=== PATIENT | female | born 1940 | race Caucasian/White ===

== ENCOUNTER 2019-02-17 13:51 | Inpatient (IN) | payer MEDICARE, OTHER, SELFPAY ==
[2019-02-17 13:52] VITALS: BP 157/99; PULSE 65; RESP 14; TEMP 37.4; O2SAT 97; BMI 20.1
--- NOTE | 2019-02-17 14:12 | ED.VIS.GEN ---
History of Present Illness Chief Complaint: Lower Extremity Injury Detail of Chief Complaint: Left hip pain Informant: Patient Onset: Today Current Severity: Mild Maximum Severity: Moderate Narrative: Patient presents with left hip pain after a fall. She was out on a walk. She heard a car coming and turned to look at it, lost her balance, and fell onto her left hip. She was able to get up and walk across the street where she called family to come pick her up. When they tried to get her in the car she had significant pain when trying to lift her leg. She denies any other injury. Past Medical History - Allergies and Home Meds Allergies/Adverse Reactions: Allergies No Known Allergies Allergy (Verified 01/06/17 11:58) Primary Care Physician: Tierney Samayoa MD [Primary Care Provider] - Prior records reviewed: Yes Past Medical History: - - Reviewed Surgical History: coronary bypass surgery, hysterectomy, - - tubal ligation. Smoking Status: Never smoker - Family History Maternal Family History: Reports: No pertinent history Paternal Family History: Reports: No pertinent history Review of Systems General: Denies: Chills, Fever Eyes: Denies: Visual changes - bilaterally ENT: Denies: Bilateral ear pain Cardiovascular: Denies: Chest pain Respiratory: Denies: Dyspnea, Cough Gastrointestinal: Denies: Abdominal pain, Nausea, Vomiting, Diarrhea Musculoskeletal: Reports: Extremity Pain. Denies: Back pain Skin: Reports: Abrasions. Denies: Rash Neurological: Denies: Headache, Weakness, Parasthesia Endocrine: Denies: Polyuria, Polydipsia Hematologic: Denies: Easy bruising, Easy bleeding Allergy: Denies: Uticaria Physical Exam Vital Signs/Narrative: Vital Signs Temp Pulse Resp BP Pulse Ox 02/17/19 13:52 99.3 F H 65 14 157/99 H 97 Inital Vital Signs reviewed: Yes General: Well nourished, Well developed Head: Normocephalic ENT: Moist mucous membranes Neck: Supple, Nontender, - - No C-spine tenderness. Cardiovascular: Regular rate, Regular rhythm Respiratory: No distress, CTA bilaterally Abdomen: Soft, Nontender Extremities: - - Mild tenderness palpation over the greater trochanter of the left hip. Equal leg lengths are noted. No tenderness with logroll of the left leg. Skin: - - Linear abrasions over the anterior left knee without bony tenderness. Neurological: Alert, Oriented x3 Psychological: Normal affect Diagnostic/Tx/Re-eval Impressions Hip/Pelvis X-Ray 02/17/19 14:15 IMPRESSION: Questionable cortical irregularity of the left inferior pubic ramus near the pubic tubercle. Electronically Signed: Shaq Bueno, at 14:52 EDT Tel [phone], Service support , Pelvis CT 02/17/19 15:02 IMPRESSION: Fracture of the left pubic rami near the pubic tubercle. Electronically Signed: Shaq DO Myles at 16:02 EDT Tel [phone], Service support , 02/17/19 14:15 HIP, UNI W/ Pelvis 2-3 Views [RAD] Stat 02/17/19 15:02 CT Pel [Pelvis without IV Contrast] [CT] Stat Laboratory Results 02/17/19 14:20 Urine Color Yellow Urine Clarity Clear Urine pH 7.0 Ur Specific [place] 1.015 Urine Protein 15 H Urine Glucose (UA) 50 H Urine Ketones Negative Urine Occult Blood 150 H Urine Nitrite Negative Urine Bilirubin Negative Urine Urobilinogen Normal Ur Leukocyte Esterase Negative Urine RBC 5-10 SEEN Urine WBC 0 SEEN Ur Squamous Epith Cells 0-5 SEEN Urine Bacteria 0 SEEN Urine Mucus 0 SEEN - Medical Decision Making Patient was given 1 tab of Nazlini in the emergency room. She has significant pain when weightbearing, but is comfortable when sitting at rest. After discussion with family they would prefer she stay overnight for observation and look at a rehab placement to help her with her strength and balance. I spoke with the hospitalist. ED Disposition - Plan for ED Patient: Disposition: Acute Care Hospital [facility] Diagnosis: Fall, Pubic ramus fracture Referrals: Tierney Samayoa MD [Primary Care Provider] -
--- NOTE | 2019-02-17 14:15 | RAD_ITS ---
STUDY: X-RAY - PELVIS AND LEFT HIP REASON FOR EXAM: Female, 78 years old. Fall TECHNIQUE: 3 views of the pelvis and hip. COMPARISON: November 22, 2015. FINDINGS: There is a non-specific bowel gas pattern. Diffuse colonic fecal retention. Normal visualized soft tissue structures. Surgical fusion through the sacroiliac joints. Degenerative lumbar changes. Questionable cortical irregularity of the left inferior pubic ramus near the pubic tubercle. Normal pubic symphysis. Normal bilateral ischial tuberosities. Normal visualized femoral head. Normal acetabulum. Normal hip joint. RAD/HIP, UNI W/ Pelvis 2-3 Views IMPRESSION: Questionable cortical irregularity of the left inferior pubic ramus near the pubic tubercle. Electronically Signed: Shaq Bueno DO at 14:52 EDT Tel [phone], Service support ,
[2019-02-17 14:25] LABS: Bacteria 0 SEEN /hpf (None Seen); Mucous, Urine 0 SEEN /hpf (<or=2+); White Blood Cells 0 SEEN /hpf (0-5)
[2019-02-17 14:26] LABS: Color, Urine Yellow (Yellow); Glucose, Dipstick 50 mg/dl (Normal); Ketone-Dipstick Negative (Negative); Leukocyte Esterase-Dipstick Negative /ul (Negative); Nitrite-Dipstick Negative (Negative); Occult Blood-Urine 150 /ul (Negative); Protein-Dipstick 15 mg/dl (Negative); Specific Gravity, Urine 1.015 (1.002-1.030); Urine Bilirubin Dipstick Negative (Negative); Urine Clarity Clear (Clear); Urine Urobilinogen Normal (Normal)
[2019-02-17 14:34] LABS: Red Blood Cells-Urine 5-10 SEEN /hpf (0-5); Squamous Epithelial Cells - UA 0-5 SEEN /hpf (5-10)
--- NOTE | 2019-02-17 15:02 | CT_ITS ---
STUDY: CT PELVIS WITHOUT CONTRAST REASON FOR EXAM: Female, 78 years old. Fall RADIATION DOSAGE (If Supplied By Facility): CTDIvol = ( 13.77 ) mGy, DLP = ( 402.34 ) mGycm TECHNIQUE: Transaxial imaging of the pelvis was performed with oral contrast, and without intravenous administration of contrast material. Individualized dose optimization techniques were used for this CT. COMPARISON: None. FINDINGS: Normal urinary bladder. Normal visualized small intestine. Normal visualized colon. There is no pelvic fluid. There is no pelvic mass lesion or lymphadenopathy. Calcified visualized pelvic arteries. Normal abdominal wall. Surgical fusion with 2 screws noted through the sacroiliac joints bilaterally. Fracture of the left pubic rami near the pubic tubercle. CT/Pelvis without IV Contrast IMPRESSION: Fracture of the left pubic rami near the pubic tubercle. Electronically Signed: Shaq Bueno DO at 16:02 EDT Tel [phone], Service support ,
[2019-02-17] MEDS: HYDROcodone Bitartrate/Apap 5/325 Tablet PO (16:09)
[2019-02-17 16:11] VITALS: BP 181/88; PULSE 62; RESP 16; O2SAT 98
--- NOTE | 2019-02-17 16:40 | PCM.HP.STD ---
Problem List (1) Fall Status: Acute (2) Pubic ramus fracture Status: Acute (3) sacral ala fractures Status: Resolved (4) Asthma Status: Chronic (5) Status post coronary artery bypass graft Status: Chronic (6) HLD (hyperlipidemia) Status: Chronic (7) Type II diabetes mellitus Status: Chronic (8) CAD (coronary artery disease) Status: Chronic (9) Benign essential hypertension Status: Chronic History of Present Illness Date of Admission: 02/17/19 Chief Complaint: Left hip/groin pain. The patient is a 78 year old F who presents the emergency room due to left hip and groin pain following fall. Patient states she was going on her daily walk when she thought she heard a car behind her and when she turned to look, she lost her balance and fell on her left side. She denies hitting her head. She denies any abrasions or other injury. Patient as well as family at bedside state that patient has had several falls over the past few years. She reports she fell in November and fractured her ribs. She reports using a cane at home which she had with her today during her walk. She denies dizziness, lightheadedness or syncope. She complains of urinary urgency. Denies dysuria or other urinary symptoms. Denies fever, chills. Denies other recent illness or associated symptoms. She recently received oral pain medication for left hip pain and is currently comfortable. She has a past medical history of CAD status post CABG, hypertension, hyperlipidemia, type 2 diabetes mellitus, asthma. Past Medical History Past Medical History (Chronic Problems): Chronic Problems Asthma (Chronic) Status post coronary artery bypass graft (Chronic) HLD (hyperlipidemia) (Chronic) Type II diabetes mellitus (Chronic) CAD (coronary artery disease) (Chronic) Benign essential hypertension (Chronic) Allergies No Known Allergies Allergy (Verified 01/06/17 11:58) Home Medications: Ambulatory Orders Medication Instructions Recorded Aspirin 325 mg PO DAILY 11/15/15 Budesonide/Formoterol 80-4.5 2 puff INHALATION DAILY 11/15/15 [Symbicort 80-4.5 Mcg Inhaler] Lisinopril [Zestril] 20 mg PO BID 11/15/15 Metoprolol Tartrate [Lopressor 50 mg PO BID 11/15/15 (Beta Shea)] Pravastatin [Pravachol] 60 mg PO DAILY 11/15/15 metFORMIN HCl [Glucophage] 1,000 mg PO BREAKFAST 11/15/15 Centrum Silver Women Tablet 1 tab PO DAILY 11/20/15 Metformin HCl 500 mg PO BID 11/20/15 [place]-3/Dha/Epa/Fish Oil [[place] 3 1 each PO DAILY 11/20/15 500 Softgel] Surgical History: coronary bypass surgery, hysterectomy, - - tubal ligation, back surgery. 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 Denies: Dysuria, Frequency, Incontinence Musculoskeletal: Denies: Joint Pain, Joint Tenderness Skin: Denies: Rash, Wounds Neurological: Reports: Balance problems. Denies: Slurred speech, Focal weakness, Numbness, Tingling Psychiatric: Denies: Anxiety, Depression, Homicidal Ideations, Suicidal Ideations Hematologic/ Lymphatic: Denies: Easy Bruising, Easy Bleeding VTE Information - Inpt Only VTE Present on Admission: No VTE Mechan Device Prophylaxis: None VTE Pharm Prophylaxis ordered?: Yes Patient Problems: Active and Suspected Problems Fall (Acute) Pubic ramus fracture (Acute) - Physical Exam General: Alert, Oriented x3, Cooperative HEENT: Atraumatic, PERRLA, EOMI, Normocephalic Neck: Supple, No JVD, Negative Carotid Bruits Lungs: Clear to auscultation, Normal air movement Cardiovascular: Regular rate, Regular Rhythm, Normal S1, Normal S2, No murmurs Abdomen: Bowel Sounds Present, Soft, Non Tender, Non-Distended Extremities: No clubbing, No cyanosis, No edema, Capillary Refill Less than 3 Seconds Skin: No rashes, No breakdown Musculoskeletal: Tenderness - Left hip area Neurological: Cranial nerves II-XII grossly intact, Neuro grossly intact Psych/Mental Status: Normal Affect, Appropriate Vital Signs Temp Pulse Resp BP Pulse Ox 99.3 F H 62 16 181/88 H 98 02/17/19 13:52 02/17/19 16:11 02/17/19 16:11 02/17/19 16:11 02/17/19 16:11 Oxygen Delivery Method Room Air Weight: 110 lb Body Mass Index (BMI) 20.1 Laboratory Tests Past 24 Hrs 02/17/19 14:20 Urine Color Yellow Urine Clarity Clear Urine pH 7.0 Ur Specific [place] 1.015 Urine Protein 15 H Urine Glucose (UA) 50 H Urine Ketones Negative Urine Occult Blood 150 H Urine Nitrite Negative Urine Bilirubin Negative Urine Urobilinogen Normal Ur Leukocyte Esterase Negative Urine RBC 5-10 SEEN Urine WBC 0 SEEN Ur Squamous Epith Cells 0-5 SEEN Urine Bacteria 0 SEEN Urine Mucus 0 SEEN Assessment/Plan All Active Problems Fall (Acute) Pubic ramus fracture (Acute) sacral ala fractures (Resolved) 1. Acute left pubic ramus fracture secondary to traumatic fall at home, history of recurrent falls-CT of pelvis shows fracture of the left pubic rami near the pubic tubercle. PT/OT. PRN pain regimen. Case management consult for discharge planning. Fall precautions. UA unremarkable. Check CBC, BMP. 2. CAD status post CABG-continue aspirin, statin, metoprolol. 3. Hypertension-continue lisinopril, metoprolol regimen. As needed hydralazine for systolic blood pressure greater than 160. 4. Hyperlipidemia-continue statin regimen. 5. Type 2 diabetes mellitus-hold oral regimen. Accu-Cheks before meals at bedtime with sliding scale insulin. 6. Asthma-no acute exacerbation. As needed albuterol aerosol. DVT prophylaxis-SCDs, lovenox This patient was seen by NICK Chirinos under the supervision of Dr. Luque.
[2019-02-17 16:51] LABS: Absolute Lymphocyte Count 1.46 X10^3/uL (0.83-4.51); Absolute Neutrophil Count 8.3 X10^3/uL (2.0-7.7); Basophil# 0.03 X10^3/uL; Basophil% 0.3 % (0-1); Eosinophil# 0.07 X10^3/uL; Eosinophils% 0.7 % (0-5); Hematocrit 40.3 % (37-47); Hemoglobin 13.6 g/dL (12.0-15.0); Lymphocyte # 1.46 X10^3/ul (4.0); Lymphocyte % 13.9 % (19-41); Mean Corp Hgb Conc 33.7 g/dL (32-36); Mean Corpuscular Hgb 32.9 pg (27.0-32.0); Mean Corpuscular Volume 97.6 fL (81-99); Mean Platelet Vol. 9.7 fl (6.2-12.0); Monocyte% 5.7 % (0-10); NRBC Flagged by Analyzer 0 % (0-5); Neutrophil % 78.8 % (47-70); Platelet Count 223 K/mm3 (150-450); RBC Distribution Width CV 11.9 % (11.6-14.6); RBC Distribution Width SD 42.8 fl (35.1-43.9); Red Blood Count 4.13 M/mm3 (4.2-5.4); White Blood Count 10.5 K/mm3 (4.4-11.0)
[2019-02-17 17:03] LABS: Anion Gap 9 (5-15); BUN 20 mg/dL (7-18); Calcium,Total 9.8 mg/dL (8.5-10.1); Chloride 98 mmol/L (98-107); Creatinine, Serum 0.69 mg/dL (0.55-1.02); EST Glomerular Filtration Rate 87 mL/min (>60); Est Glom Filt Rate - Afr Amer 106 mL/min (>60); Estimated Creatinine Clearance 35.93 ml/min; Glucose 112 mg/dL (74-106); Magnesium 1.8 mg/dL (1.6-2.6); Potassium 3.8 mmol/L (3.5-5.1); Sodium Level 137 mmol/L (136-145)
[2019-02-17 17:31] VITALS: BMI 21.1
[2019-02-17 18:15] VITALS: BP 160/68; PULSE 62; RESP 16; TEMP 36.8; O2SAT 96
[2019-02-17] MEDS: 0.9% Normal Saline 1,000 ML 100 ML IV (18:20)
[2019-02-17] MEDS: Ipratropium/Albuterol Sulfate 3 ML AMPUL.NEB INHALATION (19:40)
[2019-02-17 19:43] VITALS: PULSE 65; RESP 16
[2019-02-17 22:44] VITALS: BP 138/59; PULSE 64; RESP 16; TEMP 36.8; O2SAT 96
[2019-02-17 22:46] VITALS: PULSE 67
[2019-02-17] MEDS: Metoprolol Tartrate 50 MG Tablet PO (22:46)
[2019-02-17] MEDS: Lisinopril 20 MG Tablet PO (22:46)
[2019-02-17] MEDS: Pravastatin 20 MG Tablet 60 MG PO (22:46)
[2019-02-17 22:56] LABS: Bedside Glucose 199 mg/dL (70-110)
[2019-02-17] MEDS: Insulin Lispro 100 UNIT/ML INSULN.PEN SC (23:01)
[2019-02-18] VITALS (9 sets, daily range): BP systolic 116–166; BP diastolic 57–80; PULSE 58–72; RESP 16–18; TEMP 36.3–36.9; O2SAT 96–100
[2019-02-18 00:10] LABS: Bedside Glucose 114 mg/dL (70-110)
[2019-02-18] MEDS: HYDROcodone Bitartrate/Apap 5/325 Tablet PO (02:53)
[2019-02-18 05:20] LABS: Absolute Lymphocyte Count 1.25 X10^3/uL (0.83-4.51); Absolute Neutrophil Count 5.6 X10^3/uL (2.0-7.7); Basophil# 0.02 X10^3/uL; Basophil% 0.3 % (0-1); Eosinophil# 0.09 X10^3/uL; Eosinophils% 1.2 % (0-5); Hemoglobin 11.4 g/dL (12.0-15.0); Lymphocyte # 1.25 X10^3/ul (4.0); Lymphocyte % 16.2 % (19-41); Mean Corp Hgb Conc 33.5 g/dL (32-36); Mean Corpuscular Hgb 32.5 pg (27.0-32.0); Mean Corpuscular Volume 96.9 fL (81-99); Mean Platelet Vol. 9.9 fl (6.2-12.0); Monocyte# 0.69 X10^3/uL; NRBC Flagged by Analyzer 0 % (0-5); Neutrophil # 5.63 X10^3/uL (2.7-7.7); Platelet Count 198 K/mm3 (150-450); RBC Distribution Width SD 42.4 fl (35.1-43.9); Red Blood Count 3.51 M/mm3 (4.2-5.4); White Blood Count 7.7 K/mm3 (4.4-11.0)
[2019-02-18 05:41] LABS: Anion Gap 7 (5-15); BUN 14 mg/dL (7-18); BUN/Creat Ratio 29.7 RATIO (10-20); Calcium,Total 8.2 mg/dL (8.5-10.1); Chloride 101 mmol/L (98-107); Creatinine, Serum 0.47 mg/dL (0.55-1.02); EST Glomerular Filtration Rate 135 mL/min (>60); Est Glom Filt Rate - Afr Amer 164 mL/min (>60); Estimated Creatinine Clearance 36.08 ml/min; Glucose 165 mg/dL (74-106); Potassium 3.8 mmol/L (3.5-5.1); Sodium Level 135 mmol/L (136-145)
[2019-02-18] MEDS: Insulin Lispro 100 UNIT/ML INSULN.PEN SC ×4 (06:33→21:27)
[2019-02-18 06:40] LABS: Bedside Glucose 168 mg/dL (70-110)
[2019-02-18] MEDS: Ipratropium/Albuterol Sulfate 3 ML AMPUL.NEB INHALATION ×3 (06:52→19:10)
[2019-02-18] MEDS: Aspirin 325 MG Tablet PO (08:18)
[2019-02-18] MEDS: Lisinopril 20 MG Tablet PO ×2 (08:18→21:26)
[2019-02-18] MEDS: Enoxaparin 30 MG/0.3 ML Syringe SC (08:19)
[2019-02-18] MEDS: Metoprolol Tartrate 50 MG Tablet PO ×2 (08:19→21:27)
[2019-02-18] MEDS: Psyllium 1 PACKET PO (08:20)
[2019-02-18] MEDS: Acetaminophen 325 MG Tablet 650 MG PO ×3 (08:30→21:27)
[2019-02-18 11:20] LABS: Bedside Glucose 245 mg/dL (70-110)
--- NOTE | 2019-02-18 11:30 | CASEMGMT ---
BECKY SCHMITZ Face to Face with patient for initial transition planning/care coordination assessment. BECKY SCHMITZ introduced self and role at [facility]. Patient lying in bed, alert and oriented, daughter at bedside. Patient willing to participate in assessment and is able to answer all questions appropriately. Care providers, pharmacy, and demographics verified. Patient wishes to discharge to inpatient rehab unit for additional therapy. Patient states she has no further needs or concerns at this time. JULIANA Delgado updated regarding request for inpatient rehab unit. PCP: Danita Specialists: Hina, funeral director/embalmer/owner; Orville, mobile heavy equipment operator; Neurology at [facility] Preferred Pharmacy: [facility] Insurance: [email or web address] Prescription Benefit: yes Living Will/HPOA: yes son Ben Link HPOA LNOK: son, 2 daughters Living Arrangements: Patient lives with son and DIL in attached in-law suite. Son and DIL work during the day, patient only 8-10 hours during the day. Patient states she was independent at home prior to fall and hospitalization. Transportation: daughter DME/HHC: patient has cane and walker at home. Patient has been to inpatient rehab at [place] [facility] in the past. Patient has also had HHC but unable to recall company. Disposition Plan: Inpatient rehab pending acceptance. Nallely MAE, RN, CM
--- NOTE | 2019-02-18 11:55 | CASEMGMT ---
Addendum entered by Nallely Delgado 02/18/19 14:32: JULIANA received call from Sophia with TCU stating TCU is able to accept pt . SW asked Sophia to keep pt on [facility] list in the event a bed on RU opens up before . Sophia states she will do so. JULIANA in to speak with pt and Nohemy. SW updated pt and Nohemy that it appears physician will keep pt until but again this worker can't guarantee pt will get qualifying stay. SW updated pt and Nohemy that TCU will have a bed for pt . SW informed pt and Nohemy that this worker kept pt on RU list in the event that a bed opens on RU before . Pt and Nohemy state understanding. Plan: TCU Nallely Delgado MAMMAL CONTROL AGENT, RADIATOR SPECIALIST Original Note: Social Work Note SW received referral for [facility]. SW placed a call to Referral Line and per Sophia RU won't have a bed until Monday. JULIANA in to speak with pt and pt's daughter Nohemy present in room. JULIANA introduced self and role at [facility]. JULIANA updated pt and Nohemy that RU doesn't have any beds available at this time. SW provided Nohemy with list of SNF. JULIANA explained Medicare guidelines and that pt would need to be at [facility] for three midnight stay to qualify for SNF but that the physician has the final say when pt is medically cleared for discharge. JULIANA explained that if pt doesn't get three midnight stay under Medicare then it would be private pay for SNF. Nohemy asked about TCU. JULIANA explained that this worker will have to call TCU and see if they have a bed available but again states it would depend on if physician is keeping pt until . Nohemy asked that this worker ask physician about keeping pt until and also make referral to TCU. Nohemy states that if physician doesn't keep pt, private pay for SNF wouldn't be an option and pt would go home with [facility]. Nohemy states she just has concerns that pt will get up at night and have another fall. JULIANA placed a call to referral line and left message regarding referral. JULIANA spoke with King GUSMAN and updated her on RU and SNF. King Aquino agreeable to changing pt to inpatient today and asked about putting pt on RU list in the event RU is able to accept pt before SNF on . SW waiting for call back regarding TCU. Plan: RU vs SNF vs Home with HHC Nallely Delgado MSW, RADIATOR SPECIALIST
--- NOTE | 2019-02-18 11:58 | PN_ITS ---
<Neris Aquino - Last Filed: 02/18/19 12:02> Patient Problems: Active and Suspected Problems Fall (Acute) Pubic ramus fracture (Acute) Subjective: Patient seen and examined. Reports pain is well controlled on oral pain regimen. Reports she feels unsteady on her feet. - Physical Exam General: Alert, Oriented x3, Cooperative HEENT: Atraumatic, PERRLA, EOMI, Normocephalic Neck: Supple, No JVD, Negative Carotid Bruits Lungs: Clear to auscultation, Normal air movement Cardiovascular: Regular rate, Regular Rhythm, Normal S1, Normal S2, No murmurs Abdomen: Bowel Sounds Present, Soft, Non Tender, Non-Distended Extremities: No clubbing, No cyanosis, No edema, Capillary Refill Less than 3 Seconds Skin: No rashes, No breakdown Musculoskeletal: Tenderness - Left hip Neurological: Cranial nerves II-XII grossly intact, Neuro grossly intact Psych/Mental Status: Normal Affect, Appropriate Vital Signs Temp Pulse Resp BP Pulse Ox 98.2 F 71 18 166/76 H 100 02/18/19 08:15 02/18/19 08:19 02/18/19 08:15 02/18/19 08:15 02/18/19 08:15 Oxygen Delivery Method Room Air Weight: 115 lb 8.356 oz Body Mass Index (BMI) 21.1 Intake and Output for Last 24 Hours 02/16/19 02/17/19 02/18/19 23:59 23:59 23:59 Intake Total 100 / 100 1011.67 / 1011.67 Output Total 300 / 300 1100 / 1100 Balance -200 / -200 -88.33 / -88.33 Laboratory Tests Past 24 Hrs 02/17/19 02/17/19 02/17/19 14:20 16:45 16:45 WBC 10.5 RBC 4.13 L Hgb 13.6 Hct 40.3 MCV 97.6 MCH 32.9 H MCHC 33.7 RDW Std Deviation 42.8 RDW Coeff of José Miguel 11.9 Plt Count 223 MPV 9.7 Immature Gran % (Auto) 0.600 Neut % (Auto) 78.8 H Lymph % (Auto) 13.9 L [place] % (Auto) 5.7 Eos % (Auto) 0.7 Baso % (Auto) 0.3 Absolute Neuts (auto) 8.3 H Absolute Lymphs (auto) 1.46 Nucleated RBC % 0 Sodium 137 Potassium 3.8 Chloride 98 Carbon Dioxide 30.0 Anion Gap 9 BUN 20 H Creatinine 0.69 Estim Creat Clear Calc 35.93 Est GFR (MDRD) Af Amer 106 Est GFR (MDRD) Non-Af 87 BUN/Creatinine Ratio 29.0 H Glucose 112 H Calcium 9.8 Magnesium 1.8 Urine Color Yellow Urine Clarity Clear Urine pH 7.0 Ur Specific [place] 1.015 Urine Protein 15 H Urine Glucose (UA) 50 H Urine Ketones Negative Urine Occult Blood 150 H Urine Nitrite Negative Urine Bilirubin Negative Urine Urobilinogen Normal Ur Leukocyte Esterase Negative Urine RBC 5-10 SEEN Urine WBC 0 SEEN Ur Squamous Epith Cells 0-5 SEEN Urine Bacteria 0 SEEN Urine Mucus 0 SEEN 02/18/19 02/18/19 04:40 04:40 WBC 7.7 RBC 3.51 L Hgb 11.4 L Hct 34.0 L MCV 96.9 MCH 32.5 H MCHC 33.5 RDW Std Deviation 42.4 RDW Coeff of José Miguel 12.0 Plt Count 198 MPV 9.9 Immature Gran % (Auto) 0.300 Neut % (Auto) 73.0 H Lymph % (Auto) 16.2 L [place] % (Auto) 9.0 Eos % (Auto) 1.2 Baso % (Auto) 0.3 Absolute Neuts (auto) 5.6 Absolute Lymphs (auto) 1.25 Nucleated RBC % 0 Sodium 135 L Potassium 3.8 Chloride 101 Carbon Dioxide 27.0 Anion Gap 7 BUN 14 Creatinine 0.47 L Estim Creat Clear Calc 36.08 Est GFR (MDRD) Af Amer 164 Est GFR (MDRD) Non-Af 135 BUN/Creatinine Ratio 29.7 H Glucose 165 H Calcium 8.2 L Magnesium Urine Color Urine Clarity Urine pH Ur Specific [place] Urine Protein Urine Glucose (UA) Urine Ketones Urine Occult Blood Urine Nitrite Urine Bilirubin Urine Urobilinogen Ur Leukocyte Esterase Urine RBC Urine WBC Ur Squamous Epith Cells Urine Bacteria Urine Mucus POC Glucose 02/18/19 02/18/19 02/17/19 11:08 06:31 22:50 POC Glucose 245 H 168 H 199 H 02/17/19 18:10 POC Glucose 114 H Medical Necessity - Tobacco Use Smoking Status: Never smoker Assessment/Plan All Active Problems Fall (Acute) Pubic ramus fracture (Acute) sacral ala fractures (Resolved) 1. Acute left pubic ramus fracture secondary to traumatic fall at home, history of recurrent falls-CT of pelvis shows fracture of the left pubic rami near the pubic tubercle. PT/OT. PRN pain regimen. Case management consult for discharge planning. Fall precautions. UA unremarkable. Patient and family requesting SNF given patient is by herself for 10 hours a day. No rehab beds available at this time. SNF pending pre-cert unless rehab bed becomes available. 2. CAD status post CABG-continue aspirin, statin, metoprolol. 3. Hypertension-continue lisinopril, metoprolol regimen. As needed hydralazine for systolic blood pressure greater than 160. 4. Hyperlipidemia-continue statin regimen. 5. Type 2 diabetes mellitus-hold oral regimen. Accu-Cheks before meals at bedtime with sliding scale insulin. 6. Asthma-no acute exacerbation. As needed albuterol aerosol. DVT prophylaxis-SCDs, lovenox This patient was seen by NICK Chirinos under the supervision of Dr. Jose. <Santos Jose F - Last Filed: 02/18/19 15:50> - Physical Exam Vital Signs Temp Pulse Resp BP Pulse Ox 98.5 F 66 18 116/57 L 98 02/18/19 14:50 02/18/19 14:50 02/18/19 14:50 02/18/19 14:50 02/18/19 14:50 Oxygen Delivery Method Room Air Weight: 115 lb 8.356 oz Body Mass Index (BMI) 21.1 Intake and Output for Last 24 Hours 02/16/19 02/17/19 02/18/19 23:59 23:59 23:59 Intake Total 100 / 100 1411.67 / 1411.67 Output Total 300 / 300 1650 / 1650 Balance -200 / -200 -238.33 / -238.33 Laboratory Tests Past 24 Hrs 02/17/19 02/17/19 02/18/19 16:45 16:45 04:40 WBC 10.5 7.7 RBC 4.13 L 3.51 L Hgb 13.6 11.4 L Hct 40.3 34.0 L MCV 97.6 96.9 MCH 32.9 H 32.5 H MCHC 33.7 33.5 RDW Std Deviation 42.8 42.4 RDW Coeff of José Miguel 11.9 12.0 Plt Count 223 198 MPV 9.7 9.9 Immature Gran % (Auto) 0.600 0.300 Neut % (Auto) 78.8 H 73.0 H Lymph % (Auto) 13.9 L 16.2 L [place] % (Auto) 5.7 9.0 Eos % (Auto) 0.7 1.2 Baso % (Auto) 0.3 0.3 Absolute Neuts (auto) 8.3 H 5.6 Absolute Lymphs (auto) 1.46 1.25 Nucleated RBC % 0 0 Sodium 137 Potassium 3.8 Chloride 98 Carbon Dioxide 30.0 Anion Gap 9 BUN 20 H Creatinine 0.69 Estim Creat Clear Calc 35.93 Est GFR (MDRD) Af Amer 106 Est GFR (MDRD) Non-Af 87 BUN/Creatinine Ratio 29.0 H Glucose 112 H Calcium 9.8 Magnesium 1.8 02/18/19 04:40 WBC RBC Hgb Hct MCV MCH MCHC RDW Std Deviation RDW Coeff of José Miguel Plt Count MPV Immature Gran % (Auto) Neut % (Auto) Lymph % (Auto) [place] % (Auto) Eos % (Auto) Baso % (Auto) Absolute Neuts (auto) Absolute Lymphs (auto) Nucleated RBC % Sodium 135 L Potassium 3.8 Chloride 101 Carbon Dioxide 27.0 Anion Gap 7 BUN 14 Creatinine 0.47 L Estim Creat Clear Calc 36.08 Est GFR (MDRD) Af Amer 164 Est GFR (MDRD) Non-Af 135 BUN/Creatinine Ratio 29.7 H Glucose 165 H Calcium 8.2 L Magnesium POC Glucose 02/18/19 02/18/19 02/17/19 11:08 06:31 22:50 POC Glucose 245 H 168 H 199 H 02/17/19 18:10 POC Glucose 114 H Code Visit Addendum: Dr. Jose I personally examined the patient and reviewed the chart. I agree with the above. 78-year-old female is had a couple of falls recently at home, presents after a fall. She had leg pain on the left and was found to have a nondisplaced pubic rami fracture. She does have some tenderness on the outside aspect of her hip, but this is likely secondary to bruising. Even though she lives attached to 1 of her son's homes, they would prefer if she went to a residential facility for rehab prior to discharge home. She can likely be discharged to the transitional care unit on . Inpatient E&M: [id number] Subs Hosp L2
[2019-02-18] MEDS: Pravastatin 20 MG Tablet 60 MG PO (21:27)
[2019-02-18 22:56] LABS: Bedside Glucose 204 mg/dL (70-110)
[2019-02-19] VITALS (10 sets, daily range): BP systolic 99–160; BP diastolic 47–84; PULSE 60–85; RESP 16–18; TEMP 36.6–37; O2SAT 96–99
[2019-02-19 00:16] LABS: Bedside Glucose 190 mg/dL (70-110)
[2019-02-19] MEDS: Acetaminophen 325 MG Tablet 650 MG PO (06:43)
[2019-02-19] MEDS: Insulin Lispro 100 UNIT/ML INSULN.PEN SC ×4 (06:44→23:04)
[2019-02-19] MEDS: Ipratropium/Albuterol Sulfate 3 ML AMPUL.NEB INHALATION ×3 (07:34→19:27)
[2019-02-19 07:40] LABS: Bedside Glucose 163 mg/dL (70-110)
[2019-02-19] MEDS: Aspirin 325 MG Tablet PO (08:15)
[2019-02-19] MEDS: Metoprolol Tartrate 50 MG Tablet PO ×2 (11:10→22:55)
[2019-02-19] MEDS: Enoxaparin 30 MG/0.3 ML Syringe SC (11:11)
[2019-02-19] MEDS: Lisinopril 20 MG Tablet PO ×2 (11:11→22:56)
[2019-02-19] MEDS: Psyllium 1 PACKET PO (11:12)
[2019-02-19] MEDS: HYDROcodone Bitartrate/Apap 5/325 Tablet PO ×2 (11:22→18:06)
--- NOTE | 2019-02-19 11:26 | CASEMGMT ---
Social Work Note Physician states that pt would really benefit from [facility] at discharge. JULIANA explained that [facility] is stating they won't have a bed until Monday. Physician states he would be willing to keep pt until Monday for RU if a bed is confirmed for RU. JULIANA placed a call to Sophia with [facility]. Sophia states she can't confirm if there will be a bed on RU Monday or not. Sophia states she will keep pt on TCU list for . JULIANA asked Sophia to call this worker if a bed is confirmed on RU. Sophia states she will do so. Plan: TCU or if a bed becomes available Nallely Delgado VEST FRONT PRESSER, CERTIFIED HAND THERAPIST
[2019-02-19 11:50] LABS: Bedside Glucose 346 mg/dL (70-110)
--- NOTE | 2019-02-19 11:56 | PCM.PROGNOTE ---
<Neris Aquino - Last Filed: 02/19/19 11:58> Patient Problems: Active and Suspected Problems Fall (Acute) Pubic ramus fracture (Acute) Subjective: Patient seen and examined. Continues to have some left hip pain which is worse with ambulation and patient reports unsteady gait. Awaiting pre-cert to SNF. - Physical Exam General: Alert, Oriented x3, Cooperative HEENT: Atraumatic, PERRLA, EOMI, Normocephalic Neck: Supple, No JVD, Negative Carotid Bruits Lungs: Clear to auscultation, Normal air movement Cardiovascular: Regular rate, Regular Rhythm, Normal S1, Normal S2, No murmurs Abdomen: Bowel Sounds Present, Soft, Non Tender, Non-Distended Extremities: No clubbing, No cyanosis, No edema, Capillary Refill Less than 3 Seconds Skin: No rashes, No breakdown Musculoskeletal: Tenderness - Left hip area Neurological: Cranial nerves II-XII grossly intact, Neuro grossly intact Psych/Mental Status: Normal Affect, Appropriate Vital Signs Temp Pulse Resp BP Pulse Ox 98.6 F 70 16 150/52 H 99 02/19/19 11:13 02/19/19 11:13 02/19/19 11:13 02/19/19 11:13 02/19/19 11:13 Oxygen Delivery Method Room Air Weight: 115 lb 8.356 oz Body Mass Index (BMI) 21.1 Intake and Output for Last 24 Hours 02/17/19 02/18/19 02/19/19 23:59 23:59 23:59 Intake Total 100 / 100 1761.67 / 1961.67 300 / 300 Output Total 300 / 300 2200 / 2600 1100 / 1100 Balance -200 / -200 -438.33 / -638.33 -800 / -800 POC Glucose 02/19/19 02/19/19 02/18/19 11:37 06:40 21:25 POC Glucose 346 H 163 H 204 H 02/18/19 17:02 POC Glucose 190 H Medical Necessity - Tobacco Use Smoking Status: Never smoker Assessment/Plan All Active Problems Fall (Acute) Pubic ramus fracture (Acute) sacral ala fractures (Resolved) 1. Acute left pubic ramus fracture secondary to traumatic fall at home, history of recurrent falls-CT of pelvis shows fracture of the left pubic rami near the pubic tubercle. PT/OT. PRN pain regimen. Case management consult for discharge planning. Fall precautions. UA unremarkable. TCU pending pre-cert. No rehab beds available at this time. SNF pending pre-cert unless rehab bed becomes available. 2. CAD status post CABG-continue aspirin, statin, metoprolol. 3. Hypertension-continue lisinopril, metoprolol regimen. As needed hydralazine for systolic blood pressure greater than 160. 4. Hyperlipidemia-continue statin regimen. 5. Type 2 diabetes mellitus-hold oral regimen. Accu-Cheks before meals at bedtime with sliding scale insulin. 6. Asthma-no acute exacerbation. As needed albuterol aerosol. DVT prophylaxis-SCDs, lovenox This patient was seen by NICK Chirinos under the supervision of Dr. Jose. <Santos Jose F - Last Filed: 02/19/19 17:22> - Physical Exam Vital Signs Temp Pulse Resp BP Pulse Ox 98.4 F 61 16 133/47 H 98 02/19/19 16:26 02/19/19 16:26 02/19/19 16:26 02/19/19 16:26 02/19/19 16:26 Oxygen Delivery Method Room Air Weight: 115 lb 8.356 oz Body Mass Index (BMI) 21.1 Intake and Output for Last 24 Hours 02/17/19 02/18/19 02/19/19 23:59 23:59 23:59 Intake Total 100 / 100 1761.67 / 1961.67 750 / 750 Output Total 300 / 300 2200 / 2600 1850 / 1850 Balance -200 / -200 -438.33 / -638.33 -1100 / -1100 POC Glucose 02/19/19 02/19/19 02/19/19 16:08 11:37 06:40 POC Glucose 183 H 346 H 163 H 02/18/19 02/18/19 21:25 17:02 POC Glucose 204 H 190 H Code Visit Addendum: Dr. Jose I personally examined the patient and reviewed the chart. I agree with the above. 38-year-old female who has had a couple of falls recently at home, presents after a fall. She had leg pain on the left and was found to have a nondisplaced pubic rami fracture. She does have some tenderness on the outside aspect of her hip that this is felt to be secondary to bruising. She would like to go to a penitentiary facility or rehab at discharge. We will plan for discharge on either or Monday depending on availability and facility. Inpatient E&M: 89237 Subs Hosp L2
[2019-02-19 16:36] LABS: Bedside Glucose 183 mg/dL (70-110)
[2019-02-19] MEDS: Pravastatin 20 MG Tablet 60 MG PO (22:55)
[2019-02-19] MEDS: 0.9% NaCl Peripheral Flush Adult/Peds IV (22:57)
[2019-02-19 23:56] LABS: Bedside Glucose 192 mg/dL (70-110)
[2019-02-20] VITALS (10 sets, daily range): BP systolic 129–162; BP diastolic 59–68; PULSE 59–91; RESP 16–20; TEMP 36.4–36.9; O2SAT 96–100
[2019-02-20] MEDS: Acetaminophen 325 MG Tablet 650 MG PO (01:05)
[2019-02-20] MEDS: HYDROcodone Bitartrate/Apap 5/325 Tablet PO (02:31)
[2019-02-20] MEDS: Ipratropium/Albuterol Sulfate 3 ML AMPUL.NEB INHALATION ×2 (07:00→12:59)
[2019-02-20] MEDS: Insulin Lispro 100 UNIT/ML INSULN.PEN SC ×4 (07:00→21:47)
[2019-02-20 07:46] LABS: Bedside Glucose 174 mg/dL (70-110)
[2019-02-20] MEDS: Aspirin 325 MG Tablet PO (10:33)
[2019-02-20] MEDS: Psyllium 1 PACKET PO (10:33)
[2019-02-20] MEDS: Lisinopril 20 MG Tablet PO ×2 (10:33→21:44)
[2019-02-20] MEDS: Enoxaparin 30 MG/0.3 ML Syringe SC (10:34)
[2019-02-20] MEDS: Metoprolol Tartrate 50 MG Tablet PO ×2 (10:34→21:44)
--- NOTE | 2019-02-20 10:38 | PN_ITS ---
Patient Problems: Active and Suspected Problems Fall (Acute) Pubic ramus fracture (Acute) Subjective: Feeling well, no issues overnight Vitals/I&O's: Vital Signs Temp Pulse Resp BP Pulse Ox 98.1 F 82 18 129/59 H 97 02/20/19 10:31 02/20/19 10:34 02/20/19 10:31 02/20/19 10:31 02/20/19 10:31 Oxygen Delivery Method Room Air Weight: 115 lb 8.356 oz Body Mass Index (BMI) 21.1 Intake and Output for Last 24 Hours 02/18/19 02/19/19 02/20/19 23:59 23:59 23:59 Intake Total 1761.67 / 1961.67 1100 / 1540 660 / 660 Output Total 2200 / 2600 2650 / 3425 1500 / 1500 Balance -438.33 / -638.33 -1550 / -1885 -840 / -840 General: Alert, Oriented x3, Cooperative, No apparent distress HEENT: Atraumatic, PERRLA, EOMI, Normocephalic Oral: Moist Mucosa Neck: Supple, No JVD Lungs: Clear to auscultation, Normal air movement, No rhonchi, No wheeze, No rales, Diminished Cardiovascular: Regular rate, Regular Rhythm, Normal S1, Normal S2, No murmurs Abdomen: Soft, Non Tender, Non-Distended, No Hepato-splenomegaly Extremities: No edema, Capillary Refill Less than 3 Seconds Skin: No rashes, No breakdown Musculoskeletal: Tenderness - Pubic rami on the left as well as on her left external hip Neurological: Neuro grossly intact, Sensory exam intact to light touch and pain Psych/Mental Status: Normal Affect, Appropriate Laboratory Results 02/19/19 11:37: POC Glucose 346 H 02/19/19 16:08: POC Glucose 183 H 02/19/19 23:03: POC Glucose 192 H 02/20/19 06:58: POC Glucose 174 H Current Medications Acetaminophen (Tylenol) 650 mg PO Q6H PRN PRN PRN Reason: Non-cardiac pain (mod-severe) Last Admin: 02/20/19 01:05 Dose: 650 mg Documented by: Hydrocodone Bitart/Acetaminophen ([place] 5mg-325mg) 1 - 2 tablet PO Q6H PRN PRN PRN Reason: Pain Score 4-10/10 Last Admin: 02/20/19 02:31 Dose: 1 tablet Documented by: Al Hydroxide/Mg Hydroxide (Mylanta Ii) 15 - 30 ml PO Q4H PRN PRN PRN Reason: INDIGESTION Albuterol Sulfate (Ventolin Aerosols) 2.5 mg INHALATION Q2H PRN PRN PRN Reason: dyspnea, wheezing Albuterol/Ipratropium (Duoneb) 3 ml INHALATION Q6HWA.RT [facility] Last Admin: 02/20/19 07:00 Dose: 3 ml Documented by: Aspirin (Aspirin) 325 mg PO DAILY@0800 [facility] Last Admin: 02/20/19 10:33 Dose: 325 mg Documented by: Dextrose (D50w Syringe) 0 gm IV X1 PRN; Protocol PRN Reason: Hypoglycemia Enoxaparin Sodium (Lovenox) 30 mg SC DAILY@1000 [facility] Last Admin: 02/20/19 10:34 Dose: 30 mg Documented by: Glucagon () 1 mg IM .X1 PRN PRN Reason: Hypoglycemia Hydralazine HCl (Apresoline Iv) 10 mg IV Q4H PRN PRN PRN Reason: SBP > 160 Insulin Human Lispro (Humalog Kwikpen (Bkc)) 0 unit SC ACHS [facility]; Protocol Last Admin: 02/20/19 07:00 Dose: 1 units Documented by: Lisinopril (Zestril) 20 mg PO BID [facility] Last Admin: 02/20/19 10:33 Dose: 20 mg Documented by: Magnesium Hydroxide (Milk Of Magnesia) 30 ml PO DAILY PRN PRN Reason: Constipation Melatonin (Melatonin) 3 mg PO QHS PRN PRN PRN Reason: INSOMNIA Metoprolol Tartrate (Lopressor (Beta Shea)) 50 mg PO BID [facility] Last Admin: 02/20/19 10:34 Dose: 50 mg Documented by: Morphine Sulfate () 1 - 2 mg IV Q4H PRN PRN PRN Reason: Pain Score 1-10/10 Nitroglycerin (Nitrostat) 0.4 mg SUBLINGUAL Q5M PRN PRN Reason: CARDIAC/CHEST PAIN Ondansetron HCl (Zofran) 4 mg IV Q8H PRN PRN PRN Reason: NAUSEA/VOMITING Pravastatin Sodium (Pravachol) 60 mg PO DAILY@2200 [facility] Last Admin: 02/19/19 22:55 Dose: 60 mg Documented by: Psyllium Hydrophilic Mucilloid (Metamucil) 1 packet PO DAILY [facility] Last Admin: 02/20/19 10:33 Dose: 1 packet Documented by: Senna/Docusate Sodium (Senokot-S, [place]-Colace) 2 tablet PO BID PRN PRN PRN Reason: Constipation Sodium Chloride () 5 - 15 ml IV UD PRN PRN Reason: SALINE FLUSH Last Admin: 02/19/19 22:57 Dose: 10 ml Documented by: STROKE Vital Signs/Narrative: Vital Signs Temp Pulse Resp BP Pulse Ox 02/20/19 10:34 82 02/20/19 10:31 98.1 F 82 18 129/59 H 97 02/20/19 07:28 97 02/20/19 07:00 66 20 H Medical Necessity - Tobacco Use Smoking Status: Never smoker Assessment/Plan All Active Problems Fall (Acute) Pubic ramus fracture (Acute) sacral ala fractures (Resolved) 1. Acute nondisplaced left pubic rami fracture secondary to a fall at home with a history of recurrent falls -Improving with therapy, however family does not feel that she is safe to go home therefore we are awaiting a bed in either transitional care unit or the rehab unit -Continue with PT/OT 2. CAD status post CABG/HTN/HLD -Stable blood pressure has been controlled -Continue with aspirin, statin, metoprolol, lisinopril 3. DM 2 -We will hold her oral regimen -Continue with sliding scale insulin Accu-Cheks AC at bedtime 4. Asthma -Acute exacerbation at this time -He with PRN albuterol DVT: Lovenox Code Visit Inpatient E&M: 06717 Subs Hosp L2
--- NOTE | 2019-02-20 11:47 | CASEMGMT ---
Social Work Note No beds are available on [facility] at this time. Pt does have a bed on TCU for . Plan: TCU Nallely Delgado MSW, [employer]IC
[2019-02-20 16:36] LABS: Bedside Glucose 177 mg/dL (70-110)
[2019-02-20] MEDS: Pravastatin 20 MG Tablet 60 MG PO (21:44)
[2019-02-20 21:51] LABS: Bedside Glucose 199 mg/dL (70-110)
[2019-02-21] VITALS (8 sets, daily range): BP systolic 132–165; BP diastolic 65–74; PULSE 70–89; RESP 16–20; TEMP 36.3–36.9; O2SAT 96–100
[2019-02-21 00:10] LABS: Bedside Glucose 247 mg/dL (70-110)
[2019-02-21] MEDS: 0.9% NaCl Peripheral Flush Adult/Peds IV (02:30)
[2019-02-21] MEDS: hydrALAZINE 20 MG/ML Vial 10 MG IV (02:32)
[2019-02-21] MEDS: HYDROcodone Bitartrate/Apap 5/325 Tablet PO ×2 (03:25→10:38)
[2019-02-21] MEDS: Insulin Lispro 100 UNIT/ML INSULN.PEN SC ×2 (06:42→11:38)
[2019-02-21 07:00] LABS: Bedside Glucose 190 mg/dL (70-110)
[2019-02-21] MEDS: Ipratropium/Albuterol Sulfate 3 ML AMPUL.NEB INHALATION ×2 (07:08→13:06)
--- NOTE | 2019-02-21 09:46 | PCM.TXEXTCAR ---
- Diet 02/17/19 17:30 Diet: Calorie Controlled Food consistency:: Regular Liquid Consistency:: Regular/Thin How many daily calories?: 1800 calorie - Routine Orders/Code Status Code Status: DNRCC-A - Therapies Physical Therapy: Eval and Treat Occupational Therapy: Eval and Treat - Allergies/Procedures Done in Hospital Allergies/Adverse Reactions: Allergies No Known Allergies Allergy (Verified 01/06/17 11:58) - Type of Care/Length of Stay Estimated LOS: Convalescent Care Less Than 30 days Type of Care Needed: Skilled Rehab Potential: Good Prognosis: Good - Additional Orders/Day of Discharge Day of Discharge: 02/21/19 - Dietary and Speech Recommendations Dietitian Recommendations/Changes: Recommend a diet change to 1600 calorie controlled, cardiac diet. - Follow Up Care Primary Care Physician: Tierney Samayoa MD [Primary Care Provider] - Please follow up with your Primary Care Physician in: 3-5 days
[2019-02-21] MEDS: Aspirin 325 MG Tablet PO (10:38)
[2019-02-21] MEDS: Metoprolol Tartrate 50 MG Tablet PO (10:39)
[2019-02-21] MEDS: Lisinopril 20 MG Tablet PO (10:39)
[2019-02-21] MEDS: Enoxaparin 30 MG/0.3 ML Syringe SC (10:40)
[2019-02-21] MEDS: Psyllium 1 PACKET PO (10:40)
[2019-02-21] MEDS: Magnesium Hydroxide 30 ML UDC PO (10:42)
[2019-02-21 11:35] LABS: Bedside Glucose 322 mg/dL (70-110)
--- NOTE | 2019-02-21 11:44 | CASEMGMT ---
Social Work Note Pt is discharging to TCU today. SW placed a call to Sophia with TCU and updated her that pt will be discharged today. Plan: TCU today Nallely Delgado BOWLING OR SKATING FRONT DESK CLERK, [employer]
--- NOTE | 2019-02-21 12:03 | CASEMGMT ---
SW let pt know that LW/POA forms are not on chart. Pt will ask daughter about bringing them in. RIZWAN Whitfield
--- NOTE | 2019-02-21 12:17 | NURSING ---
NURSE TO NURSE REPORT GIVEN TO [facility] EXT [id number]
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
== END 2019-02-21 14:30 | disposition skilled nursing facility (03) | DRG 536 ==
LOC: ED 16:27 → MS3 16:55
PROVIDERS: Admitting Provider Family Medicine; Emergency Provider Emergency Medicine; Family Provider Internal Medicine; PCP Internal Medicine; Visit Provider Family Medicine
DX: S32.592A Other specified fracture of left pubis, initial encounter for closed fracture (principal); I25.10 Atherosclerotic heart disease of native coronary artery without angina pectoris; W18.30XA Fall on same level, unspecified, initial encounter; Y93.01 Activity, walking, marching and hiking; I10 Essential (primary) hypertension; E78.5 Hyperlipidemia, unspecified; J45.909 Unspecified asthma, uncomplicated; F03.90 Unspecified dementia, unspecified severity, without behavioral disturbance, psychotic disturbance, mood disturbance, and anxiety; E11.9 Type 2 diabetes mellitus without complications; Z66 Do not resuscitate; Z79.82 Long term (current) use of aspirin; Z79.84 Long term (current) use of oral hypoglycemic drugs; Z91.81 History of falling; Z95.1 Presence of aortocoronary bypass graft
CPT/HCPCS: 36415; 72192; 73502; 80048; 81001; 82962; 83735; 85025; 94640; 97116; 97162; 97166; 97530; 97535; 99284; J7030; A4216

== ENCOUNTER 2019-02-21 14:52 | Inpatient (IN) | payer MEDICARE, OTHER, SELFPAY ==
[2019-02-21 14:42] VITALS: BMI 20.1
[2019-02-21 14:59] VITALS: BP 146/64; PULSE 71; RESP 20; TEMP 36.9; O2SAT 96
[2019-02-21 15:14] VITALS: BP 149/62; PULSE 73; RESP 18; TEMP 36.7; O2SAT 96
[2019-02-21 15:26] VITALS: BMI 20.5
[2019-02-21 15:27] VITALS: BMI 20.5
[2019-02-21 16:00] VITALS: BP 149/62; PULSE 70; RESP 18; TEMP 36.7; O2SAT 96
[2019-02-21 17:43] VITALS: BP 149/62; PULSE 70
[2019-02-21] MEDS: Lisinopril 20 MG Tablet PO (17:43)
[2019-02-21] MEDS: metFORMIN HCl 500 MG Tablet PO (17:43)
[2019-02-21] MEDS: Fluticasone/Salmeterol 232-14 Inhaler 1 PUFF IH (17:43)
[2019-02-21] MEDS: Metoprolol Tartrate 50 MG Tablet PO (17:43)
[2019-02-21] MEDS: Pravastatin 20 MG Tablet 60 MG PO (19:59)
[2019-02-21 21:15] LABS: Bedside Glucose 191 mg/dL (70-110)
--- NOTE | 2019-02-21 21:35 | NURSING ---
Patient came to this unit today from med surg 3. Patient oriented to room and call light.
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
[2019-02-22] MEDS: Lisinopril 20 MG Tablet PO ×2 (05:31→17:28)
[2019-02-22 05:32] VITALS: BP 179/78; PULSE 77
[2019-02-22] MEDS: Metoprolol Tartrate 50 MG Tablet PO ×2 (05:32→17:30)
[2019-02-22] MEDS: Polyethylene Glycol 3350 17 GM PACKET PO (05:32)
[2019-02-22] MEDS: Enoxaparin 40 MG/0.4 ML Syringe SC (05:32)
[2019-02-22] MEDS: Senna/Docusate Sodium 1 Tablet 2 TABLET PO ×2 (05:32→17:29)
[2019-02-22 05:33] LABS: Absolute Lymphocyte Count 1.47 X10^3/uL (0.83-4.51); Absolute Neutrophil Count 3.1 X10^3/uL (2.0-7.7); Basophil# 0.03 X10^3/uL; Basophil% 0.6 % (0-1); Eosinophil# 0.22 X10^3/uL; Eosinophils% 4.1 % (0-5); Hematocrit 37.3 % (37-47); Hemoglobin 11.8 g/dL (12.0-15.0); Lymphocyte # 1.47 X10^3/ul (4.0); Lymphocyte % 27.4 % (19-41); Mean Corp Hgb Conc 31.6 g/dL (32-36); Mean Corpuscular Hgb 32.1 pg (27.0-32.0); Mean Corpuscular Volume 101.4 fL (81-99); Mean Platelet Vol. 9.2 fl (6.2-12.0); Monocyte# 0.57 X10^3/uL; Monocyte% 10.6 % (0-10); NRBC Flagged by Analyzer 0 % (0-5); Neutrophil # 3.06 X10^3/uL (2.7-7.7); Neutrophil % 56.9 % (47-70); Platelet Count 216 K/mm3 (150-450); RBC Distribution Width CV 12.3 % (11.6-14.6); RBC Distribution Width SD 46.3 fl (35.1-43.9); Red Blood Count 3.68 M/mm3 (4.2-5.4); White Blood Count 5.4 K/mm3 (4.4-11.0)
[2019-02-22] MEDS: Omega-3 Acid Ethyl Esters 1 GM Capsule PO (05:33)
[2019-02-22] MEDS: Fluticasone/Salmeterol 232-14 Inhaler 1 PUFF IH ×2 (05:33→17:30)
[2019-02-22 05:49] LABS: Anion Gap 5 (5-15); BUN 16 mg/dL (7-18); BUN/Creat Ratio 24.1 RATIO (10-20); Chloride 105 mmol/L (98-107); Creatinine, Serum 0.66 mg/dL (0.55-1.02); EST Glomerular Filtration Rate 91 mL/min (>60); Est Glom Filt Rate - Afr Amer 110 mL/min (>60); Estimated Creatinine Clearance 36.08 ml/min; Glucose 189 mg/dL (74-106); Potassium 4.8 mmol/L (3.5-5.1); Sodium Level 139 mmol/L (136-145)
[2019-02-22] MEDS: Aspirin 81 MG TAB.CHEW PO (08:39)
[2019-02-22] MEDS: metFORMIN HCl 1,000 MG Tablet 1000 MG PO (08:39)
[2019-02-22] MEDS: traMADol 50 MG Tablet PO ×2 (10:06→20:32)
[2019-02-22] MEDS: Acetaminophen 500 MG Tablet 1000 MG PO ×2 (11:07→17:35)
[2019-02-22] MEDS: Tuberculin,Purif.prot.deriv. 50 TU/ML Vial 5 ML ID (11:15)
[2019-02-22] MEDS: Multivitamins,Ther W-Minerals Tablet 1 TABLET PO (11:22)
[2019-02-22] MEDS: metFORMIN HCl 500 MG Tablet PO ×2 (11:22→17:31)
--- NOTE | 2019-02-22 15:23 | PCM.PN.RX ---
<Kendra Bai - Last Filed: 02/22/19 15:23> Progress Note - Pharmacy Subjective: TCU Admission Objective: Allergies No Known Allergies Allergy (Verified 01/06/17 11:58) Current Medications Generic Name Dose Route Start Last Admin Trade Name Freq PRN Reason Stop Dose Admin Acetaminophen 1,000 mg 02/21/19 22:55 02/22/19 11:07 Tylenol PO 1,000 mg Q6H PRN PRN Administration Pain Score 1-3/10 Aspirin 81 mg 02/22/19 08:00 02/22/19 08:39 Aspirin, Baby PO 81 mg DAILY@0800 [facility] Administration Bisacodyl 10 mg 02/21/19 22:56 Dulcolax PO DAILY PRN Constipation Enoxaparin Sodium 40 mg 02/22/19 06:00 02/22/19 05:32 Lovenox SC 40 mg DAILY@0600 [facility] Administration Lisinopril 20 mg 02/21/19 18:00 02/22/19 05:31 Zestril PO 20 mg BID [facility] Administration Metformin HCl 1,000 mg 02/22/19 08:00 02/22/19 08:39 Glucophage PO 1,000 mg BREAKFAST GURDEEP Administration Metformin HCl 500 mg 02/21/19 17:00 02/22/19 11:22 Glucophage PO 500 mg BIDCM@1200,1700 [facility] Administration Metoprolol Tartrate 50 mg 02/21/19 18:00 02/22/19 05:32 Lopressor (Beta Shea) PO 50 mg BID GURDEEP Administration Multivitamins/Minerals 1 tablet 02/22/19 12:45 02/22/19 11:22 Multivitamin With Minerals PO 1 tablet DAILY@1245 [facility] Administration Nutritional Formula (Lactose Free) 120 ml 02/22/19 17:00 Glucerna Shake PO 4X/DAY [facility] Fksup-7-Guzl Ethyl Esters 1 gm 02/22/19 06:00 02/22/19 05:33 Lovaza PO 1 gm DAILY GURDE[facility] Administration Oxycodone HCl 2.5 mg 02/21/19 22:56 Oxyir PO Q4H PRN PRN Pain Score 6-10/10 Polyethylene Glycol 17 gm 02/22/19 06:00 02/22/19 05:32 Miralax PO 17 gm DAILY GUR[facility] Administration Pravastatin Sodium 60 mg 02/21/19 22:00 02/21/19 19:59 Pravachol PO 60 mg QHS GURDEEP Administration Fluticasone/Salmeterol 1 puff 02/21/19 18:00 02/22/19 05:33 Fluticasone-Salmeterol 232-14 IH 1 puff Q12 [facility] Administration Senna/Docusate Sodium 2 tablet 02/22/19 06:00 02/22/19 05:32 Senokot-S, [place]-Colace PO 2 tablet BID [facility] Administration Tramadol HCl 50 mg 02/21/19 22:55 02/22/19 10:06 Ultram PO 50 mg Q6H PRN PRN Administration Pain Score 4-5/10 Tuberculin PPD 5 tu 03/01/19 10:00 Tubersol, Aplisol, Ppd ID 03/01/19 10:01 X1 ONE Problem List Debility (Acute) Hypertension (Chronic) Asthma (Chronic) Status post coronary artery bypass graft (Chronic) Vital Signs Temp Pulse Resp BP Pulse Ox 98.1 F 77 18 179/78 H 96 02/21/19 16:00 02/22/19 05:32 02/21/19 16:00 02/22/19 05:32 02/21/19 16:00 Oxygen Delivery Method Room Air Weight: 50.8 kg Body Mass Index (BMI) 20.5 Sodium 139 mmol/L (136-145) 02/22/19 05:20 Potassium 4.8 mmol/L (3.5-5.1) 02/22/19 05:20 Chloride 105 mmol/L (98-107) 02/22/19 05:20 Carbon Dioxide 29.0 mmol/L (21.0-32.0) 02/22/19 05:20 Anion Gap 5 (5-15) 02/22/19 05:20 BUN 16 mg/dL (7-18) 02/22/19 05:20 Creatinine 0.66 mg/dL (0.55-1.02) 02/22/19 05:20 Est GFR (MDRD) Af Amer 110 mL/min (>60) 02/22/19 05:20 Est GFR (MDRD) Non-Af 91 mL/min (>60) 02/22/19 05:20 BUN/Creatinine Ratio 24.1 RATIO (10-20) H 10/18/19 05:20 Glucose 189 mg/dL (74-106) H 02/22/19 05:20 Assessment/Plan: 1. Pain: acetaminophen 1000mg PO Q6H PRN pain (1-310), tramadol 50mg PO Q6H PRN pain (4-5/10), oxycodone 2.5mg PO Q4H PRN pain (6-1010). Please continue to monitor for pain. If taking oxycodone, please monitor for constipation and respiratory depression. 2. Coronary artery disease: metoprolol tartrate 50mg PO BID, lisinopril 20mg PO BID, aspirin 81mg PO daily. Please continue to monitor BP, HR, renal function and S/S of bleeding. 3. DVT prophylaxis: enoxaparin 40 mg SC daily. Please continue to monitor S/S of bleeding, renal function and platelets. 4. Type II diabetes mellitus: metformin 1000mg PO QAM and 500mg PO at lunch and dinner. Please continue to monitor renal function and glucose readings. *5. Hyperlipidemia: pravastatin 60mg PO QHS and lovaza 1gm PO daily. Last lipid panel from 2013. Please consider ordering a lipid panel now and then annually as clinically appropriate. 6. Asthma: fluticasone/salmeterol 232/14mg 1 inhalation Q12H. Please continue to monitor for SOB and wheezing. 7. Overall health: multivitamin with minerals 1T PO daily. Please continue to monitor. Psychotropic Medications: None Unnecessary Medications: None Bowel Regimen: Miralax 17gm PO daily, senna/docusate 2T PO BID, bisacodyl 10mg PO daily PRN constipation. Please continue to monitor for constipation and for PRN usage. Date of Note:: 02/22/19 - Provider Comments Provider responsibility: Provider responsible to enter orders to implement recommendations <Marty Jacobo Chi - Last Filed: 02/22/19 21:00> Progress Note - Pharmacy Subjective: [] Objective: Allergies No Known Allergies Allergy (Verified 01/06/17 11:58) Current Medications Generic Name Dose Route Start Last Admin Trade Name Freq PRN Reason Stop Dose Admin Acetaminophen 1,000 mg 02/21/19 22:55 02/22/19 17:35 Tylenol PO 1,000 mg Q6H PRN PRN Administration Pain Score 1-3/10 Aspirin 81 mg 02/22/19 08:00 02/22/19 08:39 Aspirin, Baby PO 81 mg DAILY@0800 [facility] Administration Bisacodyl 10 mg 02/21/19 22:56 Dulcolax PO DAILY PRN Constipation Enoxaparin Sodium 40 mg 02/22/19 06:00 02/22/19 05:32 Lovenox SC 40 mg DAILY@0600 [facility] Administration Lisinopril 20 mg 02/21/19 18:00 02/22/19 17:28 Zestril PO 20 mg BID [facility] Administration Metformin HCl 1,000 mg 02/22/19 08:00 02/22/19 08:39 Glucophage PO 1,000 mg BREAKFAST [facility] Administration Metformin HCl 500 mg 02/21/19 17:00 02/22/19 17:31 Glucophage PO 500 mg BIDCM@1200,1700 [facility] Administration Metoprolol Tartrate 50 mg 02/21/19 18:00 02/22/19 17:30 Lopressor (Beta Shea) PO 50 mg BID [facility]UR[facility]EP Administration Multivitamins/Minerals 1 tablet 02/22/19 12:45 02/22/19 11:22 Multivitamin With Minerals PO 1 tablet DAILY@1245 [facility] Administration Nutritional Formula (Lactose Free) 120 ml 02/22/19 17:00 02/22/19 20:25 Glucerna Shake PO 120 ml 4X/DAY [facility] Administration Xjewp-4-Cijx Ethyl Esters 1 gm 02/22/19 06:00 02/22/19 05:33 Lovaza PO 1 gm DAILY [facility] Administration Oxycodone HCl 2.5 mg 02/21/19 22:56 Oxyir PO Q4H PRN PRN Pain Score 6-10/10 Polyethylene Glycol 17 gm 02/22/19 06:00 02/22/19 05:32 Miralax PO 17 gm DAILY [facility] Administration Pravastatin Sodium 60 mg 02/21/19 22:00 02/22/19 20:26 Pravachol PO 60 mg QHS [facility] Administration Fluticasone/Salmeterol 1 puff 02/21/19 18:00 02/22/19 17:30 Fluticasone-Salmeterol 232-14 IH 1 puff Q12 [facility] Administration Senna/Docusate Sodium 2 tablet 02/22/19 06:00 02/22/19 17:29 Senokot-S, [place]-Colace PO 2 tablet BID [facility] Administration Tramadol HCl 50 mg 02/21/19 22:55 02/22/19 20:32 Ultram PO 50 mg Q6H PRN PRN Administration Pain Score 4-5/10 Tuberculin PPD 5 tu 03/01/19 10:00 Tubersol, Aplisol, Ppd ID 03/01/19 10:01 X1 ONE Problem List Debility (Acute) Hypertension (Chronic) Asthma (Chronic) Status post coronary artery bypass graft (Chronic) Vital Signs Temp Pulse Resp BP Pulse Ox 98.1 F 74 18 135/76 H 97 02/22/19 15:55 02/22/19 17:30 02/22/19 15:55 02/22/19 15:55 02/22/19 15:55 Oxygen Delivery Method Room Air Weight: 50.8 kg Body Mass Index (BMI) 20.5 Sodium 139 mmol/L (136-145) 02/22/19 05:20 Potassium 4.8 mmol/L (3.5-5.1) 02/22/19 05:20 Chloride 105 mmol/L (98-107) 02/22/19 05:20 Carbon Dioxide 29.0 mmol/L (21.0-32.0) 02/22/19 05:20 Anion Gap 5 (5-15) 02/22/19 05:20 BUN 16 mg/dL (7-18) 02/22/19 05:20 Creatinine 0.66 mg/dL (0.55-1.02) 02/22/19 05:20 Est GFR (MDRD) Af Amer 110 mL/min (>60) 02/22/19 05:20 Est GFR (MDRD) Non-Af 91 mL/min (>60) 02/22/19 05:20 BUN/Creatinine Ratio 24.1 RATIO (10-20) H 02/22/19 05:20 Glucose 189 mg/dL (74-106) H 02/22/19 05:20 Assessment/Plan: Psychotropic Medications: Unnecessary Medications: Bowel Regimen: - Provider Comments Provider responsibility: Provider responsible to enter orders to implement recommendations Provider Comments to Recommendations by Pharmacy: Agree
[2019-02-22 15:55] VITALS: BP 135/76; PULSE 74; RESP 18; TEMP 36.7; O2SAT 97
--- NOTE | 2019-02-22 16:31 | CHAPLAIN ---
Type of Pastoral Visit _x__ Initial Visit ___ Follow-up Visit ___ On-call Visit ___ General Patient Visit ___ Spiritual Assessment ___ Family Conference ___ Bereavement ___ Rapid Response ___ Code Blue ___ Other (describe below) Pastoral Care Referral From _x__ Patient ___ Family ___ Nurse ___ Physician ___ Head Tennis Professional ___ Material Handler Loader ___ Other (describe below) Sacrament/Intervention _x__ Active listening ___ Anointing ___ Islam ___ Bereavement ___ Communion ___ Hillary exploration ___ _x__ Life review _x__ Prayer ___ Reconciliation ___ Sacrament of Sick _x__ Supportive presence ___ Wedding ___ Other (describe below) Pastoral Comments
[2019-02-22 17:30] VITALS: PULSE 74
[2019-02-22 17:31] LABS: Bedside Glucose 143 mg/dL (70-110)
[2019-02-22] MEDS: Glucerna Shake 120 ML LIQUID PO ×2 (17:35→20:25)
[2019-02-22] MEDS: Pravastatin 20 MG Tablet 60 MG PO (20:26)
[2019-02-22 21:00] LABS: Bedside Glucose 219 mg/dL (70-110)
[2019-02-23] MEDS: Polyethylene Glycol 3350 17 GM PACKET PO (05:00)
[2019-02-23 05:01] VITALS: BP 162/74; PULSE 82
[2019-02-23] MEDS: Metoprolol Tartrate 50 MG Tablet PO ×2 (05:01→17:59)
[2019-02-23] MEDS: Glucerna Shake 120 ML LIQUID PO ×4 (05:04→19:46)
[2019-02-23] MEDS: Fluticasone/Salmeterol 232-14 Inhaler 1 PUFF IH ×2 (05:05→18:02)
[2019-02-23] MEDS: Senna/Docusate Sodium 1 Tablet 2 TABLET PO ×2 (05:05→17:59)
[2019-02-23] MEDS: Omega-3 Acid Ethyl Esters 1 GM Capsule PO (05:05)
[2019-02-23] MEDS: Lisinopril 20 MG Tablet PO ×2 (05:05→18:00)
[2019-02-23] MEDS: Enoxaparin 40 MG/0.4 ML Syringe SC (05:05)
[2019-02-23 06:50] LABS: Bedside Glucose 168 mg/dL (70-110)
[2019-02-23] MEDS: traMADol 50 MG Tablet PO ×2 (07:48→22:54)
[2019-02-23] MEDS: metFORMIN HCl 1,000 MG Tablet 1000 MG PO (07:48)
[2019-02-23] MEDS: Aspirin 81 MG TAB.CHEW PO (07:48)
[2019-02-23 10:00] VITALS: RESP 18
[2019-02-23 11:06] LABS: Bedside Glucose 250 mg/dL (70-110)
[2019-02-23] MEDS: Acetaminophen 500 MG Tablet 1000 MG PO (11:59)
[2019-02-23] MEDS: Multivitamins,Ther W-Minerals Tablet 1 TABLET PO (12:00)
[2019-02-23] MEDS: metFORMIN HCl 500 MG Tablet PO ×2 (12:00→17:58)
[2019-02-23 16:00] VITALS: BP 134/73; PULSE 72; RESP 20; TEMP 36.8; O2SAT 97
[2019-02-23 16:56] LABS: Bedside Glucose 148 mg/dL (70-110)
[2019-02-23 17:59] VITALS: BP 134/73; PULSE 73
[2019-02-23] MEDS: Pravastatin 20 MG Tablet 60 MG PO (19:46)
[2019-02-23 21:16] LABS: Bedside Glucose 209 mg/dL (70-110)
[2019-02-24] MEDS: Fluticasone/Salmeterol 232-14 Inhaler 1 PUFF IH ×2 (04:46→17:44)
[2019-02-24 04:47] VITALS: BP 156/64; PULSE 75
[2019-02-24] MEDS: Lisinopril 20 MG Tablet PO ×2 (04:47→17:44)
[2019-02-24] MEDS: Enoxaparin 40 MG/0.4 ML Syringe SC (04:47)
[2019-02-24] MEDS: Metoprolol Tartrate 50 MG Tablet PO ×2 (04:47→17:45)
[2019-02-24] MEDS: Glucerna Shake 120 ML LIQUID PO ×4 (04:47→20:10)
[2019-02-24] MEDS: Senna/Docusate Sodium 1 Tablet 2 TABLET PO (04:47)
[2019-02-24] MEDS: Omega-3 Acid Ethyl Esters 1 GM Capsule PO (04:47)
[2019-02-24] MEDS: Acetaminophen 500 MG Tablet 1000 MG PO (04:51)
[2019-02-24 04:56] VITALS: O2SAT 97
[2019-02-24 06:21] LABS: Bedside Glucose 197 mg/dL (70-110)
[2019-02-24] MEDS: metFORMIN HCl 1,000 MG Tablet 1000 MG PO (08:19)
[2019-02-24] MEDS: Aspirin 81 MG TAB.CHEW PO (08:19)
[2019-02-24] MEDS: Multivitamins,Ther W-Minerals Tablet 1 TABLET PO (11:32)
[2019-02-24] MEDS: metFORMIN HCl 500 MG Tablet PO ×2 (11:33→17:44)
[2019-02-24 11:36] LABS: Bedside Glucose 190 mg/dL (70-110)
[2019-02-24 15:35] VITALS: BP 144/67; PULSE 81; RESP 16; TEMP 36.8; O2SAT 98
[2019-02-24 16:55] LABS: Bedside Glucose 129 mg/dL (70-110)
[2019-02-24 17:45] VITALS: BP 144/67; PULSE 92
[2019-02-24] MEDS: traMADol 50 MG Tablet PO (20:10)
[2019-02-24] MEDS: Pravastatin 20 MG Tablet 60 MG PO (20:10)
[2019-02-24 21:41] LABS: Bedside Glucose 216 mg/dL (70-110)
[2019-02-25 04:39] VITALS: BP 140/80; PULSE 71
[2019-02-25] MEDS: Lisinopril 20 MG Tablet PO ×2 (04:39→17:00)
[2019-02-25] MEDS: Omega-3 Acid Ethyl Esters 1 GM Capsule PO (04:39)
[2019-02-25] MEDS: Senna/Docusate Sodium 1 Tablet 2 TABLET PO ×2 (04:39→17:01)
[2019-02-25] MEDS: Acetaminophen 500 MG Tablet 1000 MG PO (04:39)
[2019-02-25] MEDS: Metoprolol Tartrate 50 MG Tablet PO ×2 (04:39→17:01)
[2019-02-25] MEDS: Enoxaparin 40 MG/0.4 ML Syringe SC (04:39)
[2019-02-25] MEDS: Glucerna Shake 120 ML LIQUID PO ×4 (04:40→21:10)
[2019-02-25] MEDS: Fluticasone/Salmeterol 232-14 Inhaler 1 PUFF IH ×2 (04:42→16:59)
[2019-02-25 06:26] LABS: Bedside Glucose 198 mg/dL (70-110)
[2019-02-25] MEDS: Aspirin 81 MG TAB.CHEW PO (08:02)
[2019-02-25] MEDS: metFORMIN HCl 1,000 MG Tablet 1000 MG PO (08:02)
[2019-02-25 11:36] LABS: Bedside Glucose 183 mg/dL (70-110)
[2019-02-25] MEDS: Multivitamins,Ther W-Minerals Tablet 1 TABLET PO (11:58)
[2019-02-25] MEDS: metFORMIN HCl 500 MG Tablet PO ×2 (13:52→17:00)
[2019-02-25] MEDS: traMADol 50 MG Tablet PO ×2 (14:55→21:08)
[2019-02-25 15:38] VITALS: BP 150/67; PULSE 85; RESP 17; TEMP 36.9; O2SAT 98
[2019-02-25 17:00] LABS: Bedside Glucose 229 mg/dL (70-110)
[2019-02-25 17:01] VITALS: BP 150/67; PULSE 85
[2019-02-25] MEDS: Pravastatin 20 MG Tablet 60 MG PO (21:09)
[2019-02-25 21:21] LABS: Bedside Glucose 212 mg/dL (70-110)
[2019-02-26 05:15] VITALS: BP 151/72; PULSE 72
[2019-02-26] MEDS: Metoprolol Tartrate 50 MG Tablet PO ×2 (05:15→16:57)
[2019-02-26] MEDS: Enoxaparin 40 MG/0.4 ML Syringe SC (05:16)
[2019-02-26] MEDS: Glucerna Shake 120 ML LIQUID PO ×4 (05:16→20:27)
[2019-02-26] MEDS: Omega-3 Acid Ethyl Esters 1 GM Capsule PO (05:16)
[2019-02-26] MEDS: Fluticasone/Salmeterol 232-14 Inhaler 1 PUFF IH ×2 (05:17→16:56)
[2019-02-26] MEDS: Lisinopril 20 MG Tablet PO ×2 (05:17→16:59)
[2019-02-26] MEDS: Senna/Docusate Sodium 1 Tablet 2 TABLET PO ×2 (05:17→16:58)
[2019-02-26 06:31] LABS: Bedside Glucose 190 mg/dL (70-110)
[2019-02-26] MEDS: metFORMIN HCl 1,000 MG Tablet 1000 MG PO (07:17)
[2019-02-26] MEDS: Aspirin 81 MG TAB.CHEW PO (07:17)
[2019-02-26] MEDS: traMADol 50 MG Tablet PO (09:34)
[2019-02-26 11:11] LABS: Bedside Glucose 206 mg/dL (70-110)
[2019-02-26] MEDS: Multivitamins,Ther W-Minerals Tablet 1 TABLET PO (11:14)
[2019-02-26] MEDS: metFORMIN HCl 500 MG Tablet PO ×2 (11:14→16:56)
[2019-02-26] MEDS: Acetaminophen 500 MG Tablet 1000 MG PO (13:21)
--- NOTE | 2019-02-26 15:59 | CASEMGMT ---
Social Work Daughter provided OA paperwork naming alber Herrera as POA. Copies placed on chart. Lin Dasilva, DIE REPAIRER STAMPING DISPLAYER
[2019-02-26 16:00] VITALS: BP 150/79; PULSE 71; RESP 18; TEMP 36.8; O2SAT 98
[2019-02-26 16:50] LABS: Bedside Glucose 172 mg/dL (70-110)
[2019-02-26 16:57] VITALS: PULSE 80
--- NOTE | 2019-02-26 18:15 | RAD_ITS ---
STUDY: X-RAY - LUMBAR SPINE REASON FOR EXAM: Female, 78 years old. Pain TECHNIQUE: 5 view(s) of the lumbar spine were obtained. COMPARISON: CT pelvis February 17, 2019 FINDINGS: Normal lumbar lordosis. There is no substantial scoliosis. There is a normal alignment of the vertebrae. There is multilevel endplate spondylosis of the lumbar vertebrae. Normal disc space heights. There is atherosclerotic calcification of the abdominal aorta without a demonstrated aneurysm. There are 2 long cortical screws transfixing the bilateral SI joints. This is also seen on the recent CT of the pelvis. There is visualized degenerative change in the lumbar spine without evidence of acute loss of height or alignment. There is multilevel facet arthropathy. RAD/L/S Spine Min 4 Views IMPRESSION: Operative change status post fusion of the SI joints. Degenerative change in the lumbar spine no evidence of acute loss of height or alignment. Electronically Signed: Annie Pagan MD at 2:06 EDT Tel , Service support ,
--- NOTE | 2019-02-26 18:53 | NURSING ---
Addendum entered by Nohemy Lira 02/27/19 12:09: xray reviewed by Dr Jacobo, no new orders Original Note: Dr. Jacobo made aware of pt's pain in low back. N/O for xray
[2019-02-26] MEDS: Pravastatin 20 MG Tablet 60 MG PO (20:27)
[2019-02-26 20:51] LABS: Bedside Glucose 231 mg/dL (70-110)
[2019-02-27] MEDS: traMADol 50 MG Tablet PO ×3 (05:22→20:43)
[2019-02-27] MEDS: Fluticasone/Salmeterol 232-14 Inhaler 1 PUFF IH ×2 (05:23→17:06)
[2019-02-27 05:24] VITALS: BP 176/74; PULSE 83
[2019-02-27] MEDS: Glucerna Shake 120 ML LIQUID PO ×4 (05:24→20:43)
[2019-02-27] MEDS: Metoprolol Tartrate 50 MG Tablet PO ×2 (05:24→17:07)
[2019-02-27] MEDS: Enoxaparin 40 MG/0.4 ML Syringe SC (05:25)
[2019-02-27] MEDS: Omega-3 Acid Ethyl Esters 1 GM Capsule PO (05:25)
[2019-02-27] MEDS: Lisinopril 20 MG Tablet PO ×2 (05:25→17:07)
[2019-02-27 06:31] LABS: Bedside Glucose 217 mg/dL (70-110)
[2019-02-27] MEDS: metFORMIN HCl 1,000 MG Tablet 1000 MG PO (08:00)
[2019-02-27] MEDS: Aspirin 81 MG TAB.CHEW PO (08:00)
[2019-02-27] MEDS: metFORMIN HCl 500 MG Tablet PO ×2 (11:49→17:07)
[2019-02-27] MEDS: Multivitamins,Ther W-Minerals Tablet 1 TABLET PO (11:49)
[2019-02-27 11:51] LABS: Bedside Glucose 158 mg/dL (70-110)
--- NOTE | 2019-02-27 13:31 | CASEMGMT ---
Social Work IDT met with patient, two daughters and son for care plan meeting. Discussed patient's progress in therapy. Pt lives in in-law suite and did not use device prior. Provided [employer] resources. Pt is SBA to CGA for transfers, min assist for bed mobility, supervision for ADLs, completing 3 steps CGA, walking 200 ft SBA. Pt will continue to work with therapy until ready to DC. Will continue to follow KAYA BoseW
[2019-02-27 15:56] VITALS: BP 159/82; PULSE 74; RESP 18; TEMP 36.6; O2SAT 99
[2019-02-27 16:46] LABS: Bedside Glucose 124 mg/dL (70-110)
[2019-02-27 17:07] VITALS: BP 159/82; PULSE 74
[2019-02-27] MEDS: Pravastatin 20 MG Tablet 60 MG PO (20:43)
[2019-02-27 21:25] LABS: Bedside Glucose 197 mg/dL (70-110)
[2019-02-28] MEDS: traMADol 50 MG Tablet PO ×2 (04:32→10:52)
[2019-02-28] MEDS: Glucerna Shake 120 ML LIQUID PO ×4 (04:32→19:26)
[2019-02-28] MEDS: Enoxaparin 40 MG/0.4 ML Syringe SC (04:33)
[2019-02-28] MEDS: Fluticasone/Salmeterol 232-14 Inhaler 1 PUFF IH ×2 (04:33→17:34)
[2019-02-28] MEDS: Lisinopril 20 MG Tablet PO ×2 (04:33→17:36)
[2019-02-28] MEDS: Senna/Docusate Sodium 1 Tablet 2 TABLET PO ×2 (04:33→17:36)
[2019-02-28 04:34] VITALS: BP 143/69; PULSE 71
[2019-02-28] MEDS: Metoprolol Tartrate 50 MG Tablet PO ×2 (04:34→17:36)
[2019-02-28] MEDS: Polyethylene Glycol 3350 17 GM PACKET PO (04:34)
[2019-02-28] MEDS: Omega-3 Acid Ethyl Esters 1 GM Capsule PO (04:34)
[2019-02-28 06:36] LABS: Bedside Glucose 216 mg/dL (70-110)
[2019-02-28] MEDS: Aspirin 81 MG TAB.CHEW PO (07:52)
[2019-02-28] MEDS: metFORMIN HCl 1,000 MG Tablet 1000 MG PO (07:53)
[2019-02-28] MEDS: Acetaminophen 500 MG Tablet 1000 MG PO ×2 (07:54→15:16)
[2019-02-28 11:56] LABS: Bedside Glucose 176 mg/dL (70-110)
[2019-02-28] MEDS: Multivitamins,Ther W-Minerals Tablet 1 TABLET PO (11:57)
[2019-02-28] MEDS: metFORMIN HCl 500 MG Tablet PO ×2 (11:57→17:35)
[2019-02-28 15:30] VITALS: BP 130/76; PULSE 66; RESP 18; TEMP 36.7; O2SAT 100
[2019-02-28 17:31] LABS: Bedside Glucose 168 mg/dL (70-110)
[2019-02-28 17:36] VITALS: PULSE 80
[2019-02-28] MEDS: Pravastatin 20 MG Tablet 60 MG PO (19:26)
[2019-02-28 21:21] LABS: Bedside Glucose 213 mg/dL (70-110)
[2019-03-01] MEDS: Polyethylene Glycol 3350 17 GM PACKET PO (05:31)
[2019-03-01] MEDS: Glucerna Shake 120 ML LIQUID PO ×4 (05:34→19:48)
[2019-03-01 05:35] VITALS: BP 140/67; PULSE 86
[2019-03-01] MEDS: Senna/Docusate Sodium 1 Tablet 2 TABLET PO ×2 (05:35→17:23)
[2019-03-01] MEDS: Lisinopril 20 MG Tablet PO ×2 (05:35→17:22)
[2019-03-01] MEDS: Enoxaparin 40 MG/0.4 ML Syringe SC (05:35)
[2019-03-01] MEDS: Omega-3 Acid Ethyl Esters 1 GM Capsule PO (05:35)
[2019-03-01] MEDS: Metoprolol Tartrate 50 MG Tablet PO ×2 (05:35→17:23)
[2019-03-01] MEDS: traMADol 50 MG Tablet PO (05:35)
[2019-03-01] MEDS: Fluticasone/Salmeterol 232-14 Inhaler 1 PUFF IH ×2 (05:36→17:23)
[2019-03-01 06:15] LABS: Absolute Lymphocyte Count 1.39 X10^3/uL (0.83-4.51); Absolute Neutrophil Count 3.5 X10^3/uL (2.0-7.7); Basophil# 0.03 X10^3/uL; Basophil% 0.5 % (0-1); Eosinophil# 0.19 X10^3/uL; Eosinophils% 3.4 % (0-5); Hematocrit 37.4 % (37-47); Lymphocyte # 1.39 X10^3/ul (4.0); Lymphocyte % 24.5 % (19-41); Mean Corp Hgb Conc 32.1 g/dL (32-36); Mean Corpuscular Hgb 32.3 pg (27.0-32.0); Mean Corpuscular Volume 100.8 fL (81-99); Mean Platelet Vol. 9.4 fl (6.2-12.0); Monocyte# 0.55 X10^3/uL; Monocyte% 9.7 % (0-10); NRBC Flagged by Analyzer 0 % (0-5); Neutrophil # 3.49 X10^3/uL (2.7-7.7); Neutrophil % 61.5 % (47-70); Platelet Count 322 K/mm3 (150-450); RBC Distribution Width CV 12.2 % (11.6-14.6); RBC Distribution Width SD 45.3 fl (35.1-43.9); Red Blood Count 3.71 M/mm3 (4.2-5.4); White Blood Count 5.7 K/mm3 (4.4-11.0)
[2019-03-01 06:31] LABS: Anion Gap 4 (5-15); BUN 17 mg/dL (7-18); BUN/Creat Ratio 21.3 RATIO (10-20); Calcium,Total 9.2 mg/dL (8.5-10.1); Chloride 99 mmol/L (98-107); EST Glomerular Filtration Rate 74 mL/min (>60); Est Glom Filt Rate - Afr Amer 89 mL/min (>60); Glucose 202 mg/dL (74-106); Potassium 4.2 mmol/L (3.5-5.1); Sodium Level 135 mmol/L (136-145)
[2019-03-01 06:35] LABS: Bedside Glucose 241 mg/dL (70-110)
[2019-03-01] MEDS: metFORMIN HCl 1,000 MG Tablet 1000 MG PO (08:46)
[2019-03-01] MEDS: Aspirin 81 MG TAB.CHEW PO (08:46)
[2019-03-01] MEDS: Tuberculin,Purif.prot.deriv. 50 TU/ML Vial 5 ML ID (09:45)
[2019-03-01] MEDS: Multivitamins,Ther W-Minerals Tablet 1 TABLET PO (11:47)
[2019-03-01] MEDS: metFORMIN HCl 500 MG Tablet PO ×2 (11:47→17:23)
[2019-03-01] MEDS: Acetaminophen 500 MG Tablet 1000 MG PO (11:47)
[2019-03-01 11:50] LABS: Bedside Glucose 190 mg/dL (70-110)
[2019-03-01 15:52] VITALS: BP 130/69; PULSE 78; RESP 16; TEMP 37.1; O2SAT 95
[2019-03-01 16:46] LABS: Bedside Glucose 117 mg/dL (70-110)
[2019-03-01 17:23] VITALS: PULSE 78
[2019-03-01] MEDS: Pravastatin 20 MG Tablet 60 MG PO (19:48)
[2019-03-01 21:11] LABS: Bedside Glucose 263 mg/dL (70-110)
[2019-03-02] MEDS: Glucerna Shake 120 ML LIQUID PO ×4 (05:50→19:56)
[2019-03-02] MEDS: Enoxaparin 40 MG/0.4 ML Syringe SC (05:50)
[2019-03-02 05:51] VITALS: BP 160/70; PULSE 71
[2019-03-02] MEDS: Metoprolol Tartrate 50 MG Tablet PO ×2 (05:51→17:22)
[2019-03-02] MEDS: Lisinopril 20 MG Tablet PO ×2 (05:51→17:23)
[2019-03-02] MEDS: Polyethylene Glycol 3350 17 GM PACKET PO (05:51)
[2019-03-02] MEDS: Omega-3 Acid Ethyl Esters 1 GM Capsule PO (05:51)
[2019-03-02] MEDS: Senna/Docusate Sodium 1 Tablet 2 TABLET PO (05:51)
[2019-03-02] MEDS: Fluticasone/Salmeterol 232-14 Inhaler 1 PUFF IH ×2 (05:53→17:22)
[2019-03-02 06:45] LABS: Bedside Glucose 208 mg/dL (70-110)
[2019-03-02] MEDS: Aspirin 81 MG TAB.CHEW PO (07:44)
[2019-03-02] MEDS: metFORMIN HCl 1,000 MG Tablet 1000 MG PO (07:45)
[2019-03-02] MEDS: Acetaminophen 500 MG Tablet 1000 MG PO (09:31)
[2019-03-02 10:50] LABS: Bedside Glucose 188 mg/dL (70-110)
[2019-03-02] MEDS: metFORMIN HCl 500 MG Tablet PO ×2 (11:48→17:22)
[2019-03-02] MEDS: Multivitamins,Ther W-Minerals Tablet 1 TABLET PO (11:49)
[2019-03-02 16:00] VITALS: BP 139/59; PULSE 83; RESP 20; TEMP 37.1; O2SAT 96
[2019-03-02 17:05] LABS: Bedside Glucose 132 mg/dL (70-110)
[2019-03-02 17:22] VITALS: BP 139/59; PULSE 83
[2019-03-02] MEDS: Pravastatin 20 MG Tablet 60 MG PO (19:56)
[2019-03-02 21:00] LABS: Bedside Glucose 227 mg/dL (70-110)
[2019-03-03] MEDS: traMADol 50 MG Tablet PO ×2 (00:18→20:14)
[2019-03-03] MEDS: Glucerna Shake 120 ML LIQUID PO ×4 (05:16→20:13)
[2019-03-03 05:17] VITALS: BP 133/80; PULSE 74
[2019-03-03] MEDS: Enoxaparin 40 MG/0.4 ML Syringe SC (05:17)
[2019-03-03] MEDS: Fluticasone/Salmeterol 232-14 Inhaler 1 PUFF IH ×2 (05:17→18:26)
[2019-03-03] MEDS: Metoprolol Tartrate 50 MG Tablet PO ×2 (05:17→17:45)
[2019-03-03] MEDS: Omega-3 Acid Ethyl Esters 1 GM Capsule PO (05:18)
[2019-03-03] MEDS: Senna/Docusate Sodium 1 Tablet 2 TABLET PO (05:18)
[2019-03-03] MEDS: Lisinopril 20 MG Tablet PO ×2 (05:19→17:41)
[2019-03-03 06:30] LABS: Bedside Glucose 190 mg/dL (70-110)
[2019-03-03] MEDS: metFORMIN HCl 1,000 MG Tablet 1000 MG PO (07:28)
[2019-03-03] MEDS: Aspirin 81 MG TAB.CHEW PO (07:28)
[2019-03-03 10:51] LABS: Bedside Glucose 200 mg/dL (70-110)
[2019-03-03] MEDS: Multivitamins,Ther W-Minerals Tablet 1 TABLET PO (11:24)
[2019-03-03] MEDS: metFORMIN HCl 500 MG Tablet PO ×2 (11:24→17:40)
[2019-03-03 16:00] VITALS: BP 152/63; PULSE 71; RESP 18; TEMP 37; O2SAT 97
[2019-03-03 16:50] LABS: Bedside Glucose 133 mg/dL (70-110)
[2019-03-03 17:45] VITALS: BP 150/85; PULSE 81
[2019-03-03] MEDS: Pravastatin 20 MG Tablet 60 MG PO (20:14)
[2019-03-03 21:51] LABS: Bedside Glucose 204 mg/dL (70-110)
[2019-03-04] MEDS: Fluticasone/Salmeterol 232-14 Inhaler 1 PUFF IH ×2 (05:09→17:35)
[2019-03-04] MEDS: Glucerna Shake 120 ML LIQUID PO ×4 (05:09→19:58)
[2019-03-04] MEDS: traMADol 50 MG Tablet PO (05:09)
[2019-03-04] MEDS: Enoxaparin 40 MG/0.4 ML Syringe SC (05:10)
[2019-03-04] MEDS: Lisinopril 20 MG Tablet PO ×2 (05:11→17:37)
[2019-03-04] MEDS: Omega-3 Acid Ethyl Esters 1 GM Capsule PO (05:11)
[2019-03-04 05:12] VITALS: BP 137/66; PULSE 73
[2019-03-04] MEDS: Metoprolol Tartrate 50 MG Tablet PO ×2 (05:12→17:36)
[2019-03-04 06:41] LABS: Bedside Glucose 181 mg/dL (70-110)
[2019-03-04] MEDS: Aspirin 81 MG TAB.CHEW PO (08:39)
[2019-03-04] MEDS: metFORMIN HCl 1,000 MG Tablet 1000 MG PO (08:39)
[2019-03-04] MEDS: Acetaminophen 500 MG Tablet 1000 MG PO (09:47)
[2019-03-04 11:01] LABS: Bedside Glucose 194 mg/dL (70-110)
[2019-03-04] MEDS: metFORMIN HCl 500 MG Tablet PO ×2 (12:02→17:36)
[2019-03-04] MEDS: Multivitamins,Ther W-Minerals Tablet 1 TABLET PO (12:02)
[2019-03-04 16:00] VITALS: BP 143/66; PULSE 67; RESP 17; TEMP 37.2; O2SAT 94
[2019-03-04 17:11] LABS: Bedside Glucose 157 mg/dL (70-110)
[2019-03-04] MEDS: Senna/Docusate Sodium 1 Tablet 2 TABLET PO (17:35)
[2019-03-04 17:36] VITALS: BP 143/66; PULSE 67
[2019-03-04] MEDS: Pravastatin 20 MG Tablet 60 MG PO (19:59)
[2019-03-04 20:51] LABS: Bedside Glucose 221 mg/dL (70-110)
[2019-03-05 04:47] VITALS: BP 149/84; PULSE 71
[2019-03-05] MEDS: Metoprolol Tartrate 50 MG Tablet PO ×2 (04:47→17:14)
[2019-03-05] MEDS: Glucerna Shake 120 ML LIQUID PO ×4 (04:48→19:47)
[2019-03-05] MEDS: Senna/Docusate Sodium 1 Tablet 2 TABLET PO (04:48)
[2019-03-05] MEDS: Omega-3 Acid Ethyl Esters 1 GM Capsule PO (04:48)
[2019-03-05] MEDS: Lisinopril 20 MG Tablet PO ×2 (04:48→17:14)
[2019-03-05] MEDS: Fluticasone/Salmeterol 232-14 Inhaler 1 PUFF IH ×2 (04:49→17:13)
[2019-03-05] MEDS: Enoxaparin 40 MG/0.4 ML Syringe SC (04:49)
[2019-03-05 06:36] LABS: Bedside Glucose 173 mg/dL (70-110)
[2019-03-05] MEDS: Aspirin 81 MG TAB.CHEW PO (08:18)
[2019-03-05] MEDS: metFORMIN HCl 1,000 MG Tablet 1000 MG PO (08:18)
[2019-03-05] MEDS: traMADol 50 MG Tablet PO ×2 (08:35→23:39)
[2019-03-05 12:01] LABS: Bedside Glucose 107 mg/dL (70-110)
[2019-03-05] MEDS: Multivitamins,Ther W-Minerals Tablet 1 TABLET PO (12:06)
[2019-03-05] MEDS: metFORMIN HCl 500 MG Tablet PO ×2 (12:07→17:14)
[2019-03-05] MEDS: Acetaminophen 500 MG Tablet 1000 MG PO (13:16)
--- NOTE | 2019-03-05 13:47 | CASEMGMT ---
Addendum entered by Lin Dasilva 03/06/19 15:41: Pt and family chose [facility] - referral made. Original Note: Social Work Pt is supervision for bed mobility and requesting to DC home. Spoke with pt and family for DC 03/07. Referred to [facility] for BSC. Left list of HHC in pt room for family/pt to choose for referral. Will follow up. Plan: DC home 03/07 with [facility] PT/OT and BSC. Lin Dasilva, KAYA VELAZCOW
[2019-03-05 15:45] VITALS: BP 127/72; PULSE 72; RESP 16; TEMP 36.8; O2SAT 97
[2019-03-05 16:55] LABS: Bedside Glucose 144 mg/dL (70-110)
[2019-03-05 17:14] VITALS: PULSE 72
[2019-03-05] MEDS: Pravastatin 20 MG Tablet 60 MG PO (19:48)
--- NOTE | 2019-03-05 20:14 | DCINST_ITS ---
- Discharge Diagnoses Current Active Problems: Current Active and Chronic Problems Debility (Acute) Hypertension (Chronic) Asthma (Chronic) Status post coronary artery bypass graft (Chronic) You will use the following diet at home:: No restrictions, Regular Your food should be the consistency of: Regular Your liquids should be the consistency of: Regular/Thin Discharge Activity: Return to Normal Activity, May Shower, Use Walker Weight Bearing Status: Weight bearing as tolerated Call your doctor if you observe: Fever of 101 or Higher, Inability to urinate, Inability to have a bowel movement, Shortness of breath, Chest pain, Uncontrolled pain Allergies/Adverse Reactions: Allergies No Known Allergies Allergy (Verified 01/06/17 11:58) Medications to take at Discharge Budesonide/Formoterol 80-4.5 [Symbicort 80-4.5 Mcg Inhaler] 2 puff INHALATION DAILY 11/15/15 Lisinopril [Zestril] 20 mg PO BID 11/15/15 Metoprolol Tartrate [Lopressor (beta zarina)] 50 mg PO BID 11/15/15 Pravastatin [Pravachol] 60 mg PO QHS 11/15/15 metFORMIN HCl [Glucophage] 1,000 mg PO BREAKFAST 11/15/15 Centrum Silver Women Tablet 1 tab PO DAILY 11/20/15 Metformin HCl 500 mg PO BID 11/20/15 [place]-3/Dha/Epa/Fish Oil [[place] 3 500 Softgel] 1 each PO DAILY 11/20/15 Acetaminophen [Tylenol] 1,000 mg PO Q6H PRN PRN tab 03/05/19 Aspirin [Aspirin, Baby] 81 mg PO DAILY@0800 tab.chew 03/05/19 traMADol [Ultram] 50 mg PO Q6H PRN PRN #28 tab 03/05/19 The following prescriptions were given: traMADol [Ultram] 50 mg PO Q6H PRN PRN #28 tab PRN Reason: Pain Score 4-5/10 Prescription Printed Primary Care Physician: Tierney Samayoa MD [Primary Care Provider] - Please follow up with your Primary Care Physician in: 1 week. Test Results: Test results from this visit will be discussed in further detail at your follow- up appointment, if applicable. Proposed Discharge Date: 03/07/19
--- NOTE | 2019-03-05 20:17 | PCM.DC.SUM ---
Discharge Date and Diagnosis - Problem List Patient Problems: Active and Suspected Problems Debility (Acute) Date of Admission: 02/21/19 Date of Discharge: 03/07/19 - Primary Discharge Diagnosis Active and Suspected Problems Debility (Acute) - Secondary Discharge Diagnosis Chronic Problems Hypertension (Chronic) Asthma (Chronic) Status post coronary artery bypass graft (Chronic) HLD (hyperlipidemia) (Chronic) Type II diabetes mellitus (Chronic) CAD (coronary artery disease) (Chronic) Benign essential hypertension (Chronic) Hospital Course and Treatment Imaging Results: 02/21/19 15:13 Diet: Cardiac: Calorie-Controlled How many daily calories?: 1600 calorie Clinical Impression(s) from Imaging Studies Lumbar Spine X-Ray 02/26/19 18:15 IMPRESSION: Operative change status post fusion of the SI joints. Degenerative change in the lumbar spine no evidence of acute loss of height or alignment. Electronically Signed: Annie Pagan MD at 2:06 EDT Tel , Service support , Labs (Last 48 Hours) 03/03/19 03/04/19 03/04/19 21:43 06:35 10:54 POC Glucose 204 H 181 H 194 H 03/04/19 03/04/19 03/05/19 16:56 20:33 06:18 POC Glucose 157 H 221 H 173 H 03/05/19 03/05/19 11:58 16:50 POC Glucose 107 144 H Operations: None Procedures: None Summary of Care Provided: The patient is a 78 year old Female with below past medical history hospitalized for left pubic rami fracture after falling, admitted to TCU with debility, here for rehabilitation, strengthening, prior to discharge home with family. Discharge home with family, Home Health Care for PT/OT, beside commode. Patient Problems: Active and Suspected Problems Debility (Acute) - Physical Exam Vitals/I&O's: Vital Signs Temp Pulse Resp BP Pulse Ox 98.2 F 72 16 127/72 H 97 03/05/19 15:45 03/05/19 17:14 03/05/19 15:45 03/05/19 15:45 03/05/19 15:45 Oxygen Delivery Method Room Air Weight: 50.491 kg Body Mass Index (BMI) 20.5 Intake and Output for Last 24 Hours 03/03/19 03/04/19 03/05/19 23:59 23:59 23:59 Intake Total 960 / 960 1440 / 1440 1540 / 1540 Balance 960 / 960 1440 / 1440 1540 / 1540 Laboratory Results 03/04/19 20:33: POC Glucose 221 H 03/05/19 06:18: POC Glucose 173 H 03/05/19 11:58: POC Glucose 107 03/05/19 16:50: POC Glucose 144 H Current Medications Acetaminophen (Tylenol) 1,000 mg PO Q6H PRN PRN PRN Reason: Pain Score 1-3/10 Last Admin: 03/05/19 13:16 Dose: 1,000 mg Documented by: Aspirin (Aspirin, Baby) 81 mg PO DAILY@0800 [facility] Last Admin: 03/05/19 08:18 Dose: 81 mg Documented by: Bisacodyl (Dulcolax) 10 mg PO DAILY PRN PRN Reason: Constipation Enoxaparin Sodium (Lovenox) 40 mg SC DAILY@0600 [facility] Last Admin: 03/05/19 04:49 Dose: 40 mg Documented by: Lisinopril (Zestril) 20 mg PO BID [facility] Last Admin: 03/05/19 17:14 Dose: 20 mg Documented by: Metformin HCl (Glucophage) 1,000 mg PO BREAKFAST [facility] Last Admin: 03/05/19 08:18 Dose: 1,000 mg Documented by: Metformin HCl (Glucophage) 500 mg PO BIDCM@1200,1700 [facility] Last Admin: 03/05/19 17:14 Dose: 500 mg Documented by: Metoprolol Tartrate (Lopressor (Beta Shea)) 50 mg PO BID [facility] Last Admin: 03/05/19 17:14 Dose: 50 mg Documented by: Multivitamins/Minerals (Multivitamin With Minerals) 1 tablet PO DAILY@1245 [facility] Last Admin: 03/05/19 12:06 Dose: 1 tablet Documented by: Nutritional Formula (Lactose Free) (Glucerna Shake) 120 ml PO 4X/DAY [facility] Last Admin: 03/05/19 19:47 Dose: 120 ml Documented by: Fophu-1-Oxop Ethyl Esters (Lovaza) 1 gm PO DAILY [facility] Last Admin: 03/05/19 04:48 Dose: 1 gm Documented by: Oxycodone HCl (Oxyir) 2.5 mg PO Q4H PRN PRN PRN Reason: Pain Score 6-10/10 Polyethylene Glycol (Miralax) 17 gm PO DAILY [facility] Last Admin: 03/05/19 04:48 Dose: Not Given Documented by: Pravastatin Sodium (Pravachol) 60 mg PO QHS [facility] Last Admin: 03/05/19 19:48 Dose: 60 mg Documented by: Fluticasone/Salmeterol (Fluticasone-Salmeterol 232-14) 1 puff IH Q12 [facility] Last Admin: 03/05/19 17:13 Dose: 1 puff Documented by: Senna/Docusate Sodium (Senokot-S, [place]-Colace) 2 tablet PO BID [facility] Last Admin: 03/05/19 09:42 Dose: Not Given Documented by: Tramadol HCl (Ultram) 50 mg PO Q6H PRN PRN PRN Reason: Pain Score 4-5/10 Last Admin: 03/05/19 08:35 Dose: 50 mg Documented by: Discharge Diet: No Restrictions Discharge Activity: Return to Normal Activity, May Shower, Use Walker Weight Bearing Status: Weight bearing as tolerated Call your doctor if you observe: Fever of 101 or Higher, Inability to urinate, Inability to have a bowel movement, Shortness of breath, Chest pain, Uncontrolled pain Home Medications: Medications to take at Discharge Budesonide/Formoterol 80-4.5 [Symbicort 80-4.5 Mcg Inhaler] 2 puff INHALATION DAILY 11/15/15 Lisinopril [Zestril] 20 mg PO BID 11/15/15 Metoprolol Tartrate [Lopressor (beta shea)] 50 mg PO BID 11/15/15 Pravastatin [Pravachol] 60 mg PO QHS 11/15/15 metFORMIN HCl [Glucophage] 1,000 mg PO BREAKFAST 11/15/15 Centrum Silver Women Tablet 1 tab PO DAILY 11/20/15 Metformin HCl 500 mg PO BID 11/20/15 [place]-3/Dha/Epa/Fish Oil [[place] 3 500 Softgel] 1 each PO DAILY 11/20/15 Acetaminophen [Tylenol] 1,000 mg PO Q6H PRN PRN tab 03/05/19 Aspirin [Aspirin, Baby] 81 mg PO DAILY@0800 tab.chew 03/05/19 traMADol [Ultram] 50 mg PO Q6H PRN PRN #28 tab 03/05/19 Following Prescrptions Were Given to Patient: traMADol [Ultram] 50 mg PO Q6H PRN PRN #28 tab PRN Reason: Pain Score 4-5/10 Prescription Printed Primary Care Physician: Tierney Samayoa MD [Primary Care Provider] - Please follow up with your Primary Care Physician in: 1 week. Disposition: Home with Home Health Minutes spent on discharge:: 35 Patient Condition:: Stable Medical Necessity - Tobacco Use Smoking Status: Never smoker Tobacco Use: Non-smoker Meaningful Use Info Meaningful Use Diagnoses (Choose all that apply): None applicable
--- NOTE | 2019-03-05 20:19 | PCM.PN.HH ---
Home Health Note - Plan Overview of reason of hospitalization: The patient is a 78 year old Female with below past medical history hospitalized for left pubic rami fracture after falling, admitted to TCU with debility, here for rehabilitation, strengthening, prior to discharge home with family. Discharge home with family, Home Health Care for PT/OT, beside commode. Problems: Patient was seen for Debility (Acute) Hypertension (Chronic) Asthma (Chronic) Status post coronary artery bypass graft (Chronic) Complete List of Medical Problems Fall (Acute) Pubic ramus fracture (Acute) Debility (Acute) Hypertension (Chronic) Asthma (Chronic) Status post coronary artery bypass graft (Chronic) HLD (hyperlipidemia) (Chronic) Type II diabetes mellitus (Chronic) CAD (coronary artery disease) (Chronic) Benign essential hypertension (Chronic) - Requirements and Reasons Disciplines Needed/Ordered: Physical Therapy Reason for Disciplines: Disease Specific Monitoring/education, Medication Management/Knowledge Deficit, Gait Training, Stair Training, Fall Prevention, Home Safety/Equipment Instruction, Balance and/or Posture Training, Transfer Training Related To: Change in Medical Treatment Plan, Limited/Poor Endurance, Physical Impairments, Unsteady Gait/Balance, Fall Risk Patient is unable to leave the home: Without Aid of Supportive Devices (crutches, cane, wheelchair, walker), Without the assistance of another person - Additional Disciplines Additional Disciplines Needed/Ordered: Occupational Therapy
[2019-03-05 21:35] LABS: Bedside Glucose 165 mg/dL (70-110)
[2019-03-06 06:31] LABS: Bedside Glucose 161 mg/dL (70-110)
[2019-03-06 06:43] VITALS: BP 150/69; PULSE 66
[2019-03-06] MEDS: Fluticasone/Salmeterol 232-14 Inhaler 1 PUFF IH ×2 (06:43→16:40)
[2019-03-06] MEDS: Metoprolol Tartrate 50 MG Tablet PO ×2 (06:43→16:42)
[2019-03-06] MEDS: Omega-3 Acid Ethyl Esters 1 GM Capsule PO (06:43)
[2019-03-06] MEDS: Lisinopril 20 MG Tablet PO ×2 (06:43→16:41)
[2019-03-06] MEDS: Enoxaparin 40 MG/0.4 ML Syringe SC (06:43)
[2019-03-06] MEDS: metFORMIN HCl 1,000 MG Tablet 1000 MG PO (07:58)
[2019-03-06] MEDS: Aspirin 81 MG TAB.CHEW PO (07:58)
[2019-03-06 11:26] LABS: Bedside Glucose 187 mg/dL (70-110)
[2019-03-06] MEDS: metFORMIN HCl 500 MG Tablet PO ×2 (11:45→16:42)
[2019-03-06] MEDS: Multivitamins,Ther W-Minerals Tablet 1 TABLET PO (11:45)
[2019-03-06] MEDS: Glucerna Shake 120 ML LIQUID PO ×3 (11:47→20:23)
[2019-03-06 15:30] VITALS: BP 129/79; PULSE 72; RESP 20; TEMP 36.8; O2SAT 97
[2019-03-06] MEDS: Senna/Docusate Sodium 1 Tablet 2 TABLET PO (16:41)
[2019-03-06 16:42] VITALS: BP 129/79; PULSE 72
[2019-03-06 16:50] LABS: Bedside Glucose 105 mg/dL (70-110)
[2019-03-06] MEDS: Pravastatin 20 MG Tablet 60 MG PO (20:22)
[2019-03-06 21:20] LABS: Bedside Glucose 213 mg/dL (70-110)
[2019-03-07] MEDS: Glucerna Shake 120 ML LIQUID PO (04:18)
[2019-03-07] MEDS: Fluticasone/Salmeterol 232-14 Inhaler 1 PUFF IH (04:18)
[2019-03-07 04:19] VITALS: BP 158/79; PULSE 73
[2019-03-07] MEDS: Omega-3 Acid Ethyl Esters 1 GM Capsule PO (04:19)
[2019-03-07] MEDS: Metoprolol Tartrate 50 MG Tablet PO (04:19)
[2019-03-07] MEDS: Lisinopril 20 MG Tablet PO (04:19)
[2019-03-07] MEDS: Senna/Docusate Sodium 1 Tablet 2 TABLET PO (04:20)
[2019-03-07] MEDS: Enoxaparin 40 MG/0.4 ML Syringe SC (04:20)
[2019-03-07 06:20] LABS: Bedside Glucose 167 mg/dL (70-110)
[2019-03-07] MEDS: Aspirin 81 MG TAB.CHEW PO (09:06)
[2019-03-07] MEDS: metFORMIN HCl 1,000 MG Tablet 1000 MG PO (09:06)
[2019-03-07 10:15] VITALS: BP 138/72; PULSE 75; TEMP 37; O2SAT 96
[2019-03-07] MEDS: Acetaminophen 500 MG Tablet 1000 MG PO (10:57)
[2019-03-07 11:00] VITALS: BP 138/72; PULSE 75; RESP 16; TEMP 37; O2SAT 96
== END 2019-03-07 12:19 | disposition home health service (06) | DRG 561 ==
LOC: TCU 14:53
PROVIDERS: Admitting Provider Family Medicine Geriatric Medicine; Family Provider Internal Medicine; PCP Internal Medicine; Referring Provider Family Medicine Geriatric Medicine; Visit Provider Family Medicine Geriatric Medicine
DX: S32.592D Other specified fracture of left pubis, subsequent encounter for fracture with routine healing (principal); W19.XXXD Unspecified fall, subsequent encounter; Z23 Encounter for immunization; E11.9 Type 2 diabetes mellitus without complications; I10 Essential (primary) hypertension; E78.5 Hyperlipidemia, unspecified; I25.10 Atherosclerotic heart disease of native coronary artery without angina pectoris; J45.909 Unspecified asthma, uncomplicated; Z95.1 Presence of aortocoronary bypass graft
CPT/HCPCS: 36415; 72110; 80048; 82962; 85025; 90732; 97110; 97116; 97161; 97166; 97530; 97535; 97802; G0009; 90686

== ENCOUNTER 2020-06-05 11:00 | Outpatient (RCR) | payer MEDICARE, OTHER, SELFPAY | END 2020-06-05 23:59 | LOC: IMMUN 11:00 | PROVIDERS: PCP Internal Medicine; Visit Provider Family Medicine | DX: Z23 Encounter for immunization (principal) | CPT/HCPCS: 0011A; 0012A ==

== ENCOUNTER 2020-09-01 00:04 | Emergency (ER) | payer MEDICARE, OTHER, SELFPAY ==
[2020-09-01 00:05] VITALS: BP 225/90; PULSE 64; RESP 18; TEMP 35.7; O2SAT 96; BMI 21.4
--- NOTE | 2020-09-01 01:00 | RAD_ITS ---
STUDY: X-RAY CHEST REASON FOR EXAM: Female, 80 years old. EPIGASTRIC PAIN TECHNIQUE: Single AP portable view of the chest. COMPARISON: None. FINDINGS: There are no confluent pulmonary infiltrates. There is no demonstrated pleural abnormality. Normal size heart. There are sternotomy wires and surgical clips suggesting previous CABG. Normal mediastinum and mavis. There is atherosclerotic calcification of the aortic arch. There are no demonstrated acute fractures or destructive bone lesions. There is no demonstrated abnormality of the visualized soft tissue structures of the upper abdomen. RAD/Chest 1 View (Portable) IMPRESSION: No evidence for acute cardiopulmonary pathology. Electronically Signed: Markell Qiu MD at 2:57 EDT , Service support ,
--- NOTE | 2020-09-01 01:11 | CT_ITS ---
STUDY: CT ABDOMEN AND PELVIS WITH CONTRAST REASON FOR EXAM: Female, 80 years old. MID ABD PAIN INCREASING X 2 HOURS RADIATION DOSAGE (If Supplied By Facility): CTDIvol = ( 17.17 ) mGy, DLP = ( 351.41 ) mGycm TECHNIQUE: Transaxial images were obtained from the dome of the diaphragm to the symphysis pubis without oral contrast. IV 100mL Isovue-370 was administered. Sagittal and coronal images were reconstructed. Individualized dose optimization techniques were used for this CT. COMPARISON: CT scan pelvis 02/17/2019. CT scan abdomen and pelvis 01/07/2013. FINDINGS: The visualized lung bases are unremarkable. The visualized portions of the heart are within normal limits. There is focal fatty infiltration within the right lobe of the liver. Normal gallbladder and extrahepatic biliary system. Normal spleen. Normal pancreas. Normal bilateral adrenal glands. Normal right kidney. w there is cortical scarring in the upper pole of left kidney. There is no demonstrated urinary calculus or hydronephrosis. There is a small hiatal hernia. Within the mid and lower pelvis, there is a collection of dilated loops of ileum with infiltration of mesenteric fat. There is no demonstrated swirling of bowel loops or swirling of vascular structures to suggest volvulus. Many of the bowel loops extend into the posterior pelvis in the expected region of the uterine bed, and there are multiple focal transition points of bowel entering/exiting this region. Additionally, there is abrupt focal narrowing of SMA branch entering this region in the mid pelvis (series 2, axial images 80-81). These findings are highly suspicious for an internal hernia contributing to both the partial small bowel obstruction and venous compression/strangulation. Normal colon, with relative decompression of the left hemicolon. A very diminutive normal appendix is seen on series 2, axial images 74-76. There is diffuse atherosclerotic calcification of the abdominal aorta, without a demonstrated aneurysm. Normal inferior vena cava. Normal retroperitoneum. Normal urinary bladder. There is absence of the uterus consistent with a prior hysterectomy. There is minimal free fluid in the posterior cul-de-sac of the pelvis. Normal abdominal wall. There is a tear of the traversing surgical pins or screws extending across the sacroiliac joints bilaterally. There are old healed left pubic rami fractures. There are multilevel degenerative changes of the lumbar spine. CT/Abdomen/Pelvis W IV Cont ONLY IMPRESSION: I strongly suspect an internal hernia, with extension of small bowel loops into the region of the uterine bed. There is associated partial small bowel obstruction as well as venous compression/strangulation. Minimal free fluid in the posterior cul-de-sac of the pelvis. Additional nonacute findings, as above. N.B. : The above information has been verbally conveyed by Markell Qiu MD to Dr. Naveen Russell MD, on 09/01/2020 04:34:31 (ET). Electronically Signed: Markell Qiu MD at 4:42 EDT , Service support ,
--- NOTE | 2020-09-01 01:11 | EKG12_ITS ---
Test Reason : DYSRHYTHMIA Blood Pressure : / mmHG Vent. Rate : 065 BPM Atrial Rate : 065 BPM P-R Int : 188 ms QRS Dur : 080 ms QT Int : 424 ms P-R-T Axes : 082 032 077 degrees QTc Int : 440 ms Normal sinus rhythm Nonspecific ST and T wave abnormality Abnormal ECG Confirmed by KHANG CONLEY, BRANDON ([id number]), staff editor LEÓN RETANA ([id number]) on 09/03/2020 9:11:00 AM Referred By: PRABHA Confirmed By:BRANDON QUIÑONEZ MD
--- NOTE | 2020-09-01 01:12 | RAD_ITS ---
STUDY: X-RAY CHEST REASON FOR EXAM: Female, 80 years old. EPIGASTRIC PAIN TECHNIQUE: Single AP portable view of the chest. COMPARISON: None. FINDINGS: There are no confluent pulmonary infiltrates. There is no demonstrated pleural abnormality. Normal size heart. There are sternotomy wires and surgical clips suggesting previous CABG. Normal mediastinum and mavis. There is atherosclerotic calcification of the aortic arch. There are no demonstrated acute fractures or destructive bone lesions. There is no demonstrated abnormality of the visualized soft tissue structures of the upper abdomen.
--- NOTE | 2020-09-01 05:00 | RAD_ITS ---
STUDY: X-RAY - ABDOMEN REASON FOR EXAM: Female, 80 years old. NG TUBE PLACEMENT TECHNIQUE: A single AP supine view of the mid and lower chest and abdomen was performed. Pelvis is not included in the study. Current exam was done at 0533 hours. COMPARISON: Chest x-ray done at [address] scan abdomen and pelvis done at 0218 hours FINDINGS: Normal visualized lung bases. Nasogastric tube loops within the thoracic esophagus. There is an unremarkable bowel gas pattern. There is no demonstrated free abdominal air. The visualized liver, spleen and kidneys are grossly normal in size and morphology. There is mild right hydronephrosis as well as right hydroureter, which was not present on the recent previous CT scan. There is no demonstrated hydronephrosis of the left kidney. Normal soft tissue structures. Normal visualized osseous structures. RAD/Abdomen Single View IMPRESSION: Nasogastric tube is malpositioned. Recommend removing and replacing the tube. Incidental finding of mild right hydronephrosis and right hydroureter, of uncertain etiology. There is no demonstrated hydronephrosis on the recent CT scan. Nonspecific bowel gas pattern. Electronically Signed: Markell Qiu MD at 6:31 EDT , Service support ,
--- NOTE | 2020-09-01 05:00 | RAD_ITS ---
STUDY: X-RAY CHEST REASON FOR EXAM: Female, 80 years old. NG TUBE PLACEMENT -- ? COILED UP IN UPPER ESOPHAGUS -- NOT SEEN ON PORT ABD IMAGE #2 TECHNIQUE: Single AP portable view of the chest. Patient is slightly rotated to the left. Current exam was done at 0548 hours.. COMPARISON: Abdominal x-rays, the last of which was done at 0538 hours. FINDINGS: Nasogastric tube is not visualized. This is probably coiled in the oropharynx or hypopharynx. The lungs are clear and expanded. There is no demonstrated pleural abnormality. Normal size heart. There are sternotomy wires. Normal mediastinum and mavis. Normal visualized pulmonary arteries. Normal visualized aortic arch and descending thoracic aorta. Normal visualized thoracic spine. Normal visualized ribs, clavicles, and shoulders. There is no demonstrated abnormality of the visualized soft tissue structures of the upper abdomen. RAD/Chest 1 View (Portable) IMPRESSION: Nasogastric tube is not visualized over the chest. There is probably coiled within the oropharynx or hypopharynx. Electronically Signed: Markell Qiu MD at 6:38 EDT , Service support ,
--- NOTE | 2020-09-01 05:00 | RAD_ITS ---
STUDY: X-RAY - ABDOMEN/PELVIS REASON FOR EXAM: Female, 80 years old. NG TUBE PLACEMENT TECHNIQUE: A single AP portable view of the abdomen was performed as well as a partial view of the chest was performed. The current exam was done at 0538 hours. COMPARISON: Exam done at 0533 hours FINDINGS: Nasogastric tube is not currently visualized. There is an unremarkable bowel gas pattern. There is no demonstrated free abdominal air. The visualized liver, spleen and kidneys are grossly normal in size and morphology. There is redemonstration of hydronephrosis of the right kidney and right hydroureter. Normal soft tissue structures. Normal visualized osseous structures. RAD/Abdomen Single View IMPRESSION: Nasogastric tube is not currently visualized. Hydronephrosis of the right kidney. Electronically Signed: Markell Qiu MD at 6:34 EDT , Service support ,
[2020-09-01 07:38] LABS: AST(SGOT) 29 U/L (15-37); Alanine Aminotransfer ALT/SGPT 34 U/L (13-56); Albumin, Serum 3.6 g/dL (3.2-5.0); Alkaline Phosphatase 60 U/L (45-117); Anion Gap 7 (5-15); BUN 17 mg/dL (7-18); BUN/Creat Ratio 19.4 RATIO (10-20); Calcium,Total 9.5 mg/dL (8.5-10.1); Chloride 96 mmol/L (98-107); Creatinine, Serum 0.88 mg/dL (0.55-1.02); Estimated Creatinine Clearance 39.65 ml/min; Globulin 3.6 g/dL (2.2-4.2); Glucose 221 mg/dL (74-106); Lipase 95 U/L (73-393); Potassium 4.1 mmol/L (3.5-5.1); Protein, Total 7.2 g/dL (6.4-8.2); Sodium Level 134 mmol/L (136-145)
[2020-09-01 08:10] LABS: Mucous, Urine 0 SEEN /hpf (<or=2+)
[2020-09-01 08:24] LABS: Absolute Lymphocyte Count 2.43 X10^3/uL (0.83-4.51); Absolute Neutrophil Count 12.2 X10^3/uL (2.0-7.7); Basophil# 0.05 X10^3/uL; Basophil% 0.3 % (0-1); Eosinophil# 0.16 X10^3/uL; Hematocrit 36.4 % (37-47); Lymphocyte # 2.43 X10^3/ul (0.83-4.51); Lymphocyte % 15.2 % (19-41); Mean Platelet Vol. 10.5 fl (6.2-12.0); Monocyte# 0.96 X10^3/uL; NRBC Flagged by Analyzer 0 % (0-5); Neutrophil # 12.23 X10^3/uL (2.7-7.7); Neutrophil % 76.7 % (47-70); Platelet Count 268 K/mm3 (150-450); RBC Distribution Width CV 12.3 % (11.6-14.6); RBC Distribution Width SD 45.3 fl (35.1-43.9); Red Blood Count 3.64 M/mm3 (4.2-5.4)
--- NOTE | 2020-09-01 08:31 | ED.RN ---
SEE DOWNTIME DOCUMENTATION
[2020-09-01 11:07] LABS: Color, Urine Yellow (Yellow); Urine Clarity Clear (Clear)
[2020-09-01 11:08] LABS: Ketone-Dipstick Negative (Negative); Nitrite-Dipstick Negative (Negative); Protein-Dipstick 100 mg/dl (Negative); Urine Bilirubin Dipstick Negative (Negative); Urine Urobilinogen Normal (Normal)
[2020-09-01 11:09] LABS: Bacteria 1+ /hpf (None Seen); Leukocyte Esterase-Dipstick Negative /ul (Negative); Occult Blood-Urine 50 /ul (Negative); Red Blood Cells-Urine 10-25 SEEN /hpf (0-5); Squamous Epithelial Cells - UA 0-5 SEEN /hpf (5-10); White Blood Cells 0-5 SEEN /hpf (0-5)
[2020-09-01 11:10] LABS: Amorphous Sediment 1+; Glucose, Dipstick 100 mg/dl (Normal)
--- NOTE | 2020-09-01 15:55 | EDS_ITS ---
HPI History of Present Illness Chief Complaint: Abd Pain PFSH PFSH Home Medications budesonide-formoterol [Symbicort] 2 puff INHALATION DAILY 11/15/15 [History Last Taken 11/20/15 10:00] lisinopril 20 mg PO BID 11/15/15 [History Last Taken 11/20/15] metformin 500 - 1,000 mg PO TID 11/15/15 [History Last Taken 11/20/15] metoprolol tartrate 75 mg PO BID 11/15/15 [History Last Taken 11/20/15] pravastatin 60 mg PO QHS 11/15/15 [History Last Taken 11/20/15] omega 7-svy-cjh-fish oil 1 ea PO DAILY 11/20/15 [History Last Taken Unknown] acetaminophen 1,000 mg PO Q6H PRN PRN tab 03/05/19 [Rx Last Taken Unknown] aspirin 81 mg PO DAILY@0800 tab.chew 03/05/19 [Rx Last Taken Unknown] hydrochlorothiazide 12.5 mg PO DAILY 09/01/20 [History Last Taken Unknown] Allergy/AdvReac Type Severity Reaction Status Date / Time No Known Allergies Allergy Verified 09/01/20 00:05 Social History Smoking Status: Never smoker MDM MDM MDM Narrative Medical decision making narrative: Chief complaint: Abdominal pain History of present illness: Patient presents on September 01, 2020 for abdominal pain. This started earlier in the morning and has been continuous for several hours. This is upper abdominal. Associate with nausea and vomiting. Patient has a history of dementia, coronary disease, asthma, type 2 diabetes, hypertension, hyperlipidemia, CABG, hysterectomy. Physical exam: Patient is hypertensive but otherwise afebrile and vitals are unremarkable. She has upper abdominal tenderness without guarding or rebound. Heart is regular. Lungs are clear. Skin is normal. Alert and oriented. No acute distress. Diagnostic findings: EKG shows sinus rhythm at a rate of [address] and T wave changes. White count 15.9, hemoglobin 12, sodium 134, chloride 96, glucose 221. Liver panel and lipase normal. Urinalysis shows 10-25 RBCs. Troponin negative. Covid negative. Chest x-ray showed nothing acute, interpreted by the radiologist and myself. CT abdomen showed small bowel obstruction with possible strangulated internal hernia showing venous ob struction. Emergency department course. The patient was treated with morphine and Zofran. Repeat blood pressure was 188/89. Patient's work-up showed small bowel obstruction and possible strangulation. She was discussed with surgery here, Dr. Pandya who advised transfer to a tertiary care center. There were no beds available at [facility] or [facility]. Patient requested [facility]. The patient was accepted for transfer there. Transferred in stable condition. Impression: Small bowel obstruction, internal hernia Disposition: Transfer to [facility] Please note this was dictated on October 01, 2020 as the initial dictation was missing due to to computer downtime for installation of the new software. Discharge Plan Triage Chief Complaint: Abd Pain Other Complaint: Hypertension ED Provider: Naveen Russell Dx/Rx/DC Orders Prescriptions: No Action metformin 500 MG tablet 500 - 1,000 mg PO TID RF: 0 lisinopril 20 MG tablet 20 mg PO BID RF: 0 metoprolol tartrate 50 MG tablet 75 mg PO BID RF: 0 pravastatin 20 MG tablet 60 mg PO QHS RF: 0 budesonide-formoterol [Symbicort] 1 INHALER inhaler 2 puff inhalation DAILY RF: 0 omega 5-azt-vos-fish oil 1 EACH capsule 1 ea PO DAILY RF: 0 acetaminophen 500 MG tablet 1,000 mg PO Q6H PRN PRN (Reason: Pain Score 1-3/10) RF: 0 aspirin 81 MG tablet,chewable 81 mg PO DAILY@0800 RF: 0 hydrochlorothiazide 25 MG tablet 12.5 mg PO DAILY RF: 0 Primary Care Provider: Tierney Samayoa Referrals: Tierney Samayoa MD [Primary Care Provider] - Disposition Disposition: Acute Care Hospital Discharge Location: [facility] Discharge Date/Time: 09/01/20 05:40
== END 2020-09-01 05:40 | disposition short-term general hospital (02) ==
PROVIDERS: Emergency Provider Emergency Medicine; PCP Internal Medicine
DX: K56.600 Partial intestinal obstruction, unspecified as to cause (principal); K46.0 Unspecified abdominal hernia with obstruction, without gangrene; J45.909 Unspecified asthma, uncomplicated; I10 Essential (primary) hypertension; E11.9 Type 2 diabetes mellitus without complications; E78.5 Hyperlipidemia, unspecified; Z95.1 Presence of aortocoronary bypass graft
CPT/HCPCS: 71045; 74018; 74177; 80053; 81001; 83690; 84484; 85025; 87426; 93005; 96374; 96375; 96376; 99284; 99285; Q9967; A4216; J2405

== ENCOUNTER 2020-10-06 16:37 | Emergency (ER) | payer MEDICARE, OTHER, SELFPAY ==
[2020-10-06 16:38] VITALS: BP 159/106; PULSE 148; RESP 19; TEMP 36.7; O2SAT 97; BMI 18.9
--- NOTE | 2020-10-06 16:57 | EKG12_ITS ---
Test Reason : POST CARDIO Blood Pressure : / mmHG Vent. Rate : 077 BPM Atrial Rate : 077 BPM P-R Int : 238 ms QRS Dur : 078 ms QT Int : 378 ms P-R-T Axes : 080 055 085 degrees QTc Int : 427 ms Sinus rhythm with 1st degree A-V block Otherwise normal ECG Confirmed by KHANG CONLEY, BRANDON ([id number]), mapping editor LEÓN RETANA ([id number]) on 10/08/2020 12:37:23 PM Referred By: DOYLE Confirmed By:BRANDON QUIÑONEZ MD
--- NOTE | 2020-10-06 17:11 | EKG12_ITS ---
Test Reason : PALPS Blood Pressure : / mmHG Vent. Rate : 143 BPM Atrial Rate : 133 BPM P-R Int : 000 ms QRS Dur : 092 ms QT Int : 292 ms P-R-T Axes : 000 070 092 degrees QTc Int : 450 ms Supraventricular tachycardia Nonspecific ST abnormality Abnormal ECG Confirmed by KHANG CONLEY, BRANDON ([id number]), photography editor LEÓN RETANA ([id number]) on 10/08/2020 12:34:32 PM Referred By: DOYLE Confirmed By:BRANDON QUIÑONEZ MD
[2020-10-06 17:19] LABS: Absolute Lymphocyte Count 2.02 X10^3/uL (0.83-4.51); Basophil# 0.04 X10^3/uL; Basophil% 0.4 % (0-1); Eosinophil# 0.08 X10^3/uL; Eosinophils% 0.9 % (0-5); Hemoglobin 12.8 g/dL (12.0-15.0); Lymphocyte # 2.02 X10^3/ul (0.83-4.51); Lymphocyte % 22.7 % (19-41); Mean Corpuscular Hgb 32.2 pg (27.0-32.0); Mean Corpuscular Volume 100.8 fL (81-99); Mean Platelet Vol. 10.1 fl (6.2-12.0); Monocyte# 0.76 X10^3/uL; Monocyte% 8.5 % (0-10); NRBC Flagged by Analyzer 0 % (0-5); Neutrophil # 5.98 X10^3/uL (2.7-7.7); Neutrophil % 67.3 % (47-70); Platelet Count 347 K/mm3 (150-450); RBC Distribution Width CV 12.7 % (11.6-14.6); RBC Distribution Width SD 47.3 fl (35.1-43.9); Red Blood Count 3.97 M/mm3 (4.2-5.4); White Blood Count 8.9 K/mm3 (4.4-11.0)
[2020-10-06 17:22] LABS: Prothrombin Time (Protime)PT. 12.7 SECONDS (11.7-14.9)
--- NOTE | 2020-10-06 17:22 | RAD_ITS ---
STUDY: X-RAY CHEST REASON FOR EXAM: Female, 80 years old. Shortness of breath. TECHNIQUE: Single AP portable view of the chest. COMPARISON: September 01, 2020. FINDINGS: The lungs are clear and expanded. There is no demonstrated pleural abnormality. Sternal cerclage wires are present from a prior sternotomy. Normal mediastinum and mavis. Normal visualized pulmonary arteries. There is atherosclerotic calcification of the aortic arch with tortuosity. There is demineralization of the osseous structures. There is a dextroscoliosis of the thoracic spine. Normal visualized ribs, clavicles, and shoulders. There is no demonstrated abnormality of the visualized soft tissue structures of the upper abdomen. RAD/Chest 1 View (Portable) IMPRESSION: Degenerative changes, as described above. No demonstrated acute cardiopulmonary process. Electronically Signed: Bill Holley MD at 18:40 EDT , Service support ,
[2020-10-06 17:23] LABS: Partial Thromboplast Time 25.3 Seconds (24.1-36.2)
[2020-10-06 17:35] LABS: AST(SGOT) 31 U/L (15-37); Alanine Aminotransfer ALT/SGPT 24 U/L (13-56); Albumin, Serum 3.7 g/dL (3.2-5.0); Alkaline Phosphatase 80 U/L (45-117); Anion Gap 8 (5-15); BUN 15 mg/dL (7-18); BUN/Creat Ratio 20.2 RATIO (10-20); Calcium,Total 9.7 mg/dL (8.5-10.1); Chloride 101 mmol/L (98-107); Creatinine, Serum 0.74 mg/dL (0.55-1.02); EST Glomerular Filtration Rate 79 mL/min (>60); Est Glom Filt Rate - Afr Amer 96 mL/min (>60); Estimated Creatinine Clearance 33.85 ml/min; Globulin 3.7 g/dL (2.2-4.2); Glucose 181 mg/dL (74-106); Potassium 4.6 mmol/L (3.5-5.1); Protein, Total 7.4 g/dL (6.4-8.2); Sodium Level 138 mmol/L (136-145)
[2020-10-06 17:38] VITALS: BP 159/79; PULSE 67; RESP 20; O2SAT 97
--- NOTE | 2020-10-06 17:38 | ED.RN ---
ON ARRIVAL, AFTER PT IV INITIATED. THIS RN ASSISTED PT IN STIMULATING VALSALVA RESPONSE USING SYRINGE. PT BLEW THROUGH A SYRNGE, AND THEN ASSISTED TO LAYING ON BACK WITH FEET IN AIR BY THIS RN. PT HR DECREASED FROM 140 TO 88 SR. REPEAT EKG COMPLETED. PT REMAINS A+OX4. BP 150/79, HR 66, RR 20, AND SPO2 98% ON ROOM AIR.
[2020-10-06 18:13] VITALS: PULSE 67; RESP 20; O2SAT 98
[2020-10-06 18:21] LABS: Bacteria 0 SEEN /hpf (None Seen); Mucous, Urine 0 SEEN /hpf (<or=2+)
[2020-10-06 18:30] LABS: Color, Urine Yellow (Yellow); Glucose, Dipstick Normal (Normal); Ketone-Dipstick Negative (Negative); Leukocyte Esterase-Dipstick Negative /ul (Negative); Nitrite-Dipstick Negative (Negative); Occult Blood-Urine 25 /ul (Negative); Protein-Dipstick Negative (Negative); Urine Bilirubin Dipstick Negative (Negative); Urine Clarity Sl. Cloudy (Clear); Urine Urobilinogen Normal (Normal)
[2020-10-06 18:40] LABS: Red Blood Cells-Urine 0-5 SEEN /hpf (0-5); Squamous Epithelial Cells - UA 0-5 SEEN /hpf (5-10); White Blood Cells 0 SEEN /hpf (0-5)
[2020-10-06 19:10] VITALS: BP 154/99; PULSE 58; RESP 16; O2SAT 97
[2020-10-06 19:39] VITALS: BP 178/87; PULSE 60; RESP 20; O2SAT 97
--- NOTE | 2020-10-07 00:34 | EX.ED.DYSGE1 ---
HPI History of Present Illness Chief Complaint: Palpitations Informant: patient Onset/Context/Timing Onset: Today Context: Sudden Onset Timing: Intermittent Quality: Racing Location: Chest Worsened by: Nothing Relieved by: Nothing Narrative Narrative: Patient presents with palpitations that began today. Patient states she felt like her heart was racing. Patient states this has been intermittent today. Patient states nothing makes it better nothing makes it worse. Patient states that she was having some shortness of breath. Patient denies any chest pain. Patient denies any nausea or vomiting. Patient denies any fevers or chills. Patient denies any prior episodes of palpitations. Prior similar symptoms: No PFSH PFSH Medical History Coronary artery disease Diabetes Hyperlipidemia Hypertension Home Medications budesonide-formoterol [Symbicort] 2 puff INHALATION DAILY 11/15/15 [History Last Taken 11/20/15 10:00] lisinopril 10 mg PO DAILY 11/15/15 [History Last Taken 11/20/15] metformin 1,000 mg PO TID 11/15/15 [History Last Taken 11/20/15] metoprolol tartrate 100 mg PO BID 11/15/15 [History Last Taken 11/20/15] pravastatin 60 mg PO QHS 11/15/15 [History Last Taken 11/20/15] omega 9-shw-thc-fish oil 1 ea PO DAILY 11/20/15 [History Last Taken Unknown] acetaminophen 1,000 mg PO Q6H PRN PRN tab 03/05/19 [Rx Last Taken Unknown] aspirin 81 mg PO DAILY@0800 tab.chew 03/05/19 [Rx Last Taken Unknown] docusate sodium [Colace] 100 mg PO DAILY 10/06/20 [History Last Taken Unknown] Allergy/AdvReac Type Severity Reaction Status Date / Time No Known Allergies Allergy Verified 10/06/20 16:37 Surgical History (Updated 10/07/20 @ 00:[address] Walt Ingram DO) History of intestinal surgery Social History (Updated 10/06/20 @ 16:42 by Lizy Gonzalez) household members: family housing: house Smoking Status: Never smoker ROS ROS ED Constitutional Constitutional ED: Denies chills or fever(s) Eyes Eyes: Denies blurry vision or change in vision ENT ENT ED: Denies rhinorrhea or sore throat Cardiovascular Cardiovascular: Reports palpitations and racing heartbeat; Denies chest pain Respiratory/Chest Respiratory/Chest: Reports dyspnea; Denies cough Gastrointestinal Gastrointestinal: Denies nausea or vomiting Genitourinary Genitourinary ED: Denies dysuria or hematuria Musculoskeletal Musculoskeletal: Denies back pain or neck pain Integumentary Denies abscess or rash Neurologic Neurologic: Denies headache(s) or weakness Allergic/Immunologic Allergic/Immunologic ED: Denies mouth swelling or urticaria EXAM Physical Exam Const Vital Signs: 10/06/20 16:38 10/06/20 16:41 10/06/20 17:38 Temperature 98.0 F Temperature Source Temporal Pulse Rate 148 H 67 Respiratory Rate 19 H 20 H Respiratory Effort Short of Breath Blood Pressure 159/106 H 159/79 H Blood Pressure Mean 123 105 Pulse Ox 97 97 Oxygen Delivery Method Room Air Room Air 10/06/20 18:13 10/06/20 19:10 10/06/20 19:39 Temperature Temperature Source Pulse Rate 67 58 L 60 Respiratory Rate 20 H 16 20 H Respiratory Effort Blood Pressure 154/99 H 178/87 H Blood Pressure Mean 117 Pulse Ox 98 97 97 Oxygen Delivery Method Room Air Room Air Positive well nourished and well developed General Appearance ED: well developed HEENT Reports moist mucous membranes Neck supple and no JVD Resp normal respiratory effort and clear to auscultation bilaterally Cardio regular rate and regular rhythm GI normal to inspection, nondistended, normoactive bowel sounds and non-tender Palpation: soft Extremity General Extremety ED: Negative for edema or tenderness General Extremity: Negative for edema Neuro oriented x3, CN's II-XII intact bilaterally and no sensory deficits noted Sensorium / Orientation: alert Motor Exam: strength 5/5 throughout Psych mental status grossly normal MDM MDM MDM Narrative Medical decision making narrative: Initial EKG was obtained. On my interpretation, it showed a supraventricular tachycardia with a rate of 143. There are no acute ST or T wave changes noted. [place] was normal. QRS was normal. QTC was normal. Repeat EKG was obtained because the patient started feeling better. On my interpretation, this showed a normal sinus rhythm with a first-degree AV block with a rate of 77. There are no acute ST or T wave changes. NC interval was 238. QRS, QTc intervals were within normal limits. [place] was normal. CBC and comprehensive metabolic profile were within normal limits. PT with INR and PTT were normal. Troponin was normal. Urinalysis was obtained. There is no evidence of urinary tract infection. Portable 1 view chest x-ray was obtained. On my interpretation, lung broderick are clear. There is normal cardiac silhouette. Bony thorax is normal. There is no acute process noted. Radiologist also interpreted the x-ray and agrees. Patient had no further episodes of dysrhythmia here in the emergency department. Patient feels better and wants to go home. Patient was instructed to follow-up with her primary care physician in 3 to 5 days. Patient understood and was agreeable with the plan. All questions were answered. Lab Data Attestation: I reviewed the patient's lab results. Labs: Laboratory Results - last 24 hr 10/06/20 10/06/20 10/06/20 16:46 16:46 16:46 WBC 8.9 RBC 3.97 L Hgb 12.8 Hct 40.0 MCV 100.8 H MCH 32.2 H MCHC 32.0 RDW Std Deviation 47.3 H RDW Coeff of José Miguel 12.7 Plt Count 347 MPV 10.1 Immature Gran % (Auto) 0.200 Neut % (Auto) 67.3 Lymph % (Auto) 22.7 [place] % (Auto) 8.5 Eos % (Auto) 0.9 Baso % (Auto) 0.4 Absolute Neuts (auto) 6.0 Absolute Lymphs (auto) 2.02 Nucleated RBC % 0 PT 12.7 INR 1.0 APTT 25.3 Sodium 138 Potassium 4.6 Chloride 101 Carbon Dioxide 29.0 Anion Gap 8 BUN 15 Creatinine 0.74 Estim Creat Clear Calc 33.85 Est GFR (MDRD) Af Amer 96 Est GFR (MDRD) Non-Af 79 BUN/Creatinine Ratio 20.2 H Glucose 181 H Calcium 9.7 Total Bilirubin 0.30 AST 31 ALT 24 Alkaline Phosphatase 80 Troponin I < 0.015 Total Protein 7.4 Albumin 3.7 Globulin 3.7 Albumin/Globulin Ratio 1.0 Urine Color Urine Clarity Urine pH Ur Specific [place] Urine Protein Urine Glucose (UA) Urine Ketones Urine Occult Blood Urine Nitrite Urine Bilirubin Urine Urobilinogen Ur Leukocyte Esterase Urine RBC Urine WBC Ur Squamous Epith Cells Urine Bacteria Urine Mucus 10/06/20 18:10 WBC RBC Hgb Hct MCV MCH MCHC RDW Std Deviation RDW Coeff of José Miguel Plt Count MPV Immature Gran % (Auto) Neut % (Auto) Lymph % (Auto) [place] % (Auto) Eos % (Auto) Baso % (Auto) Absolute Neuts (auto) Absolute Lymphs (auto) Nucleated RBC % PT INR APTT Sodium Potassium Chloride Carbon Dioxide Anion Gap BUN Creatinine Estim Creat Clear Calc Est GFR (MDRD) Af Amer Est GFR (MDRD) Non-Af BUN/Creatinine Ratio Glucose Calcium Total Bilirubin AST ALT Alkaline Phosphatase Troponin I Total Protein Albumin Globulin Albumin/Globulin Ratio Urine Color Yellow Urine Clarity Sl. Cloudy Urine pH 7.0 Ur Specific [place] 1.020 Urine Protein Negative Urine Glucose (UA) Normal Urine Ketones Negative Urine Occult Blood 25 H Urine Nitrite Negative Urine Bilirubin Negative Urine Urobilinogen Normal Ur Leukocyte Esterase Negative Urine RBC 0-5 SEEN Urine WBC 0 SEEN Ur Squamous Epith Cells 0-5 SEEN Urine Bacteria 0 SEEN Urine Mucus 0 SEEN Radiography Chest X-Ray - ED: 1 View, Read by ED Physician and Read by Radiologist Diagnostic Testing: Radiology Impression Chest X-Ray 10/06/20 17:22 IMPRESSION: Degenerative changes, as described above. No demonstrated acute cardiopulmonary process. Electronically Signed: Bill Holley MD at 18:40 EDT , Service support , EKG Initial EKG: Attestation: I personally reviewed and interpreted this EKG as follows: Interpretation: SVT (143) and Non-Specific ST Changes Follow-up EKG: Attestation: I personally reviewed and interpreted this EKG as follows: Interpretation: Sinus Rhythm (With first-degree AV block with a rate of 77) and No Acute Injury Pattern Discharge Plan Triage Chief Complaint: Palpitations ED Provider: Walt Ingram Dx/Rx/DC Orders Clinical Impression: Supraventricular tachycardia, nonsustained Instructions: ED Palpitations Prescriptions: No Action metformin 500 MG tablet 1,000 mg PO TID RF: 0 lisinopril 20 MG tablet 10 mg PO DAILY RF: 0 metoprolol tartrate 50 MG tablet 100 mg PO BID RF: 0 pravastatin 20 MG tablet 60 mg PO QHS RF: 0 budesonide-formoterol [Symbicort] 1 INHALER inhaler 2 puff inhalation DAILY RF: 0 omega 9-ick-kig-fish oil 1 EACH capsule 1 ea PO DAILY RF: 0 acetaminophen 500 MG tablet 1,000 mg PO Q6H PRN PRN (Reason: Pain Score 1-3/10) RF: 0 aspirin 81 MG tablet,chewable 81 mg PO DAILY@0800 RF: 0 docusate sodium [Colace] 100 mg Capsule 100 mg PO DAILY RF: 0 Primary Care Provider: Tierney Samayoa Referrals: Tierney Samayoa MD [Primary Care Provider] - 3-5 Days Disposition Disposition: Home, self care Discharge Date/Time: 10/06/20 19:40
== END 2020-10-06 19:40 | disposition home or self-care (01) ==
PROVIDERS: Emergency Provider Emergency Medicine; PCP Internal Medicine
DX: I47.1 Supraventricular tachycardia (principal); R06.02 Shortness of breath; I25.10 Atherosclerotic heart disease of native coronary artery without angina pectoris; E11.9 Type 2 diabetes mellitus without complications; E78.5 Hyperlipidemia, unspecified; I10 Essential (primary) hypertension; Z79.84 Long term (current) use of oral hypoglycemic drugs; Z79.899 Other long term (current) drug therapy
CPT/HCPCS: 71045; 80053; 81001; 84484; 85025; 85610; 85730; 93005; 99285; A4216

== ENCOUNTER 2021-01-01 23:13 | Emergency (ER) | payer MEDICARE, OTHER, SELFPAY ==
[2021-01-01 23:14] VITALS: BP 151/100; PULSE 132; RESP 16; TEMP 36; O2SAT 98; BMI 21.6
--- NOTE | 2021-01-01 23:33 | EKG12_ITS ---
Test Reason : TACHYCARDIA Blood Pressure : / mmHG Vent. Rate : 132 BPM Atrial Rate : 070 BPM P-R Int : 000 ms QRS Dur : 096 ms QT Int : 310 ms P-R-T Axes : 000 053 072 degrees QTc Int : 459 ms Supraventricular tachycardia Otherwise normal ECG Confirmed by GIL CONLEY, KI ([id number]), marketing editor LEÓN RETANA ([id number]) on 01/05/2021 9:37:11 AM Referred By: DR MCDANIEL Confirmed By:KI CORDERO MD
--- NOTE | 2021-01-01 23:56 | EKG12_ITS ---
Test Reason : SVT Blood Pressure : / mmHG Vent. Rate : 085 BPM Atrial Rate : 085 BPM P-R Int : 216 ms QRS Dur : 080 ms QT Int : 358 ms P-R-T Axes : 085 045 072 degrees QTc Int : 426 ms Sinus rhythm with 1st degree A-V block Otherwise normal ECG Confirmed by GIL CONLEY, KI ([id number]), city editor LEÓN RETANA ([id number]) on 01/04/2021 12:39:45 PM Referred By: DR MCDANIEL Confirmed By:KI CORDERO MD
--- NOTE | 2021-01-02 | RAD_ITS ---
STUDY: X-RAY CHEST REASON FOR EXAM: Female, 80 years old. chest pain TECHNIQUE: Single AP portable view of the chest. COMPARISON: 10/06/2020. FINDINGS: The lungs are clear and expanded. There is no demonstrated pleural abnormality. Normal size heart. Midline sternotomy wires present. Normal mediastinum and mavis. Normal visualized pulmonary arteries. There is atherosclerotic calcification of the aortic arch with tortuosity. There is demineralization of the osseous structures. There is degenerative osteoarthritis of the bilateral shoulders and spine. Scoliosis of the thoracolumbar spine with convexity to the right. There is no demonstrated abnormality of the visualized soft tissue structures of the upper abdomen. RAD/Chest 1 View (Portable) IMPRESSION: No acute cardiopulmonary disease. Electronically Signed: Jaqueline Sheikh MD at 1:00 EDT , Service support ,
[2021-01-02] MEDS: Adenosine 6 MG/2 ML Syringe IV (00:04)
[2021-01-02 00:07] LABS: Absolute Lymphocyte Count 3.16 X10^3/uL (0.83-4.51); Absolute Neutrophil Count 6.1 X10^3/uL (2.0-7.7); Basophil# 0.05 X10^3/uL; Basophil% 0.5 % (0-1); Eosinophil# 0.22 X10^3/uL; Eosinophils% 2.1 % (0-5); Hematocrit 41.1 % (37-47); Hemoglobin 12.7 g/dL (12.0-15.0); Lymphocyte # 3.16 X10^3/ul (0.83-4.51); Lymphocyte % 30.1 % (19-41); Mean Corp Hgb Conc 30.9 g/dL (32-36); Mean Corpuscular Hgb 30.1 pg (27.0-32.0); Mean Corpuscular Volume 97.4 fL (81-99); Mean Platelet Vol. 10.3 fl (6.2-12.0); Monocyte# 0.95 X10^3/uL; Monocyte% 9.1 % (0-10); NRBC Flagged by Analyzer 0 % (0-5); Neutrophil # 6.08 X10^3/uL (2.7-7.7); Neutrophil % 57.9 % (47-70); Platelet Count 331 K/mm3 (150-450); RBC Distribution Width CV 13.1 % (11.6-14.6); Red Blood Count 4.22 M/mm3 (4.2-5.4); White Blood Count 10.5 K/mm3 (4.4-11.0)
--- NOTE | 2021-01-02 00:17 | EDS_ITS ---
HPI History of Present Illness Chief Complaint: Palpitations Informant: patient and family Narrative Narrative: Patient is an 80-year-old female with history of SVT presenting with palpitations and chest discomfort. She states her symptoms started around 730 this evening. She states it feels like a chest tightness. She thinks she might of had some symptoms yesterday but is not sure. She tried Valsalva maneuver at home with no success. Patient is on metoprolol and follows with cardiology at [facility] in [place]. She denies any other complaints at this time. [facility] Medical History (Updated 01/02/21 @ 05:[address] Nicki Nails, DO) Coronary artery disease Diabetes Hyperlipidemia Hypertension SVT (supraventricular tachycardia) Home Medications budesonide-formoterol [Symbicort] 2 puff INHALATION DAILY 11/15/15 [History Last Taken 11/20/15 10:00] lisinopril 10 mg PO DAILY 11/15/15 [History Last Taken 11/20/15] metformin 1,000 mg PO DAILY 11/15/15 [History Last Taken 11/20/15] metoprolol tartrate 100 mg PO BID 11/15/15 [History Last Taken 11/20/15] pravastatin 60 mg PO QHS 11/15/15 [History Last Taken 11/20/15] omega 6-zxf-fzu-fish oil 1 ea PO DAILY 11/20/15 [History Last Taken Unknown] aspirin 81 mg PO DAILY@0800 tab.chew 03/05/19 [Rx Last Taken Unknown] docusate sodium [Colace] 100 mg PO BID 10/06/20 [History Last Taken Unknown] metformin 500 mg PO QHS 01/02/21 [History Last Taken Unknown] Allergy/AdvReac Type Severity Reaction Status Date / Time No Known Allergies Allergy Verified 01/02/21 01:29 Surgical History History of intestinal surgery Social History (Updated 10/06/20 @ 16:42 by Lizy Gonzalez) household members: family housing: house Smoking Status: Never smoker ROS ROS ED Constitutional Constitutional ED: Denies fatigue or weakness Eyes Eyes: Denies blurry vision Cardiovascular Cardiovascular: Reports chest pain, palpitations and racing heartbeat Respiratory/Chest Respiratory/Chest: Denies cough or dyspnea Gastrointestinal Gastrointestinal: Denies abdominal pain, nausea or vomiting Genitourinary Genitourinary ED: Denies decreased urination or dysuria Musculoskeletal Musculoskeletal: Denies extremity pain Integumentary Denies new lesions or rash Neurologic Neurologic: Denies paresthesias or weakness Psychiatric Psychiatric: Denies anxiety or depression Hematologic/Lymphatic Hematologic/Lymphatic: Denies easy bleeding or easy bruising EXAM Physical Exam Const Vital Signs: 01/01/21 23:14 01/02/21 00:09 01/02/21 01:07 Temperature 96.8 F L Temperature Source Temporal Pulse Rate 132 H 64 Respiratory Rate 16 16 Respiratory Effort Normal Non-Labored Respiratory Pattern Normal Blood Pressure 151/100 H 162/54 H Blood Pressure Mean 117 90 Pulse Ox 98 100 Oxygen Delivery Method Room Air Room Air 01/02/21 02:29 01/02/21 03:41 Temperature Temperature Source Pulse Rate 57 L 78 Respiratory Rate 20 H 15 Respiratory Effort Respiratory Pattern Blood Pressure 171/113 H 172/77 H Blood Pressure Mean 132 108 Pulse Ox 100 99 Oxygen Delivery Method Room Air Room Air Positive well nourished and well developed General Appearance ED: well developed and NAD HEENT Reports moist mucous membranes normocephalic Mouth ED: Yes moist mucous membranes normal Eyes PERRL and EOMs intact bilaterally General Eye ED: Yes normal appearance of both eyes Pupil: PERRL Neck supple and no JVD Lymph Lymphatic: no lymphadenopathy noted Chest Wall inspection of chest normal and palpation of chest normal Resp normal respiratory effort, normal air movement and clear to auscultation bilaterally Cardio regular rhythm Rate: tachycardic Peripheral Pulses: pulses 2+ throughout GI non-tender and non-distended Back/Spine no CVA tenderness and normal to inspection Extremity normal to inspection and full ROM Neuro oriented x3, moves all extremities and no focal motor deficits Psych mental status grossly normal and thought process normal Skin no rashes or lesions noted and no petechiae MDM MDM MDM Narrative Medical decision making narrative: Patient is evaluated for palpitations. She appears nontoxic in no acute distress. She is hypertensive and tachycardic. She is in a narrow complex tach arrhythmia with differential including SVT or flutter. She is hemodynamically stable and mentating appropriately. Patient is given 6 mg of adenosine which converted her to normal sinus rhythm. Her BNP is elevated however she clinically does not appear fluid overloaded and does not have signs of fluid overload on her chest x-ray. High sensitivity troponin initially is 20 and then it does increase to 34. I suspect this is strain associated with her SVT however will get a third high sensitivity troponin. Repeat high-sensitivity troponin is now 37. She remains in normal sinus rhythm. She continues to be asymptomatic. I feel that she is stable for outpatient follow-up. She can follow-up outpatient with her mutual fund accountant. Lab Data Attestation: I reviewed the patient's lab results. Labs: Laboratory Results - last 24 hr 01/01/21 01/01/21 01/01/21 23:30 23:30 23:30 WBC 10.5 RBC 4.22 Hgb 12.7 Hct 41.1 MCV 97.4 MCH 30.1 MCHC 30.9 L RDW Std Deviation 47.0 H RDW Coeff of José Miguel 13.1 Plt Count 331 MPV 10.3 Immature Gran % (Auto) 0.300 Neut % (Auto) 57.9 Lymph % (Auto) 30.1 [place] % (Auto) 9.1 Eos % (Auto) 2.1 Baso % (Auto) 0.5 Absolute Neuts (auto) 6.1 Absolute Lymphs (auto) 3.16 Nucleated RBC % 0 Sodium 135 L Potassium 4.3 Chloride 99 Carbon Dioxide 28.0 Anion Gap 8 BUN 20 H Creatinine 0.68 Estim Creat Clear Calc 39.70 Est GFR (MDRD) Af Amer 106 Est GFR (MDRD) Non-Af 87 BUN/Creatinine Ratio 29.2 H Glucose 176 H Calcium 10.0 Troponin I High Sens 20 B-Natriuretic Peptide 300.9 H 01/02/21 01/02/21 02:20 04:34 WBC RBC Hgb Hct MCV MCH MCHC RDW Std Deviation RDW Coeff of José Miguel Plt Count MPV Immature Gran % (Auto) Neut % (Auto) Lymph % (Auto) [place] % (Auto) Eos % (Auto) Baso % (Auto) Absolute Neuts (auto) Absolute Lymphs (auto) Nucleated RBC % Sodium Potassium Chloride Carbon Dioxide Anion Gap BUN Creatinine Estim Creat Clear Calc Est GFR (MDRD) Af Amer Est GFR (MDRD) Non-Af BUN/Creatinine Ratio Glucose Calcium Troponin I High Sens 34 37 B-Natriuretic Peptide Radiography Chest X-Ray - ED: 1 View, Read by ED Physician, Read by Radiologist and No Acute Disease Diagnostic Testing: Radiology Impression Chest X-Ray 01/02/21 00:00 IMPRESSION: No acute cardiopulmonary disease. Electronically Signed: Jaqueline Sheikh MD at 1:00 EDT , Service support , Rhythm Strip Rhythm Strip: svt Rate: 132 Ectopy: None EKG Initial EKG: Attestation: I personally reviewed and interpreted this EKG as follows: Interpretation: SVT Comments: SVT at a rate of [address] segments Normal intervals Follow-up EKG: Attestation: I personally reviewed and interpreted this EKG as follows: Interpretation: Sinus Rhythm Comments: Status post cardioversion with adenosine Normal sinus rhythm at a rate of 85 First-degree AV block with a MO interval 216 Normal axis Normal QRS and QTc Normal ST segments Treatment and Re-Evaluation Comments:: Patient given 6 mg of adenosine. After sinus pause she converts to sinus rhythm. Discharge Plan Triage Chief Complaint: Palpitations ED Provider: Nicki Nails Dx/Rx/DC Orders Clinical Impression: Supraventricular tachycardia, nonsustained, Hypertension Instructions: ED Understanding Supraventricular Tachycardia (SVT) Prescriptions: No Action metformin 500 MG tablet 1,000 mg PO DAILY RF: 0 lisinopril 20 MG tablet 10 mg PO DAILY RF: 0 metoprolol tartrate 50 MG tablet 100 mg PO BID RF: 0 pravastatin 20 MG tablet 60 mg PO QHS RF: 0 budesonide-formoterol [Symbicort] 1 INHALER inhaler 2 puff inhalation DAILY RF: 0 omega 8-trf-ofo-fish oil 1 EACH capsule 1 ea PO DAILY RF: 0 aspirin 81 MG tablet,chewable 81 mg PO DAILY@0800 RF: 0 docusate sodium [Colace] 100 mg Capsule 100 mg PO BID RF: 0 metformin 500 mg Tablet 500 mg PO QHS RF: 0 Primary Care Provider: Tierney Samayoa Referrals: Tierney Samayoa MD [Primary Care Provider] - Activity Restrictions/Additional Instructions: Please follow-up with your mutual fund accountant next week Disposition Disposition: Home, Self Care
[2021-01-02 00:25] LABS: Anion Gap 8 (5-15); BUN 20 mg/dL (7-18); BUN/Creat Ratio 29.2 RATIO (10-20); Chloride 99 mmol/L (98-107); Creatinine, Serum 0.68 mg/dL (0.55-1.02); EST Glomerular Filtration Rate 87 mL/min (>60); Est Glom Filt Rate - Afr Amer 106 mL/min (>60); Glucose 176 mg/dL (74-106); Potassium 4.3 mmol/L (3.5-5.1); Sodium Level 135 mmol/L (136-145); Troponin-I HS 20 pg/mL (3.0-54.0)
[2021-01-02 00:40] LABS: BNP,B-Type NATRIURETIC PEPTIDE 300.9 pg/mL (0-100)
[2021-01-02] MEDS: 0.9% Normal Saline 1,000 ML 50 ML IV (01:03)
[2021-01-02 01:07] VITALS: BP 162/54; PULSE 64; RESP 16; O2SAT 100
[2021-01-02 02:29] VITALS: BP 171/113; PULSE 57; RESP 20; O2SAT 100
[2021-01-02 02:52] LABS: Troponin-I HS 34 pg/mL (3.0-54.0)
[2021-01-02 03:41] VITALS: BP 172/77; PULSE 78; RESP 15; O2SAT 99
[2021-01-02 05:07] LABS: Troponin-I HS 37 pg/mL (3.0-54.0)
[2021-01-02 06:00] VITALS: BP 136/53; PULSE 55; RESP 18; O2SAT 97
== END 2021-01-02 06:00 | disposition home or self-care (01) ==
PROVIDERS: Emergency Provider Emergency Medicine; PCP Internal Medicine
DX: I47.1 Supraventricular tachycardia (principal); I10 Essential (primary) hypertension; I25.10 Atherosclerotic heart disease of native coronary artery without angina pectoris; E11.9 Type 2 diabetes mellitus without complications; E78.5 Hyperlipidemia, unspecified; Z79.84 Long term (current) use of oral hypoglycemic drugs; Z79.899 Other long term (current) drug therapy
CPT/HCPCS: 36415; 71045; 80048; 83880; 84484; 85025; 93005; 96361; 96374; 99283; J7030; A4216; J0153

== ENCOUNTER 2021-01-11 11:01 | Emergency (ER) | payer MEDICARE, OTHER, SELFPAY ==
[2021-01-11 11:02] VITALS: BP 161/107; PULSE 164; RESP 18; TEMP 37.2; O2SAT 97; BMI 20.1
--- NOTE | 2021-01-11 11:22 | EKG12_ITS ---
Test Reason : PALPS Blood Pressure : / mmHG Vent. Rate : 157 BPM Atrial Rate : 156 BPM P-R Int : 000 ms QRS Dur : 100 ms QT Int : 284 ms P-R-T Axes : 000 056 099 degrees QTc Int : 459 ms Supraventricular tachycardia Marked ST abnormality, possible inferior lateral subendocardial injury Abnormal ECG Confirmed by KHANG CONLEY, BRANDON ([id number]), editorial writer LEÓN RETANA ([id number]) on 01/12/2021 8:47:12 AM Referred By: RYLEE Confirmed By:BRANDON QUIÑONEZ MD
[2021-01-11 11:26] VITALS: BP 173/127; PULSE 158; RESP 18; O2SAT 95
[2021-01-11] MEDS: 0.9% Normal Saline 1,000 ML 150 ML IV (11:26)
[2021-01-11] MEDS: Adenosine 6 MG/2 ML Syringe IV (11:26)
[2021-01-11 11:28] VITALS: PULSE 101; RESP 19; O2SAT 100
--- NOTE | 2021-01-11 11:30 | EX.ED.DYSGE1 ---
HPI History of Present Illness Chief Complaint: Palpitations Informant: patient and family Narrative Narrative: 80-year-old female with a history of SVT presents the emergency department with palpitations. Symptoms began a little over an hour prior to arrival. She sees cardiology at [facility] and has been referred to electrophysiology. Patient denies any chest pain or shortness of breath. She states that she does feel weak. [facility] Medical History Coronary artery disease Diabetes Hyperlipidemia Hypertension SVT (supraventricular tachycardia) Home Medications budesonide-formoterol [Symbicort] 2 puff INHALATION DAILY 11/15/15 [History Last Taken 11/20/15 10:00] lisinopril 10 mg PO DAILY 11/15/15 [History Last Taken 11/20/15] metformin 1,000 mg PO DAILY 11/15/15 [History Last Taken 11/20/15] metoprolol tartrate 100 mg PO BID 11/15/15 [History Last Taken 11/20/15] pravastatin 60 mg PO QHS 11/15/15 [History Last Taken 11/20/15] omega 5-qfs-iee-fish oil 1 ea PO DAILY 11/20/15 [History Last Taken Unknown] aspirin 81 mg PO DAILY@0800 tab.chew 03/05/19 [Rx Last Taken Unknown] docusate sodium [Colace] 100 mg PO BID 10/06/20 [History Last Taken Unknown] metformin 500 mg PO QHS 01/02/21 [History Last Taken Unknown] Allergy/AdvReac Type Severity Reaction Status Date / Time No Known Allergies Allergy Verified 01/11/21 11:03 Surgical History History of intestinal surgery Social History household members: family housing: house Smoking Status: Never smoker ROS ROS ED Constitutional Constitutional ED: Denies chills or weight loss Eyes Eyes: Denies change in vision or diplopia ENT ENT ED: Denies ear pain, rhinorrhea or sore throat Cardiovascular Cardiovascular: Reports racing heartbeat; Denies chest pain, orthopnea or palpitations Respiratory/Chest Respiratory/Chest: Denies cough, dyspnea or orthopnea Gastrointestinal Gastrointestinal: Denies abdominal pain, diarrhea, nausea or vomiting Genitourinary Genitourinary ED: Denies dysuria, hematuria or urinary frequency Musculoskeletal Musculoskeletal: Denies arthralgias or myalgias Integumentary Denies abscess or rash Neurologic Neurologic: Denies headache(s) or weakness Psychiatric Psychiatric: Denies anxiety, depression, suicidal ideation or suicidal thoughts Endocrine Endocrinology: Denies polydipsia, polyphagia or polyuria Allergic/Immunologic Allergic/Immunologic ED: Denies mouth swelling, tongue swelling or urticaria EXAM Physical Exam Const Vital Signs: 01/11/21 11:02 01/11/21 11:26 01/11/21 11:28 Temperature 99 F Temperature Source Temporal Pulse Rate 164 H 158 H 101 H Respiratory Rate 18 18 19 H Blood Pressure 161/107 H 173/127 H Blood Pressure Mean 125 142 Pulse Ox 97 95 100 Oxygen Delivery Method Room Air Room Air Nasal Cannula Oxygen Flow Rate (L/min) 2 01/11/21 11:32 Temperature Temperature Source Pulse Rate Respiratory Rate Blood Pressure 219/91 H Blood Pressure Mean 133 Pulse Ox Oxygen Delivery Method Oxygen Flow Rate (L/min) Positive well nourished and well developed General Appearance ED: well developed HEENT Reports normocephalic, head/scalp atraumatic and moist mucous membranes Eyes PERRL and EOMs intact bilaterally Neck no lymphadenopathy, supple and no JVD Resp normal respiratory effort and clear to auscultation bilaterally Cardio Rate: tachycardic and other Other Details: Systolic murmur GI normal to inspection, nondistended, normoactive bowel sounds and non-tender Palpation: soft Back/Spine no CVA tenderness and normal ROM Extremity normal to inspection General Extremety ED: Negative for edema General Extremity: Negative for edema Neuro oriented x3 and CN's II-XII intact bilaterally Sensorium / Orientation: alert Motor Exam: strength 5/5 throughout Psych mental status grossly normal Mood & Affect: Negative for depressed or tearful Skin no rashes or lesions noted and no wounds MDM MDM MDM Narrative Medical decision making narrative: Patient appears to be in a narrow complex SVT. She received 6 mg of adenosine and converted to a sinus rhythm. Patient was observed. She is feeling well. Able to ambulate to the bathroom. Heart rate in the 70s. She is hypertensive but she did not yet take her morning blood pressure pills would like to take them when she gets home. Lab Data Attestation: I reviewed the patient's lab results. Labs: Laboratory Results - last 24 hr 01/11/21 01/11/21 11:10 11:10 WBC 7.6 RBC 4.56 Hgb 13.8 Hct 44.2 MCV 96.9 MCH 30.3 MCHC 31.2 L RDW Std Deviation 48.5 H RDW Coeff of José Miguel 13.3 Plt Count 312 MPV 10.3 Immature Gran % (Auto) 0.400 Neut % (Auto) 55.5 Lymph % (Auto) 33.0 [place] % (Auto) 8.1 Eos % (Auto) 2.3 Baso % (Auto) 0.7 Absolute Neuts (auto) 4.2 Absolute Lymphs (auto) 2.49 Nucleated RBC % 0 Sodium 137 Potassium 3.7 Chloride 101 Carbon Dioxide 29.0 Anion Gap 7 BUN 12 Creatinine 0.67 Estim Creat Clear Calc 34.75 Est GFR (MDRD) Af Amer 108 Est GFR (MDRD) Non-Af 89 BUN/Creatinine Ratio 17.8 Glucose 236 H Calcium 9.5 Magnesium 1.9 EKG Initial EKG: Attestation: I personally reviewed and interpreted this EKG as follows: Interpretation: SVT Comments: Supraventricular rhythm with a ventricular rate of 157. Discharge Plan Triage Chief Complaint: Palpitations ED Provider: Naveen Aguilar Dx/Rx/DC Orders Clinical Impression: SVT (supraventricular tachycardia) Instructions: ED Understanding Supraventricular Tachycardia (SVT) Prescriptions: No Action metformin 500 MG tablet 1,000 mg PO DAILY RF: 0 lisinopril 20 MG tablet 10 mg PO DAILY RF: 0 metoprolol tartrate 50 MG tablet 100 mg PO BID RF: 0 pravastatin 20 MG tablet 60 mg PO QHS RF: 0 budesonide-formoterol [Symbicort] 1 INHALER inhaler 2 puff inhalation DAILY RF: 0 omega 9-utb-ixm-fish oil 1 EACH capsule 1 ea PO DAILY RF: 0 aspirin 81 MG tablet,chewable 81 mg PO DAILY@0800 RF: 0 docusate sodium [Colace] 100 mg Capsule 100 mg PO BID RF: 0 metformin 500 mg Tablet 500 mg PO QHS RF: 0 Primary Care Provider: Tierney Samayoa Referrals: Tierney Samayoa MD [Primary Care Provider] - As Needed Activity Restrictions/Additional Instructions: Please follow-up with your disability hearing officer as scheduled you may need to call them tomorrow inform them that you had another SVT episode Disposition Disposition: Home, Self Care
[2021-01-11 11:32] VITALS: BP 219/91
[2021-01-11 11:51] LABS: Absolute Lymphocyte Count 2.49 X10^3/uL (0.83-4.51); Absolute Neutrophil Count 4.2 X10^3/uL (2.0-7.7); Basophil# 0.05 X10^3/uL; Basophil% 0.7 % (0-1); Eosinophil# 0.17 X10^3/uL; Eosinophils% 2.3 % (0-5); Hematocrit 44.2 % (37-47); Hemoglobin 13.8 g/dL (12.0-15.0); Lymphocyte # 2.49 X10^3/ul (0.83-4.51); Mean Corp Hgb Conc 31.2 g/dL (32-36); Mean Corpuscular Hgb 30.3 pg (27.0-32.0); Mean Corpuscular Volume 96.9 fL (81-99); Mean Platelet Vol. 10.3 fl (6.2-12.0); Monocyte# 0.61 X10^3/uL; Monocyte% 8.1 % (0-10); NRBC Flagged by Analyzer 0 % (0-5); Neutrophil % 55.5 % (47-70); Platelet Count 312 K/mm3 (150-450); RBC Distribution Width CV 13.3 % (11.6-14.6); RBC Distribution Width SD 48.5 fl (35.1-43.9); Red Blood Count 4.56 M/mm3 (4.2-5.4); White Blood Count 7.6 K/mm3 (4.4-11.0)
[2021-01-11 12:01] LABS: Anion Gap 7 (5-15); BUN 12 mg/dL (7-18); BUN/Creat Ratio 17.8 RATIO (10-20); Calcium,Total 9.5 mg/dL (8.5-10.1); Chloride 101 mmol/L (98-107); Creatinine, Serum 0.67 mg/dL (0.55-1.02); EST Glomerular Filtration Rate 89 mL/min (>60); Est Glom Filt Rate - Afr Amer 108 mL/min (>60); Estimated Creatinine Clearance 34.75 ml/min; Glucose 236 mg/dL (74-106); Magnesium 1.9 mg/dL (1.6-2.6); Potassium 3.7 mmol/L (3.5-5.1); Sodium Level 137 mmol/L (136-145)
[2021-01-11 12:20] VITALS: BP 182/75; PULSE 81; RESP 17; O2SAT 96
== END 2021-01-11 12:35 | disposition home or self-care (01) ==
PROVIDERS: Emergency Provider Emergency Medicine; PCP Internal Medicine
DX: I47.1 Supraventricular tachycardia (principal); I25.10 Atherosclerotic heart disease of native coronary artery without angina pectoris; E11.9 Type 2 diabetes mellitus without complications; I10 Essential (primary) hypertension; Z79.84 Long term (current) use of oral hypoglycemic drugs; Z79.899 Other long term (current) drug therapy
CPT/HCPCS: 80048; 83735; 85025; 93005; 96361; 96374; 99285; J7030; A4216; J0153

== ENCOUNTER → 2021-08-10 | Outpatient (REF) | payer MEDICARE, OTHER, SELFPAY ==
[2021-08-10 07:24] LABS: Absolute Neutrophil Count 2.8 X10^3/uL (2.0-7.7); Basophil# 0.04 X10^3/uL; Basophil% 0.7 % (0-1); Eosinophil# 0.21 X10^3/uL; Eosinophils% 3.6 % (0-5); Hematocrit 38.3 % (37-47); Hemoglobin 12.2 g/dL (12.0-15.0); Lymphocyte % 37.5 % (19-41); Mean Corp Hgb Conc 31.9 g/dL (32-36); Mean Corpuscular Hgb 30.3 pg (27.0-32.0); Mean Corpuscular Volume 95.3 fL (81-99); Mean Platelet Vol. 10.6 fl (6.2-12.0); Monocyte# 0.61 X10^3/uL; Monocyte% 10.4 % (0-10); NRBC Flagged by Analyzer 0 % (0-5); Neutrophil % 47.6 % (47-70); Platelet Count 272 K/mm3 (150-450); RBC Distribution Width SD 45.2 fl (35.1-43.9); Red Blood Count 4.02 M/mm3 (4.2-5.4); White Blood Count 5.9 K/mm3 (4.4-11.0)
[2021-08-10 07:51] LABS: Hemoglobin A1c 7.3 % (3.8-5.6)
[2021-08-10 07:56] LABS: Anion Gap 3 (5-15); BUN 16 mg/dL (7-18); BUN/Creat Ratio 21.9 RATIO (10-20); Calcium,Total 9.1 mg/dL (8.5-10.1); Chloride 103 mmol/L (98-107); Cholesterol 192 mg/dL (200); Creatinine, Serum 0.73 mg/dL (0.55-1.02); EST Glomerular Filtration Rate 81 mL/min (>60); Est Glom Filt Rate - Afr Amer 98 mL/min (>60); Glucose 166 mg/dL (74-106); High Density Lipoprotein 55 mg/dL; Potassium 4.1 mmol/L (3.5-5.1); Sodium Level 135 mmol/L (136-145); Triglycerides 125 mg/dL; Very Low Density Lipoprotein 25 mg/dL (5-40)
== END | disposition home or self-care (01) ==
LOC: OLS.WHLTSB 05:00
PROVIDERS: PCP Internal Medicine; Visit Provider Family Medicine
DX: E11.9 Type 2 diabetes mellitus without complications (principal); E56.9 Vitamin deficiency, unspecified; E78.2 Mixed hyperlipidemia; I10 Essential (primary) hypertension; I25.10 Atherosclerotic heart disease of native coronary artery without angina pectoris
CPT/HCPCS: 36415; 80048; 80061; 83036; 85025

== ENCOUNTER → 2022-02-08 | Outpatient (REF) | payer MEDICARE, OTHER, SELFPAY ==
[2022-02-08 09:19] LABS: Absolute Neutrophil Count 3.1 X10^3/uL (2.0-7.7); Basophil# 0.04 X10^3/uL; Basophil% 0.7 % (0-1); Eosinophils% 3.5 % (0-5); Hematocrit 39.3 % (37-47); Hemoglobin 12.8 g/dL (12.0-15.0); Lymphocyte % 31.5 % (19-41); Mean Corp Hgb Conc 32.6 g/dL (32-36); Mean Corpuscular Hgb 32.3 pg (27.0-32.0); Mean Corpuscular Volume 99.2 fL (81-99); Mean Platelet Vol. 10.8 fl (6.2-12.0); Monocyte% 10.5 % (0-10); NRBC Flagged by Analyzer 0 % (0-5); Neutrophil # 3.06 X10^3/uL (2.7-7.7); Neutrophil % 53.5 % (47-70); Platelet Count 214 K/mm3 (150-450); RBC Distribution Width CV 12.5 % (11.6-14.6); RBC Distribution Width SD 45.3 fl (35.1-43.9); Red Blood Count 3.96 M/mm3 (4.2-5.4); White Blood Count 5.7 K/mm3 (4.4-11.0)
[2022-02-08 09:47] LABS: Anion Gap 7 (5-15); BUN 18 mg/dL (7-18); BUN/Creat Ratio 27.6 RATIO (10-20); Calcium,Total 9.2 mg/dL (8.5-10.1); Chloride 105 mmol/L (98-107); Cholesterol 182 mg/dL (200); Creatinine, Serum 0.65 mg/dL (0.55-1.02); EST Glomerular Filtration Rate 92 mL/min (>60); Est Glom Filt Rate - Afr Amer 112 mL/min (>60); Glucose 178 mg/dL (74-106); High Density Lipoprotein 51 mg/dL; Potassium 4.1 mmol/L (3.5-5.1); Sodium Level 140 mmol/L (136-145); Triglycerides 90 mg/dL; Very Low Density Lipoprotein 18 mg/dL (5-40)
[2022-02-08 09:54] LABS: Hemoglobin A1c 8.6 % (3.8-5.6)
== END ==
LOC: OLS.WHLTSB 05:00
PROVIDERS: PCP Internal Medicine; Visit Provider Family Medicine
DX: E11.9 Type 2 diabetes mellitus without complications (principal); E56.9 Vitamin deficiency, unspecified; E78.2 Mixed hyperlipidemia; I10 Essential (primary) hypertension; I25.10 Atherosclerotic heart disease of native coronary artery without angina pectoris
CPT/HCPCS: 36415; 80048; 80061; 83036; 85025

== ENCOUNTER → 2022-08-09 | Outpatient (REF) | payer MEDICARE, OTHER, SELFPAY ==
[2022-08-09 08:45] LABS: Absolute Lymphocyte Count 1.45 X10^3/uL (0.83-4.51); Absolute Neutrophil Count 2.8 X10^3/uL (2.0-7.7); Basophil# 0.02 X10^3/uL; Basophil% 0.4 % (0-1); Eosinophil# 0.15 X10^3/uL; Hematocrit 38.7 % (37-47); Hemoglobin 12.1 g/dL (12.0-15.0); Lymphocyte # 1.45 X10^3/ul (0.83-4.51); Lymphocyte % 29.5 % (19-41); Mean Corp Hgb Conc 31.3 g/dL (32-36); Mean Corpuscular Hgb 30.8 pg (27.0-32.0); Mean Corpuscular Volume 98.5 fL (81-99); Mean Platelet Vol. 10.9 fl (6.2-12.0); Monocyte# 0.44 X10^3/uL; Monocyte% 8.9 % (0-10); NRBC Flagged by Analyzer 0 % (0-5); Neutrophil # 2.84 X10^3/uL (2.7-7.7); Neutrophil % 57.8 % (47-70); Platelet Count 236 K/mm3 (150-450); RBC Distribution Width CV 13.2 % (11.6-14.6); RBC Distribution Width SD 47.6 fl (35.1-43.9); Red Blood Count 3.93 M/mm3 (4.2-5.4); White Blood Count 4.9 K/mm3 (4.4-11.0)
[2022-08-09 09:08] LABS: Anion Gap 2 (5-15); BUN 14 mg/dL (7-18); BUN/Creat Ratio 24.7 RATIO (10-20); Chloride 107 mmol/L (98-107); Cholesterol 165 mg/dL (200); Creatinine, Serum 0.57 mg/dL (0.55-1.02); EST Glomerular Filtration Rate 108 mL/min (>60); Est Glom Filt Rate - Afr Amer 131 mL/min (>60); Glucose 104 mg/dL (74-106); High Density Lipoprotein 48 mg/dL; Potassium 3.6 mmol/L (3.5-5.1); Sodium Level 140 mmol/L (136-145); Triglycerides 133 mg/dL; Very Low Density Lipoprotein 27 mg/dL (5-40)
[2022-08-09 10:55] LABS: Hemoglobin A1c 6.6 % (3.8-5.6)
== END ==
LOC: OLS.WHLTSB 05:00
PROVIDERS: PCP Internal Medicine; Visit Provider Internal Medicine
DX: E78.2 Mixed hyperlipidemia (principal); E11.9 Type 2 diabetes mellitus without complications; F03.90 Unspecified dementia, unspecified severity, without behavioral disturbance, psychotic disturbance, mood disturbance, and anxiety; I10 Essential (primary) hypertension
CPT/HCPCS: 36415; 80048; 80061; 83036; 85025

== ENCOUNTER → 2022-11-07 | Outpatient (REF) | payer MEDICARE, OTHER, SELFPAY ==
[2022-11-07 10:29] LABS: Hemoglobin A1c 6.9 % (3.8-5.6)
== END ==
LOC: OLS.WHLTSB 04:00
PROVIDERS: PCP Internal Medicine; Referring Provider Internal Medicine; Visit Provider Internal Medicine
DX: E11.9 Type 2 diabetes mellitus without complications (principal)
CPT/HCPCS: 36415; 83036

== ENCOUNTER 2023-01-27 16:41 | Emergency (ER) | payer MEDICARE, OTHER, SELFPAY ==
[2023-01-27 16:43] VITALS: BP 152/57; PULSE 78; RESP 16; TEMP 37.9; BMI 23.1
[2023-01-27 17:18] VITALS: BP 147/71; PULSE 77; RESP 22; TEMP 37.9; O2SAT 97
--- NOTE | 2023-01-27 17:23 | EX.ED.DYSGE1 ---
HPI History of Present Illness Chief Complaint: Fall Detail of Chief Complaint: 3 falls in the past 2 days Informant: family Limited: dementia Onset/Context/Timing Onset: Days Context: Sudden Onset Timing: Intermittent Quality: Unknown because patient has dementia Location: Unknown, patient resides at nursing facility since August of last year Current Severity: Unknown Maximum Severity: Unknown Worsened by: Unknown Relieved by: Unknown Associated Symptoms Associated Symptoms: Unknown Narrative Narrative: Patient is an elderly woman with history of dementia who was sent in because of multiple falls. There was concern that she had a stroke. Family was asked why the nursing facility felt she had a stroke and is because of change in her behavior. She has not voiced anything to them. She apparently is not been eating well the past couple of days. Family was unaware that she had a fever. Based on medication list patient has history of type 2 diabetes, hypertension and hyperlipidemia. She also has pulmonary disease. [facility] Medical History Coronary artery disease Dementia Diabetes DM2 (diabetes mellitus, type 2) Hyperlipidemia Hypertension SVT (supraventricular tachycardia) Home Medications budesonide-formoterol HFA 80 mcg-4.5 mcg/actuation aerosol inhaler (Symbicort) 2 puff inhalation DAILY breathing 11/15/15 [History Last Taken 11/20/15 10:00] aspirin 81 mg chewable tablet 81 mg PO DAILY@0800 03/05/19 [Rx Last Taken Unknown] acetaminophen 325 mg capsule 325 mg PO Q4H PRN acute pain due to trauma 01/27/23 [History Last Taken Unknown] acetaminophen 500 mg capsule 500 mg PO Q8 PRN pain, unspecifie 01/27/23 [History Last Taken Unknown] ibuprofen 200 mg tablet (Advil) 200 mg PO Q6H 01/27/23 [History Last Taken Unknown] lisinopril 20 mg tablet 20 mg PO BID 01/27/23 [History Last Taken Unknown] metformin 1,000 mg tablet 1,000 mg PO BID 01/27/23 [History Last Taken Unknown] metoprolol tartrate 100 mg tablet 100 mg PO BID 01/27/23 [History Last Taken Unknown] multivitamin (Daily Multi-Vitamin tablet) 1 tab PO DAILY 01/27/23 [History Last Taken Unknown] pravastatin 40 mg tablet 40 mg PO QHS 01/27/23 [History Last Taken Unknown] Allergy/AdvReac Type Severity Reaction Status Date / Time No Known Allergies Allergy Verified 01/27/23 16:42 Surgical History History of intestinal surgery Social History household members: family housing: house Smoking Status: Never smoker ROS ROS ED Review of Systems ROS Unobtainable: due to mental status EXAM Physical Exam Const Vital Signs: 01/27/23 16:43 01/27/23 17:18 01/27/23 17:47 Temperature 100.2 F H 100.2 F H Temperature Source Temporal Temporal Pulse Rate 78 77 78 Respiratory Rate 16 22 H 17 Respiratory Effort Blood Pressure 152/57 H 147/71 H 152/93 H Blood Pressure Mean 88 96 112 Pulse Ox 97 95 Oxygen Delivery Method Room Air Room Air 01/27/23 19:07 01/27/23 19:07 01/27/23 19:38 Temperature 98.3 F Temperature Source Oral Pulse Rate 70 72 Respiratory Rate 21 H 22 H Respiratory Effort Normal Blood Pressure 142/60 H 162/67 H Blood Pressure Mean 87 98 Pulse Ox 93 93 Oxygen Delivery Method Room Air Room Air Positive well nourished and well developed General Appearance ED: well developed, NAD and pallor; Negative for cyanotic or diaphoretic HEENT Reports dry mucous membranes HEENT Narrative: Head is normocephalic and atraumatic. Ears are normal. TMs are normal. Nares patent. Posterior pharynx out erythema or exudate. Uvula is midline. There is no deviation of the tongue with protrusion. Mouth ED: Yes dry mucous membranes Mouth: dry mucous membranes Eyes PERRL and EOMs intact bilaterally General Eye ED: Negative for pale conjunctiva or scleral icterus Neck no lymphadenopathy, supple and no JVD Neck Narrative: There are no carotid bruits. Chest Wall inspection of chest normal and palpation of chest normal Resp normal respiratory effort and clear to auscultation bilaterally Cardio regular rate, regular rhythm, S1 normal heart sound and S2 normal heart sound; Negative for no murmurs GI normal to inspection, nondistended, normoactive bowel sounds, non-tender, non-distended and no masses; Negative for hepatosplenomegaly Palpation: soft Back/Spine no CVA tenderness Extremity General Extremety ED: Yes edema; Negative for tenderness General Extremity: edema Neuro No oriented x3, CN's II-XII intact bilaterally and no sensory deficits noted Neuro Narrative: There is no dysmetria. There is no clonus or Babinski sign right or left. Sensorium / Orientation: Negative for alert Motor Exam: strength 5/5 throughout Psych Mood & Affect: depressed Skin no rashes or lesions noted, no wounds and No skin turgor normal General Skin Exam: pallor; Negative for jaundice MDM MDM MDM Narrative Medical decision making narrative: Since patient is febrile with change in mental status need to assess for infectious etiology. Metabolic etiology needs to be entertained as well. Other than patient being disoriented to time her neuro exam is unremarkable. She has no focal findings. In my professional opinion patient does not have a stroke. History & Record Review Additional record(s) reviewed:: Prior ED visit and Prior labs Lab Data Attestation: I reviewed the patient's lab results. Lab results narrative: CBC is unremarkable. Comprehensive metabolic panel is remarked for glucose of 290 with a normal CO2 and anion gap. BUN to creatinine ratio is elevated at 29-1 consistent with dehydration and patient clinically is dehydrated. Therefore, we will order an IV bolus of saline. Patient's lactate is elevated. With her having a fever will obtain blood cultures. Addendum added at 1918. Labs: Laboratory Results - last 24 hr 01/27/23 01/27/23 16:55 17:48 WBC 7.9 RBC 4.16 L Hgb 13.4 Hct 40.9 MCV 98.3 MCH 32.2 H MCHC 32.8 RDW Std Deviation 43.2 RDW Coeff of José Miguel 12.0 Plt Count 265 MPV 11.1 Immature Gran % (Auto) 0.300 Neut % (Auto) 59.1 Lymph % (Auto) 30.0 [place] % (Auto) 8.6 Eos % (Auto) 1.6 Baso % (Auto) 0.4 Absolute Neuts (auto) 4.7 Absolute Lymphs (auto) 2.38 Nucleated RBC % 0 Sodium 139 Potassium 4.0 Chloride 105 Carbon Dioxide 25.0 Anion Gap 9 BUN 25 H Creatinine 0.84 Estim Creat Clear Calc 43.82 Est GFR (MDRD) Af Amer 83 Est GFR (MDRD) Non-Af 68 BUN/Creatinine Ratio 29.6 H Glucose 290 H Lactic Acid 5.1 H* Calcium 9.4 Total Bilirubin 0.30 AST 17 ALT 26 Alkaline Phosphatase 103 Total Protein 7.2 Albumin 3.7 Globulin 3.5 Albumin/Globulin Ratio 1.1 Urine Color Yellow Urine Clarity Sl Cldy Urine pH 6.0 Ur Specific [place] 1.015 Urine Protein 15 H Urine Glucose (UA) 1000 H Urine Ketones 15 H Urine Occult Blood 25 H Urine Nitrite Negative Urine Bilirubin Negative Urine Urobilinogen Normal Ur Leukocyte Esterase Negative Urine RBC 0 SEEN Urine WBC 0-5 SEEN Ur Squamous Epith Cells 0 SEEN Urine Bacteria 0 SEEN Urine Mucus 0 SEEN Radiography Chest X-Ray - ED: 2 View and Read by ED Physician (Hyperaeration and chronic changes. Cardiac silhouette and size unremarkable. Lung parenchyma is unremarkable acute process. There is no effusion. Perihilar regions unremarkable. Osseous structures are unremarkable.) Diagnostic Testing: Clinical Impression(s) from Imaging Studies Chest X-Ray 01/27/23 17:35 IMPRESSION: No radiographic evidence of acute cardiopulmonary disease. Electronically Signed: Eric Cedillo MD at 18:08 EDT , Brain CT 01/27/23 19:24 IMPRESSION: Volume loss with chronic white matter changes. No definite acute intracranial findings. Acuity of the lacunar infarction is indeterminate. Electronically Signed: Eric Cedillo MD at 20:39 EDT , The radiology report was read. CT of the head was reviewed by me since there was no report. There is no obvious evidence of stroke or intracranial bleed. There is no evidence of perisinus disease. There is atrophy and consistent with age. Treatment and Re-Evaluation :: Apparently nurse practitioner [facility] did call in. She requested a CAT scan of her head. She has fallen several times. She also reported right upper extremity weakness. Patient has no sensory or motor deficit. However with the falls and no obvious metabolic or infectious source for her altered mental status obtain a CT of the head to assess for bleed. She also received IV fluids. Family was made aware of laboratory findings, chest x-ray results and urinalysis. They were told that she receive IV fluids and because Yasemin Brown requested a CAT scan and for justifiable reasons 1 was ordered. Especially since I do not have an obvious source of infection the may be the cause of her encephalopathy. Since CT reveals no abnormality will contact Yasemin Goldberg since patient has fever with altered mental status and elevated lactate. Yasemin agrees with plan. She requested COVID test. COVID test was ordered. Patient will return to the nursing facility. Furthermore, she will see patient tomorrow at the nursing facility. Discharge Plan Triage Chief Complaint: Fall ED Provider: Arnel Katz Dx/Rx/DC Orders Clinical Impression: Acute alteration in mental status, Hypertension, Type II diabetes mellitus, HLD (hyperlipidemia), Fever in adult, Acidosis, lactic Instructions: ED ALOC, ED FUO Adult Prescriptions: No Action budesonide-formoterol [Symbicort] 1 INHALER inhaler 2 puff inhalation DAILY aspirin 81 MG tablet,chewable 81 mg PO DAILY@0800 0RF acetaminophen 325 mg capsule 325 mg PO Q4H PRN (Reason: acute pain due to trauma) acetaminophen 500 mg capsule 500 mg PO Q8 PRN (Reason: pain, unspecifie) multivitamin [Daily Multi-Vitamin] Tablet 1 tab PO DAILY ibuprofen [Advil] 200 mg tablet 200 mg PO Q6H lisinopril 20 mg tablet 20 mg PO BID metformin 1,000 mg tablet 1,000 mg PO BID metoprolol tartrate 100 mg tablet 100 mg PO BID pravastatin 40 mg tablet 40 mg PO QHS Primary Care Provider: Care Physician,No Primary Referrals: Tierney Samayoa MD [Med Staff - Director Prison] - Yasemin Goldberg CERTIFIED PROFESSIONAL ERGONOMIST, CERTIFIED PROFESSIONAL ERGONOMIST-C [Non-Staff -Ordering Privileges] - Disposition Disposition: Home, Self Care
--- NOTE | 2023-01-27 17:35 | RAD_ITS ---
INDICATION: Fever and shortness of breath EXAMINATION/TECHNIQUE: X-RAY - XR Chest 2 Views COMPARISON: 01/02/2021 FINDINGS: LINES/DEVICES: None. LUNGS: No consolidation, edema or effusion. No pneumothorax. MEDIASTINUM AND CARDIOVASCULAR STRUCTURES: Cardiac silhouette not enlarged. 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 BONES AND SOFT TISSUES: No acute changes. RAD/Chest PA and Lateral IMPRESSION: No radiographic evidence of acute cardiopulmonary disease. Electronically Signed: Eric Cedillo MD at 18:08 EDT ,
[2023-01-27 17:42] LABS: Absolute Lymphocyte Count 2.38 X10^3/uL (0.83-4.51); Absolute Neutrophil Count 4.7 X10^3/uL (2.0-7.7); Basophil# 0.03 X10^3/uL; Basophil% 0.4 % (0-1); Eosinophil# 0.13 X10^3/uL; Eosinophils% 1.6 % (0-5); Hematocrit 40.9 % (37-47); Hemoglobin 13.4 g/dL (12.0-15.0); Lymphocyte # 2.38 X10^3/ul (0.83-4.51); Mean Corp Hgb Conc 32.8 g/dL (32-36); Mean Corpuscular Hgb 32.2 pg (27.0-32.0); Mean Corpuscular Volume 98.3 fL (81-99); Mean Platelet Vol. 11.1 fl (6.2-12.0); Monocyte# 0.68 X10^3/uL; Monocyte% 8.6 % (0-10); NRBC Flagged by Analyzer 0 % (0-5); Neutrophil # 4.69 X10^3/uL (2.7-7.7); Neutrophil % 59.1 % (47-70); Platelet Count 265 K/mm3 (150-450); RBC Distribution Width SD 43.2 fl (35.1-43.9); Red Blood Count 4.16 M/mm3 (4.2-5.4); White Blood Count 7.9 K/mm3 (4.4-11.0)
[2023-01-27 17:47] VITALS: BP 152/93; PULSE 78; RESP 17; O2SAT 95
[2023-01-27 17:52] LABS: ALB/GLOB Ratio 1.1 RATIO (0.9-2.4); AST(SGOT) 17 U/L (15-37); Alanine Aminotransfer ALT/SGPT 26 U/L (13-56); Albumin, Serum 3.7 g/dL (3.2-5.0); Alkaline Phosphatase 103 U/L (45-117); Anion Gap 9 (5-15); BUN 25 mg/dL (7-18); BUN/Creat Ratio 29.6 RATIO (10-20); Calcium,Total 9.4 mg/dL (8.5-10.1); Chloride 105 mmol/L (98-107); Creatinine, Serum 0.84 mg/dL (0.55-1.02); EST Glomerular Filtration Rate 68 mL/min (>60); Est Glom Filt Rate - Afr Amer 83 mL/min (>60); Estimated Creatinine Clearance 43.82 ml/min; Globulin 3.5 g/dL (2.2-4.2); Glucose 290 mg/dL (74-106); Protein, Total 7.2 g/dL (6.4-8.2); Sodium Level 139 mmol/L (136-145)
[2023-01-27 18:17] LABS: Bacteria 0 SEEN /hpf (None Seen); Mucous, Urine 0 SEEN /hpf (<or=2+); Red Blood Cells-Urine 0 SEEN /hpf (0-5); Squamous Epithelial Cells - UA 0 SEEN /hpf (5-10)
[2023-01-27 18:34] LABS: Lactic Acid 5.1 mmol/L (0.4-1.9)
--- NOTE | 2023-01-27 18:34 | ED.RN ---
DR. Chuy BELLO NOTIFIED OF PT. LACTIC 5.1, NEW ORDERS ENTERED
[2023-01-27 18:37] LABS: Glucose, Dipstick 1000 mg/dl (Normal); Ketone-Dipstick 15 mg/dl (Negative); Leukocyte Esterase-Dipstick Negative /ul (Negative); Nitrite-Dipstick Negative (Negative); Occult Blood-Urine 25 /ul (Negative); Protein-Dipstick 15 mg/dl (Negative); Specific Gravity, Urine 1.015 (1.002-1.030); Urine Bilirubin Dipstick Negative (Negative); Urine Urobilinogen Normal (Normal)
[2023-01-27 18:52] LABS: Color, Urine Yellow (Yellow)
[2023-01-27 18:53] LABS: Urine Clarity Sl Cldy (Clear)
[2023-01-27 19:07] VITALS: BP 142/60; PULSE 70; RESP 21; O2SAT 93
[2023-01-27 19:18] LABS: White Blood Cells 0-5 SEEN /hpf (0-5)
--- NOTE | 2023-01-27 19:24 | CT_ITS ---
INDICATION: Falls with altered mental status EXAMINATION: CT BRAIN - CT Head or Brain W/O Contrast Injection TECHNIQUE: Multiple axial images were obtained of the head without intravenous contrast. A radiation dose optimization technique was used for this scan. IV Contrast dosage and agent: None. COMPARISON: None FINDINGS: BRAIN PARENCHYMA: No intra- or extra-axial hemorrhage. No acute territorial infarction. Lacunar infarction left basal ganglia. No intracranial mass or mass effect. Posterior fossa structures are unremarkable. Volume loss with low attenuation of the periventricular white matter typical of chronic small vessel disease. CSF SPACES: Appropriate for age. No hydrocephalus. Basal cisterns are patent. CALVARIUM, SKULL BASE, PARANASAL SINUSES AND MASTOID AIR CELLS: Clear. No discrete lytic or blastic abnormalities. CT/Brain/Head without Contrast IMPRESSION: Volume loss with chronic white matter changes. No definite acute intracranial findings. Acuity of the lacunar infarction is indeterminate. Electronically Signed: Eric Cedillo MD at 20:39 EDT ,
[2023-01-27] MEDS: 0.9% Normal Saline (1000mL) 1,000 ML 1000 ML IV (19:37)
[2023-01-27 19:38] VITALS: BP 162/67; PULSE 72; RESP 22; TEMP 36.8; O2SAT 93
[2023-01-27] MEDS: Ceftriaxone 1 GM/50 ML BAG IV (20:03)
--- NOTE | 2023-01-27 21:26 | NURSING ---
attempted to call report to [facility]. person who answered the phone put this rn on hold and said they would transfer to receiving rn. phone call was hung up and 2nd attempt to call report was also unsuccessful.
[2023-01-27 21:28] LABS: Reflex Lactate? Y
== END 2023-01-27 21:14 | disposition home or self-care (01) ==
PROVIDERS: Emergency Provider Emergency Medicine; PCP Internal Medicine; Visit Provider Emergency Medicine
DX: R41.82 Altered mental status, unspecified (principal); F03.90 Unspecified dementia, unspecified severity, without behavioral disturbance, psychotic disturbance, mood disturbance, and anxiety; E11.9 Type 2 diabetes mellitus without complications; I10 Essential (primary) hypertension; I25.10 Atherosclerotic heart disease of native coronary artery without angina pectoris; E87.20 Acidosis, unspecified; E78.5 Hyperlipidemia, unspecified; R50.9 Fever, unspecified; Z79.84 Long term (current) use of oral hypoglycemic drugs; Z79.899 Other long term (current) drug therapy; Z91.81 History of falling
CPT/HCPCS: 70450; 71046; 80053; 81001; 83605; 85025; 87040; 87811; 96365; 99285; J7030; J7050; P9612; A4216

== ENCOUNTER → 2023-01-30 | Outpatient (REF) | payer MEDICARE, OTHER, SELFPAY ==
[2023-01-30 08:30] LABS: Absolute Lymphocyte Count 1.75 X10^3/uL (0.83-4.51); Absolute Neutrophil Count 4.1 X10^3/uL (2.0-7.7); Basophil# 0.04 X10^3/uL; Basophil% 0.6 % (0-1); Eosinophil# 0.28 X10^3/uL; Eosinophils% 4.2 % (0-5); Hematocrit 37.6 % (37-47); Hemoglobin 12.1 g/dL (12.0-15.0); Lymphocyte # 1.75 X10^3/ul (0.83-4.51); Lymphocyte % 26.1 % (19-41); Mean Corp Hgb Conc 32.2 g/dL (32-36); Mean Corpuscular Hgb 32.3 pg (27.0-32.0); Mean Corpuscular Volume 100.3 fL (81-99); Mean Platelet Vol. 11.2 fl (6.2-12.0); Monocyte# 0.54 X10^3/uL; Monocyte% 8.1 % (0-10); NRBC Flagged by Analyzer 0 % (0-5); Neutrophil # 4.07 X10^3/uL (2.7-7.7); Neutrophil % 60.7 % (47-70); Platelet Count 239 K/mm3 (150-450); RBC Distribution Width SD 44.6 fl (35.1-43.9); Red Blood Count 3.75 M/mm3 (4.2-5.4); White Blood Count 6.7 K/mm3 (4.4-11.0)
[2023-01-30 08:49] LABS: Vitamin B12 385 pg/mL (211-911)
[2023-01-30 08:51] LABS: AST(SGOT) 18 U/L (15-37); Alanine Aminotransfer ALT/SGPT 22 U/L (13-56); Albumin, Serum 3.2 g/dL (3.2-5.0); Alkaline Phosphatase 89 U/L (45-117); Anion Gap 6 (5-15); BUN 21 mg/dL (7-18); Chloride 108 mmol/L (98-107); Creatinine, Serum 0.68 mg/dL (0.55-1.02); EST Glomerular Filtration Rate 88 mL/min (>60); Est Glom Filt Rate - Afr Amer 106 mL/min (>60); Globulin 3.3 g/dL (2.2-4.2); Glucose 240 mg/dL (74-106); Potassium 3.7 mmol/L (3.5-5.1); Protein, Total 6.5 g/dL (6.4-8.2); Sodium Level 142 mmol/L (136-145); Thyroid Stim Hormone (TSH) 1.55 uIU/mL (0.358-3.74)
== END ==
LOC: OLS.WHLTSB 05:00
PROVIDERS: Visit Provider Internal Medicine
DX: R48.8 Other symbolic dysfunctions (principal); E11.9 Type 2 diabetes mellitus without complications; M62.561 Muscle wasting and atrophy, not elsewhere classified, right lower leg; M62.562 Muscle wasting and atrophy, not elsewhere classified, left lower leg
CPT/HCPCS: 36415; 80053; 82607; 84443; 85025

== ENCOUNTER → 2023-02-06 | Outpatient (REF) | payer MEDICARE, OTHER, SELFPAY ==
[2023-02-06 10:35] LABS: Hemoglobin A1c 8.3 % (3.8-5.6)
== END ==
LOC: OLS.WHLTSB 05:00
PROVIDERS: Visit Provider Internal Medicine
DX: E11.9 Type 2 diabetes mellitus without complications (principal)
CPT/HCPCS: 36415; 83036

== ENCOUNTER → 2023-02-07 | Outpatient (REF) | payer MEDICARE, OTHER, SELFPAY ==
[2023-02-07 09:15] LABS: Absolute Neutrophil Count 2.7 X10^3/uL (2.0-7.7); Basophil# 0.04 X10^3/uL; Basophil% 0.8 % (0-1); Eosinophil# 0.15 X10^3/uL; Eosinophils% 2.9 % (0-5); Hematocrit 34.4 % (37-47); Hemoglobin 11.4 g/dL (12.0-15.0); Lymphocyte % 36.4 % (19-41); Mean Corp Hgb Conc 33.1 g/dL (32-36); Mean Corpuscular Volume 99.7 fL (81-99); Mean Platelet Vol. 10.8 fl (6.2-12.0); Monocyte# 0.45 X10^3/uL; Monocyte% 8.6 % (0-10); NRBC Flagged by Analyzer 0 % (0-5); Neutrophil # 2.67 X10^3/uL (2.7-7.7); Neutrophil % 51.1 % (47-70); Platelet Count 234 K/mm3 (150-450); RBC Distribution Width CV 11.8 % (11.6-14.6); RBC Distribution Width SD 42.8 fl (35.1-43.9); Red Blood Count 3.45 M/mm3 (4.2-5.4); White Blood Count 5.2 K/mm3 (4.4-11.0)
[2023-02-07 09:43] LABS: Anion Gap 6 (5-15); BUN 20 mg/dL (7-18); BUN/Creat Ratio 30.3 RATIO (10-20); Calcium,Total 8.5 mg/dL (8.5-10.1); Chloride 108 mmol/L (98-107); Cholesterol 187 mg/dL (200); Creatinine, Serum 0.66 mg/dL (0.55-1.02); EST Glomerular Filtration Rate 91 mL/min (>60); Est Glom Filt Rate - Afr Amer 110 mL/min (>60); Glucose 177 mg/dL (74-106); High Density Lipoprotein 44 mg/dL; Potassium 3.7 mmol/L (3.5-5.1); Sodium Level 141 mmol/L (136-145); Triglycerides 136 mg/dL; Very Low Density Lipoprotein 27 mg/dL (5-40)
== END ==
LOC: OLS.WHLTSB 05:00
PROVIDERS: Visit Provider Internal Medicine
DX: E78.2 Mixed hyperlipidemia (principal); E11.9 Type 2 diabetes mellitus without complications
CPT/HCPCS: 36415; 80048; 80061; 85025

== ENCOUNTER → 2023-05-09 | Outpatient (REF) | payer MEDICARE, OTHER, SELFPAY ==
--- OUTSIDE RECORDS SUMMARY | 2023-05-09 04:09 | XMS RPT_ITS | CCD ---
Author Name Unknown Address [address] [place] [address] Organization [facility] Care Team Providers Care Leaf Binner Name Role Phone SANG MCKEONNETH Unavailable Unavailable LINDA, BRITTON Unavailable Unavailable [facility] Unavailable Unavailable LINDA, BRITTON Unavailable Unavailable LINDA, BRITTON Unavailable Unavailable [facility] Unavailable Unavailable LINDA, BRITTON E Unavailable Unavailable LINDA, BRITTON E Unavailable Unavailable Tierney Samayoa MD Primary Care Provider [phone] Adolfo Riggins DO Unavailable Carlos Roberts MD Primary Care Provider Medications Current Medications Medication Drug Class(es) Dates Sig (Normalized) Sig (Original) perflutren lipid microspheres 1.3 mL in NaCl (PF) 0.9% 10 mL injection (DEFINITY) (6 sources) Start: 10-14-2021 End: 01-13-2023 perflutren lipid microspheres 1.3 mL in NaCl (PF) 0.9% 10 mL injection (DEFINITY) Completed/Discontinued Medications Medication Drug Class(es) Dates Sig (Normalized) Sig (Original) aspirin 81 mg delayed release oral tablet (3 sources) Platelet Aggregation Inhibitor, Nonsteroidal Anti-inflammatory Drug take 1 tablet by mouth once daily aspirin, enteric coated (ASPIRIN, ENTERIC COATED) 81 mg EC tablet Take 81 mg by mouth once daily. 0 Active Problems Active Problems Problem Classification Problem Date Documented Date Episodic/Chronic Asthma (3 sources) Mild persistent asthma; Translations: [Mild persistent asthma, uncomplicated] Onset: 07-10-2015 07-10-2015 Chronic Cardiac dysrhythmias (4 sources) Supraventricular tachycardia; Translations: [Supraventricular tachycardia] Onset: 10-29-2020 Chronic Coronary atherosclerosis and other heart disease (4 sources) Coronary atherosclerosis; Translations: [Atherosclerotic heart disease of [place] coronary artery without angina pectoris] Onset: 06-13-2014 Chronic Diabetes mellitus without complication (3 sources) Type 2 diabetes mellitus; Translations: [Type 2 diabetes mellitus without complications] Onset: 06-13-2014 05-03-2021 Chronic Disorders of lipid metabolism (4 sources) Mixed hyperlipidemia; Translations: [Mixed hyperlipidemia] Onset: 06-13-2014 Chronic Essential hypertension (5 sources) Essential (primary) hypertension; Translations: [Essential hypertension] Onset: 06-13-2014 Chronic Heart valve disorders (6 sources) Nonrheumatic aortic (valve) stenosis; Translations: [Aortic stenosis, non-rheumatic ] Onset: 07-12-2017 Chronic Occlusion or stenosis of precerebral arteries (3 sources) Bilateral carotid artery occlusion; Translations: [Occlusion and stenosis of bilateral carotid arteries] Onset: 05-31-2019 05-31-2019 Chronic Osteoporosis (3 sources) Osteoporosis; Translations: [Age-related osteoporosis without current pathological fracture] Onset: 06-13-2014 05-18-2021 Chronic Other diseases of bladder and urethra (3 sources) Overactive bladder; Translations: [Overactive bladder] Onset: 03-29-2016 03-29-2016 Chronic Unclassified (1 source) Unknown / UNK(Unknown) Onset: 07-12-2017 Past or Other Problems Problem Classification Problem Date Documented Date Episodic/Chronic Other connective tissue disease (3 sources) Recurrent falls ; Translations: [Repeated falls] Onset: 10-09-2018 04-01-2019 Episodic Other female genital disorders (3 sources) Dysplasia of vagina; Translations: [Dysplasia of vagina, unspecified] Onset: 02-08-2007 02-08-2007 Episodic Residual codes; unclassified (3 sources) History of radiofrequency ablation operation on left atrium for arrhythmia; Translations: [Other specified postprocedural states] Onset: 07-05-2021 07-05-2021 Episodic Results Test Name Value Interpretation Reference Range Facil ity Vital Signs Date Time Vital Sign Value Performing Clinician Jesus palomares 10-14-2021 13:31-0400 Body height 154.9 cm Tenisha Barnard APRN.CNP Work Phone: [facility] 10-14-2021 13:31-0400 Body weight 52.89 kg Tenisha Barnard APRN.CNP Work Phone: [facility] 10-14-2021 13:31-0400 Diastolic blood pressure 90 mm[Hg] Tenisha Barnard DISASSEMBLER PRODUCT.GOOD HUMOR VENDOR Work Phone: [facility] 10-14-2021 13:31-0400 Heart rate 62 /min Tenisha Barnard DISASSEMBLER PRODUCT.GOOD HUMOR VENDOR Work Phone: [facility] 10-14-2021 13:31-0400 SaO2% (BldA) [Mass fraction] 97 % Tenisha Barnard DISASSEMBLER PRODUCT.GOOD HUMOR VENDOR Work Phone: [facility] 10-14-2021 13:31-0400 Systolic blood pressure 180 mm[Hg] Tenisha Barnard DISASSEMBLER PRODUCT.GOOD HUMOR VENDOR Work Phone: [facility] Encounters Encounter Date Encounter Type Care Provider Facility Start: 10-15-2021 Telephone encounter Dom Rockwell RN Cardiology Procedures Date Procedure Procedure Detail Performing Clinician Start: 02-09-2021 Antibody screen Plan of Treatment Date Care Activity Detail Author Start: 10-07-2022 Hepatitis B surface antibody level LDL CHOLESTEROL [facility] Start: 06-23-2022 Urine microalbumin profile DTAP,TDAP ,TD (1 - Tdap) [facility] Immunizations Immunization Date Immunization Notes Care Provider Michaela wilcox 03-12-2021 influenza, high-dose , quadrivalent vaccine (FLUZONE HIGH DOSE QUADRIVALENT) Tenisha Barnard DISASSEMBLER PRODUCT.GOOD HUMOR VENDOR Work Phone: [facility] Work Phone: 03-25-2020 influenza, high-dose , quadrivalent vaccine (FLUZONE HIGH DOSE QUADRIVALENT) Tenisha Barnard DISASSEMBLER PRODUCT.GOOD HUMOR VENDOR Work Phone: [facility] Work Phone: 03-19-2018 influenza, high dose seasonal, preservative-free Tenisha Barnard DISASSEMBLER PRODUCT.GOOD HUMOR VENDOR Work Phone: [facility] Work Phone: 01-25-2017 influenza, high dose seasonal, preservative-free Tenisha Barnard DISASSEMBLER PRODUCT.GOOD HUMOR VENDOR Work Phone: [facility] Work Phone: 02-09-2016 influenza, high dose seasonal, preservative-free Tenisha Barnard DISASSEMBLER PRODUCT.GOOD HUMOR VENDOR Work Phone: [facility] Work Phone: 02-17-2015 influenza, high dose seasonal, preservative-free Tenisha Barnard DISASSEMBLER PRODUCT.GOOD HUMOR VENDOR Work Phone: [facility] Work Phone: 01-07-2015 pneumococcal conjuga te vaccine, 13 valent Tenisha Barnard DISASSEMBLER PRODUCT.GOOD HUMOR VENDOR Work Phone: [facility] Work Phone: 02-05-2014 influenza, seasonal, injectable Tenisha Barnard DISASSEMBLER PRODUCT.GOOD HUMOR VENDOR Work Phone: [facility] 02-08-2012 pneumococcal polysaccharide vaccine, 23 valent Tenisha Barnard DISASSEMBLER PRODUCT.GOOD HUMOR VENDOR Work Phone: [facility] Work Phone: 05-08-2011 zoster vaccine, live Tenisha Barnard DISASSEMBLER PRODUCT.GOOD HUMOR VENDOR Work Phone: [facility] Payers Date Payer Category Payer Private Health Insurance LAUREL HINKLE O [id number] 2005-Present [phone] [address] [place] [address] [facility] [id number] 2004 Medicare MEDICARE MEDICAR E A AND B [id number] 2004-Present [phone] [address] [address] [place] [address] Medicare [id number] Medicare [id number] Social History Date Type Detail Facility Tobacco smoking status NHIS Never smoked tobacco [facility] Start: 10-14-2021 Alcohol intake Current non-dr ice puller of alcohol (finding) [facility] Start: 11-20-2019 End: 03-12-2021 History SDOH Alcohol Frequency 1 [facility] Start: 11-20-2019 History SDOH Alcohol Std Drinks 98 [facility] Start: 11-20-2019 History SDOH Social Connections Phone 3 [facility] Start: 11-20-2019 History SDOH Social Connections Living 4 [facility] Start: 11-20-2019 End: 03-12-2021 History SDOH Physical Activity MPS 2 [facility] Start: 11-20-2019 History SDOH Financial 5 [facility] Start: 11-19-2019 Education 11 [facility] Start: 1940 Sex Assigned At Not on file C [facility] Medical Equipment Procedure Code Equipment Code Equipment Origin al Text Equipment Identifier Dates Start: 04-01-2019 Clinical Notes 03-11-2019 to 10-27-2021 Telephone Encounter - Tenisha Rao RN - 10/27/2021 3:22 PM EDTTelephone Encounter - Jacy Duran - 10/15/2021 12:31 PM EDTTelephone Encounter - Adolfo Riggins DO - 10/15/2021 1:57 PM EDT Note Date & Type Note Facility 10-27-2021 Miscellaneous Notes Records re-faxed. [facility] (Assisted Living) called stating that they only received the odd # pages of patient's OV notes that were faxed yesterday. Please submit fax again. Facility's contact info is as follows: Phone: : [phone] Please advise. Jacy Duran documented in this encounter [facility] 10-15-2021 Miscellaneous Notes New prescription for pravastatin 80 mg at bedtime to sure prescription sent. Called PT left VM and put in her my chart Patient's labs look good with exception of her LDL still little high suggesting she need to take a full 2 of her 40 mg tablets daily. Currently she is taking 1-2. Should be on 80 mg total please. Adolfo Riggins, DO documented in this encounter [facility] 10-14-2021 Note HNO ID: [id number] Author: Tenisha Barnard APRN.GOOD HUMOR VENDOR Service: ? Author Type: Nurse Practitioner Type: Progress Notes Filed: 10/14/2021 2:01 PM Note Text: [facility] Department of Cardiovascular Medicine SECTION OF CLINICAL CARDIOLOGY OUTPATIENT VISIT DATE October 13, 2021 OUTPATIENT VISIT TYPE ESTABLISHED PRIMARY CARE PHYSICIAN: Tierney Samayoa [address] [place] [address] REASON FOR VISIT: 3 month follow up HISTORY OF PRESENT ILLNESS: Ms. Link is a 81 year old female with a history of CAD, S/P CABG x 4 (1998), SVT, moderately severe aortic stenosis, HTN, HLD, T2DM, and carotid artery disease. The patient was most recently seen by Dr. Riggins on 07/05/21 for evaluation of drop attacks as witnessed by family members. She additionally had worsening of her dementia with increased forgetfulness. Apparently the family had been calling her throughout the day via video chats remind her to eat and drink fluids. One of these events was video taped and shown to Dr. Riggins; he felt it was a possible vasovagal episode related to poor intake as a result of her memory loss. She was instructed continue same medications and follow-up in 3 months time. Following her last visit she moved into [facility] assisted living facility on 07/20/21. She is being followed closely by a physician at the facility and her lisinopril was uptitrated to 20 mg daily mid August of this year. She has had 2 falls due to unsteadiness on her feet and ambulating without her walker since she has been at the facility. She denies any lightheadedness, dizziness, near-syncope, syncope. She denies any chest pain, palpitations, shortness of breath, orthopnea (1.5 pillows), PND, or significant edema. Blood pressures at the facility have been elevated at the facility over the past few weeks. Subjective PAST MEDICAL HISTORY Diagnosis Date - Acute myocardial infarction of other specified sites Myocardial Infarction - Asthma per - Coronary artery disease - Disorder of bone and cartilage, unspecified - Diverticulosis of colon (without mention of hemorrhage) - Essential hypertension, benign - Mitral valve disorders(424.0) - Other and unspecified hyperlipidemia - Other specified noninflammatory disorder of vagina Severe Dysplasia (Vaginal Wall) - SVT (supraventricular tachycardia) (HCC) - Type II or unspecified type diabetes mellitus without mention of complication, uncontrolled - Unspecified cardiovascular disease PAST SURGICAL HISTORY Procedure Laterality Date - COLONOSCOPY FLX DX W/COLLJ SPEC WHEN PFRMD 01/15/2007 Colonoscopy - HEART SURGERY HX - LIG/TRNSXJ FLP TUBE ABDL/VAG APPR UNI/BI Tubal ligation - NEUROPLASTY AND/TRANSPOS MEDIAN NRV CARPAL TUNNE Carpal tunnel decomp - PAST SURGICAL HISTORY OF 1998 Coronary bypass graph surgery - PAST SURGICAL HISTORY OF Laser procedure to remove Lesion from vaginal wall (severe dysplasis) - PAST SURGICAL HISTORY OF 01/2013 vaginal hysterectomy - XCAPSL CTRC RMVL INSJ IO LENS PROSTH W/O ECP 2013 Cataract Extraction with PC IOL - bilateral SOCIAL HISTORY Social History Tobacco Use - Smoking status: Never Smoker - Smokeless tobacco: Never Used Vaping Use - Vaping Use: Never used Substance Use Topics - Alcohol use: No - Drug use: No FAMILY HISTORY Problem Relation Age of Onset - Heart Father [place] - Prostate Cancer Father - Osteoporosis Mother - Hypertension Mother - Stroke Mother - Cancer Brother Lung - Heart Brother [place] - Alzheimer's Disease Maternal Grandmother - Diabetes Maternal Grandfather - Heart Brother [place] ALLERGIES: ALLERGIES No Known Allergies MEDICATIONS: lisinopril (ZESTRIL, PRINIVIL) 20 mg tablet Take 1 tablet by mouth once daily. metoprolol tartrate, short acting, (LOPRESSOR) 100 mg tablet Take 1 tablet by mouth twice daily. pravastatin (PRAVACHOL) 40 mg tablet TAKE ONE AND ONE-HALF TABLETS DAILY AT BEDTIME Blood-Glucose Meter,Continuous ([employer] G6 CRISIS NURSE) misc 1 Each continuous. Blood-Glucose Sensor ([employer] G6 SENSOR) aleida Change sensor every 10 days as directed Blood-Glucose Transmitter (DEXCOM G6 TRANSMITTER) aleida 1 Each continuous. blood sugar diagnostic (ONETOUCH ULTRA TEST) test strip Test Blood Sugar(s) one time daily and as needed. DX: E11.9. Insulin: No metFORMIN (GLUCOPHAGE) 500 mg tablet Take 2 tablets by mouth in the morning, 1 tablet in the afternoon, and 1 tablet in the evening. docusate sodium (COLACE) 100 mg capsule Take 1 capsule by mouth twice daily as needed for constipation. blood sugar diagnostic (ONETOUCH ULTRA BLUE TEST STRIP) test strip TEST BLOOD SUGAR(S) 1 TIMES DAILY. DX: E11.9. INSULIN: NO Walker (ULTRA-LIGHT ROLLATOR) misc Re: Frequent falls aspirin, enteric coated (ASPIRIN, ENTERIC COATED) 81 mg EC tablet Take 81 mg by mouth (more content not included)... [facility] 10-14-2021 Instructions Tenisha Barnard APRN.CNP - 10/14/2021 1:52 PM EDT According to blood pressure log scanned in from the facility, it appears that her readings have been trending high over the past few weeks - despite recent increase in lisinopril to 20mg (from 10mg). Blood pressure control has been managed by the physician at the facility, thus far. Would recommend increasing lisinopril to 30mg once a day and observing blood pressures closely thereafter. documented in this encounter [facility] 10-14-2021 History of Presen t illness Narrative Images from the original note were not included. [facility] Department of Cardiovascular Medicine SECTION OF CLINICAL CARDIOLOGY OUTPATIENT VISIT DATE October 13, 2021 OUTPATIENT VISIT TYPE ESTABLISHED PRIMARY CARE PHYSICIAN: Tierney Samayoa [address] [place] [address] REASON FOR VISIT: 3 month follow up HISTORY OF PRESENT ILLNESS: Ms. Link is a 81 year old female with a history of CAD, S/P CABG x 4 (1998), SVT, moderately severe aortic stenosis, HTN, HLD, T2DM, and carotid artery disease. The patient was most recently seen by Dr. Riggins on 07/05/21 for evaluation of drop attacks as witnessed by family members. She additionally had worsening of her dementia with increased forgetfulness. Apparently the family had been calling her throughout the day via video chats remind her to eat and drink fluids. One of these events was video taped and shown to Dr. Riggins; he felt it was a possible vasovagal episode related to poor intake as a result of her memory loss. She was instructed continue same medications and follow-up in 3 months time. Following her last visit she moved into [facility] assisted living [facility] on 07/20/21. She is being followed closely by a physician at the facility and her lisinopril was uptitrated to 20 mg daily mid August of this year. She has had 2 falls due to unsteadiness on her feet and ambulating without her walker since she has been at the facility. She denies any lightheadedness, dizziness, near-syncope, syncope. She denies any chest pain, palpitations, shortness of breath, orthopnea (1.5 pillows), PND, or significant edema. Blood pressures at the facility have been elevated at the facility over the past few weeks. Subjective PAST MEDICAL HISTORY Diagnosis Date Acute myocardial infarction of other specified sites Myocardial Infarction Asthma per Coronary artery disease Disorder of bone and cartilage, unspecified Diverticulosis of colon (without mention of hemorrhage) Essential hypertension, benign Mitral valve disorders(424.0) Other and unspecified hyperlipidemia Other specified noninflammatory disorder of vagina Severe Dysplasia (Vaginal Wall) SVT (supraventricular tachycardia) (HCC) Type II or unspecified type diabetes mellitus without mention of complication, uncontrolled Unspecified cardiovascular disease PAST SURGICAL HISTORY Procedure Laterality Date COLONOSCOPY FLX DX W/COLLJ SPEC WHEN PFRMD 01/15/2007 Colonoscopy HEART SURGERY HX LIG/TRNSXJ FLP TUBE ABDL/VAG APPR UNI/BI Tubal ligation NEUROPLASTY &/TRANSPOS MEDIAN NRV CARPAL TUNNE Carpal tunnel decomp PAST SURGICAL HISTORY OF 1998 Coronary bypass graph surgery PAST SURGICAL HISTORY OF Laser procedure to remove Lesion from vaginal wall (severe dysplasis) PAST SURGICAL HISTORY OF 01/2013 vaginal hysterectomy XCAPSL CTRC RMVL INSJ IO LENS PROSTH W/O ECP 2013 Cataract Extraction with PC IOL - bilateral SOCIAL HISTORY Social History Tobacco Use Smoking status: Never Smoker Smokeless tobacco: Never Used Vaping Use Vaping Use: Never used Substance Use Topics Alcohol use: No Drug use: No FAMILY HISTORY Problem Relation Age of Onset Heart Father [place] Prostate Cancer Father Osteoporosis Mother Hypertension Mother Stroke Mother Cancer Brother Lung Heart Brother [place] Alzheimer's Disease Maternal Grandmother Diabetes Maternal Grandfather Heart Brother [place] ALLERGIES: ALLERGIES No Known Allergies MEDICATIONS: lisinopril (ZESTRIL, PRINIVIL) 20 mg tablet Take 1 tablet by mouth once daily. metoprolol tartrate, short acting, (LOPRESSOR) 100 mg tablet Take 1 tablet by mouth twice daily. pravastatin (PRAVACHOL) 40 mg tablet TAKE ONE AND ONE-HALF TABLETS DAILY AT BEDTIME Blood-Glucose Meter,Continuous (DEXCOM G6 CRISIS NURSE) misc 1 Each continuous. Blood-Glucose Sensor (DEXCOM G6 SENSOR) aleida Change sensor every 10 days as directed Blood-Glucose Transmitter (DEXCOM G6 TRANSMITTER) aleida 1 Each continuous. blood sugar diagnostic (ONETOUCH ULTRA TEST) test strip Test Blood Sugar(s) one time daily and as needed. DX: E11.9. Insulin: No metFORMIN (GLUCOPHAGE) 500 mg tablet Take 2 tablets by mouth in the morning, 1 tablet in the afternoon, and 1 tablet in the evening. docusate sodium (COLACE) 100 mg capsule Take 1 capsule by mouth twice daily as needed for constipation. blood sugar diagnostic (ONETOUCH ULTRA BLUE TEST STRIP) test strip TEST BLOOD SUGAR(S) 1 TIMES DAILY. DX: E11.9. INSULIN: NO Walker (ULTRA-LIGHT ROLLATOR) misc Re: Frequent falls aspirin, enteric coated (ASPIRIN, ENTERIC COATED) 81 mg EC tablet Take 81 mg by mouth once daily. Geriatric Multivitamins-Min (MULTIVITAMIN AND MINERALS) ORAL Cap Take one(1) tablet daily. cholecalciferol, vitamin D3, (VITAMIN D-3) 10 mcg (400 unit) cap Take 400 Units by mouth once daily. glimepiride (AMARYL) 1 mg tablet Take 1 tablet in the morning and 0.5 tablets at night budesonide-formoterol (SYMBICORT) 160-4.5 mcg/actuation inhaler Inhale 2 Puffs as instructed once daily. fish,bora,flax oils-om3,6,9no1 (OMEGA 3-6-9) 1,200 mg cap Take 200 mg by mouth once daily. REVIEW OF SYSTEMS: GENERAL: Negative for: Weight loss or gain, Fever or Chills, Weakness and Sleep difficulties. HEENT: Negative for: Headache, Impaired Vision, Glasses, Hearing Impairment, Ringing in Ears, Nosebleeds, Poor Dental Care, Bleeding Gums and Dentures. NECK: Negative for: Swelling, Pain, Stiffness RESPIRATORY: See HPI CARDIOVASCULAR: See HPI GASTROINTESTINAL: Negative for: Trouble swallowing, Heartburn, Change in bowel habits, Blood in stool, Dark black stools MUSCULOSKELETAL: Negative for: Muscle or joint pain, stiffness, Joint swelling NEUROLOGIC/PSYCHIATRIC: + memory loss SKIN: Negative for: Rash, Itching HEMATOLOGICAL/LYMPHATIC: Negative for: Easy bruising, Easy bleeding ENDOCRINE: Negative for: Heat or Cold Intolerance, Excessive Sweating, Frequent Urination, Frequent Thirst Objective PHYSICAL EXAMINATION: BP 180/90 Pulse 62 Ht 154.9 cm (5' 1 ) Wt 52.9 kg (116 lb 9.6 oz) SpO2 97% BMI 22.03 kg/m General: Well appearing, in no acute distress, speaking in complete sentences. Skin: No clubbing, no cyanosis. Eyes: Extra ocular movements intact Oropharynx: Teeth in good repair. Neck: No jugular venous distention, no carotid bruits, carotids have a normal upstroke, no palpable thyromegaly. Lungs: Clear to auscultation bilaterally, no wheezing or rhonchi. Heart: RRR, + PARVEEN at aortic area Abdomen: Soft, nontender, bowel sounds normal, no palpable organomegaly, no bruits. Extremities: Trace b/l ankle edema Neuro: A+Ox3, [facility] TESTING: Pharmacologic MPI stress test (01/18/2018): CONCLUSIONS: 1. SPECT Perfusion Study: Normal. 2. There is no scintigraphic evidence for inducible ischemia. 3. No evidence of scarred myocardium. 4. Functional capacity N/A (pharmacological). 5. Left ventricle is small. The left ventricle systolic function is normal. 6. Right ventricle is small. The right ventricle systolic function is normal. 7. This is a low risk scan. Gated Stress FBP LVEF % 78 Echocardiogram (01/15/2021): CONCLUSIONS: - Technically difficult exam due to body habitus. - Exam indication: Routine surveillance of moderate or severe valvular stenosis (>1yr) - The left ventricle is normal in size. Left ventricular systolic function is normal. EF = 67 5% (2D 4-ch.) Indeterminate left ventricular diastolic dysfunction due to inconsistent or technically suboptimal data. - The right ventricle is normal in size. Right ventricular systolic function is normal. - There is moderately severe aortic valve stenosis caused by calcified valve. AV area is 0.83 cm (0.57 cm /m ) by continuity, VTI. The peak gradient is 32 mmHg, the mean gradient is 19 mmHg and the dimensionless valve index is 0.32. - Exam was compared with the prior echocardiographic exam performed on 11/19/2019. 14 Day ZIO monitor (06/29/2020): Enrollment Dates: 06/02/2020-06/16/2020 - Patient had a min HR of 42 bpm, max HR of 133 bpm, and avg HR of 57bpm. Predominant underlying rhythm was Sinus Rhythm. - 21 Supraventricular Tachycardia runs occurred, the run with the fastest interval lasting 4 beats with a max rate of 133 bpm, the longest lasting 13 beats with an avg rate of 108 bpm. Isolated SVEs were rare (<1.0%), SVE Couplets were rare (<1.0%), and SVE Triplets were rare (<1.0%). - Isolated VEs were rare (<1.0%, 5411), VE Triplets were rare (<1.0%, 1), and no VE Couplets were present. Ventricular Trigeminy was present. Conclusion: 1. Average heart rate of 57 beats minute with minimum 42 bpm, predominantly in sinus rhythm. 2. 21 runs of SVT up to 13 beats, up to 133 bpm. 3. Rare PACs and rare PVCs. 4. Symptoms were associated with sinus rhythm. There were no tests performed for review. IMPRESSION: 1. Coronary artery disease - S/P CABG x 4 in 1998 (PROCTOR-LAD, SVGs to RCA, D1, and OM) - Normal Pharm MPI 01/2018 - Clinically stable and denies chest pain - Continue ASA, statin, and BB 2. 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 Nonrheumatic aortic valve stenosis - Echo 01/2021: moderately severe with 1-2+ AI (Pk/Mn 32/19mmHg, JOHN 0.83 cm ) - Repeat Echo 01/2022 4. Essential hypertension - Suboptimal control on metoprolol and lisinopril - Encouraged dietary sodium restriction/DASH diet - Reviewed risks of HTN and principles of treatment - Goal of BP <130/80 5. Hyperlipidemia - Continue statin 6. Type 2 diabetes mellitus 7. Carotid artery disease - US Carotids 03/2018: 20-39% bilateral ICA stenosis 8. Cognitive impairment PLAN AND RECOMMENDATIONS: Patient appears stable from a cardiac standpoint with no new or worsening cardiac symptoms. Since her last office visit she moved into an assisted living facility. She has been followed closely by a physician who oversees the patient's at that facility and lisinopril was recently uptitrated to 20 mg daily (from 10mg) back in mid-August. According to the blood pressure log that was scanned in through [employer], her readings have been elevated over the past couple of weeks. We would recommend further uptitrating lisinopril to 30 mg daily and will send this recommendation along with her to the physician who has been managing her blood pressures. She will be due for repeat echocardiogram in January 2022. We will then have her follow-up with Dr. Riggins shortly thereafter to review findings and discuss plan of care. She has had a good appetite and eating and drinking adequate amounts since being at the facility. No further drop attacks . CONTACT INFORMATION: Tenisha Barnard APRN.JONO Cardiology Nurse Practitioner Section of Regional Cardiology [facility] Dept of Cardiovascular Medicine [facility] [place] [address] [place] [address] Office Office This note was partially generated using [employer] voice recognition system, and there may be some incorrect words, spellings, and punctuation that were not noted in checking the note before saving. I personally interviewed, confirmed and edited the above information if obtained by others. documented in this encounter [facility] 07-05-2021 Note HNO ID: [id number] Author: Adolfo Riggins, DO Service: ? Author Type: Physician Type: Progress Notes Filed: 07/05/2021 3:38 PM Note Text: [facility] SECTION OF REGIONAL CARDIOLOGY [facility] OUTPATIENT VISIT DATE July 05, 2021 PRIMARY CARE PHYSICIAN: Tierney Samayoa [address] [place] [address] HISTORY OF PRESENT ILLNESS: Ms. Link is a 81 year old female. The patient returns for follow-up second history of SVT status post ablation as well as history of coronary disease status post coronary bypass grafting x4 remotely. Additional history includes moderately severe aortic stenosis as well as hypertension, hyperlipidemia and diabetes. The patient has been experiencing drop attacks as witnessed by family. She unfortunately has had worsening of her dementia with forgetfulness. They are calling her throughout the day and reminding her via video chat's to eat meals and drink enough fluids which unfortunately she at times is forgetting. She denies anginal sounding chest discomfort, dyspnea, orthopnea, paroxysmal nocturnal dyspnea, palpitations or linda syncope. PLAN AND RECOMMENDATIONS: The patient remained stable without symptoms of angina or cardiac decompensation. She may be having vasovagal attacks and via video of an actual attack shown to me as witnessed by family this may be related by poor intake as result of the patient's dementia. Heart rate, blood pressure and recent cholesterol profile are otherwise favorable. We would not need to update an echocardiogram until later in the year for her aortic stenosis. We have asked the family to further discuss with the patient long-term advance care wishes and goals and consideration may need to be given for the ability to have the patient watched over 24-hour period so that she may eat and drink adequately at minimum. Dietary and lifestyle modification was briefly reemphasized. We will look forward to reevaluating the patient in 3 months time. Vitals: BP 140/60 Pulse 64 Ht 154.9 cm (5' 1 ) Wt 50.3 kg (111 lb) SpO2 96% BMI 20.97 kg/m? Physical Exam Vitals reviewed. Constitutional: Appearance: She is well-developed. HENT: Head: Normocephalic and atraumatic. Eyes: Pupils: Pupils are equal, round, and reactive to light. Neck: Thyroid: No thyromegaly. Vascular: No JVD. Cardiovascular: Rate and Rhythm: Normal rate and regular rhythm. Heart sounds: Murmur heard. Systolic murmur is present with a grade of 2/6. No friction rub. No gallop. Pulmonary: Effort: Pulmonary effort is normal. No respiratory distress. Breath sounds: Normal breath sounds. No wheezing or rales. Abdominal: General: Bowel sounds are normal. Palpations: Abdomen is soft. Musculoskeletal: General: Normal range of motion. Cervical back: Normal range of motion and neck supple. Skin: General: Skin is warm and dry. Coloration: Skin is not pale. Neurological: Mental Status: She is alert and oriented to person, place, and time. Cranial Nerves: No cranial nerve deficit. Psychiatric: Behavior: Behavior normal. Thought Content: Thought content normal. Judgment: Judgment normal. Review of Systems Constitutional: Negative for activity change and fatigue. HENT: Negative for ear pain and facial swelling. Eyes: Negative for pain and discharge. Respiratory: Positive for shortness of breath. Negative for chest tightness. Cardiovascular: Positive for palpitations. Negative for chest pain and leg swelling. Gastrointestinal: Negative for abdominal pain, blood in stool, nausea and vomiting. Endocrine: Negative for cold intolerance and heat intolerance. Genitourinary: Negative for frequency and hematuria. Musculoskeletal: Negative for arthralgias and gait problem. Skin: Negative for color change, pallor and rash. Allergic/Immunologic: Negative for immunocompromised state. Neurological: Negative for dizziness, syncope, light-headedness and headaches. Hematological: Negative for adenopathy. Does not bruise/bleed easily. Psychiatric/Behavioral: Negative for confusion. The patient is not nervous/anxious. PAST MEDICAL HISTORY Diagnosis Date - Acute myocardial infarction of other specified sites Myocardial Infarction - Asthma per - Coronary artery disease - Disorder of bone and cartilage, unspecified - Diverticulosis of colon (without mention of hemorrhage) - Essential hypertension, benign - Mitral valve disorders(424.0) - Other and unspecified hyperlipidemia - Other specified noninflammatory disorder of vagina Severe Dysplasia (Vaginal Wall) - SVT (supraventricular tachycardia) (HCC) - Type II or unspecified type diabetes mellitus without mention of complication, uncontrolled - Unspecified cardiovascular disease PAST SURGICAL HISTORY Procedure Laterality Date - COLONOSCOPY FLX DX W/COLLJ SPEC WHEN PF (more content not included)... [facility] 06-23-2021 Note HNO ID: [id number] Author: Tierney Samayoa MD Service: ? Author Type: Physician Type: Progress Notes Filed: 06/23/2021 5:11 PM Note Text: Reason for Visit Patient presents with: Recheck: Follow up Gillian Link is a 81 year old female who presents here today for Above Complaints.. Health Maintenance SPIROMETRY SHINGRIX VACCINE(2 of 3) DILATED RETINAL EXAM ADVANCE DIRECTIVE DISCUSSION URINE ALBUMIN:CREATININE RATIO LDL CHOLESTEROL HPI Patient is here with her granddaughter, she lives with her son in-law suite and she has cameras by which her daughter Nohemy watches over her and takes care of her. Last visit, per daughter, granddaughter and son she has been increasingly confused , we worked her up for uti , and did test that would point to cause of confusion but They were all negative, We change her regimen of diabetes medications. Cut her down to only 1 tablet of Metformin and give her Amaryl also asked her to be well-hydrated. Patient's family got Dexcom and her sugars are running anywhere between 70-200. And depending on what she eats it does go up to 200 after food but when she is not eating in the middle of the night at 3:00 she is going below 70 and that is a huge concern. They have a Dexcom so they are going to log the food that they are eating and the medications that she is taking and what the sugars are coming up to be. I think we will be able to help them fine-tune the food that is giving her like in the evenings if she is eating some dessert along with a pretty decent carbs in the dinnertime then if her sugars are very high spacing are cutting out making some fine-tuning changes would help her sugars be more stable. ? Diet log consists of. Breakfast with peanut butter and jelly on toast, whole grain 3/4 grams of fiber in there. She is eating a lot of ice cream every day. Tortilla with egg, cheese , arugula spinach and tomatoes, and orange, and yogurt for snack. Dinner is chilli for 2 nights , complex carbs like chilli and yogurt. She has been eating cheerios with a fiber 1 on it etc. Although I think some encephalopathy from this metabolic ups and downs could cause a cognitive decline I think it is mostly just the aging process in her body. We discussed having regular home health care and start them to tap into her savings if any to give that to her, we discussed an apple watch to especially to get the feet to wear if it falls They will note that she has fallen, keeping and/or alarm system where it would go off if she opens a door in the middle of the night and she does not realize it. And also we discussed daycare at [facility] as something wanted him while they need to keep her somewhere. No problem-specific Assessment AND Plan notes found for this encounter. PAST MEDICAL HISTORY Diagnosis Date - Acute myocardial infarction of other specified sites Myocardial Infarction - Asthma per - Coronary artery disease - Disorder of bone and cartilage, unspecified - Diverticulosis of colon (without mention of hemorrhage) - Essential hypertension, benign - Mitral valve disorders(424.0) - Other and unspecified hyperlipidemia - Other specified noninflammatory disorder of vagina Severe Dysplasia (Vaginal Wall) - SVT (supraventricular tachycardia) (HCC) - Type II or unspecified type diabetes mellitus without mention of complication, uncontrolled - Unspecified cardiovascular disease PAST SURGICAL HISTORY Procedure Laterality Date - COLONOSCOPY FLX DX W/COLLJ SPEC WHEN PFRMD 01/15/2007 Colonoscopy - HEART SURGERY HX - LIG/TRNSXJ FLP TUBE ABDL/VAG APPR UNI/BI Tubal ligation - NEUROPLASTY AND/TRANSPOS MEDIAN NRV CARPAL TUNNE Carpal tunnel decomp - PAST SURGICAL HISTORY OF 1998 Coronary bypass graph surgery - PAST SURGICAL HISTORY OF Laser procedure to remove Lesion from vaginal wall (severe dysplasis) - PAST SURGICAL HISTORY OF 01/2013 vaginal hysterectomy - XCAPSL CTRC RMVL INSJ IO LENS PROSTH W/O ECP 2013 Cataract Extraction with PC IOL - bilateral FAMILY HISTORY Problem Relation Age of Onset - Heart Father [place] - Prostate Cancer Father - Osteoporosis Mother - Hypertension Mother - Stroke Mother - Cancer Brother Lung - Heart Brother [place] - Alzheimer's Disease Maternal Grandmother - Diabetes Maternal Grandfather - Heart Brother [place] Social History Tobacco Use - Smoking status: Never Smoker - Smokeless tobacco: Never Used Vaping Use - Vaping Use: Never used Substance Use Topics - Alcohol use: No - Drug use: No Past medical history, appointments, medications, allergies reviewed. Pertinent Lab/Diagnostic Studies are reviewed and discussed today Current Outpatient Medications: - glimepiride (AMARYL) 1 mg tablet - metFORMIN (GLUCOPHAGE) 500 mg tablet - lisinopril (ZESTRIL, PRINIVIL) 10 mg tablet - metoprolol tartrate, short acting, (LOPRESSOR) 100 mg tablet - Blood-Glucose Me (more content not included)... [facility] 05-24-2021 Note HNO ID: [id number] Author: Tierney Samayoa MD Service: ? Author Type: Physician Type: Progress Notes Filed: 05/24/2021 6:04 PM Note Text: Reason for Visit Patient presents with: Same Day Appointment: possible UTI? and confusion, Gillian Link is a 81 year old female who presents here today for Above Complaints.. Health Maintenance SPIROMETRY DTAP,TDAP,TD(1 - Tdap) SHINGRIX VACCINE(2 of 3) DILATED RETINAL EXAM HPI Patient is here with her granddaughter, she lives with her son in an in-law suite and she has cameras by which her daughter Nohemy watches over her and takes care of her. As per daughter granddaughter and son she has been increasingly confused and having some memory disturbances. Patient is confused today per daughters report who watches her on cameras as she lives a distance from her. Last week Monday she noticed patient was there by the pills, drumming her fingers and walking up and down that area and feeling a lot confused. She has been taking medications repeatedly not going that she is taking them. She is getting confused and forgetting the afternoon medications. She is also sometimes completely unaware that she is taking medications that are meant for a different part of the day. She is living in an in laws suite with brother and they are around a lot with her but not on a consistent daily basis. Her ua shows high amounts of glucose at around 500, despite her taking double dose of her medications. Last evening she took a total of 4000 mgs of metformin. She has increasingly been forgetful. Patient has been craving a lot of carbs and is eating a lot more than she did in the past. A lot of peanut butter and jelly. She is eating a lot of ice cream every day. She has been eating cheerios with a fiber 1 on it etc. Patient is fixing her self food which is easy to make. Not compliant with the cane. Patients sugars are elevated and that could be some metabolic encephalopathy. We had MRI in the past 2 years. Which did show loss of white matter. She notes that she is inclining towards dementia. Her blood sugars are worse because she is not eating appropriately and so her sugars are very high and could be contributing to the confusion. She did have a UA here. She also does not have symptoms of focal neurological deficits to think about a stroke. No problem-specific Assessment AND Plan notes found for this encounter. PAST MEDICAL HISTORY Diagnosis Date - Acute myocardial infarction of other specified sites Myocardial Infarction - Asthma per - Coronary artery disease - Disorder of bone and cartilage, unspecified - Diverticulosis of colon (without mention of hemorrhage) - Essential hypertension, benign - Mitral valve disorders(424.0) - Other and unspecified hyperlipidemia - Other specified noninflammatory disorder of vagina Severe Dysplasia (Vaginal Wall) - SVT (supraventricular tachycardia) (HCC) - Type II or unspecified type diabetes mellitus without mention of complication, uncontrolled - Unspecified cardiovascular disease PAST SURGICAL HISTORY Procedure Laterality Date - COLONOSCOP W/ OR W/O [facility] SPEC 01/15/2007 Colonoscopy - HEART SURGERY HX - LIGATE FALLOPIAN TUBE Tubal ligation - PAST SURGICAL HISTORY OF 1998 Coronary bypass graph surgery - PAST SURGICAL HISTORY OF Laser procedure to remove Lesion from vaginal wall (severe dysplasis) - PAST SURGICAL HISTORY OF 01/2013 vaginal hysterectomy - REMV CATARACT EXTRACAP,INSERT LENS 2013 Cataract Extraction with PC IOL - bilateral - REVISE MEDIAN N/CARPAL TUNNEL SURG Carpal tunnel decomp FAMILY HISTORY Problem Relation Age of Onset - Heart Father [place] - Prostate Cancer Father - Osteoporosis Mother - Hypertension Mother - Stroke Mother - Cancer Brother Lung - Heart Brother [place] - Alzheimer's Disease Maternal Grandmother - Diabetes Maternal Grandfather - Heart Brother [place] Social History Tobacco Use - Smoking status: Never Smoker - Smokeless tobacco: Never Used Vaping Use - Vaping Use: Never used Substance Use Topics - Alcohol use: No - Drug use: No Past medical history, appointments, medications, allergies reviewed. Pertinent Lab/Diagnostic Studies are reviewed and discussed today Current Outpatient Medications: - metFORMIN (GLUCOPHAGE) 500 mg tablet - docusate sodium (COLACE) 100 mg capsule - lisinopril (ZESTRIL, PRINIVIL) 10 mg tablet - metoprolol tartrate, short acting, (LOPRESSOR) 100 mg tablet - pravastatin (PRAVACHOL) 40 mg tablet - blood sugar diagnostic (e-ZassiTOUCH ULTRA BLUE TEST STRIP) test strip - [place] (ULTRA-LIGHT ROLLATOR) misc - aspirin, enteric coated (ASPIRIN, ENTERIC COATED) 81 mg EC tablet - budesonide-formoterol (SYMBICORT) 160-4.5 mcg/actuation inhaler - fish,bora,flax oils-om3,6,9 #1 (OMEGA 3-6-9) 1,200 mg cap - Geriatric Multivitamins-Min (MULTIVITAMIN AND MINERALS) ORAL Cap Current Facility-Ad (more content not included)... [facility] 03-12-2021 Note HNO ID: [id number] Author: Tierney Samayoa MD Service: ? Author Type: Physician Type: Progress Notes Filed: 03/12/2021 6:29 PM Note Text: Reason for Visit Patient presents with: Established Patient: 6 month follow up- flu shot Immunizations: Flu vaccination Gillian Link is a 81 year old female who presents here today for Above Complaints.. Health Maintenance SPIROMETRY DTAP,TDAP,TD(1 - Tdap) SHINGRIX VACCINE(2 of 3) DILATED RETINAL EXAM DIABETIC FOOT EXAM HPI SVT: she had an ablation done for for this on February 10 and notes that since then she has had less episodes of palpitation and she feels much better. Not had any abdominal complaints since her last visit with me. She was admitted in September with internal volvulus and she had a laparoscopic procedure and some adhesions removed. No problem-specific Assessment AND Plan notes found for this encounter. PAST MEDICAL HISTORY Diagnosis Date - Acute myocardial infarction of other specified sites Myocardial Infarction - Asthma per - Coronary artery disease - Disorder of bone and cartilage, unspecified - Diverticulosis of colon (without mention of hemorrhage) - Essential hypertension, benign - Mitral valve disorders(424.0) - Other and unspecified hyperlipidemia - Other specified noninflammatory disorder of vagina Severe Dysplasia (Vaginal Wall) - SVT (supraventricular tachycardia) (HCC) - Type II or unspecified type diabetes mellitus without mention of complication, uncontrolled - Unspecified cardiovascular disease PAST SURGICAL HISTORY Procedure Laterality Date - COLONOSCOP W/ OR W/O [facility] SPEC 01/15/2007 Colonoscopy - HEART SURGERY HX - LIGATE FALLOPIAN TUBE Tubal ligation - PAST SURGICAL HISTORY OF 1998 Coronary bypass graph surgery - PAST SURGICAL HISTORY OF Laser procedure to remove Lesion from vaginal wall (severe dysplasis) - PAST SURGICAL HISTORY OF 01/2013 vaginal hysterectomy - REMV CATARACT EXTRACAP,INSERT LENS 2013 Cataract Extraction with PC IOL - bilateral - REVISE MEDIAN N/CARPAL TUNNEL SURG Carpal tunnel decomp FAMILY HISTORY Problem Relation Age of Onset - Heart Father [place] - Prostate Cancer Father - Osteoporosis Mother - Hypertension Mother - Stroke Mother - Cancer Brother Lung - Heart Brother [place] - Alzheimer's Disease Maternal Grandmother - Diabetes Maternal Grandfather - Heart Brother [place] Social History Tobacco Use - Smoking status: Never Smoker - Smokeless tobacco: Never Used Vaping Use - Vaping Use: Never used Substance Use Topics - Alcohol use: No - Drug use: No Past medical history, appointments, medications, allergies reviewed. Pertinent Lab/Diagnostic Studies are reviewed and discussed today Current Outpatient Medications: - docusate sodium (COLACE) 100 mg capsule - lisinopril (ZESTRIL, PRINIVIL) 10 mg tablet - metoprolol tartrate, short acting, (LOPRESSOR) 100 mg tablet - pravastatin (PRAVACHOL) 40 mg tablet - metFORMIN (GLUCOPHAGE) 500 mg tablet - blood sugar diagnostic ([employer]CH ULTRA BLUE TEST STRIP) test strip - [place] (ULTRA-LIGHT ROLLATOR) misc - aspirin, enteric coated (ASPIRIN, ENTERIC COATED) 81 mg EC tablet - budesonide-formoterol (SYMBICORT) 160-4.5 mcg/actuation inhaler - fish,bora,flax oils-om3,6,9 #1 (OMEGA 3-6-9) 1,200 mg cap - Geriatric Multivitamins-Min (MULTIVITAMIN AND MINERALS) ORAL Cap Current Facility-Administered Medications: - perflutren lipid microspheres 1.3 mL in NaCl (PF) 0.9% 10 mL injection (DEFINITY) - sodium chloride 0.9 % (flush) 10 mL (BD POSIFLUSH) Review of Systems CONSTITUTIONAL: No fevers, chills night sweats, unintended weight loss CARDIOVASCULAR: No chest pain, dyspnea, palpitations, orthopnea, PND, ankle edema. PULM: No dyspnea, unexplained cough. GI: No dysphagia/odynophagia, problematic reflux, constipation, diarrhea, changes in stool habits, hematochezia, melena. : No new urinary complaints, including dysuria, gross hematuria or pyuria. NEURO: No new balance problems, peripheral weakness/paresthesias or numbness of concern. Physical Exam BP 140/80 (BP Site: Left Arm, BP Position: Sitting, BP Cuff Size: Regular Adult) Pulse 62 Temp 36.8 ?C (98.2 ?F) Resp 12 Ht 154.9 cm (5' 1 ) Wt 49 kg (108 lb) SpO2 98% BMI 20.41 kg/m? General appearance: Well appearing, alert, in no acute distress, well nourished. Skin: Skin color, texture, turgor normal, no suspicious rashes or lesions Head: Normocephalic, no masses, lesions, tenderness or abnormalities Eyes: Anicteric sclera. Pupils are equally round and reactive to light. Extraocular movements are intact. Lungs: Lungs clear to auscultation. No wheezing, rhonchi, rales Heart: RRR without murmur, gallop, or rubs. Feet: Shoes and socks removed, No deformities, ulcers, calluses, normal distal pulses and sensitive to 10 gm monofilament. ASSESSMENT/PLAN: 1. Type 2 diabetes mellitus without (more content not included)... 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 - Plan for same-day discharge - No changes to outpatient medications upon discharge. Full report will follow in Epic: [Chart > Cardiac] Tahir Curtis MD Fellow; PGY-7; Cardiac Electrophysiology Pager: [phone] If unavailable, please page the following providers: 8AM-5PM (Scrubbed in [place]): EP JAMISON [id number] 5PM-8AM: Moonlighting CVM fellow [id number] [facility] 02-09-2021 Note HNO ID: [id number] Author: Mary Alvarez RN Service: ? Author Type: ? Type: Progress Notes Filed: 02/09/2021 1:05 PM Note Text: THE FOLLOWING WAS EVALUATED Motivation To Learn: Interested Family/Significant Other Support: Unable to assess - Family not present Cognitive Ability: Alert and oriented Patient Learns Best By: Individual Instruction The Following Influencing Factors Were Barriers To This Education Session: None The Following Physical Limitations Were Barriers To This Education Session: None Instruction Provided To: Daughter by Marline Williamson APRN Procedure: Radio Frequency Ablation Pre-procedure information reviewed: Patient ID verified Procedure verified Physician verified Explanation of procedure Sedation level during procedure MD medication instructions from EP lab request:hold metoprolol night before and morning of Travel instructions/restrictions Scheduling information Possible same day discharge versus overnight hospital stay Check out time Family waiting area Physician contact with family after procedure Post Procedure Expectations reviewed: Inpatient hospital stay Post procedure antiarrhythmics and anticoagulation will be discussed with Physician, nurse practitioner or Physician workforce development assistant upon discharge Instructions for transmitting EKG to Monitoring Center 3 month follow up instructions Contact number for information and questions Patient Evaluation: Verbalizes understanding Follow Up Plan: Follow up as directed by MD. Supplemental Material Given: Written Material Patient education regarding radiation exposure. Instructed By Mary Alvarez RN. In Department of CARDIOLOGY. [facility] 02-09-2021 Note Education (EPSMN) GILLIAN LINK ([id number]) 1940 F Date Time Provider Department 02/09/21 DOUG YOUNGER EPSMN Reason for Visit: Patient Education [91] Cmt: SVT RFA Progress Notes: Mary Alvarez RN 02/09/2021 1:05 PM Signed THE FOLLOWING WAS EVALUATED Motivation To Learn: Interested Family/Significant Other Support: Unable to assess - Family not present Cognitive Ability: Alert and oriented Patient Learns Best By: Individual Instruction The Following Influencing Factors Were Barriers To This Education Session: None The Following Physical Limitations Were Barriers To This Education Session: None Instruction Provided To: Daughter by Marline Williamson APRN Procedure: Radio Frequency Ablation Pre-procedure information reviewed: Patient ID verified Procedure verified Physician verified Explanation of procedure Sedation level during procedure medication instructions from EP lab request:hold metoprolol night before and morning of Travel instructions/restrictions Scheduling information Possible same day discharge versus overnight hospital stay Check out time Family waiting area Physician contact with family after procedure Post Procedure Expectations reviewed: Inpatient hospital stay Post procedure antiarrhythmics and anticoagulation will be discussed with Physician, nurse practitioner or Physician workforce development assistant upon discharge Instructions for transmitting EKG to Monitoring Center 3 month follow up instructions Contact number for information and questions Patient Evaluation: Verbalizes understanding Follow Up Plan: Follow up as directed by MD. Supplemental Material Given: Written Material Patient education regarding radiation exposure. Instructed By Mary Alvarez RN. In Department of CARDIOLOGY. During your visit today, we recorded the following information about you: Allergies As of Date: 02/09/2021 (No Known Allergies) Date Reviewed: 02/09/2021 Reviewed by: Marline Tate APRN.GOOD HUMOR VENDOR - Fully Assessed Prescriptions as of 02/09/2021 - docusate sodium (COLACE) 100 mg capsule Take 1 capsule by mouth twice daily as needed for constipation. - lisinopril (ZESTRIL, PRINIVIL) 10 mg tablet Take 1 tablet by mouth once daily. - metoprolol tartrate, short acting, (LOPRESSOR) 100 mg tablet Take 1 tablet by mouth twice daily. - pravastatin (PRAVACHOL) 40 mg tablet TAKE ONE AND ONE-HALF TABLETS DAILY AT BEDTIME - metFORMIN (GLUCOPHAGE) 500 mg tablet Take 2 tablets by mouth in the morning, 1 tablet in the afternoon, and 1 tablet in the evening. - blood sugar diagnostic (ONETOUCH ULTRA BLUE TEST STRIP) test strip TEST BLOOD SUGAR(S) 1 TIMES DAILY. DX: E11.9. INSULIN: NO - Walker (ULTRA-LIGHT ROLLATOR) [facility] Re: Frequent falls - aspirin, enteric coated (ASPIRIN, ENTERIC COATED) 81 mg EC tablet Take 81 mg by mouth once daily. - budesonide-formoterol (SYMBICORT) 160-4.5 mcg/actuation inhaler Inhale 2 Puffs as instructed once daily. - fish,bora,flax oils-om3,6,9 #1 (OMEGA 3-6-9) 1,200 mg cap Take 200 mg by mouth once daily. - Geriatric Multivitamins-Min (MULTIVITAMIN AND MINERALS) ORAL Cap Take one(1) tablet daily. Facility-Administered Medications as of 02/09/2021 - perflutren lipid microspheres 1.3 mL in NaCl (PF) 0.9% 10 mL injection (DEFINITY) - sodium chloride 0.9 % (flush) 10 mL (BD POSIFLUSH) Encounter Status:Closed by MARY ALVAREZ RN on 02/09/21 [facility] 02-09-2021 Note HNO ID: [id number] Author: Marline Tate APRN.JONO Service: ? Author Type: Nurse Practitioner Type: Progress Notes Filed: 02/09/2021 8:13 AM Note Text: [facility] [place] Thony Correa Department of Cardiovascular Medicine SECTION OF CARDIAC PACING and ELECTROPHYSIOLOGY OUTPATIENT VISIT DATE February 09, 2021 OUTPATIENT VISIT TYPE ESTABLISHED PRIMARY CARE PHYSICIAN: Tierney Samayoa [address] [place] [address] REFERRING PHYSICIAN: Doug Younger [address] [facility] [id number] CHIEF COMPLAINT: SVT HISTORY OF PRESENT ILLNESS: Ms. Link is a 80 year old female who presents today for follow-up visit for SVT, scheduled for ablation. Seen last by Dr. Younger on 01/14/2021. She has a history of diverticulosis, asthma, diabetes, hyperlipidemia, hypertension, mitral valve disease, aortic stenosis, coronary artery disease with [place] s/p CABG x4, and SVT. ? She has multiple episodes of SVT with symptoms of palpitations and SOB, requiring ED visits and treatment with adenosine. She has been titrated on metoprolol, currently on lopressor 100mg BID. She has worn a property assessment monitor which shows SVT, but episodes becoming more frequently over the summer. She also has had episodes of tachycardia which were asymptomatic. On 01/11/2021, she had an episode, treated with adenosine at local hospital. She denies chest pain, shortness of breath, orthopnea, cough, edema, palpitations, PND, lightheadedness or syncope. PAST CARDIAC HISTORY: See below PAST MEDICAL HISTORY Diagnosis Date - Acute myocardial infarction of other specified sites Myocardial Infarction - Asthma per - Coronary artery disease - Disorder of bone and cartilage, unspecified - Diverticulosis of colon (without mention of hemorrhage) - Essential hypertension, benign - Mitral valve disorders(424.0) - Other and unspecified hyperlipidemia - Other specified noninflammatory disorder of vagina Severe Dysplasia (Vaginal Wall) - SVT (supraventricular tachycardia) (HCC) - Type II or unspecified type diabetes mellitus without mention of complication, uncontrolled - Unspecified cardiovascular disease PAST SURGICAL HISTORY Procedure Laterality Date - COLONOSCOP W/ OR W/O BRSH SPEC 01/15/2007 Colonoscopy - HEART SURGERY HX - LIGATE FALLOPIAN TUBE Tubal ligation - PAST SURGICAL HISTORY OF 1998 Coronary bypass graph surgery - PAST SURGICAL HISTORY OF Laser procedure to remove Lesion from vaginal wall (severe dysplasis) - PAST SURGICAL HISTORY OF 01/2013 vaginal hysterectomy - REMV CATARACT EXTRACAP,INSERT LENS 2013 Cataract Extraction with PC IOL - bilateral - REVISE MEDIAN N/CARPAL TUNNEL SURG Carpal tunnel decomp SOCIAL HISTORY Social History Tobacco Use - Smoking status: Never Smoker - Smokeless tobacco: Never Used Vaping Use - Vaping Use: Never used Substance Use Topics - Alcohol use: No - Drug use: No FAMILY HISTORY Problem Relation Age of Onset - Heart Father [place] - Prostate Cancer Father - Osteoporosis Mother - Hypertension Mother - Stroke Mother - Cancer Brother Lung - Heart Brother [place] - Alzheimer's Disease Maternal Grandmother - Diabetes Maternal Grandfather - Heart Brother [place] ALLERGIES: ALLERGIES No Known Allergies MEDICATIONS: docusate sodium (COLACE) 100 mg capsule Take 1 capsule by mouth twice daily as needed for constipation. lisinopril (ZESTRIL, PRINIVIL) 10 mg tablet Take 1 tablet by mouth once daily. metoprolol tartrate, short acting, (LOPRESSOR) 100 mg tablet Take 1 tablet by mouth twice daily. pravastatin (PRAVACHOL) 40 mg tablet TAKE ONE AND ONE-HALF TABLETS DAILY AT BEDTIME metFORMIN (GLUCOPHAGE) 500 mg tablet Take 2 tablets by mouth in the morning, 1 tablet in the afternoon, and 1 tablet in the evening. blood sugar diagnostic (TyraTechUCH ULTRA BLUE TEST STRIP) test strip TEST BLOOD SUGAR(S) 1 TIMES DAILY. DX: E11.9. INSULIN: NO Walker (ULTRA-LIGHT ROLLATOR) misc Re: Frequent falls aspirin, enteric coated (ASPIRIN, ENTERIC COATED) 81 mg EC tablet Take 81 mg by mouth once daily. budesonide-formoterol (SYMBICORT) 160-4.5 mcg/actuation inhaler Inhale 2 Puffs as instructed once daily. fish,bora,flax oils-om3,6,9 #1 (OMEGA 3-6-9) 1,200 mg cap Take 200 mg by mouth once daily. Geriatric Multivitamins-Min (MULTIVITAMIN AND MINERALS) ORAL Cap Take one(1) tablet daily. REVIEW OF SYSTEMS: General, constitutional: Weight loss or gain- No, Fever or chills-No, Weakness-No, Trouble sleeping-No. Head, Eyes, Ears, Mouth: Headache, head injury-No, Glasses-yes or contact lenses-No, Pain-No, Impaired vision-No, Decreased hearing-No, Ringing in ears-No, Nose bleeds-No, Dental difficulties-No, Bleeding gums-No, Dentures-No. Neck: Swelling-No, Pain-No, Stiffness-No. Respiratory: Cough-No, Spitting up blood-No, Shortness of breath-No, (more content not included)... [facility] 01-14-2021 Note HNO ID: [id number] Author: Doug Younger MD Service: ? Author Type: Physician Type: Progress Notes Filed: 01/14/2021 1:39 PM Note Text: [facility] [place] Department of Cardiovascular Medicine VIRTUAL VIDEO VISIT NEW PATIENT SERVICE DATE: 01/14/2021 Patient: Gillian Link SERVICE TIME: 12:43 PM : 1940 This is a virtual video visit. It required patient-provider interaction for the medical decision making as documented below. Gillian Link has consented to this video encounter. NURSING INTAKE HISTORY: Gillian Link is a 80 year old female seen today for consultation. She has a history of diverticulosis, asthma, diabetes, hyperlipidemia, hypertension, mitral valve disease, aortic stenosis, coronary artery disease with [place] s/p CABG x4, and SVT. She has multiple episodes of SVT with symptoms of palpitations and SOB, requiring ED visits and treatment with adenosine. She has been titrated on metoprolol, currently on lopressor 100mg BID. She has worn a property assessment monitor which shows SVT, but episodes becoming more frequently over the summer. She also has had episodes of tachycardia which were asymptomatic. On 01/11/2021, she had an episode, treated with adenosine at local hospital. She has had no lightheadedness, dizziness, syncope, nearsyncope, chest pain, orthopnea, PND, or edema. PAST MEDICAL HISTORY Diagnosis Date - Acute myocardial infarction of other specified sites Myocardial Infarction - Asthma per - Coronary artery disease - Disorder of bone and cartilage, unspecified - Diverticulosis of colon (without mention of hemorrhage) - Essential hypertension, benign - Mitral valve disorders(424.0) - Other and unspecified hyperlipidemia - Other specified noninflammatory disorder of vagina Severe Dysplasia (Vaginal Wall) - Type II or unspecified type diabetes mellitus without mention of complication, uncontrolled - Unspecified cardiovascular disease PAST SURGICAL HISTORY Procedure Laterality Date - COLONOSCOP W/ OR W/O BRSH SPEC 01/15/2007 Colonoscopy - HEART SURGERY HX - LIGATE FALLOPIAN TUBE Tubal ligation - PAST SURGICAL HISTORY OF 1998 Coronary bypass graph surgery - PAST SURGICAL HISTORY OF Laser procedure to remove Lesion from vaginal wall (severe dysplasis) - PAST SURGICAL HISTORY OF 01/2013 vaginal hysterectomy - REMV CATARACT EXTRACAP,INSERT LENS 2013 Cataract Extraction with PC IOL - bilateral - REVISE MEDIAN N/CARPAL TUNNEL SURG Carpal tunnel decomp FAMILY HISTORY Problem Relation Age of Onset - Heart Father [place] - Prostate Cancer Father - Osteoporosis Mother - Hypertension Mother - Stroke Mother - Cancer Brother Lung - Heart Brother [place] - Alzheimer's Disease Maternal Grandmother - Diabetes Maternal Grandfather - Heart Brother [place] Social History Tobacco Use - Smoking status: Never Smoker - Smokeless tobacco: Never Used Substance Use Topics - Alcohol use: No - Drug use: No ALLERGIES No Known Allergies CURRENT MEDICATIONS docusate sodium (COLACE) 100 mg capsule Take 1 capsule by mouth twice daily as needed for constipation. lisinopril (ZESTRIL, PRINIVIL) 10 mg tablet Take 1 tablet by mouth once daily. metoprolol tartrate, short acting, (LOPRESSOR) 100 mg tablet Take 1 tablet by mouth twice daily. pravastatin (PRAVACHOL) 40 mg tablet TAKE ONE AND ONE-HALF TABLETS DAILY AT BEDTIME metFORMIN (GLUCOPHAGE) 500 mg tablet Take 2 tablets by mouth in the morning, 1 tablet in the afternoon, and 1 tablet in the evening. blood sugar diagnostic (TyraTechUCH ULTRA BLUE TEST STRIP) test strip TEST BLOOD SUGAR(S) 1 TIMES DAILY. DX: E11.9. INSULIN: NO Walker (ULTRA-LIGHT ROLLATOR) misc Re: Frequent falls aspirin, enteric coated (ASPIRIN, ENTERIC COATED) 81 mg EC tablet Take 81 mg by mouth once daily. budesonide-formoterol (SYMBICORT) 160-4.5 mcg/actuation inhaler Inhale 2 Puffs as instructed once daily. fish,bora,flax oils-om3,6,9 #1 (OMEGA 3-6-9) 1,200 mg cap Take 200 mg by mouth once daily. Geriatric Multivitamins-Min (MULTIVITAMIN AND MINERALS) ORAL Cap Take one(1) tablet daily. PHYSICAL EXAMINATION: BP 140/84 Pulse 67 Ht 157.5 cm (5' 2 ) Wt 48.5 kg (107 lb) BMI 19.57 kg/m? VIDEO EXAM: (if completed, performed via video enabled technology) PATIENT ENTERED QUESTIONNAIRE SCORES PROMIS [employer] - (T-Scores - the mean of general population = 50. Five points is a clinically meaningful difference.) 01/11/2021 11/19/2019 09/24/2018 Physical T-Score 34.9 42.3 50.8 Mental T-Score 33.8 41.1 41.1 Lizy Ramirez RN January 14, 2021 12:43 PM EP STAFF NOTE - VV: Please note: This note has been produced using speech recognition software and may contain errors related to that system including grammar, punctuation, spelling, gender and words and phrases that may be inappropriate Consultation requested by Dr. Riggins for an opinio (more content not included)... [facility] 01-05-2021 Note HNO ID: [id number] Author: Adolfo Riggins, DO Service: ? Author Type: Physician Type: Progress Notes Filed: 01/05/2021 4:44 PM Note Text: [facility] SECTION OF REGIONAL CARDIOLOGY [facility] OUTPATIENT VISIT DATE January 05, 2021 PRIMARY CARE PHYSICIAN: [place] [address] HISTORY OF PRESENT ILLNESS: Ms. Link is a 80 year old female. Patient presents for evaluation and treatment options/follow-up due to recent increasing amounts of SVT. She unfortunately has been seen twice at [facility] for which we do not have old records nor rhythm strips to review. She has known history of SVT which appeared mild by a previous environmental monitoring technician. We have been titrating her beta-zarina in the interim. She is a prior history of coronary disease status post coronary bypass grafting x4 as well as moderate nonrheumatic aortic stenosis, hypertension and hyperlipidemia. Her daughter accompanies her today and is contact the other daughter who was with us via phone. The patient's memory is difficult at times. She cannot recall all the details of her situations. She does know intermittently her heart will race. They have tried at some point in time vagal maneuvers. She denies chest discomfort, dyspnea, orthopnea, paroxysmal nocturnal dyspnea, near-syncope or syncope. PLAN AND RECOMMENDATIONS: The patient continues to have episodes of SVT and has been titrated fully to metoprolol. At this point time we will try to obtain old records and obtain an electrophysiology evaluation. We will additionally update an echocardiogram to reevaluate heart structure and function paying particular attention to her valvular status. From general cardiology standpoint will otherwise look forward to reevaluate her in 6 months time. Dietary and lifestyle modification was briefly emphasized to facilitate risk factor reduction. Vitals: BP 140/84 Pulse 67 Ht 157.5 cm (5' 2 ) Wt 48.5 kg (107 lb) SpO2 97% BMI 19.57 kg/m? Physical Exam Vitals reviewed. Constitutional: Appearance: She is well-developed. HENT: Head: Normocephalic and atraumatic. Eyes: Pupils: Pupils are equal, round, and reactive to light. Neck: Thyroid: No thyromegaly. Vascular: No JVD. Cardiovascular: Rate and Rhythm: Normal rate and regular rhythm. Heart sounds: Murmur heard. Systolic murmur is present with a grade of 2/6. No friction rub. No gallop. Pulmonary: Effort: Pulmonary effort is normal. No respiratory distress. Breath sounds: Normal breath sounds. No wheezing or rales. Abdominal: General: Bowel sounds are normal. Palpations: Abdomen is soft. Musculoskeletal: General: Normal range of motion. Cervical back: Normal range of motion and neck supple. Skin: General: Skin is warm and dry. Coloration: Skin is not pale. Neurological: Mental Status: She is alert and oriented to person, place, and time. Cranial Nerves: No cranial nerve deficit. Psychiatric: Behavior: Behavior normal. Thought Content: Thought content normal. Judgment: Judgment normal. Review of Systems Constitutional: Negative for activity change and fatigue. HENT: Negative for ear pain and facial swelling. Eyes: Negative for pain and discharge. Respiratory: Positive for shortness of breath. Negative for chest tightness. Cardiovascular: Positive for palpitations. Negative for chest pain and leg swelling. Gastrointestinal: Negative for abdominal pain, blood in stool, nausea and vomiting. Endocrine: Negative for cold intolerance and heat intolerance. Genitourinary: Negative for frequency and hematuria. Musculoskeletal: Negative for arthralgias and gait problem. Skin: Negative for color change, pallor and rash. Allergic/Immunologic: Negative for immunocompromised state. Neurological: Negative for dizziness, syncope, light-headedness and headaches. Hematological: Negative for adenopathy. Does not bruise/bleed easily. Psychiatric/Behavioral: Negative for confusion. The patient is not nervous/anxious. PAST MEDICAL HISTORY Diagnosis Date - Acute myocardial infarction of other specified sites Myocardial Infarction - Asthma per - Coronary artery disease - Disorder of bone and cartilage, unspecified - Diverticulosis of colon (without mention of hemorrhage) - Essential hypertension, benign - Mitral valve disorders(424.0) - Other and unspecified hyperlipidemia - Other specified noninflammatory disorder of vagina Severe Dysplasia (Vaginal Wall) - Type II or unspecified type diabetes mellitus without mention of complication, uncontrolled - Unspecified cardiovascular disease PAST SURGICAL HISTORY Procedure Laterality Date - COLONOSCOP W/ OR W/O [facility] SPEC 01/15/2007 Colonoscopy - HEART SURGERY HX - LIGATE FALLOPIAN TUBE Tubal ligation - PAST SURGICAL HISTORY OF 1998 Coronary bypas (more content not included)... [facility] 09-08-2020 Note [facility] 09-07-2020 Note Occupational Therapy Inpatient Evaluation Medical Diagnosis: Small bowel obstruction, strangulated hernia of abdominal wall s/p ex lap with lysis of adhesions on 09/01/20 OCCUPATIONAL PROFILE AND HISTORY Therapy Diagnosis: Rank Code Description 1 R26.81 Unsteadiness on feet 2 Z74.1 Need for assistance with personal care Demographics: Age: 80Y Gender: Female Primary Language: [place] Preferred Language: [place] Referring Service/Team: Medicine Past Medical History: Past Medical History CAD, hypertension, hyperlipidemia, diabetes, frontal lobe dementia Past Surgical History CABG x4 vessels, she had pelvis reconstruction following a fall, and her jaw was repaired History of Present Illness: 09/01/20 Additional Information: This is a pleasant 80-year-old demented female who presented initially to [facility] with abdominal pain, nausea and vomiting yesterday. She had a CT scan done that showed small bowel obstruction with possible strangulated hernia. She was transferred to [facility] for further evaluation. Dr. Pond will be consulted. Patient is a very poor historian, alert to name only, information is obtained from records and daughter at bedside. Family states she lives with her son and her [id number] who recently of Covid. However she did test negative for Covid at [facility]. Patient is on room air and denies any respiratory symptoms. She denies any current nausea or pain. Has no abdominal tenderness to palpation. NG was attempted at [place] but was unsuccessful. We will defer NG to surgery. Patient does not appear in any current distress. Review of systems is unobtainable as patient is poor historian. *Per medical chart Date of Admission: 09/01/2020 8:18:00 AM Rehabilitation Precautions/Restrictions: abdominal precautions, hx of dementia, falls, bed/chair alarm, telesitter Imaging/Testing Results from Chart: n/a Prior Level of Functioning: [facility] PATIENT NAME: GILLIAN LINK [address] [place] MEDICAL REC #: [id number] [place] [address] ADMIT DATE: 09/01/20 SERVICE DATE: 09/07/20 Occupational Therapy Assessment ATTENDING JENNIFER: Ted Hunt DO Self Care: Patient completed the activities by him/herself, with or without an assistive device, with no assistance from a helper. Functional Cognition: Patient completed the activities by him/herself, with or without an assistive device, with no assistance from a helper. Pt was independent with mobility and ADLs without AD. Pt's son and daughter in law were assisting with IADLs as needed but daughter in law just recently . Patient/Caregiver Goals: Patient's functional goals: to go home Pain: Patient currently has pain. Location: abdomen Type: Acute Quality: Aching. Pain Scale: Visual Analog (VAS). Patient reports a pain level of 7 out of 10. Patient's acceptable level of pain 0 out of 10. Interferes with physical activity. Pain is alleviated by: Pain is exacerbated by: Interventions: Repositioned patient. Home Environment: Patient lives with son- works (no 28/11), daughter in law was previously working from home but secondary to COVID recently , who is able to assist patient at discharge. Patient lives in a single family home. Home is single level. Patient is not required to manage stairs within the home. First floor full bathroom setup available. There are 4 steps to enter the home, with right ascending handrails. There is no ramp available to enter home. Equipment Owned: Straight cane., Shower chair., Rolling walker. Social History: Marital Status: Children: 3 Reside: [facility] Employment Status: retired Recreational Activities/Hobbies: [email or web address] OBJECTIVE/OCCUPATIONAL PERFORMANCE Activities of Daily Living Current Status Previous Status ADLs Feeding Independent - Grooming Minimal assistance - Bathing-UE Minimal assistance - Bathing-LE Moderate assistance - Dressing-UE Minimal assistance - Dressing-LE Moderate assistance - Toileting Minimal assistance - AM-PAC Daily Activities: [facility] PATIENT NAME: GILLIAN LINK [address] [place] MEDICAL REC #: [id number] [place] [address] ADMIT DATE: 09/01/20 SERVICE DATE: 09/07/20 Occupational Therapy Assessment ATTENDING JENNIFER: Ted Hunt DO Putting On/Taking Off Lower Body Clothing: A lot of help needed Bathing:: A lot of help needed Toileting: A little help needed Putting On/Taking Off Upper Body Clothing: A little help needed Grooming: A little help needed Eating a Meal: No help needed Raw Score = 17 , AM-PAC t-Scale Score = 37.26 and G-Code Modifier = CK Functional Mobility: Bed Mobility: Patient moves from supine to/from sit requirin (more content not included)... [facility] [place] 09-02-2020 Note Physical Therapy Inpatient Evaluation Medical Diagnosis: Small bowel obstruction, strangulated hernia of abdominal wall s/p ex lap with lysis of adhesions on 09/01/20 Therapy Diagnosis: Rank Code Description 1 R26 Abnormalities of gait and mobility 2 R26.81 Unsteadiness on feet Demographics: Age: 80Y Gender: Female Primary Language: [place] Preferred Language: [place] Referring Service/Team: Medicine Past Medical History: Past Medical History CAD, hypertension, hyperlipidemia, diabetes, frontal lobe dementia Past Surgical History CABG x4 vessels, she had pelvis reconstruction following a fall, and her jaw was repaired History of Present Illness: Date of Onset: 09/01/20 Additional Information: This is a pleasant 80-year-old demented female who presented initially to [facility] with abdominal pain, nausea and vomiting yesterday. She had a CT scan done that showed small bowel obstruction with possible strangulated hernia. She was transferred to [facility] for further evaluation. Dr. Pond will be consulted. Patient is a very poor historian, alert to name only, information is obtained from records and daughter at bedside. Family states she lives with her son and her [id number] who recently of Covid. However she did test negative for Covid at [facility]. Patient is on room air and denies any respiratory symptoms. She denies any current nausea or pain. Has no abdominal tenderness to palpation. NG was attempted at [place] but was unsuccessful. We will defer NG to surgery. Patient does not appear in any current distress. Review of systems is unobtainable as patient is poor historian. *Per medical chart Date of Admission: 09/01/2020 8:18:00 AM Rehabilitation Precautions/Restrictions: abdominal precautions, hx of dementia, falls, bed/chair alarm, NG tube, 1L O2 Imaging/Testing Results from Chart: n/a SUBJECTIVE Prior Level of Functioning: [facility] PATIENT NAME: GILLIAN LINK [address] [place] MEDICAL REC #: [id number] [place] [address] ADMIT DATE: 09/01/20 SERVICE DATE: 09/02/20 Physical Therapy Assessment Report ATTENDING PHY: Ted Hunt DO Indoor Mobility: Patient completed the activities by him/herself, with or without an assistive device, with no assistance from a helper. Stairs: Patient completed the activities by him/herself, with or without an assistive device, with no assistance from a helper. Pt was independent with mobility and ADL's without AD. Pt's son and daughter in law were assisting with IADL's as needed but daughter in law just recently . Prior Device Use: Performance GG110. Prior Device None of Above Yes Patient/Caregiver Goals: Patient's functional goals: to go home Pain: Patient currently has pain. Location: abdomen Type: Acute Quality: Aching. Pain Scale: Visual Analog (VAS). Patient reports a pain level of 5 out of 10. Patient's acceptable level of pain 0 out of 10. Interferes with physical activity. Pain is alleviated by: pain meds Pain is exacerbated by: movement Interventions: Repositioned patient. Home Environment: Patient lives with son- works, daughter in law was previously working from home but secondary to COVID recently , who is able to assist patient at discharge. Patient lives in a single family home. Home is single level. Patient is not required to manage stairs within the home. First floor full bathroom setup available. There are 4 steps to enter the home, with right ascending handrails. There is no ramp available to enter home. Equipment Owned: Straight cane., Shower chair., Rolling walker. Social History: Marital Status: Children: 3 Reside: local Employment Status: retired Recreational Activities/Hobbies: watch the [employer] OBJECTIVE Cognitive Screen Responsiveness: Alert. Orientation: Person. Following Commands: Patient is able to follow 1-step commands. Range of Motion Upper Extremity: Grossly within functional limits Lower Extremity: Grossly within functional limits [facility] PATIENT NAME: GILLIAN LINK [address] [facility] MEDICAL REC #: [id number] [place] [address] ADMIT DATE: 09/01/20 SERVICE DATE: 09/02/20 Physical Therapy Assessment Report ATTENDING PHY: Ted Hunt DO Strength Upper Extremity: Not within functional limits NT due to recent surgery Lower Extremity: Not within functional limits NT due to recent surgery Tone/Spasticity: No relevant impairments. Sensation: Grossly intact. Balance: Static balance in a seated position is good. Static balance in a standing position is fair. Therapeutic/Functional Activities: Bed Mobility: Patient moves from supine to/from sit requiring minima (more content not included)... [facility] [place] documented as of this encounter (statuses as of 10/14/2021) [facility]11-04-2019 History of Past illness Narrative* Problem Noted Date Resolved Date Heart murmur 03/11/2019 10/29/2020 Gait instability 10/09/2018 09/08/2020 Closed fracture of jaw 01/25/2017 0 Last Assessment & Plan: Fell face down and broke her jaw, she does have osteoporosis. Has rubbers and a plate in her jaw. And it is fixed, so she cannot open her mouth, Eating is impossible she can drink a lot of her fluids, though and is happy about that. Microscopic hematuria 03/29/2016 05/31/2019 Bilateral carotid artery disease 04/08/2015 05/31/2019 Overview: The patient has mild b/l carotid artery disease less than 50 percent 2013 and we will need to follow it may be in 2015 or 2016. Last Assessment & Plan: The patient has mild b/l carotid artery disease less than 50 percent 2013 and we will need to follow it may be in 2016 or 2017. Disorder of bone and cartilage, unspecified 03/08/2012 documented as of this encounter (statuses as of 10/15/2021) [facility] History of Past illness Narrative* Problem Noted Date Resolved Date Heart murmur 03/11/2019 10/29/2020 Gait instability 10/09/2018 09/08/2020 Closed fracture of jaw 01/25/2017 0 Last Assessment & Plan: Fell face down and broke her jaw, she does have osteoporosis. Has rubbers and a plate in her jaw. And it is fixed, so she cannot open her mouth, Eating is impossible she can drink a lot of her fluids, though and is happy about that. Microscopic hematuria 03/29/2016 05/31/2019 Bilateral carotid artery disease 04/08/2015 05/31/2019 Overview: The patient has mild b/l carotid artery disease less than 50 percent 2013 and we will need to follow it may be in 2016 or 2017. Last Assessment & Plan: The patient has mild b/l carotid artery disease less than 50 percent 2013 and we will need to follow it may be in 2016 or 2017. Disorder of bone and cartilage, unspecified 03/08/2012 documented as of this encounter (statuses as of 10/27/2021) [facility] Nonrheumatic aortic valve stenosis- Primary Aortic valve disorders Coronary artery disease involving [place] coronary artery of [place] heart without angina pectoris SVT (supraventricular tachycardia) (HCC) Other specified cardiac dysrhythmias Essential hypertension Unspecified essential hypertension Mixed hyperlipidemia [facility] this [facility] Outpatient Procedure (Routine) - Authorized Specialty Diagnoses / Procedures Referred By Contleonardo t Referred To [facility] Diagnoses Nonrheumatic aortic valve stenosis Procedures ECHO ECHO TTHRC R-T 2D W/WOM-MODE COMPL SPEC&COLR Tenisha Zamora, DISASSEMBLER PRODUCT.[employer]OD HUMOR VENDOR [address] [place] [address] [facility] [place] [address] Referral ID Status Reason Start Date Expiration Date Visits Requested Visits Authorized [id number] Authorized Auto-Generat ed Referral 10/14/2021 10/14/2022 1 1 [facility] Summary Purpose Family History No Family History Records FoundNo Family History Records FoundNo Family History Records FoundNo Family History Records Found Advance Directives No Advanced Directives Records FoundDocuments on File Type Date Recorded Patient Surveillance System Monitor Expl anation Advance Directive(s) 07/23/2018 7:19 AM Advance Directive(s) 07/23/2018 7:22 AM Advance Directive(s) 07/09/2018 11:22 AM Documents on File Type Date Recorded Patient Surveillance System Monitor Expl anation Advance Directive(s) 07/23/2018 7:19 AM Advance Directive(s) 07/23/2018 7:22 AM Advance Directive(s) 07/09/2018 11:22 AM Additional Source Comments INFORMATION SOURCE (unrecogn ized section and content) DATE CREATED AUTHOR AUTHOR'S ORGANIZ ATION 10/27/2017 [facility] DATE CREATED AUTHOR AUTHOR'S ORGANIZ ATION 06/27/2021 [facility] DATE CREATED AUTHOR AUTHOR'S ORGANIZ ATION 12/15/2021 [facility] Source Comments (unrecognize d section and content) In the event this informatio n is protected by the Federal Confidentiality of Alcohol and Drug Abuse Patient Records regulations: The Federal rules restrict any use of the information to criminally investigate or prosecute any alcohol or drug abuse patient.[facility] the event this information is protected by the Federal Confidentiality of Alcohol and Drug Abuse Patient Records regulations: The Federal rules restrict any use of the information to criminally investigate or prosecute any alcohol or drug abuse patient.[facility] the event this information is protected by the Federal Confidentiality of Alcohol and Drug Abuse Patient Records regulations: The Federal rules restrict any use of the information to criminally investigate or prosecute any alcohol or drug abuse patient.[facility] Reason for Visit (unrecogniz ed section and content) Reason Comments Results Reason Comments Key Maker - Other OV Notes 022 Care Teams (unrecognized sec tion and content) Leaf Binner Relationship Specialty Start Date End Date Carlos Roberts MD [address] [place], [place] [id number] PCP - General Family Practice 10/15/21 Adolfo Riggins, [address], [place] [id number] Primary Staff Physician Cardiology 01/14/21 Leaf Binner Relationship Specialty Start Date End Date Carlos Roberts MD [address] [facility] [place], [place] [id number] PCP - General Family Practice 10/15/21 Adolfo Riggins DO [facility] [address], [place] [id number] Primary Staff Physician Cardiology 01/14/21 FOR RECORDS PERTAINING TO PATIENTS WHO ARE OR HAVE BEEN ENROLLED IN A CHEMICAL DEPENDENCY/SUBSTANCEABUSE PROGRAM, SOME INFORMATION MAY BE OMITTED. This clinical summary was aggregated from multiple sources. Caution should be exercised in using it in the provision of clinical care. This summary normalizes information from multiple sources, and as a consequence, information in this document may materially change the coding, format and clinical context of patient data. In addition, data may be omitted in some cases. CLINICAL DECISIONS SHOULD BE BASED ON THE PRIMARY CLINICAL RECORDS. [facility] [employer] [facility]. provides no warranty or guarantee of the accuracy or completeness of information in this document.
[2023-05-09 08:19] LABS: Hemoglobin A1c 8.4 % (3.8-5.6)
== END ==
LOC: OLS.WHLTSB 05:00
PROVIDERS: Visit Provider Internal Medicine
DX: E11.9 Type 2 diabetes mellitus without complications (principal)
CPT/HCPCS: 36415; 83036

== ENCOUNTER → 2023-06-21 | Outpatient (REF) | payer MEDICARE, OTHER, SELFPAY ==
--- OUTSIDE RECORDS SUMMARY | 2023-06-22 08:28 | XMS RPT_ITS | CCD ---
Author Name Unknown Address [address] [place] [address] Organization [facility] Care Team Providers Care Orthophoto Tech/Draftsman Name Role Phone SANG MCKEONNETH Unavailable Unavailable LINDA, BRITTON Unavailable Unavailable [facility] Unavailable Unavailable LINDA, BRITTON Unavailable Unavailable LINDA, BRITTON Unavailable Unavailable [facility] Unavailable Unavailable LINDA, BRITTON E Unavailable Unavailable LINDA, BRITTON E Unavailable Unavailable Tierney Samayoa MD Primary Care Provider Adolfo Riggins DO Unavailable Carlos Roberts MD Primary Care Provider [phone] Medications Current Medications Medication Drug Class(es) Dates [...] Coronary atherosclerosis; Translations: [Atherosclerotic heart disease of [place] coronary artery without angina pectoris] Onset: 06-13-2014 [...] 154.9 cm Tenisha Barnard APRN.CNP Work Phone: [facility] 10-14-2021 13:31-0400 Body weight 52.89 kg Tenisha Barnard APRN.CNP Work Phone: [facility] 10-14-2021 13:31-0400 Diastolic blood pressure 90 mm[Hg] Tenisha Barnard AGENCY OPERATOR.[employer] WILDLIFE SCIENTIFIC A[employer] Work Phone: [facility] 10-14-2021 13:31-0400 Heart rate 62 /min Tenisha Barnard AGENCY OPERATOR.[employer] WILDL[employer] SCIENTIFIC A[employer] Work Phone: [facility] 10-14-2021 13:31-0400 SaO2% (BldA) [Mass fraction] 97 % Tenisha Barnard AGENCY OPERATOR.[employer]ILDLIFE SCIENT[employer]ID Work Phone: [facility] 10-14-2021 13:31-0400 Systolic blood pressure 180 mm[Hg] Tenisha Barnard AGENCY OPERATOR.[employer] WILDL[employer] SCIENTIFIC [employer] Work Phone: [facility] Encounters Encounter Date Encounter Type Care Provider Facility Start: 10-15-2021 Telephone encounter Dom Rockwell RN Cardiology Procedures Date Procedure Procedure Detail Performing Clinician Start: 02-09-2021 Antibody screen Plan of Treatment Date Care Activity Detail Author Start: 10-07-2022 Hepatitis B surface antibody level LDL CHOLESTEROL [facility] Start: 06-23-2022 Urine microalbumin profile DTAP,TDAP ,TD (1 - Tdap) [facility] Immunizations Immunization Date Immunization Notes Care Provider Michaela wilcox 03-12-2021 influenza, high-dose , quadrivalent vaccine (FLUZONE HIGH DOSE QUADRIVALENT) Tenisha Barnard AGENCY OPERATOR.[employer] W[employer] SCIENT[employer] A[employer] Work Phone: [facility] Work Phone: 03-25-2020 influenza, high-dose , quadrivalent vaccine (FLUZONE HIGH DOSE QUADRIVALENT) Tenisha Barnard AGENCY OPERATOR.[employer] Work Phone: [facility] Work Phone: 03-19-2018 influenza, high dose seasonal, preservative-free Tenisha Barnard AGENCY OPERATOR.[employer] Work Phone: [facility] Work Phone: 01-25-2017 influenza, high dose seasonal, preservative-free Tenisha Barnard AGENCY OPERATOR.[employer] Work Phone: [facility] Work Phone: 02-09-2016 influenza, high dose seasonal, preservative-free Tenisha Barnard AGENCY OPERATOR.[employer] Work Phone: [facility] Work Phone: 02-17-2015 influenza, high dose seasonal, preservative-free Tenisha Barnard AGENCY OPERATOR.[employer] Work Phone: [facility] Work Phone: 01-07-2015 pneumococcal conjuga te vaccine, 13 valent Tenisha Barnard AGENCY OPERATOR.[employer] Work Phone: [facility] Work Phone: 02-05-2014 influenza, seasonal, injectable Tenisha Barnard AGENCY OPERATOR.[employer] Work Phone: [facility] 02-08-2012 pneumococcal polysaccharide vaccine, 23 valent Tenisha Barnard AGENCY OPERATOR.[employer] Work Phone: [facility] Work Phone: 05-08-2011 zoster vaccine, live Tenisha Barnard AGENCY OPERATOR.[employer] Work Phone: [facility] Payers Date Payer Category Payer Private Health Insurance LAUREL HINKLE O [id number] 2005-Present [phone] [address] [place] [address] [facility] [id number] 2004 Medicare MEDICARE MEDICAR E A AND B [id number] 2004-Present [phone] [address] [address] [place] [address] Medicare [id number] Medicare [id number] Social History Date Type Detail Facility Tobacco smoking status NHIS Never smoked tobacco [facility] Start: 10-14-2021 Alcohol intake Current non-dr reinforcing steel placer of alcohol (finding) [facility] Start: 11-20-2019 End: 03-12-2021 History SDOH Alcohol Frequency 1 [facility] Start: 11-20-2019 History SDOH Alcohol Std Drinks 98 [facility] Start: 11-20-2019 History SDOH Social Connections Phone 3 [facility] Start: 11-20-2019 History SDOH Social Connections Living 4 [facility] Start: 11-20-2019 End: 03-12-2021 History SDOH Physical Activity MPS 2 [facility] Start: 11-20-2019 History SDOH Financial 5 [facility] Start: 11-19-2019 Education 11 [facility] Start: 1940 Sex Assigned At Not on file C [facility] Medical Equipment Procedure Code Equipment Code Equipment Origin al Text Equipment Identifier Dates Start: 04-01-2019 Clinical Notes 03-11-2019 to 10-27-2021 Telephone Encounter - Tenisha Rao RN - 10/27/2021 3:22 PM EDTTelephone Encounter - Jacy Duran - 10/15/2021 12:31 PM EDTTelephone Encounter - Adolfo Riggins DO - 10/15/2021 1:57 PM EDT Note Date & Type Note Facility 10-27-2021 Miscellaneous Notes Records re-faxed. [facility] (Assisted Living[facility] called stating that they only received the odd # pages of patient's OV notes that were faxed yesterday. Please submit fax again. Facility's contact info is as follows: Phone: : [phone] Please advise. Jacy Duran documented in this encounter [facility] 10-15-2021 Miscellaneous Notes New prescription for pravastatin [...] Adolfo Riggins, DO documented in this encounter [facility] 10-14-2021 Note HNO ID: [id number] Author: Tenisha Barnard APRN.[employer] Service: ? Author Type: Nurse Practitioner Type: Progress Notes Filed: 10/14/2021 2:01 PM Note Text: [facility] [place] Thony Correa Department of Cardiovascular Medicine SECTION OF CLINICAL CARDIOLOGY OUTPATIENT VISIT DATE October 13, 2021 OUTPATIENT VISIT TYPE ESTABLISHED PRIMARY CARE PHYSICIAN: Tierney Samayoa [address] [place] [address] REASON FOR VISIT: 3 month follow up [...] Following her last visit she moved into [facility] assisted living facility on 07/20/21. She is [...] Relation Age of Onset - Heart Father [place] - Prostate Cancer Father - Osteoporosis Mother - Hypertension Mother - Stroke Mother - Cancer Brother Lung - Heart Brother [place] - Alzheimer's Disease Maternal Grandmother - Diabetes Maternal Grandfather - Heart Brother VA ALLERGIES: ALLERGIES No Known Allergies MEDICATIONS: lisinopril (ZESTRIL, PRINIVIL) 20 mg tablet Take 1 tablet by mouth once daily. metoprolol tartrate, short acting, (LOPRESSOR) 100 mg tablet Take 1 tablet by mouth twice daily. pravastatin (PRAVACHOL) 40 mg tablet TAKE ONE AND ONE-HALF TABLETS DAILY AT BEDTIME Blood-Glucose Meter,Continuous (TrewCap G6 METALLURGICAL ENGINEERING TECHNICIAN) misc 1 Each continuous. Blood-Glucose Sensor (TrewCap G6 SENSOR) aleida Change sensor every 10 [...] mg by mouth (more content not included)... [facility] 10-14-2021 Instructions Tenisha Barnard APRN.CNP - 10/14/2021 [...] pressures closely thereafter. documented in this encounter [facility] 10-14-2021 History of Presen t illness Narrative Images from the original note were not included. [facility] [place] Thony Correa Department of Cardiovascular Medicine SECTION OF CLINICAL CARDIOLOGY OUTPATIENT VISIT DATE October 13, 2021 OUTPATIENT VISIT TYPE ESTABLISHED PRIMARY CARE PHYSICIAN: Tierney Samayoa [address] [place] [address] REASON FOR VISIT: 3 month follow up [...] Following her last visit she moved into [facility] assisted living [facility] on 07/20/21. She is being followed closely [...] Problem Relation Age of Onset Heart Father VA Prostate Cancer Father Osteoporosis Mother Hypertension Mother Stroke Mother Cancer Brother Lung Heart Brother VA Alzheimer's Disease Maternal Grandmother Diabetes Maternal Grandfather Heart Brother [place] ALLERGIES: ALLERGIES No Known Allergies MEDICATIONS: lisinopril (ZESTRIL, PRINIVIL) 20 mg tablet Take 1 tablet by mouth once daily. metoprolol tartrate, short acting, (LOPRESSOR) 100 mg tablet Take 1 tablet by mouth twice daily. pravastatin (PRAVACHOL) 40 mg tablet TAKE ONE AND ONE-HALF TABLETS DAILY AT BEDTIME Blood-Glucose Meter,Continuous (DEXCOM G6 METALLURGICAL ENGINEERING TECHNICIAN) misc 1 Each continuous. Blood-Glucose Sensor (DEXCOM [...] pressure log that was scanned in through [employer], her readings have been elevated over the [...] No further drop attacks . CONTACT INFORMATION: Tneisha Barnard APRN.JONO Cardiology Nurse Practitioner Section of Regional Cardiology [facility] Dept of Cardiovascular Medicine [facility] [place] [address] [place] [address] Office Office This note was partially generated using [employer] voice recognition system, and there may be some incorrect words, spellings, and punctuation that were not noted in checking the note before saving. I personally interviewed, confirmed and edited the above information if obtained by others. documented in this encounter [facility] 07-05-2021 Note HNO ID: [id number] Author: Adolfo Riggins, DO Service: ? Author Type: Physician Type: Progress Notes Filed: 07/05/2021 3:38 PM Note Text: [facility] SECTION OF REGIONAL CARDIOLOGY [facility] OUTPATIENT VISIT DATE July 05, 2021 PRIMARY CARE PHYSICIAN: Tierney Samayoa [address] [place] [address] HISTORY OF PRESENT ILLNESS: Ms. Link is [...] SPEC WHEN PF (more content not included)... [facility] 06-23-2021 Note HNO ID: [id number] Author: Tierney Samayoa MD Service: ? Author [...] it. And also we discussed daycare at [facility] as something wanted him while they [...] Relation Age of Onset - Heart Father [place] - Prostate Cancer Father - Osteoporosis Mother - Hypertension Mother - Stroke Mother - Cancer Brother Lung - Heart Brother [place] - Alzheimer's Disease Maternal Grandmother - Diabetes Maternal Grandfather - Heart Brother [place] Social History Tobacco Use - Smoking status: [...] - Blood-Glucose Me (more content not included)... [facility] 05-24-2021 Note HNO ID: [id number] Author: Tierney Samayoa MD Service: ? Author [...] Laterality Date - COLONOSCOP W/ OR W/O [facility] SPEC 01/15/2007 Colonoscopy - HEART SURGERY HX [...] Relation Age of Onset - Heart Father [place] - Prostate Cancer Father - Osteoporosis Mother - Hypertension Mother - Stroke Mother - Cancer Brother Lung - Heart Brother [place] - Alzheimer's Disease Maternal Grandmother - Diabetes Maternal Grandfather - Heart Brother [place] Social History Tobacco Use - Smoking status: [...] 40 mg tablet - blood sugar diagnostic (DuogouTOUCH ULTRA BLUE TEST STRIP) test strip - Walker (ULTRA-LIGHT ROLLATOR) misc - aspirin, enteric coated (ASPIRIN, ENTERIC COATED) 81 mg EC tablet - budesonide-formoterol (SYMBICORT) 160-4.5 mcg/actuation inhaler - fish,bora,flax oils-om3,6,9 #1 (OMEGA 3-6-9) 1,200 mg cap - Geriatric Multivitamins-Min (MULTIVITAMIN AND MINERALS) ORAL Cap Current Facility-Ad (more content not included)... [facility] 03-12-2021 Note HNO ID: [id number] Author: Tierney Samayoa MD Service: ? Author Type: Physician Type: Progress Notes Filed: 03/12/2021 6:29 PM Note Text: Reason for Visit Patient presents with: Established Patient: 6 month follow up- flu shot Immunizations: Flu vaccination Gillain Link is a 81 year old female [...] Laterality Date - COLONOSCOP W/ OR W/O [facility] SPEC 01/15/2007 Colonoscopy - HEART SURGERY HX [...] Relation Age of Onset - Heart Father [place] - Prostate Cancer Father - Osteoporosis Mother - Hypertension Mother - Stroke Mother - Cancer Brother Lung - Heart Brother [place] - Alzheimer's Disease Maternal Grandmother - Diabetes Maternal Grandfather - Heart Brother [place] Social History Tobacco Use - Smoking status: [...] 500 mg tablet - blood sugar diagnostic (Loveland TechnologiesUCH ULTRA BLUE TEST STRIP) test strip - [...] diabetes mellitus without (more content not included)... [facility] 02-10-2021 Note HNO ID: [id number] Author: Tahir Curtis MD Service: Cardiovascular Medicine Author Type: Fellow Type: Procedures Filed: 02/10/2021 12:02 PM Note Text: [facility] ELECTROPHYSIOLOGY BRIEF PROCEDURE NOTE Gillian Link [id number] PROCEDURE: EP Study SVT Ablation: Typical AVNRT [...] Curtis MD Fellow; PGY-7; Cardiac Electrophysiology Pager: [phone] If unavailable, please page the following providers: 8AM-5PM (Scrubbed in OR): EP JAMISON [id number] 5PM-8AM: Moonlighting CVM fellow [id number] [facility] 02-09-2021 Note HNO ID: [id number] Author: Mary Alvarez RN Service: ? Author [...] discussed with Physician, nurse practitioner or Physician cancer genetics assistant upon discharge Instructions for transmitting EKG to Monitoring Center 3 month follow up instructions Contact number for information and questions Patient Evaluation: Verbalizes understanding Follow Up Plan: Follow up as directed by MD. Supplemental Material Given: Written Material Patient education regarding radiation exposure. Instructed By Mary Alvarez RN. In Department of CARDIOLOGY. [facility] 02-09-2021 Note Education (EPSMN) GILLIAN LINK ([id number]) 1940 F Date Time Provider Department 02/09/21 [...] discussed with Physician, nurse practitioner or Physician cancer genetics assistant upon discharge Instructions for transmitting EKG [...] Date Reviewed: 02/09/2021 Reviewed by: Marline Tate APRN.[employer] - Fully Assessed Prescriptions as of 02/09/2021 [...] E11.9. INSULIN: NO - Walker (ULTRA-LIGHT ROLLATOR) [facility] Re: Frequent falls - aspirin, enteric coated [...] Status:Closed by MARY ALVAREZ RN on 02/09/21 [facility] 02-09-2021 Note HNO ID: [id number] Author: Marline Tate APRN.JONO Service: ? Author Type: Nurse Practitioner Type: Progress Notes Filed: 02/09/2021 8:13 AM Note Text: [facility] [place] Thony Correa Department of Cardiovascular Medicine SECTION OF CARDIAC PACING and ELECTROPHYSIOLOGY OUTPATIENT VISIT DATE February 09, 2021 OUTPATIENT VISIT TYPE ESTABLISHED PRIMARY CARE PHYSICIAN: Tierney Samayoa [address] [place] [address] REFERRING PHYSICIAN: Doug Younger [address] [facility] [address] CHIEF COMPLAINT: SVT HISTORY OF PRESENT ILLNESS: Ms. Link is a 80 year old female who presents today for follow-up visit for SVT, scheduled for ablation. Seen last by Dr. Younger on 01/14/2021. 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 ? She has multiple episodes of SVT with symptoms of palpitations and SOB, requiring ED visits and treatment with adenosine. She has been titrated on metoprolol, currently on lopressor 100mg BID. She has worn a monitor and storage bin tender which shows SVT, but episodes becoming more [...] Relation Age of Onset - Heart Father [place] - Prostate Cancer Father - Osteoporosis Mother - Hypertension Mother - Stroke Mother - Cancer Brother Lung - Heart Brother [place] - Alzheimer's Disease Maternal Grandmother - Diabetes Maternal Grandfather - Heart Brother [place] ALLERGIES: ALLERGIES No Known Allergies MEDICATIONS: docusate [...] tablet in the evening. blood sugar diagnostic (Loveland TechnologiesUCH ULTRA BLUE TEST STRIP) test strip TEST [...] Shortness of breath-No, (more content not included)... [facility] 01-14-2021 Note HNO ID: [id number] Author: Doug Younger MD Service: ? 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 She has multiple episodes of SVT with symptoms of palpitations and SOB, requiring ED visits and treatment with adenosine. She has been titrated on metoprolol, currently on lopressor 100mg BID. She has worn a monitor and storage bin tender which shows SVT, but episodes becoming more [...] Relation Age of Onset - Heart Father [place] - Prostate Cancer Father - Osteoporosis Mother - Hypertension Mother - Stroke Mother - Cancer Brother Lung - Heart Brother [place] - Alzheimer's Disease Maternal Grandmother - Diabetes Maternal Grandfather - Heart Brother [place] Social History Tobacco Use - Smoking status: [...] tablet in the evening. blood sugar diagnostic (Loveland TechnologiesUCH ULTRA BLUE TEST STRIP) test strip TEST [...] for an opinio (more content not included)... [facility] 01-05-2021 Note HNO ID: [id number] Author: Adolfo Riggins, DO Service: ? Author Type: Physician Type: Progress Notes Filed: 01/05/2021 4:44 PM Note Text: [facility] SECTION OF REGIONAL CARDIOLOGY [facility] OUTPATIENT VISIT DATE January 05, 2021 PRIMARY CARE PHYSICIAN: [place] [address] HISTORY OF PRESENT ILLNESS: Ms. Link is a 80 year old female. Patient presents for evaluation and treatment options/follow-up due to recent increasing amounts of SVT. She unfortunately has been seen twice at [facility] for which we do not have old records nor rhythm strips to review. She has known history of SVT which appeared mild by a previous gambling monitor. We have been titrating her beta-zarina in [...] Laterality Date - COLONOSCOP W/ OR W/O [facility] SPEC 01/15/2007 Colonoscopy - HEART SURGERY HX - LIGATE FALLOPIAN TUBE Tubal ligation - PAST SURGICAL HISTORY OF 1998 Coronary bypas (more content not included)... [facility] 09-08-2020 Note [facility] 09-07-2020 Note Occupational Therapy Inpatient Evaluation Medical Diagnosis: Small bowel obstruction, strangulated hernia of abdominal wall s/p ex lap with lysis of adhesions on 09/01/20 OCCUPATIONAL PROFILE AND HISTORY Therapy Diagnosis: Rank Code Description 1 R26.81 Unsteadiness on feet 2 Z74.1 Need for assistance with personal care Demographics: Age: 80Y Gender: Female Primary Language: Turkish Preferred Language: Turkish Referring Service/Team: Medicine Past Medical History: Past Medical History CAD, hypertension, hyperlipidemia, diabetes, frontal lobe dementia Past Surgical History CABG x4 vessels, she had pelvis reconstruction following a fall, and her jaw was repaired History of Present Illness: 09/01/20 Additional Information: This is a pleasant 80-year-old demented female who presented initially to [facility] with abdominal pain, nausea and vomiting yesterday. She had a CT scan done that showed small bowel obstruction with possible strangulated hernia. She was transferred to [facility] for further evaluation. Dr. Pond will be consulted. Patient is a very poor historian, alert to name only, information is obtained from records and daughter at bedside. Family states she lives with her son and her [id number]-pha who recently of Covid. However she did test negative for Covid at [facility]. Patient is on room air and denies any respiratory symptoms. She denies any current nausea or pain. Has no abdominal tenderness to palpation. NG was attempted at [facility] but was unsuccessful. We will defer NG to surgery. Patient does not appear in any current distress. Review of systems is unobtainable as patient is poor historian. *Per medical chart Date of Admission: 09/01/2020 8:18:00 AM Rehabilitation Precautions/Restrictions: abdominal precautions, hx of dementia, falls, bed/chair alarm, telesitter Imaging/Testing Results from Chart: n/a Prior Level of Functioning: [facility] PATIENT NAME: GILLIAN LINK [address] MEDICAL REC #: [id number] [place] [address] ADMIT DATE: 09/01/20 SERVICE DATE: 09/07/20 Occupational [...] Social History: Marital Status: Children: 3 Reside: [facility] Employment Status: retired Recreational Activities/Hobbies: [email or web address] OBJECTIVE/OCCUPATIONAL PERFORMANCE Activities of Daily Living Current Status Previous Status ADLs Feeding Independent - Grooming Minimal assistance - Bathing-UE Minimal assistance - Bathing-LE Moderate assistance - Dressing-UE Minimal assistance - Dressing-LE Moderate assistance - Toileting Minimal assistance - AM-PAC Daily Activities: [facility] PATIENT NAME: GILLIAN LINK [address] MEDICAL REC #: [id number] [place] [address] ADMIT DATE: 09/01/20 SERVICE DATE: 09/07/20 Occupational [...] to/from sit requirin (more content not included)... [facility] 09-02-2020 Note Physical Therapy Inpatient Evaluation Medical Diagnosis: Small bowel obstruction, strangulated hernia of abdominal wall s/p ex lap with lysis of adhesions on 09/01/20 Therapy Diagnosis: Rank Code Description 1 R26 Abnormalities of gait and mobility 2 R26.81 Unsteadiness on feet Demographics: Age: 80Y Gender: Female Primary Language: Turkish Preferred Language: Turkish Referring Service/Team: Medicine Past Medical History: Past Medical History CAD, hypertension, hyperlipidemia, diabetes, frontal lobe dementia Past Surgical History CABG x4 vessels, she had pelvis reconstruction following a fall, and her jaw was repaired History of Present Illness: Date of Onset: 09/01/20 Additional Information: This is a pleasant 80-year-old demented female who presented initially to [facility] with abdominal pain, nausea and vomiting yesterday. She had a CT scan done that showed small bowel obstruction with possible strangulated hernia. She was transferred to [facility] for further evaluation. Dr. Pond will be consulted. Patient is a very poor historian, alert to name only, information is obtained from records and daughter at bedside. Family states she lives with her son and her ugdbhqhm-qf-nic who recently of Covid. However she did test negative for Covid at [facility]. Patient is on room air and denies any respiratory symptoms. She denies any current nausea or pain. Has no abdominal tenderness to palpation. NG was attempted at [facility] but was unsuccessful. We will defer NG to surgery. Patient does not appear in any current distress. Review of systems is unobtainable as patient is poor historian. *Per medical chart Date of Admission: 09/01/2020 8:18:00 AM Rehabilitation Precautions/Restrictions: abdominal precautions, hx of dementia, falls, bed/chair alarm, NG tube, 1L O2 Imaging/Testing Results from Chart: n/a SUBJECTIVE Prior Level of Functioning: [facility] PATIENT NAME: GILLIAN LINK [address] MEDICAL REC #: [id number] [place] [address] ADMIT DATE: 09/01/20 SERVICE DATE: 09/02/20 Physical [...] Employment Status: retired Recreational Activities/Hobbies: watch the [employer] OBJECTIVE Cognitive Screen Responsiveness: Alert. Orientation: Person. Following Commands: Patient is able to follow 1-step commands. Range of Motion Upper Extremity: Grossly within functional limits Lower Extremity: Grossly within functional limits [facility] PATIENT NAME: GILLIAN LINK [facility] Dr. Smith MEDICAL REC #: [id number] [place] [address] ADMIT DATE: 09/01/20 SERVICE DATE: 09/02/20 Physical [...] sit requiring minima (more content not included)... Nehal documented as of this encounter (statuses as of 10/14/2021) [facility]11-[facility]2019 History of Past illness Narrative* Problem Noted [...] of this encounter (statuses as of 10/15/2021) [facility] History of Past illness Narrative* Problem Noted [...] of this encounter (statuses as of 10/27/2021) [facility] Nonrheumatic aortic valve stenosis- Primary Aortic valve disorders Coronary artery disease involving [place] coronary artery of [place] heart without angina pectoris SVT (supraventricular tachycardia) (HCC) Other specified cardiac dysrhythmias Essential hypertension Unspecified essential hypertension Mixed hyperlipidemia documented in this encounter [facility] Outpatient Procedure (Routine) - Authorized Specialty Diagnoses / Procedures Referred By Contleonardo t Referred To [facility] Diagnoses Nonrheumatic aortic valve stenosis Procedures ECHO ECHO TTHRC R-T 2D W/WOM-MODE COMPL SPEC&COLR Tenisha Zamora, AGENCY OPERATOR.[employer] [address] [place] [address] [facility] [place] [place] [address] Referral ID Status Reason Start Date Expiration Date Visits Requested Visits Authorized [id number] Authorized Auto-Generat ed Referral 10/14/2021 10/14/2022 1 1 [facility] Summary Purpose Family History No Family History Records FoundNo Family History Records FoundNo Family History Records FoundNo Family History Records Found Advance Directives No Advanced Directives Records FoundDocuments on File Type Date Recorded Patient Stone Fabricator Expl anation Advance Directive(s) 07/23/2018 7:19 AM Advance Directive(s) 07/23/2018 7:22 AM Advance Directive(s) 07/09/2018 11:22 AM Documents on File Type Date Recorded Patient Stone Fabricator Expl anation Advance Directive(s) 07/23/2018 7:19 AM Advance Directive(s) 07/23/2018 7:22 AM Advance Directive(s) 07/09/2018 11:22 AM Additional Source Comments INFORMATION SOURCE (unrecogn ized section and content) DATE CREATED AUTHOR AUTHOR'S ORGANIZ ATION 10/27/2017 [facility] DATE CREATED AUTHOR AUTHOR'S ORGANIZ ATION 06/27/2021 [facility] DATE CREATED AUTHOR AUTHOR'S ORGANIZ ATION 12/15/2021 [facility] Source Comments (unrecognize d section and content) In the event this informatio n is protected by the Federal Confidentiality of Alcohol and Drug Abuse Patient Records regulations: The Federal rules restrict any use of the information to criminally investigate or prosecute any alcohol or drug abuse patient.[facility] the event this information is protected by the Federal Confidentiality of Alcohol and Drug Abuse Patient Records regulations: The Federal rules restrict any use of the information to criminally investigate or prosecute any alcohol or drug abuse patient.[facility] the event this information is protected by the Federal Confidentiality of Alcohol and Drug Abuse Patient Records regulations: The Federal rules restrict any use of the information to criminally investigate or prosecute any alcohol or drug abuse patient.[facility] Reason for Visit (unrecogniz ed section and content) Reason Comments 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..] BE BASED ON THE PRIMARY CLINICAL RECORDS. [facility] [facility]. provides no warranty or guarantee of the accuracy or completeness of information in this document.
[2023-06-22 08:29] LABS: Color, Urine Yellow (Yellow); Glucose, Dipstick 1000 mg/dl (Normal); Ketone-Dipstick 5 mg/dl (Negative); Leukocyte Esterase-Dipstick 100 /ul (Negative); Nitrite-Dipstick Negative (Negative); Occult Blood-Urine 150 /ul (Negative); Protein-Dipstick 30 mg/dl (Negative); Urine Bilirubin Dipstick Negative (Negative); Urine Clarity Sl. Cloudy (Clear); Urine Urobilinogen Normal (Normal); Urine pH 6.5 (5.0 - 8.0)
== END ==
LOC: OLS.WHLTSB 09:15
PROVIDERS: Referring Provider Internal Medicine; Visit Provider Internal Medicine
DX: N32.81 Overactive bladder (principal); E11.9 Type 2 diabetes mellitus without complications; Z79.899 Other long term (current) drug therapy
CPT/HCPCS: 81002; 87086; 87088

== ENCOUNTER → 2023-08-08 | Outpatient (REF) | payer MEDICARE, OTHER, SELFPAY ==
[2023-08-08 09:23] LABS: Absolute Lymphocyte Count 1.49 X10^3/uL (0.83-4.51); Absolute Neutrophil Count 5.8 X10^3/uL (2.0-7.7); Basophil# 0.03 X10^3/uL; Basophil% 0.4 % (0-1); Eosinophil# 0.24 X10^3/uL; Eosinophils% 2.9 % (0-5); Lymphocyte # 1.49 X10^3/ul (0.83-4.51); Mean Corp Hgb Conc 33.3 g/dL (32-36); Mean Corpuscular Hgb 31.7 pg (27.0-32.0); Mean Corpuscular Volume 95.2 fL (81-99); Mean Platelet Vol. 10.4 fl (6.2-12.0); Monocyte# 0.74 X10^3/uL; Monocyte% 8.9 % (0-10); NRBC Flagged by Analyzer 0 % (0-5); Neutrophil # 5.75 X10^3/uL (2.7-7.7); Neutrophil % 69.6 % (47-70); Platelet Count 204 K/mm3 (150-450); RBC Distribution Width CV 12.2 % (11.6-14.6); RBC Distribution Width SD 42.4 fl (35.1-43.9); Red Blood Count 3.78 M/mm3 (4.2-5.4); White Blood Count 8.3 K/mm3 (4.4-11.0)
[2023-08-08 09:43] LABS: AST(SGOT) 26 U/L (15-37); Alanine Aminotransfer ALT/SGPT 23 U/L (13-56); Albumin, Serum 3.1 g/dL (3.2-5.0); Alkaline Phosphatase 113 U/L (45-117); Anion Gap 6 (5-15); BUN 9 mg/dL (7-18); BUN/Creat Ratio 16.2 RATIO (10-20); Bilirubin, Direct 0.16 mg/dL (0.00-0.30); Calcium,Total 8.6 mg/dL (8.5-10.1); Chloride 105 mmol/L (98-107); Cholesterol 149 mg/dL (200); Creatinine, Serum 0.56 mg/dL (0.55-1.02); EST Glomerular Filtration Rate 111 mL/min (>60); Est Glom Filt Rate - Afr Amer 134 mL/min (>60); Globulin 3.3 g/dL (2.2-4.2); Glucose 198 mg/dL (74-106); High Density Lipoprotein 42 mg/dL; Potassium 3.5 mmol/L (3.5-5.1); Protein, Total 6.4 g/dL (6.4-8.2); Sodium Level 139 mmol/L (136-145); Triglycerides 119 mg/dL; Very Low Density Lipoprotein 24 mg/dL (5-40)
[2023-08-08 10:44] LABS: Hemoglobin A1c 7.4 % (3.8-5.6)
== END ==
LOC: OLS.WHLTSB 05:00
PROVIDERS: Visit Provider Internal Medicine
DX: E78.2 Mixed hyperlipidemia (principal); E11.9 Type 2 diabetes mellitus without complications
CPT/HCPCS: 36415; 80048; 80061; 80076; 83036; 85025

== ENCOUNTER 2023-09-15 18:35 | Inpatient (IN) | payer MEDICARE, OTHER, SELFPAY ==
[2023-09-15] VITALS (7 sets, daily range): BP systolic 146–163; BP diastolic 65–87; PULSE 68–71; RESP 16–22; TEMP 36.8–37.2; O2SAT 93–96; BMI 21.7; BMI 18.3
--- NOTE | 2023-09-15 18:47 | RAD_ITS ---
STUDY: X-RAY CHEST REASON FOR EXAM: Female, 83 years old. fall TECHNIQUE: Single AP portable view of the chest. COMPARISON: None. FINDINGS: Status post median sternotomy. The lungs are clear and expanded. There is no demonstrated pleural abnormality. Normal size heart. Normal mediastinum and mavis. Normal visualized pulmonary arteries. There is atherosclerotic tortuosity of the aortic arch and descending thoracic aorta. There is a dextroscoliosis of the thoracic spine. Normal visualized ribs, clavicles, and shoulders. There is no demonstrated abnormality of the visualized soft tissue structures of the upper abdomen. RAD/Chest 1 View IMPRESSION: No active disease. Electronically Signed: Alireza Mayo MD at 19:47 EDT ,
--- NOTE | 2023-09-15 18:47 | RAD_ITS ---
STUDY: X-RAY - PELVIS AND RIGHT HIP REASON FOR EXAM: Female, 83 years old. fall TECHNIQUE: 3 views of the pelvis and hip. COMPARISON: None. FINDINGS: There is a non-specific bowel gas pattern. Normal visualized soft tissue structures. Normal bilateral iliac wings, sacroiliac joints and visualized sacrum. Normal bilateral superior and inferior pubic rami. Normal pubic symphysis. Normal bilateral ischial tuberosities. Suspect fracture of the femoral neck and correlation with CT would be useful. Normal acetabulum. Normal hip joint. RAD/HIP, UNI W/ Pelvis 2-3 Views IMPRESSION: Suspect right femoral neck fracture and correlation with CT is recommended. Electronically Signed: Alireza Mayo MD at 19:45 EDT ,
[2023-09-15] MEDS: Ondansetron 4 MG/2 ML Vial IV (18:57)
[2023-09-15] MEDS: Morphine 2 MG/ML Syringe IV ×2 (18:57→22:52)
[2023-09-15 19:02] LABS: Absolute Lymphocyte Count 1.07 X10^3/uL (0.83-4.51); Basophil# 0.05 X10^3/uL; Basophil% 0.4 % (0-1); Eosinophil# 0.07 X10^3/uL; Eosinophils% 0.5 % (0-5); Hematocrit 38.8 % (37-47); Hemoglobin 12.2 g/dL (12.0-15.0); Lymphocyte # 1.07 X10^3/ul (0.83-4.51); Lymphocyte % 8.3 % (19-41); Mean Corp Hgb Conc 31.4 g/dL (32-36); Mean Corpuscular Hgb 31.9 pg (27.0-32.0); Mean Corpuscular Volume 101.3 fL (81-99); Mean Platelet Vol. 9.7 fl (6.2-12.0); Monocyte# 0.63 X10^3/uL; Monocyte% 4.9 % (0-10); NRBC Flagged by Analyzer 0 % (0-5); Neutrophil # 11.04 X10^3/uL (2.7-7.7); Neutrophil % 85.4 % (47-70); Platelet Count 232 K/mm3 (150-450); RBC Distribution Width CV 12.4 % (11.6-14.6); RBC Distribution Width SD 46.2 fl (35.1-43.9); Red Blood Count 3.83 M/mm3 (4.2-5.4); White Blood Count 12.9 K/mm3 (4.4-11.0)
--- NOTE | 2023-09-15 19:09 | EDS_ITS ---
HPI History of Present Illness Chief Complaint: Lower Extremity Injury Informant: patient, family and EMS Narrative Narrative: Dementia-unit assisted living patient with dementia found on the floor 11 AM, seen here 7-8 hours later after outpatient x-ray shows a right hip fracture. Patient is pleasant, she states her right hip is sore, she denies pain anywhere else and she does not recall the fall and she did not know that she had 1. Per family, usually walks with a rollator occasionally has a wheelchair to help get her around, and typically has an aquatics assistant department head who is helping her sometimes with a gait belt. [facility] Medical History Coronary artery disease Dementia Diabetes DM2 (diabetes mellitus, type 2) Hyperlipidemia Hypertension SVT (supraventricular tachycardia) Home Medications aspirin 81 mg chewable tablet 81 mg PO DAILY@0800 03/05/19 [Rx Last Taken Unknown] acetaminophen 325 mg capsule 325 mg PO Q4H PRN acute pain due to trauma 01/27/23 [History Last Taken Unknown] acetaminophen 500 mg capsule 500 mg PO Q8 PRN pain, unspecifie 01/27/23 [History Last Taken Unknown] ibuprofen 200 mg tablet (Advil) 200 mg PO Q6H 01/27/23 [History Last Taken Unknown] lisinopril 20 mg tablet 20 mg PO BID 01/27/23 [History Last Taken Unknown] metformin 1,000 mg tablet 1,000 mg PO BID 01/27/23 [History Last Taken Unknown] metoprolol tartrate 100 mg tablet 100 mg PO BID 01/27/23 [History Last Taken Unknown] multivitamin (Daily Multi-Vitamin tablet) 1 tab PO DAILY 01/27/23 [History Last Taken Unknown] amlodipine 10 mg tablet 10 mg PO DAILY 09/15/23 [History Last Taken Unknown] atorvastatin 20 mg tablet 20 mg PO DAILY 09/15/23 [History Last Taken Unknown] magnesium hydroxide 400 mg/5 mL oral suspension (Milk of Magnesia) 5 ml PO DAILY PRN stomach upset 09/15/23 [History Last Taken Unknown] mirabegron 25 mg tablet,extended release 24 hr (Myrbetriq) 25 mg PO DAILY 09/14 [History Last Taken Unknown] phenylephrine 0.25 %-pramoxine 1 %-glycerin-wh.petrolatum rectal cream (Hemorrhoidal Cream) 1 applic VA Q8H PRN 09/15/23 [History Last Taken Unknown] sitagliptin phosphate 50 mg tablet (Januvia) 50 mg PO DAILY 09/15/23 [History Last Taken Unknown] Allergy/AdvReac Type Severity Reaction Status Date / Time No Known Allergies Allergy Verified 09/15/23 18:36 Surgical History History of intestinal surgery Social History household members: family housing: house Smoking Status: Never smoker ROS ROS ED Review of Systems ROS Unobtainable: other Details: Limited ROS due to dementia Cardiovascular Cardiovascular: Denies chest pain Gastrointestinal Gastrointestinal: Denies abdominal pain Musculoskeletal Musculoskeletal: Reports extremity pain; Denies back pain or neck pain Neurologic Neurologic: Denies headache(s) EXAM Physical Exam Const Vital Signs: 09/15/23 18:36 09/15/23 18:44 Temperature 98.7 F Temperature Source Oral Pulse Rate 71 Respiratory Rate 16 Blood Pressure 152/87 H Blood Pressure Mean 108 Pulse Ox 94 Oxygen Delivery Method Room Air Positive well nourished and well developed General Appearance ED: well developed and NAD HEENT Reports moist mucous membranes normocephalic and atraumatic Eyes PERRL and EOMs intact bilaterally Neck full ROM and supple Resp normal respiratory effort and clear to auscultation bilaterally Cardio regular rate and regular rhythm Heart Sounds: murmur systolic II/ crescendo-decrescendo GI non-tender and non-distended Auscultation: normoactive bowel sounds Palpation: soft Back/Spine no CVA tenderness General Back: other FROM Extremity normal to inspection Extremity Narrative: Tender right greater trochanter no other areas of extremity tenderness. She is holding both her legs and thigh flexion and knee flexion. Any movement of the right hip is painful, but the left 1 is not. No tenderness to ASIS, pelvis stable to AP compression. General Extremety ED: Yes tenderness; Negative for edema or pulses abnormal General Extremity: Negative for edema or pulses abnormal Neuro CN's II-XII intact bilaterally and no sensory deficits noted Sensorium / Orientation: awake, alert, oriented to person and orientation impaired Motor Exam: strength 5/5 throughout Skin no rashes or lesions noted and no wounds MDM MDM MDM Narrative Medical decision making narrative: Three-view x-ray series of the right hip on my interpretation shows basicervical fracture. I do not see the any other pelvic fractures that appear to be acute. She has intact ORIF hardware in the sacrum. Chest x-ray 1 view on my interpretation shows chronic changes, status post CABG, nothing acute. Preoperative labs and EKG obtained and noted. Pain control given, discussed with orthopedics and hospitalist for admission. History & Record Review Additional record(s) reviewed:: Prior labs (Only prior echo from 12/26/2012, showing normal EF, mild mitral, tricuspid, and aortic valve insufficiencies.) Lab Data Attestation: I reviewed the patient's lab results. Labs: Laboratory Results - last 24 hr 09/15/23 18:56 WBC 12.9 H RBC 3.83 L Hgb 12.2 Hct 38.8 MCV 101.3 H MCH 31.9 MCHC 31.4 L RDW Std Deviation 46.2 H RDW Coeff of José Miguel 12.4 Plt Count 232 MPV 9.7 Immature Gran % (Auto) 0.500 Neut % (Auto) 85.4 H Lymph % (Auto) 8.3 L Webb % (Auto) 4.9 Eos % (Auto) 0.5 Baso % (Auto) 0.4 Absolute Neuts (auto) 11.0 H Absolute Lymphs (auto) 1.07 Nucleated RBC % 0 Sodium 136 Potassium 4.1 Chloride 107 Carbon Dioxide 22.0 Anion Gap 7 BUN 12 Creatinine 0.60 Estim Creat Clear Calc 45.20 Est GFR (MDRD) Af Amer 122 Est GFR (MDRD) Non-Af 101 BUN/Creatinine Ratio 20.0 Glucose 245 H Calcium 8.8 Radiography Diagnostic Testing: Clinical Impression(s) from Imaging Studies Chest X-Ray 09/15/23 18:47 IMPRESSION: No active disease. Electronically Signed: Alireza Mayo MD at 19:47 EDT , Hip/Pelvis X-Ray 09/15/23 18:47 IMPRESSION: Suspect right femoral neck fracture and correlation with CT is recommended. Electronically Signed: Alireza Mayo MD at 19:45 EDT , Rhythm Strip Rhythm Strip: Sinus Rhythm Rate: 70 Ectopy: None EKG Initial EKG: Attestation: I personally reviewed and interpreted this EKG as follows: Interpretation: Sinus Rhythm and No Acute Injury Pattern Comments: normal EKG Management Discussion w/another healthcare provider: Hospitalist and Supervisor Shuttle Preparation (aldo Short) Discharge Plan Triage Chief Complaint: Lower Extremity Injury ED Provider: Bill Mejia Dx/Rx/DC Orders Clinical Impression: Basicervical fracture of neck of right femur, Dementia Prescriptions: No Action aspirin 81 MG tablet,chewable 81 mg PO DAILY@0800 0RF acetaminophen 325 mg capsule 325 mg PO Q4H PRN (Reason: acute pain due to trauma) acetaminophen 500 mg capsule 500 mg PO Q8 PRN (Reason: pain, unspecifie) multivitamin [Daily Multi-Vitamin] Tablet 1 tab PO DAILY ibuprofen [Advil] 200 mg tablet 200 mg PO Q6H lisinopril 20 mg tablet 20 mg PO BID metformin 1,000 mg tablet 1,000 mg PO BID metoprolol tartrate 100 mg tablet 100 mg PO BID amlodipine 10 mg tablet 10 mg PO DAILY Hemorrhoidal Cream 0.25-1 % cream 1 applic VA Q8H PRN atorvastatin 20 mg tablet 20 mg PO DAILY mirabegron [Myrbetriq] 25 mg tablet extended release 24 hr 25 mg PO DAILY magnesium hydroxide [Milk of Magnesia] 400 mg/5 mL suspension 5 ml PO DAILY PRN (Reason: stomach upset) Januvia 50 mg tablet 50 mg PO DAILY Primary Care Provider: Kashmir Jules Referrals: Care Physician,No Primary [Non-Staff] - Disposition Disposition: Acute Care Hospital [facility]
[2023-09-15 19:19] LABS: Anion Gap 7 (5-15); BUN 12 mg/dL (7-18); Calcium,Total 8.8 mg/dL (8.5-10.1); Chloride 107 mmol/L (98-107); EST Glomerular Filtration Rate 101 mL/min (>60); Est Glom Filt Rate - Afr Amer 122 mL/min (>60); Glucose 245 mg/dL (74-106); Potassium 4.1 mmol/L (3.5-5.1); Sodium Level 136 mmol/L (136-145)
--- NOTE | 2023-09-15 20:28 | PCM.HP.STD ---
[facility] - General General Date of Admission: 09/15/23 Date of Service: 09/15/23 Chief Complaint: Right Hip Fracture after Fall. HPI Narrative ANIYAH LINK, is a 83 F with a past medical history of essential hypertension, hyperlipidemia, DM-2; of unknown control on Metformin and Januvia, Alzheimer's dementia; living in dementia unit at [facility], DNR-CCA CODE STATUS with INTUBATION, CAD; s/p CABG, history of SVT, chronic heart murmur, Asthma, history of intestinal surgery, overactive bladder, history of pubic rami fracture after fall and OA who presents to [facility] ER with a Right hip fracture after an unwitnessed fall. Ms. Link is not a reliable historian so information was gathered from chart, medical staff and computer. According to the records she was found on the floor ~11:00 AM and was then subsequently sent to the hospital for an outpatient X-ray that confirmed suspected Right hip fracture. She is pleasantly confused and she does admit to Right hip pain but she denies pain elsewhere with no signs of head trauma. She goes on to state she does not remember falling. She typically mobilized with a rollator and occasionally uses a wheelchair. There is no report of fever, chills, nausea, vomiting, diarrhea, constipation, chest pain, palpitations, heart racing or SOB. In the ER she was diagnosed with a Right Hip Fracture likely after a Mechanical Fall and she was then admitted to the general medical floor for ongoing care for a stay that is expected to be greater than 2 midnights. [facility] Medical History (Updated 09/15/23 @ 21:[address] Ben Reese, ) COPD (chronic obstructive pulmonary disease) Coronary artery disease Dementia Diabetes DM2 (diabetes mellitus, type 2) Hyperlipidemia Hypertension SVT (supraventricular tachycardia) Home Medications aspirin 81 mg chewable tablet 81 mg PO DAILY@0800 03/05/19 [Rx Last Taken Unknown] acetaminophen 325 mg capsule 325 mg PO Q4H PRN acute pain due to trauma 01/27/23 [History Last Taken Unknown] acetaminophen 500 mg capsule 500 mg PO Q8 PRN pain, unspecifie 01/27/23 [History Last Taken Unknown] ibuprofen 200 mg tablet (Advil) 200 mg PO Q6H 01/27/23 [History Last Taken Unknown] lisinopril 20 mg tablet 20 mg PO BID 01/27/23 [History Last Taken Unknown] metformin 1,000 mg tablet 1,000 mg PO BID 01/27/23 [History Last Taken Unknown] metoprolol tartrate 100 mg tablet 100 mg PO BID 01/27/23 [History Last Taken Unknown] multivitamin (Daily Multi-Vitamin tablet) 1 tab PO DAILY 01/27/23 [History Last Taken Unknown] amlodipine 10 mg tablet 10 mg PO DAILY 09/15/23 [History Last Taken Unknown] atorvastatin 20 mg tablet 20 mg PO DAILY 09/15/23 [History Last Taken Unknown] magnesium hydroxide 400 mg/5 mL oral suspension (Milk of Magnesia) 5 ml PO DAILY PRN stomach upset 09/15/23 [History Last Taken Unknown] mirabegron 25 mg tablet,extended release 24 hr (Myrbetriq) 25 mg PO DAILY 09/15/23 [History Last Taken Unknown] phenylephrine 0.25 %-pramoxine 1 %-glycerin-wh.petrolatum rectal cream (Hemorrhoidal Cream) 1 applic WI Q8H PRN 09/15/23 [History Last Taken Unknown] sitagliptin phosphate 50 mg tablet (Januvia) 50 mg PO DAILY 09/15/23 [History Last Taken Unknown] Allergy/AdvReac Type Severity Reaction Status Date / Time No Known Allergies Allergy Verified 09/15/23 18:36 Surgical History (Updated 09/15/23 @ 22:03 by Faizan Cohen) History of intestinal surgery History of quadruple bypass Social History household members: family housing: house Smoking Status: Never smoker ROS ROS Narrative A full ROS could not be completed due to patient's dementia. Vital Signs Vital Signs Vital Signs: 09/15/23 18:36 09/15/23 18:44 Temperature 98.7 F Temperature Source Oral Pulse Rate 71 Respiratory Rate 16 Blood Pressure 152/87 H Blood Pressure Mean 108 Pulse Ox 94 Oxygen Delivery Method Room Air Weight Weight: 127 lb Body Mass Index (BMI) 21.7 Physical Exam Const alert, no apparent distress and average body habitus General Appearance: cooperative Orientation / Consciousness: confused HEENT normocephalic, head/scalp atraumatic, hearing grossly normal bilaterally and moist oral mucous membranes Eyes PERRL and EOMs intact bilaterally Neck no lymphadenopathy and supple Resp normal respiratory effort, no retractions, no use of accessory muscles and clear to auscultation bilaterally Cardio regular rate and regular rhythm Cardio Narrative: Patient has loud grade II/ PARVEEN @ LSB. GI normal to inspection, nondistended, normoactive bowel sounds, soft to palpation, non-tender and non-distended Extremity Extremity Narrative: Right LE shortened and externally rotated with no signs of vacular compromise. Skin Skin Narrative: Patient has no evidence of rash. Neuro CN's II-XII intact bilaterally, moves all extremities and no focal motor deficits Sensorium / Orientation: awake, alert and oriented to person Speech: speech normal Psych affect normal Results Medical Records Data Attestation: I reviewed the patient's medical records Lab / Micro Data Attestation: I reviewed the patient's lab results. 09/15/23 18:56 09/15/23 18:56 Labs: Laboratory Results - last 24 hr 09/15/23 18:56: WBC 12.9 H, RBC 3.83 L, Hgb 12.2, Hct 38.8, MCV 101.3 H, MCH 31.9, MCHC 31.4 L, RDW Std Deviation 46.2 H, RDW Coeff of José Miguel 12.4, Plt Count 232, MPV 9.7, Immature Gran % (Auto) 0.500, Neut % (Auto) 85.4 H, Lymph % (Auto) 8.3 L, [place] % (Auto) 4.9, Eos % (Auto) 0.5, Baso % (Auto) 0.4, Absolute Neuts (auto) 11.0 H, Absolute Lymphs (auto) 1.07, Nucleated RBC % 0, Sodium 136, Potassium 4.1, Chloride 107, Carbon Dioxide 22.0, Anion Gap 7, BUN 12, Creatinine 0.60, Estim Creat Clear Calc 45.20, Est GFR (MDRD) Af Amer 122, Est GFR (MDRD) Non-Af 101, BUN/Creatinine Ratio 20.0, Glucose 245 H, Calcium 8.8 Rhythm Strip Rhythm Strip: Sinus Rhythm Rate: 70 Ectopy: None Imaging Radiology Impression Chest X-Ray 09/15/23 18:47 IMPRESSION: No active disease. Electronically Signed: Alireza Mayo MD at 19:47 EDT , Hip/Pelvis X-Ray 09/15/23 18:47 IMPRESSION: Suspect right femoral neck fracture and correlation with CT is recommended. Electronically Signed: Alireza Mayo MD at 19:45 EDT , [facility] Imaging Services [address] [place] [id number] Extremity Lower without Contra MR#: [id number] Acct: [id number] Name: ANIYAH LINK Rep #: [id number] : 1940 F 83 From: Alireza Mayo MD PCP: Dr. Kashmir Jules MD Status: ADM IN Study: Extremity Lower without Contra Date of Exam: 09/15/23 Exam# [id number] Ordering Dr: Bill Mejia MD CT RIGHT LOWER EXTREMITY WITH 3-D IMAGING CLINICAL INDICATION: eval fracture TECHNIQUE: Axial CT images of the RIGHT lower extremity was performed without IV contrast material. Coronal and sagittal reformats were provided. RADIATION DOSAGE (If Supplied By Facility): CTDIvol = ( 13.89 ) mGy, DLP = ( 402.39 ) mGycm COMPARISON: X-ray earlier today FINDINGS: Bones: Acute posteriorly angulated slightly impacted fracture of the basicervical femoral neck. The fracture line is in close proximity to the intratrochanteric line particularly near the lesser trochanter. Soft Tissues: The deep soft tissue structures are unremarkable. The superficial soft tissues are unremarkable without evidence of edema, hematoma, or foreign body. CT/Extremity Lower without Contra IMPRESSION: Acute posteriorly angulated slightly impacted fracture of the basicervical femoral neck. Electronically Signed: Alireza Mayo MD at 22:41 EDT , CC: Dr. Bill Mejia MD; Dr. Kashmir Jules MD ~ Public Information Specialist: Signed Assessment & Plan Assessment/Plan (1) Basicervical fracture of neck of right femur: QUALIFIERS: Encounter type: initial encounter Fracture alignment: nondisplaced Fracture type: closed Qualified Code(s): S72.044A - Nondisplaced fracture of base of neck of right femur, initial encounter for closed fracture (2) Status post coronary artery bypass graft: (3) Dementia: QUALIFIERS: Alzheimer's disease onset: unspecified onset Dementia behavioral or psychological symptom: unspecified whether behavioral, psychotic, or mood disturbance or anxiety Dementia severity: moderate Dementia type: Alzheimer's Qualified Code(s): G30.9 - Alzheimer's disease, unspecified; F02.B0 - Dementia in other diseases classified elsewhere, moderate, without behavioral disturbance, psychotic disturbance, mood disturbance, and anxiety PLAN: Plan 1. Right Hip Fracture likely after a Mechanical Fall - Admit to general medical floor. Keep on strict bedrest and place RLE in 5# House's traction. Give Tylenol prn for [id number] (level 1-5/10) pain or fever. Give Morphine IV prn for severe pain. Finally, Dr. Short of orthopedic surgery was contacted by the ER physician with ORIF likely to be done in the AM so she will be kept NPO with help greatly appreciated. 2. History of CAD; s/p CABG with loud murmur and most recent echocardiogram in 2012 complicating #1 - Noted. We will check a new echocardiogram to evaluate LVEF and assess for suspected aortic stenosis to help anesthesia optimize choice of agents for ORIF. As of this time this patient has no absolute contraindications to medically-necessary [id number]-yq-[id number] risk orthopedic surgery due to her advanced age and numerous comorbidities which continue potentially complicate her recovery. 3. Alzheimer's dementia; living in dementia unit at [facility] with DNR-CCA CODE STATUS with INTUBATION compounding #1 & #2 - Noted. Patient's POA spoke with ER physician to clarify status which is greatly appreciated. 4. History of pubic rami fracture after fall with chronically poor mobility - Noted. 5. Essential hypertension - Home regimen to continue plus give prn IV Hydralazine for systolic blood pressure > 160 mmHg. 5. Hyperlipidemia - Continue statin. 6. DM-2; of unknown control on Metformin and Januvia - Keep NPO until after ORIF in AM. Then start ADA diet. Until then FSBS q. 6 hours plus lowest intensity SSI. Check HgbA1c to objectively assess quality of diabetic control. Resume Metformin and Januvia at discharge. 7. History of SVT - Noted. 8. Asthma - Stable with no evidence of acute flare. Give prn nebulizers. 9. History of intestinal surgery - Noted. 10. Overactive bladder - Resume Mirabegron as previous. UA done on admission negative for infection. 11. OA - Give Tylenol prn. 12. DVT prophylaxis - LLE SCD only for now. We will avoid preoperative blood thinners in cases of traumatic fracture due to increased risk of potential bleeding complications. Orthopedist to determine post operative DVT prophylaxis. Total time: Approximately 75 minutes. Charges/Coding Visit Charges Inpatient E&M: 73642 Init Hosp L3
--- NOTE | 2023-09-15 20:34 | CT_ITS ---
CT RIGHT LOWER EXTREMITY WITH 3-D IMAGING CLINICAL INDICATION: eval fracture TECHNIQUE: Axial CT images of the RIGHT lower extremity was performed without IV contrast material. Coronal and sagittal reformats were provided. RADIATION DOSAGE (If Supplied By Facility): CTDIvol = ( 13.89 ) mGy, DLP = ( 402.39 ) mGycm COMPARISON: X-ray earlier today FINDINGS: Bones: Acute posteriorly angulated slightly impacted fracture of the basicervical femoral neck. The fracture line is in close proximity to the intratrochanteric line particularly near the lesser trochanter. Soft Tissues: The deep soft tissue structures are unremarkable. The superficial soft tissues are unremarkable without evidence of edema, hematoma, or foreign body. CT/Extremity Lower without Contra IMPRESSION: Acute posteriorly angulated slightly impacted fracture of the basicervical femoral neck. Electronically Signed: Alireza Mayo MD at 22:41 EDT ,
--- NOTE | 2023-09-15 21:20 | ECHOD_ITS ---
Reason For Study: Murmur Procedure This was a 2D Doppler, Color Flow transthoracic echocardiogram. Exam performed portable in patient room. Left Ventricle Normal size and thickness. The left ventricular ejection fraction is 65 %. Right Ventricle Normal right ventricle. Atria There is moderate biatrial dilatation. Mitral Valve Trivial mitral valve insufficiency. Tricuspid Valve Moderately severe (3+) tricuspid valve insufficiency. Right ventricular systolic pressure estimated to be 53 mmHg. Aortic Valve Moderate diffuse aortic valve calcification. Moderate aortic stenosis. Moderate (2+) aortic valve insufficiency. Pulmonic Valve The pulmonic valve is not well visualized. Great Vessels Normal sized aortic root. Pericardium/Pleural No pericardial effusion. MMode/2D Measurements & Calculations LVIDd: 3.2 cm IVSd: 1.00 cm LVOT diam: 1.8 cm LVIDs: 1.7 cm LVPWd: 0.96 cm LVOT area: 2.5 cm2 RVDd: 4.3 cm FS: 46.5 % Ao root diam: 2.2 cm LAV(MOD-bp): 14.2 ml LVAd ap4: 16.7 cm2 LAV(MOD-bp) Indexed: 9.8 ml/m2 LVLd ap4: 6.9 cm LAV(MOD-sp2): 8.5 ml EDV(MOD-sp4): 34.8 ml LAV(MOD-sp4): 20.6 ml EDV(sp4-el): 34.4 ml LVAs ap4: 7.4 cm2 LVLs ap4: 5.6 cm ESV(MOD-sp4): 9.2 ml ESV(sp4-el): 8.2 ml EF(MOD-sp4): 73.4 % EF(sp4-el): 76.3 % SV(MOD-sp4): 25.5 ml SV(sp4-el): 26.2 ml LA A4 area: 11.5 cm2 LA dimension(2D): 2.1 cm RA A4 area: 11.7 cm2 TAPSE: 1.9 cm Time Measurements MV dec time: 0.32 sec Doppler Measurements & Calculations MV E max medardo: 99.5 cm/sec Lat Peak E' Medardo: 10.6 cm/sec Med Peak E' Medardo: 6.1 cm/sec MV A max medardo: 109.1 cm/sec E/E' lat: 9.4 E/E' med: 16.4 MV E/A: 0.91 Ao V2 max: 301.7 cm/sec AI max medardo: 403.6 cm/sec MV dec slope: 313.8 cm/sec2 Ao max P.4 mmHg AI max P.2 mmHg Ao V2 mean: 226.8 cm/sec Ao mean P.6 mmHg AI dec slope: 268.9 cm/sec2 Ao V2 VTI: 66.2 cm AI P1/2t: 439.7 msec AV (velocity ratio): 0.53 JOHN(I,D): 1.3 cm2 JOHN(V,D): 1.3 cm2 LV V1 max: 156.8 cm/sec SV(LVOT): 88.0 ml PA V2 max: 85.8 cm/sec LV V1 max P.9 mmHg LV V1 mean P.0 mmHg LV V1 mean: 115.9 cm/sec LV V1 VTI: 34.9 cm TR max medardo: 335.1 cm/sec TR max P.9 mmHg ECHO/Echo Complete Interpretation Summary The left ventricular ejection fraction is 65 %. There is moderate biatrial dilatation. Moderately severe (3+) tricuspid valve insufficiency. Right ventricular systolic pressure estimated to be 53 mmHg. Moderate aortic stenosis. Moderate (2+) aortic valve insufficiency. Ordering Physician: Ben Reese Referring Physician: Kashmir Jules Performed By: Jessica Rodriguez, JENNCS, RVT
[2023-09-15] MEDS: 0.9% Normal Saline (1000mL) 1,000 ML 70 ML IV (22:32)
[2023-09-15] MEDS: Lisinopril 20 MG Tablet PO (22:33)
[2023-09-15] MEDS: Metoprolol Tartrate 100 MG Tablet PO (22:33)
[2023-09-15] MEDS: 0.9% Saline Lock 10 ML Syringe IV (22:36)
[2023-09-15 23:04] LABS: Bedside Glucose 195 mg/dL (74-106)
[2023-09-16] VITALS (16 sets, daily range): BP systolic 112–157; BP diastolic 59–91; PULSE 58–83; RESP 16–20; TEMP 36.4–37; O2SAT 85–100; BMI 18.3
--- NOTE | 2023-09-16 | IMM_PTH ---
PATIENT: ANIYAH LAMB LOC: MS3 U#:[id number] AGE/SX: 83/F ROOM: [facility] [place] RE09/15/[address]: Dr. Fracisco Mirza MD : 1940 BED: 1 DIS: 09/18/2023 SPEC #: [id number] RECD: 09/21/23 12:31 STATUS: SOUJocelyn REQ #: [id number] LUIS: 09/16/23 00:[address]: Sumit Short DEPT: IMMUNOHISTOCHEMISTRY RECD BY: Tolu Sanabria ENTERED: 09/21/23 12:31 SP TYPE: IMMUNO OTHR DR: MD Dr. Ben Mccracken DO Dr. Eric Jopperi, DO Dr. Efewongbe Oleghe, MD Dr. Prakash Chand, MD Tissues: Hip, NOS Procedures: BCL-2 (add) BCL-6 (add) CD10 (add) CD20 (add) CD23 (add) CD43 (add) CD45 (add) CD5 (add) CD79A (add) CYCLIN (add) KI-67 (add) CD3 (initial) Comments: @ Ordering doctor for CD3 edited from to @ by SVEN at 09/21/23 1232 @ Ordering doctor for CD20. edited from to @ by SVEN at 09/21/23 1232 @ Ordering doctor for CD45. edited from to @ by SVEN at 09/21/23 1232 @ Ordering doctor for CD5. edited from to @ by SVEN at 09/21/23 1232 @ Ordering doctor for CD79A. edited from to @ by SVEN at 09/21/23 1232 @ Submitting doctor edited from to @ by SVEN at 09/21/23 1232 PHYSICIAN & INSTITUTION [place] [id number] SPECIMEN INFORMATION: Tissue Source: Bone and tissue of right hip Clinical Info: Fracture of neck of femur Specimen Number: [id number] CPT code: 34545,01303u45 METHODOLOGY: Deparaffinized sections of prefer/formalin-fixed tissue or PAP/DQ stained slides are incubated with monoclonal/polyclonal antibodies/oligonucleotide probes. Localization is made via biotin free immunoperoxidase method. Appropriate controls are performed and reacted as expected. Results on target cell population are indicated in the following table: RESULTS: ANTIBODY / CLONE RESULT Block 1 CD3 (PS1) negative CD5 (SP10) positive CD20 (L26) positive CD45 (RP2/18) positive CD79a (11E3) positive CD43 (L60) negative CD10 (56C6) negative CD23 (1B12) negative BCL-2 (bcl-2/100/D5) positive BCL-6 (PP245X/A8) negative Cyclin D1/BCL-1 (SP4) negative Ki-67 (30-9) positive, rare These tests were developed and their performance characteristics determined by [facility]. They may not have been cleared or approved by the U.S. Food and Drug Administration. The FDA has determined that such clearance or approval is not necessary. The above immunohistochemical/dualISH markers are ordered and reviewed by the Pathologist. INTERPRETATION: Bone and tissue right hip, hemiathroplasty: Atypical lymphoid aggreagtes present. 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 Case has been reviewed in consultation with Dr. Patricio who concurs with the above diagnosis. IDC:DENISE KARIMI/ 09/25/2023
[2023-09-16 00:51] LABS: Bacteria 0 SEEN /hpf (None Seen); Mucous, Urine 0 SEEN /hpf (<or=2+); Red Blood Cells-Urine 0 SEEN /hpf (0-5); Squamous Epithelial Cells - UA 0 SEEN /hpf (5-10); White Blood Cells 0 SEEN /hpf (0-5)
[2023-09-16 00:54] LABS: Color, Urine Yellow (Yellow); Glucose, Dipstick 1000 mg/dl (Normal); Ketone-Dipstick 15 mg/dl (Negative); Leukocyte Esterase-Dipstick Negative /ul (Negative); Nitrite-Dipstick Negative (Negative); Occult Blood-Urine 25 /ul (Negative); Protein-Dipstick 30 mg/dl (Negative); Urine Bilirubin Dipstick Negative (Negative); Urine Clarity Clear (Clear); Urine Urobilinogen Normal (Normal)
[2023-09-16] MEDS: Morphine 2 MG/ML Syringe IV ×2 (05:25→10:44)
[2023-09-16] MEDS: Insulin Lispro 100 UNIT/ML INSULN.PEN SC ×2 (05:29→20:52)
[2023-09-16 05:52] LABS: Bedside Glucose 213 mg/dL (74-106)
[2023-09-16 07:03] LABS: Absolute Lymphocyte Count 1.48 X10^3/uL (0.83-4.51); Absolute Neutrophil Count 7.4 X10^3/uL (2.0-7.7); Basophil# 0.04 X10^3/uL; Basophil% 0.4 % (0-1); Eosinophil# 0.17 X10^3/uL; Eosinophils% 1.8 % (0-5); Hematocrit 35.8 % (37-47); Hemoglobin 11.9 g/dL (12.0-15.0); Lymphocyte # 1.48 X10^3/ul (0.83-4.51); Lymphocyte % 15.3 % (19-41); Mean Corp Hgb Conc 33.2 g/dL (32-36); Mean Corpuscular Hgb 32.3 pg (27.0-32.0); Mean Corpuscular Volume 97.3 fL (81-99); Mean Platelet Vol. 10.3 fl (6.2-12.0); Monocyte# 0.61 X10^3/uL; Monocyte% 6.3 % (0-10); NRBC Flagged by Analyzer 0 % (0-5); Neutrophil # 7.37 X10^3/uL (2.7-7.7); Neutrophil % 75.9 % (47-70); Platelet Count 280 K/mm3 (150-450); RBC Distribution Width CV 12.4 % (11.6-14.6); RBC Distribution Width SD 44.5 fl (35.1-43.9); Red Blood Count 3.68 M/mm3 (4.2-5.4); White Blood Count 9.7 K/mm3 (4.4-11.0)
--- NOTE | 2023-09-16 07:06 | PN.HOSP_ITS ---
Reason for Visit Reason for Visit: Diagnoses Dementia in other diseases classified elsewhere, moderate, without behavioral d isturbance, psychotic disturbance, mood disturbance, and anxiety (09/15/23) Unspecified dementia, unspecified severity, without behavioral disturbance, psychotic disturbance, mood disturbance, and anxiety (09/15/23) Alzheimer's disease, unspecified (09/15/23) Displaced fracture of base of neck of right femur, initial encounter for closed fracture (09/15/23) Nondisplaced fracture of base of neck of right femur, initial encounter for closed fracture (09/15/23) Presence of aortocoronary bypass graft (09/15/23) Subjective Subjective No new events. Objective Data Objective Data Vital Signs: Vital Signs Temp Pulse Resp BP Pulse Ox O2 Del Method 37.0 C 63 16 157/76 H 94 Room Air 09/16/23 02:42 09/16/23 02:42 09/16/23 02:42 09/16/23 02:42 09/16/23 02:42 09/16/23 02:42 Oxygen Delivery Method Room Air Weight: 45.5 kg Body Mass Index (BMI) 18.3 Intake & Output: Intake and Output for Last 24 Hours 09/14/23 09/15/23 09/16/23 23:59 23:59 23:59 Output Total 650 / 650 Balance -650 / -650 Lab / Micro Data 09/16/23 05:41 09/16/23 05:41 Labs: Laboratory Results - last 24 hr 09/15/23 18:56: WBC 12.9 H, RBC 3.83 L, Hgb 12.2, Hct 38.8, MCV 101.3 H, MCH 31.9, MCHC 31.4 L, RDW Std Deviation 46.2 H, RDW Coeff of José Miguel 12.4, Plt Count 232, MPV 9.7, Immature Gran % (Auto) 0.500, Neut % (Auto) 85.4 H, Lymph % (Auto) 8.3 L, [place] % (Auto) 4.9, Eos % (Auto) 0.5, Baso % (Auto) 0.4, Absolute Neuts (auto) 11.0 H, Absolute Lymphs (auto) 1.07, Nucleated RBC % 0, Sodium 136, Potassium 4.1, Chloride 107, Carbon Dioxide 22.0, Anion Gap 7, BUN 12, Creatinine 0.60, Estim Creat Clear Calc 45.20, Est GFR (MDRD) Af Amer 122, Est GFR (MDRD) Non-Af 101, BUN/Creatinine Ratio 20.0, Glucose 245 H, Calcium 8.8 09/15/23 22:26: POC Glucose 195 H 09/15/23 22:48: Urine Color Yellow, Urine Clarity Clear, Urine pH 7.0, Ur Specific Malin 1.010, Urine Protein 30 H, Urine Glucose (UA) 1000 H, Urine Ketones 15 H, Urine Occult Blood 25 H, Urine Nitrite Negative, Urine Bilirubin Negative, Urine Urobilinogen Normal, Ur Leukocyte Esterase Negative, Urine RBC 0 SEEN, Urine WBC 0 SEEN, Ur Squamous Epith Cells 0 SEEN, Urine Bacteria 0 SEEN, Urine Mucus 0 SEEN 09/16/23 05:26: POC Glucose 213 H Radiography Diagnostic Testing: Radiology Impression Chest X-Ray 09/15/23 18:47 IMPRESSION: No active disease. Electronically Signed: Alireza Mayo MD at 19:47 EDT Reading Location ID and State: [email or web address] / [email or web address] Tel , Service support , Hip/Pelvis X-Ray 09/15/23 18:47 IMPRESSION: Suspect right femoral neck fracture and correlation with CT is recommended. Electronically Signed: Alireza Mayo MD at 19:45 EDT Reading Location ID and State: [employer] Tel , Service support , Lower Extremity CT 09/15/23 20:34 IMPRESSION: Acute posteriorly angulated slightly impacted fracture of the basicervical femoral neck. Electronically Signed: Alireza Mayo MD at 22:41 EDT Reading Location ID and State: [email or web address] / [email or web address] Tel , Service support , Rhythm Strip Rhythm Strip: Sinus Rhythm Rate: 70 Ectopy: None Physical Exam Const alert and no apparent distress HEENT head/scalp atraumatic Resp normal respiratory effort and no retractions Neuro Sensorium / Orientation: awake and alert Assessment & Plan Assessment/Plan (1) Basicervical fracture of neck of right femur: QUALIFIERS: Encounter type: initial encounter Fracture alignment: nondisplaced Fracture type: closed Qualified Code(s): S72.044A - Nondisplaced fracture of base of neck of right femur, initial encounter for closed fracture (2) Status post coronary artery bypass graft: (3) Dementia: QUALIFIERS: Alzheimer's disease onset: unspecified onset Dementia behavioral or psychological symptom: unspecified whether behavioral, psychotic, or mood disturbance or anxiety Dementia severity: moderate Dementia type: Alzheimer's Qualified Code(s): G30.9 - Alzheimer's disease, unspecified; F02.B0 - Dementia in other diseases classified elsewhere, moderate, without behavioral disturbance, psychotic disturbance, mood disturbance, and anxiety PLAN: Plan Right Hip Fracture * s/p mechanical fall. * Bedrest and place RLE in 5# House's traction. * Dr. Short of orthopedic surgery to for surgery. * Medically optimized for surgery. Dr. Cunningham of anesthesia requesting cardiac clearance. Notified Dr. Sheehan. * check 25-OH d level. Chronic conditions: * History of CAD; s/p CABG with loud murmur. Stable. Echo ordered, but results should not delay surgery. * Alzheimer's dementia; living in dementia unit at [facility]. Complicates long-term. * Essential hypertension - continue amlodipine, lisinopril * DM2: fair control. continue metformin, sitagliptin post operatively * HLD: statin * Asthma - Stable. Contniue BDs DVT prophylaxis - LLE SCD only for now. Charges/Coding Visit Charges Inpatient E&M: 14278 Subs Hosp L1
[2023-09-16 07:52] LABS: ALB/GLOB Ratio 0.9 RATIO (0.9-2.4); AST(SGOT) 26 U/L (15-37); Alanine Aminotransfer ALT/SGPT 27 U/L (13-56); Alkaline Phosphatase 153 U/L (45-117); Anion Gap 4 (5-15); BUN 11 mg/dL (7-18); BUN/Creat Ratio 27.4 RATIO (10-20); Calcium,Total 8.7 mg/dL (8.5-10.1); Chloride 104 mmol/L (98-107); EST Glomerular Filtration Rate 161 mL/min (>60); Est Glom Filt Rate - Afr Amer 195 mL/min (>60); Globulin 3.3 g/dL (2.2-4.2); Glucose 213 mg/dL (74-106); Magnesium 1.5 mg/dL (1.6-2.6); Phosphorus 2.8 mg/dL (2.5-4.9); Potassium 3.9 mmol/L (3.5-5.1); Protein, Total 6.3 g/dL (6.4-8.2); Sodium Level 136 mmol/L (136-145); Thyroid Stim Hormone (TSH) 0.51 uIU/mL (0.358-3.74)
--- NOTE | 2023-09-16 10:40 | PCM.CONS.C ---
Assessment & Plan Assessment/Plan (1) Preoperative cardiovascular examination: PLAN: Patient's functional status could not be evaluated because of her underlying dementia. Apparently she was mobilizing at the [facility] with the help of a walker. She does not appear to be in heart failure. ECG is not suggestive of any significant pathology. She does have a history of coronary artery disease status post CABG. An echocardiogram is pending at this point in time. Unless the echocardiogram shows critical abnormalities, I believe clinically the patient is mild to moderate risk for the proposed procedure. Discussed with patient's daughter. She understands and is willing to take the risk and proceed with the proposed surgery. Please avoid major hemodynamic swings during and after anesthesia. (2) CAD (coronary artery disease): PLAN: History of CABG. Continue patient's aspirin. (3) Hypertension: PLAN: Amlodipine, lisinopril. (4) Dementia: QUALIFIERS: Alzheimer's disease onset: unspecified onset Dementia behavioral or psychological symptom: unspecified whether behavioral, psychotic, or mood disturbance or anxiety Dementia severity: moderate Dementia type: Alzheimer's Qualified Code(s): G30.9 - Alzheimer's disease, unspecified; F02.B0 - Dementia in other diseases classified elsewhere, moderate, without behavioral disturbance, psychotic disturbance, mood disturbance, and anxiety PLAN: As per hospitalist. (5) Fracture of neck of femur: PLAN: As per orthopedic surgery. HPI Consult Data Date of Consult: 10/10/23 HPI Narrative Reason for Consultation: Preoperative cardiovascular risk assessment HPI Narrative: 83-year-old female with history of Alzheimer's dementia, hypertension and coronary artery disease status post CABG and diabetes mellitus. She has been admitted to the hospital with a fracture of the neck of the femur [facility]. She is being contemplated for open reduction and internal fixation. We are asked to evaluate her cardiac risk for the proposed procedure. Patient is unable to provide any history. Apparently she mobilizes at the [facility] with a walker. Per daughter, the patient's dementia is advanced. [facility] Medical History COPD (chronic obstructive pulmonary disease) Dementia DM2 (diabetes mellitus, type 2) SVT (supraventricular tachycardia) Diabetes Hyperlipidemia Coronary artery disease Hypertension Home Medications ?Medication ?Instructions ?Recorded ?Last Taken ?Type aspirin 81 mg chewable tablet 81 mg PO DAILY@0800 03/05/19 Unknown Rx acetaminophen 325 mg capsule 325 mg PO Q4H PRN acute pain due 01/27/23 Unknown History to trauma acetaminophen 500 mg capsule 500 mg PO Q8 PRN pain, unspecifie 01/27/23 Unknown History ibuprofen 200 mg tablet (Advil) 200 mg PO Q6H 01/27/23 Unknown History lisinopril 20 mg tablet 20 mg PO BID 01/27/23 Unknown History metformin 1,000 mg tablet 1,000 mg PO BID 01/27/23 Unknown History metoprolol tartrate 100 mg tablet 100 mg PO BID 01/27/23 Unknown History multivitamin (Daily Multi-Vitamin 1 tab PO DAILY 01/27/23 Unknown History tablet) amlodipine 10 mg tablet 10 mg PO DAILY 09/15/23 Unknown History atorvastatin 20 mg tablet 20 mg PO DAILY 09/15/23 Unknown History magnesium hydroxide 400 mg/5 mL 5 ml PO DAILY PRN stomach upset 09/15/23 Unknown History oral suspension (Milk of Magnesia) mirabegron 25 mg tablet,extended 25 mg PO DAILY 09/15/23 Unknown History release 24 hr (Myrbetriq) phenylephrine 0.25 %-pramoxine 1 1 applic [place] Q8H PRN 09/15/23 Unknown History %-glycerin-wh.petrolatum rectal cream (Hemorrhoidal Cream) sitagliptin phosphate 50 mg tablet 50 mg PO DAILY 09/15/23 Unknown History (Januvia) insulin lispro 100 unit/mL See Protocol subcut Q6 #0 mL 09/18/23 Unknown Rx subcutaneous pen (Humalog KwikPen (U-100) Insulin) potassium, sodium phosphates 280 1 packet PO TID #0 ea 09/18/23 Unknown Rx mg-160 mg-250 mg oral powder packet rivaroxaban 10 mg tablet (Xarelto) 10 mg PO DAILY@0600 30 days #0 tabs 09/18/23 Unknown Rx Allergy/AdvReac Type Severity Reaction Status Date / Time No Known Allergies Allergy Verified 10/05/23 09:10 Surgical History History of quadruple bypass History of intestinal surgery Social History household members: family housing: house Smoking Status: Never smoker Physical Exam Narrative Comfortable. Awake. Heart sounds 1 and 2 noted. 3/6 systolic murmur at apex and base. Chest clear to auscultation bilaterally. No ankle edema. Risk Stratification Risk Stratification Applicable: No Objective Data Vital Signs: Vital Signs Temp Pulse Resp BP Pulse Ox O2 Del Method 98 F 73 16 151/74 H 93 Room Air 09/16/23 10:09/16/23 10:09/16/23 10:09/16/23 10:09/16/23 10:09/16/23 10:26 Oxygen Delivery Method Room Air Weight: 100 lb 4.965 oz Body Mass Index (BMI) 18.3 Intake & Output: Intake and Output for Last 24 Hours 09/14/23 09/15/23 09/16/23 23:59 23:59 23:59 Output Total 650 / 650 Balance -650 / -650 Lab / Micro Data 09/17/23 23:20 09/17/23 23:20 Labs: Laboratory Results - last 24 hr 09/15/23 18:56: WBC 12.9 H, RBC 3.83 L, Hgb 12.2, Hct 38.8, MCV 101.3 H, MCH 31.9, MCHC 31.4 L, RDW Std Deviation 46.2 H, RDW Coeff of José Miguel 12.4, Plt Count 232, MPV 9.7, Immature Gran % (Auto) 0.500, Neut % (Auto) 85.4 H, Lymph % (Auto) 8.3 L, Angelina % (Auto) 4.9, Eos % (Auto) 0.5, Baso % (Auto) 0.4, Absolute Neuts (auto) 11.0 H, Absolute Lymphs (auto) 1.07, Nucleated RBC % 0, Sodium 136, Potassium 4.1, Chloride 107, Carbon Dioxide 22.0, Anion Gap 7, BUN 12, Creatinine 0.60, Estim Creat Clear Calc 45.20, Est GFR (MDRD) Af Amer 122, Est GFR (MDRD) Non-Af 101, BUN/Creatinine Ratio 20.0, Glucose 245 H, Calcium 8.8 09/15/23 22:26: POC Glucose 195 H 09/15/23 22:48: Urine Color Yellow, Urine Clarity Clear, Urine pH 7.0, Ur Specific [place] 1.010, Urine Protein 30 H, Urine Glucose (UA) 1000 H, Urine Ketones 15 H, Urine Occult Blood 25 H, Urine Nitrite Negative, Urine Bilirubin Negative, Urine Urobilinogen Normal, Ur Leukocyte Esterase Negative, Urine RBC 0 SEEN, Urine WBC 0 SEEN, Ur Squamous Epith Cells 0 SEEN, Urine Bacteria 0 SEEN, Urine Mucus 0 SEEN 09/16/23 05:26: POC Glucose 213 H 09/16/23 05:41: WBC 9.7, RBC 3.68 L, Hgb 11.9 L, Hct 35.8 L, MCV 97.3, MCH 32.3 H, MCHC 33.2 D, RDW Std Deviation 44.5 H, RDW Coeff of José Miguel 12.4, Plt Count 280, MPV 10.3, Immature Gran % (Auto) 0.300, Neut % (Auto) 75.9 H, Lymph % (Auto) 15.3 L, Angelina % (Auto) 6.3, Eos % (Auto) 1.8, Baso % (Auto) 0.4, Absolute Neuts (auto) 7.4, Absolute Lymphs (auto) 1.48, Nucleated RBC % 0, Sodium 136, Potassium 3.9, Chloride 104, Carbon Dioxide 28.0, Anion Gap 4 L, BUN 11, Creatinine 0.40 L, Estim Creat Clear Calc 37.60, Est GFR (MDRD) Af Amer 195, Est GFR (MDRD) Non-Af 161, BUN/Creatinine Ratio 27.4 H, Glucose 213 H, Calcium 8.7, Phosphorus 2.8, Magnesium 1.5 L, Total Bilirubin 0.80, AST 26, ALT 27, Alkaline Phosphatase 153 H, Total Protein 6.3 L, Albumin 3.0 L, Globulin 3.3, Albumin/Globulin Ratio 0.9, TSH 0.51, Blood Type A POSITIVE, Antibody Screen NEGATIVE Rhythm Strip Rhythm Strip: Sinus Rhythm Rate: 70 Ectopy: None Cardiology Labs/Tests 09/15/23 18:56: WBC 12.9 H, RBC 3.83 L, Hgb 12.2, Hct 38.8, MCV 101.3 H, MCH 31.9, MCHC 31.4 L, Plt Count 232, MPV 9.7, Immature Gran % (Auto) 0.500, Neut % (Auto) 85.4 H, Lymph % (Auto) 8.3 L, Angelina % (Auto) 4.9, Eos % (Auto) 0.5, Baso % (Auto) 0.4, Absolute Neuts (auto) 11.0 H, Nucleated RBC % 0, Sodium 136, Potassium 4.1, Chloride 107, Carbon Dioxide 22.0, Anion Gap 7, BUN 12, Creatinine 0.60, Est GFR (MDRD) Af Amer 122, Est GFR (MDRD) Non-Af 101, BUN/Creatinine Ratio 20.0, Glucose 245 H, Calcium 8.8 09/15/23 22:48: Urine Color Yellow, Urine Clarity Clear, Urine pH 7.0, Ur Specific [place] 1.010, Urine Protein 30 H, Urine Glucose (UA) 1000 H, Urine Ketones 15 H, Urine Occult Blood 25 H, Urine Nitrite Negative, Urine Bilirubin Negative, Urine Urobilinogen Normal, Ur Leukocyte Esterase Negative, Urine RBC 0 SEEN, Urine WBC 0 SEEN 09/16/23 05:41: WBC 9.7, RBC 3.68 L, Hgb 11.9 L, Hct 35.8 L, MCV 97.3, MCH 32.3 H, MCHC 33.2 D, Plt Count 280, MPV 10.3, Immature Gran % (Auto) 0.300, Neut % (Auto) 75.9 H, Lymph % (Auto) 15.3 L, Angelina % (Auto) 6.3, Eos % (Auto) 1.8, Baso % (Auto) 0.4, Absolute Neuts (auto) 7.4, Nucleated RBC % 0, Sodium 136, Potassium 3.9, Chloride 104, Carbon Dioxide 28.0, Anion Gap 4 L, BUN 11, Creatinine 0.40 L, Est GFR (MDRD) Af Amer 195, Est GFR (MDRD) Non-Af 161, BUN/Creatinine Ratio 27.4 H, Glucose 213 H, Calcium 8.7, Phosphorus 2.8, Magnesium 1.5 L, Total Bilirubin 0.80 Rhythm: EKG: Sinus rhythm with no ischemic changes. ECHO: Stress Test: Cardiac Cath: PCI: CT Surgery: Holter monitor: EPS: PPM: CXR: Chest CT Scan: Radiography Diagnostic Testing: Radiology Impression Chest X-Ray 09/15/23 18:47 IMPRESSION: No active disease. Electronically Signed: Alireza Mayo MD at 19:47 EDT Reading Location ID and State: [id number] / [employer] , Service support , Hip/Pelvis X-Ray 09/15/23 18:47 IMPRESSION: Suspect right femoral neck fracture and correlation with CT is recommended. Electronically Signed: Alireza Mayo MD at 19:45 EDT Reading Location ID and State: [id number] / [employer] , Service support , Lower Extremity CT 09/15/23 20:34 IMPRESSION: Acute posteriorly angulated slightly impacted fracture of the basicervical femoral neck. Electronically Signed: Alireza Mayo MD at 22:41 EDT Reading Location ID and State: [id number] / [employer] , Service support ,
[2023-09-16] MEDS: Metoprolol Tartrate 100 MG Tablet PO (10:49)
[2023-09-16] MEDS: 0.9% Normal Saline (1000mL) 1,000 ML 70 ML IV (12:32)
[2023-09-16 12:53] LABS: Bedside Glucose 166 mg/dL (74-106)
--- NOTE | 2023-09-16 13:11 | CASEMGMT ---
Addendum entered by eLe Ann Johnson 09/16/23 13:32: Social Work Pt's daughter/YAYO Sanders called back, confirmed plan will be for pt to return to [facility] at discharge, pt has been there for two years. SNF list not needed at this time. SW will send updates to [facility]. RIZWAN Whitfield Original Note: Social Work Pt is here from [facility]. SW called daughter and YAYO Sanders to inquire if the plan would be to return when medically ready, message left. SW will continue to follow. RIZWAN Whitfield
--- NOTE | 2023-09-16 13:47 | CPS ---
attempted to start SMI and Pep but pt sleeping. SMI and Pep held at this time.
--- NOTE | 2023-09-16 14:43 | CONS.ORTHO ---
HPI Consult Data Date of Consult: 09/16/23 HPI Narrative HPI Narrative: ANIYAH LAMB, is a 83 F who presents right hip pain after an [facility]. I was consulted for finding of right hip basicervical neck femur fracture. I saw the patient in 308. She has baseline dementia and has memory loss but is able to converse. She mentions of pain in the right hip. She denies any other areas of pain. She was in House's traction placed by hospitalist. She has been n.p.o. since midnight. She underwent echocardiogram and cardiology evaluation this morning. Prior to this injury, history as reported by patient's daughter, she was able to walk only small distances with the help of walker and always had a wheelchair standby. She has had dementia for few years now. She is unable to tell time and place. She has known cardiac comorbidities as well as diabetes. [facility] Medical History (Updated 09/16/23 @ 14:[address] Sumit Short MD) COPD (chronic obstructive pulmonary disease) Coronary artery disease Dementia Diabetes DM2 (diabetes mellitus, type 2) Hyperlipidemia Hypertension SVT (supraventricular tachycardia) Home Medications aspirin 81 mg chewable tablet 81 mg PO DAILY@0800 03/05/19 [Rx Last Taken Unknown] acetaminophen 325 mg capsule 325 mg PO Q4H PRN acute pain due to trauma 01/27/23 [History Last Taken Unknown] acetaminophen 500 mg capsule 500 mg PO Q8 PRN pain, unspecifie 01/27/23 [History Last Taken Unknown] ibuprofen 200 mg tablet (Advil) 200 mg PO Q6H 01/27/23 [History Last Taken Unknown] lisinopril 20 mg tablet 20 mg PO BID 01/27/23 [History Last Taken Unknown] metformin 1,000 mg tablet 1,000 mg PO BID 01/27/23 [History Last Taken Unknown] metoprolol tartrate 100 mg tablet 100 mg PO BID 01/27/23 [History Last Taken Unknown] multivitamin (Daily Multi-Vitamin tablet) 1 tab PO DAILY 01/27/23 [History Last Taken Unknown] amlodipine 10 mg tablet 10 mg PO DAILY 09/15/23 [History Last Taken Unknown] atorvastatin 20 mg tablet 20 mg PO DAILY 09/15/23 [History Last Taken Unknown] magnesium hydroxide 400 mg/5 mL oral suspension (Milk of Magnesia) 5 ml PO DAILY PRN stomach upset 09/15/23 [History Last Taken Unknown] mirabegron 25 mg tablet,extended release 24 hr (Myrbetriq) 25 mg PO DAILY 09/15/23 [History Last Taken Unknown] phenylephrine 0.25 %-pramoxine 1 %-glycerin-wh.petrolatum rectal cream (Hemorrhoidal Cream) 1 applic ND Q8H PRN 09/15/23 [History Last Taken Unknown] sitagliptin phosphate 50 mg tablet (Januvia) 50 mg PO DAILY 09/15/23 [History Last Taken Unknown] Allergy/AdvReac Type Severity Reaction Status Date / Time No Known Allergies Allergy Verified 09/15/23 18:36 Surgical History (Updated 09/15/23 @ 22:03 by Faizan Cohen) History of intestinal surgery History of quadruple bypass Social History household members: family housing: house Smoking Status: Never smoker Vital Signs Vital Signs Vital Signs: 09/15/23 18:36 09/15/23 18:44 09/15/23 20:36 Temperature 98.7 F Temperature Source Oral Pulse Rate 71 68 Respiratory Rate 16 22 H Respiratory Effort Respiratory Depth Respiratory Pattern Blood Pressure 152/87 H 146/65 H Blood Pressure Mean 108 92 Blood Pressure Source Blood Pressure Position Blood Pressure Location Pulse Ox 94 94 Oxygen Delivery Method Room Air Room Air 09/15/23 20:39 09/15/23 20:40 09/15/23 21:24 Temperature 98.2 F 98.2 F 99 F Temperature Source Temporal Temporal Pulse Rate 68 68 68 Respiratory Rate 22 H 22 H 18 Respiratory Effort Respiratory Depth Respiratory Pattern Blood Pressure 146/65 H 146/65 H 163/73 H Blood Pressure Mean 92 92 103 Blood Pressure Source Monitor Blood Pressure Position Semi-Fowlers Blood Pressure Location Left Arm Pulse Ox 94 93 96 Oxygen Delivery Method Room Air Room Air 09/15/23 22:00 09/15/23 22:33 09/15/23 22:23 Temperature Temperature Source Pulse Rate 68 Respiratory Rate Respiratory Effort Normal Non-Labored Respiratory Depth Normal Respiratory Pattern Normal Blood Pressure 163/73 H Blood Pressure Mean Blood Pressure Source Blood Pressure Position Blood Pressure Location Pulse Ox Oxygen Delivery Method Room Air Room Air 09/16/23 02:42 09/16/23 10:26 09/16/23 09:30 Temperature 98.6 F 98 F Temperature Source Temporal Oral Pulse Rate 63 73 Respiratory Rate 16 16 Respiratory Effort Normal Non-Labored Respiratory Depth Normal Respiratory Pattern Normal Blood Pressure 157/76 H 151/74 H Blood Pressure Mean 103 99 Blood Pressure Source Monitor Monitor Blood Pressure Position Semi-Fowlers Semi-Fowlers Blood Pressure Location Left Arm Right Arm Pulse Ox 94 93 Oxygen Delivery Method Room Air Room Air Room Air 09/16/23 10:49 Temperature Temperature Source Pulse Rate 73 Respiratory Rate Respiratory Effort Respiratory Depth Respiratory Pattern Blood Pressure 151/74 H Blood Pressure Mean Blood Pressure Source Blood Pressure Position Blood Pressure Location Pulse Ox Oxygen Delivery Method Weight Weight: 100 lb 4.965 oz Body Mass Index (BMI) 18.3 Physical Exam Narrative Examination of the right hip shows skin intact, no bruises. Patient is able to follow commands and able to move toes on the right side. She is in House's traction. Tenderness noticed in the right hip region. Lab / Micro Data 09/16/23 05:41 09/16/23 05:41 Labs: Laboratory Results - last 24 hr 09/15/23 18:56: WBC 12.9 H, RBC 3.83 L, Hgb 12.2, Hct 38.8, MCV 101.3 H, MCH 31.9, MCHC 31.4 L, RDW Std Deviation 46.2 H, RDW Coeff of José Miguel 12.4, Plt Count 232, MPV 9.7, Immature Gran % (Auto) 0.500, Neut % (Auto) 85.4 H, Lymph % (Auto) 8.3 L, [place] % (Auto) 4.9, Eos % (Auto) 0.5, Baso % (Auto) 0.4, Absolute Neuts (auto) 11.0 H, Absolute Lymphs (auto) 1.07, Nucleated RBC % 0, Sodium 136, Potassium 4.1, Chloride 107, Carbon Dioxide 22.0, Anion Gap 7, BUN 12, Creatinine 0.60, Estim Creat Clear Calc 45.20, Est GFR (MDRD) Af Amer 122, Est GFR (MDRD) Non-Af 101, BUN/Creatinine Ratio 20.0, Glucose 245 H, Calcium 8.8 09/15/23 22:26: POC Glucose 195 H 09/15/23 22:48: Urine Color Yellow, Urine Clarity Clear, Urine pH 7.0, Ur Specific [place] 1.010, Urine Protein 30 H, Urine Glucose (UA) 1000 H, Urine Ketones 15 H, Urine Occult Blood 25 H, Urine Nitrite Negative, Urine Bilirubin Negative, Urine Urobilinogen Normal, Ur Leukocyte Esterase Negative, Urine RBC 0 SEEN, Urine WBC 0 SEEN, Ur Squamous Epith Cells 0 SEEN, Urine Bacteria 0 SEEN, Urine Mucus 0 SEEN 09/16/23 05:26: POC Glucose 213 H 09/16/23 05:41: WBC 9.7, RBC 3.68 L, Hgb 11.9 L, Hct 35.8 L, MCV 97.3, MCH 32.3 H, MCHC 33.2 D, RDW Std Deviation 44.5 H, RDW Coeff of José Miguel 12.4, Plt Count 280, MPV 10.3, Immature Gran % (Auto) 0.300, Neut % (Auto) 75.9 H, Lymph % (Auto) 15.3 L, [place] % (Auto) 6.3, Eos % (Auto) 1.8, Baso % (Auto) 0.4, Absolute Neuts (auto) 7.4, Absolute Lymphs (auto) 1.48, Nucleated RBC % 0, Sodium 136, Potassium 3.9, Chloride 104, Carbon Dioxide 28.0, Anion Gap 4 L, BUN 11, Creatinine 0.40 L, Estim Creat Clear Calc 37.60, Est GFR (MDRD) Af Amer 195, Est GFR (MDRD) Non-Af 161, BUN/Creatinine Ratio 27.4 H, Glucose 213 H, Calcium 8.7, Phosphorus 2.8, Magnesium 1.5 L, Total Bilirubin 0.80, AST 26, ALT 27, Alkaline Phosphatase 153 H, Total Protein 6.3 L, Albumin 3.0 L, Globulin 3.3, Albumin/Globulin Ratio 0.9, TSH 0.51, Blood Type A POSITIVE, Antibody Screen NEGATIVE 09/16/23 12:26: POC Glucose 166 H Rhythm Strip Rhythm Strip: Sinus Rhythm Rate: 70 Ectopy: None Imaging Radiology Impression Chest X-Ray 09/15/23 18:47 IMPRESSION: No active disease. Electronically Signed: Alireza Mayo MD at 19:47 EDT , Hip/Pelvis X-Ray 09/15/23 18:47 IMPRESSION: Suspect right femoral neck fracture and correlation with CT is recommended. Electronically Signed: Alireza Mayo MD at 19:45 EDT , Lower Extremity CT 09/15/23 20:34 IMPRESSION: Acute posteriorly angulated slightly impacted fracture of the basicervical femoral neck. Electronically Signed: Alireza Mayo MD at 22:41 EDT , Echocardiogram 09/15/23 21:20 Interpretation Summary The left ventricular ejection fraction is 65 %. There is moderate biatrial dilatation. Moderately severe (3+) tricuspid valve insufficiency. Right ventricular systolic pressure estimated to be 53 mmHg. Moderate aortic stenosis. Moderate (2+) aortic valve insufficiency. Ordering Physician: Ben Reese Referring Physician: Kashmir Jules Performed By: Jessica Rodriguez, JENNCS, RVT Assessment & Plan Assessment/Plan (1) Fracture of neck of femur: QUALIFIERS: Encounter type: initial encounter Fracture type: closed Laterality: right Qualified Code(s): S72.001A - Fracture of unspecified part of neck of right femur, initial encounter for closed fracture PLAN: Plan I reviewed x-rays and CT of the right hip performed in the ER yesterday. These show basicervical mildly displaced femoral neck fracture. I spoke with patient's daughter in presence of the patient in detail. I explained to them the fracture return. I went over all treatment options. I explained to them that this is a surgical injury and surgical fixation would allow early mobilization to prevent recumbency complications. I recommend a right hip hemiarthroplasty likely cemented. All risk benefits and alternatives were discussed in detail. The risks include but are not limited to infection, bleeding, hematoma formation, injury to nerves and vessels, sciatic nerve injury, dislocation, periprosthetic fracture, cement embolism, DVT, pulmonary embolism, need for further procedures, need for total hip replacement in the future, limb length discrepancy, gait abnormalities, thigh pain, heterotopic ossification, persistent pain, cardiopulmonary event, pneumonia, atelectasis, need for ICU stay, need for ventilation, stroke, . Patient's daughter understands and agrees to proceed with surgery. She has medical power of contract attorney. She provided consent in presence of witness. Charges/Coding Visit Charges Inpatient E&M: 27168 Init Hosp L3
[2023-09-16 15:16] LABS: Bedside Glucose 167 mg/dL (74-106)
[2023-09-16] MEDS: Cefazolin 1 GM/50 ML BAG IV ×2 (15:50→21:15)
[2023-09-16 16:04] LABS: Bedside Glucose 170 mg/dL (74-106)
--- NOTE | 2023-09-16 16:20 | HIP_PTH ---
PATIENT: ANIYAH LAMB LOC: MS3 U#:[id number] AGE/SX: 83/F ROOM: [facility] RE09/15/[address]: Dr. Fracisco Mirza MD : 1940 BED: 1 DIS: 09/18/2023 SPEC #: [id number] RECD: 09/18/23 08:45 STATUS: RED RERenita #: [id number] LUIS: 09/16/23 16:[address]: Sumit Short DEPT: SURGICAL PATHOLOGY RECD BY: Madhu Menon ENTERED: 09/18/23 08:56 SP TYPE: TOTAL HIP OTHR DR: MD Dr. Ben Mccracken DO Dr. Eric Jopperi, DO Dr. Efewongbe Oleghe, MD Dr. Prakash Chand, MD Tissues: Hip, NOS Procedures: Decalcification bone/plaque Surgery Specimen Level IV HEADER OPERATION: Hemiarthroplasty, hip PRE-OP DIAGNOSIS: Fracture of neck of femur TISSUE SUBMITTED: Bone and tissue right hip MICROSCOPIC DIAGNOSIS Right hip bone and soft tissue, total hip replacement/resection: Consistent with fracture site. 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 See comment. TREV/ 09/25/2023 COMMENT A few atypical lymphoid aggregates are noted. Immunohistochemistry ([id number]) supports the above diagnosis. An excisional excision biopsy of the lymph node is recommended for definitive classification. Case has been reviewed in consultation with Dr. Patricio who concurs with the above diagnosis. IDC:[id number] MICROSCOPIC DESCRIPTION Slides are reviewed. GROSS DESCRIPTION Received is one container labeled with the patient's name and designated femoral head and tissue. The specimen consists of a walton femoral head and neck measuring 6.0 x 4.0 x 4.0 cm. The articular surface is grossly unremarkable. A non-articular surface is hemorrhagic and granular at the femoral neck. Resection margin is irregular and hemorrhagic. Also present in the specimen container are multiple detached pieces of bone measuring in aggregate 2.0 x 2.0 x 1.5 cm. Oil Mixer sections are submitted in three cassettes as follows: 1 - bone reamings, 2&3- femoral head and neck after decalcification. TREV/ 09/18/23 TC:5 CPT: 57704, 69873
--- NOTE | 2023-09-16 17:20 | RAD_ITS ---
INDICATION: R HIP ARTHROPLASTY EXAMINATION/TECHNIQUE: X-RAY - XR Right Hip Unilateral 1 view COMPARISON: September 15, 2023 FINDINGS: There is a right hip prosthesis in place previous study . Post surgical changes in the adjacent soft tissue. RAD/Hip Min 2 Views (Portable) IMPRESSION: Status post right total hip replacement with postsurgical changes. Electronically Signed: Shaq Bueno DO at 22:45 EDT ,
[2023-09-16] MEDS: JPS (Morphine 10mg/ml) OPERA.SITE (17:44)
[2023-09-16] MEDS: TXA 1000mg in NS100 100ml (IVPB at Closure) 660 MG IV (17:45)
[2023-09-16] MEDS: TXA 1000mg in NS100 100ml (IVPB at Incision) 660 MG IV (17:47)
--- NOTE | 2023-09-16 18:12 | OP.PCM_ITS ---
Report of Operation Date of Procedure: 09/16/23 Description of Surgical Findings:: PRINCIPAL PRE-OP DIAGNOSIS: Right basicervical FEMORAL NECK FRACTURE PRINCIPAL POST-OP DIAG: Right basicervical FEMORAL NECK FRACTURE PRINCIPAL PROCEDURE: Cemented right HIP HEMIARTHROPLASTY CPT 99966 Surgeon: Sumit Short MD ANESTHESIA: General Anesthesia Record E.B.L. 100 cc SPECIMENS: None COMPLICATIONS: None DISPOSITION: PACU then potentially floor/PCU Implants: Dalila Accolade C cemented femoral stem, bipolar head OPERATIVE REPORT: INDICATION FOR SURGERY: Patient sustained a ground-level fall on right hip with a subsequent mildly displaced basicervical femoral neck fracture. After discussion with the patient as well as family risk, patient elected for operative intervention with a hemiarthroplasty. Risks were discussed with the patient family including but not limited to blood loss, infection, n erve damage, instability, need for revision surgery, intraoperative fracture, cardiac arrest, . Patient signed consent for surgery. Patient was evaluated preoperatively by anesthesia who deemed the patient medically appropriate for the operating room. PROCEDURE: The patient was brought to the operating room and initial timeout was performed prior to induction of anesthesia. After confirming the patient's side, patient name with 2 unique identifiers as well as surgical plan, the patient was sedated per the anesthesiologist and intubated. Preoperative IV antibiotic was given. Patient was then placed in left lateral decubitus position with a pegboard and all bony prominences well-padded. The right lower extremity was sterilely prepped and draped in standard fashion. A second confirmatory timeout was completed which the patient's name and identification with 2 unique identifiers as well as the appropriate side and procedure was confirmed by everyone in the operating room. A standard posterior approach to the hip was performed with sharp dissection through the IT band and fascia. The piriformis tendon and some of the short external rotators were released off of the right hip and tagged. Capsulotomy was performed and tagging stitch was also placed in the capsule. The femoral neck was then found to be level with about 1 cm proximal to the lesser trochanter. The femoral head was then removed. The head measured a 42 and a trial of 42 and 43 mm were used. 43 mm head appeared to have a more stable fit. Next the femoral canal was prepped, the canal was broached up to a size 6 stem which had stable fixation. The canal was then prepped and a size 6 stem was cemented into the femur. After the cement was hard, a 26 shell with 43 head standard offset was trialed which had appropriate leg length, range of motion, and stability. Trial was then removed the acetabulum was irrigated to ensure there was no cement in the acetabulum. A 26 shell with a 43 head standard offset was then placed and hip was reduced. Stability was then confirmed as well as leg length and range of motion which were all adequate and appropriate. The wound was then again irrigated with Pulsavac saline. Betadine solution was then placed in the wound for 5 minutes & washed off. Irrisept solution was then placed in the wound for 1 minutes & washed off. The short external rotators were repaired as well as the capsule through 3 drill holes in the greater trochanter. The wound was then closed in layered fashion with interrupted 0 Vicryl, 2-0 Vicryl. Pain cocktail was then injected into the local soft tissues. 2 g TXA was also injected in the local soft tissues. And the skin was closed with ottoniel. Wound was covered with mepilex dressing. The patient was awoken from anesthesia which they tolerated well. Patient was then taken to the PACU in stable fashion. Patient will be weightbearing as tolerated with posterior hip precautions of the right lower extremity. The will complete a course of postoperative DVT prophylaxis. We will see them back in clinic in 2 weeks for x-rays, wound check. Admit VTE Documentation VTE Mechan Device Prophylaxis: SCD's Procedures Musculoskeletal [id number]: Other Procedure See Report
--- NOTE | 2023-09-16 18:30 | PN.ORTHO_ITS ---
Subjective Subjective Postop day 0 status post right hip hemiarthroplasty. Patient seen in PACU. Patient still sedated. Abduction frame in place. Objective Data Objective Data Vital Signs: Vital Signs Temp Pulse Resp BP Pulse Ox O2 Del Method O2 Flow Rate 98.2 F 68 16 156/76 H 96 Nasal Cannula 1.5 09/16/23 14:45 09/16/23 14:45 09/16/23 14:45 09/16/23 14:45 09/16/23 14:45 09/16/23 14:45 09/16/23 14:45 Oxygen Flow Rate (L/min) 1.5 Oxygen Delivery Method Nasal Cannula Weight: 100 lb 4.965 oz Body Mass Index (BMI) 18.3 Intake & Output: Intake and Output for Last 24 Hours 09/14/23 09/15/23 09/16/23 23:59 23:59 23:59 Intake Total 1456.5 / 1456.5 Output Total 900 / 900 Balance 556.5 / 556.5 Lab / Micro Data 09/16/23 05:41 09/16/23 05:41 Labs: Laboratory Results - last 24 hr 09/15/23 18:56: WBC 12.9 H, RBC 3.83 L, Hgb 12.2, Hct 38.8, MCV 101.3 H, MCH 31.9, MCHC 31.4 L, RDW Std Deviation 46.2 H, RDW Coeff of José Miguel 12.4, Plt Count 232, MPV 9.7, Immature Gran % (Auto) 0.500, Neut % (Auto) 85.4 H, Lymph % (Auto) 8.3 L, Wallace % (Auto) 4.9, Eos % (Auto) 0.5, Baso % (Auto) 0.4, Absolute Neuts (auto) 11.0 H, Absolute Lymphs (auto) 1.07, Nucleated RBC % 0, Sodium 136, Potassium 4.1, Chloride 107, Carbon Dioxide 22.0, Anion Gap 7, BUN 12, Creatin ine 0.60, Estim Creat Clear Calc 45.20, Est GFR (MDRD) Af Amer 122, Est GFR (MDRD) Non-Af 101, BUN/Creatinine Ratio 20.0, Glucose 245 H, Calcium 8.8 09/15/23 22:26: POC Glucose 195 H 09/15/23 22:48: Urine Color Yellow, Urine Clarity Clear, Urine pH 7.0, Ur Specific [place] 1.010, Urine Protein 30 H, Urine Glucose (UA) 1000 H, Urine Ketones 15 H, Urine Occult Blood 25 H, Urine Nitrite Negative, Urine Bilirubin Negative, Urine Urobilinogen Normal, Ur Leukocyte Esterase Negative, Urine RBC 0 SEEN, Urine WBC 0 SEEN, Ur Squamous Epith Cells 0 SEEN, Urine Bacteria 0 SEEN, Urine Mucus 0 SEEN 09/16/23 05:26: POC Glucose 213 H 09/16/23 05:41: WBC 9.7, RBC 3.68 L, Hgb 11.9 L, Hct 35.8 L, MCV 97.3, MCH 32.3 H, MCHC 33.2 D, RDW Std Deviation 44.5 H, RDW Coeff of José Miguel 12.4, Plt Count 280, MPV 10.3, Immature Gran % (Auto) 0.300, Neut % (Auto) 75.9 H, Lymph % (Auto) 15.3 L, Wallace % (Auto) 6.3, Eos % (Auto) 1.8, Baso % (Auto) 0.4, Absolute Neuts (auto) 7.4, Absolute Lymphs (auto) 1.48, Nucleated RBC % 0, Sodium 136, Potassium 3.9, Chloride 104, Carbon Dioxide 28.0, Anion Gap 4 L, BUN 11, Creatinine 0.40 L, Estim Creat Clear Calc 37.60, Est GFR (MDRD) Af Amer 195, Est GFR (MDRD) Non-Af 161, BUN/Creatinine Ratio 27.4 H, Glucose 213 H, Calcium 8.7, Phosphorus 2.8, Magnesium 1.5 L, Total Bilirubin 0.80, AST 26, ALT 27, Alkaline Phosphatase 153 H, Total Protein 6.3 L, Albumin 3.0 L, Globulin 3.3, Albumin/Globulin Ratio 0.9, TSH 0.51, Blood Type A POSITIVE, Antibody Screen NEGATIVE 09/16/23 12:26: POC Glucose 166 H 09/16/23 14:57: POC Glucose 167 H 09/16/23 15:42: POC Glucose 170 H Radiography Diagnostic Testing: Radiology Impression Chest X-Ray 09/15/23 18:47 IMPRESSION: No active disease. Electronically Signed: Alireza Mayo MD at 19:47 EDT , Hip/Pelvis X-Ray 09/15/23 18:47 IMPRESSION: Suspect right femoral neck fracture and correlation with CT is recommended. Electronically Signed: Alireza Mayo MD at 19:45 EDT Reading Location ID and State: 994 / [employer] Tel , Service support , Lower Extremity CT 09/15/23 20:34 IMPRESSION: Acute posteriorly angulated slightly impacted fracture of the basicervical femoral neck. Electronically Signed: Alireza Mayo MD at 22:41 EDT Reading Location ID and State: [place] / [employer] Tel , Service support , Echocardiogram 09/15/23 21:20 Interpretation Summary The left ventricular ejection fraction is 65 %. There is moderate biatrial dilatation. Moderately severe (3+) tricuspid valve insufficiency. Right ventricular systolic pressure estimated to be 53 mmHg. Moderate aortic stenosis. Moderate (2+) aortic valve insufficiency. Ordering Physician: Ben Reese Referring Physician: Kashmir Jules Performed By: Jessica Rodriguez, JENNCS, RVT Rhythm Strip Rhythm Strip: Sinus Rhythm Rate: 70 Ectopy: None Physical Exam Narrative Dressing CDI. Distal neurovascular exam is intact. Assessment & Plan Assessment/Plan (1) Status post hip hemiarthroplasty: PLAN: Plan Patient doing well. Will rely on anesthesia assessment whether she needs to go to PCU versus floor after PACU based on her cardiac issues. PT OT mobilization starting tomorrow as tolerated. Weightbearing as tolerated. Posterior hip precautions. Abduction pillow while in bed. Avoid narcotics to prevent delirium. Xarelto for DVT prophylaxis. Will continue to follow. Spoke to patient's family.
[2023-09-16 18:45] LABS: Bedside Glucose 235 mg/dL (74-106)
[2023-09-16] MEDS: Lisinopril 20 MG Tablet PO (22:12)
[2023-09-16 22:33] LABS: Bedside Glucose 250 mg/dL (74-106)
[2023-09-17] VITALS (11 sets, daily range): BP systolic 118–146; BP diastolic 57–92; PULSE 71–94; RESP 16–20; TEMP 36.7–37.3; O2SAT 94–99; BMI 19.3
[2023-09-17 00:09] LABS: Bedside Glucose 207 mg/dL (74-106)
[2023-09-17] MEDS: Insulin Lispro 100 UNIT/ML INSULN.PEN SC ×4 (01:19→17:15)
[2023-09-17] MEDS: Rivaroxaban 10 MG Tablet PO (05:53)
[2023-09-17] MEDS: Cefazolin 1 GM/50 ML BAG IV (05:55)
[2023-09-17] MEDS: 0.9% Normal Saline (1000mL) 1,000 ML 70 ML IV ×2 (05:55→20:33)
[2023-09-17 07:07] LABS: Bedside Glucose 164 mg/dL (74-106)
--- NOTE | 2023-09-17 07:48 | PCM.PN.HOSP ---
Reason for Visit Reason for Visit: Diagnoses Dementia in other diseases classified elsewhere, moderate, without behavioral disturbance, psychotic disturbance, mood disturbance, and anxiety (09/15/23) Unspecified dementia, unspecified severity, without behavioral disturbance, psychotic disturbance, mood disturbance, and anxiety (09/15/23) Alzheimer's disease, unspecified (09/15/23) Fracture of unspecified part of neck of right femur, initial encounter for closed fracture (09/15/23) Displaced fracture of base of neck of right femur, initial encounter for closed fracture (09/15/23) Nondisplaced fracture of base of neck of right femur, initial encounter for closed fracture (09/15/23) Presence of aortocoronary bypass graft (09/15/23) Presence of unspecified artificial hip joint (09/15/23) Objective Data Objective Data Vital Signs: Vital Signs Temp Pulse Resp BP Pulse Ox O2 Del Method O2 Flow Rate 98.1 F 71 18 134/64 H 99 Nasal Cannula 3 09/17/23 03:54 09/17/23 03:54 09/17/23 03:54 09/17/23 03:54 09/17/23 03:54 09/17/23 03:54 09/17/23 03:54 Oxygen Flow Rate (L/min) 3 Oxygen Delivery Method Nasal Cannula Weight: 105 lb 6.095 oz Body Mass Index (BMI) 19.3 Intake & Output: Intake and Output for Last 24 Hours 09/15/23 09/16/23 09/17/23 23:59 23:59 23:59 Intake Total 1575.67 / 1575.67 627.5 / 627.5 Output Total 900 / 900 300 / 300 Balance 675.67 / 675.67 327.5 / 327.5 Lab / Micro Data 09/17/23 13:45 09/17/23 13:45 Labs: Laboratory Results - last 24 hr 09/16/23 05:41: WBC 9.7, RBC 3.68 L, Hgb 11.9 L, Hct 35.8 L, MCV 97.3, MCH 32.3 H, MCHC 33.2 D, RDW Std Deviation 44.5 H, RDW Coeff of José Miguel 12.4, Plt Count 280, MPV 10.3, Immature Gran % (Auto) 0.300, Neut % (Auto) 75.9 H, Lymph % (Auto) 15.3 L, [place] % (Auto) 6.3, Eos % (Auto) 1.8, Baso % (Auto) 0.4, Absolute Neuts (auto) 7.4, Absolute Lymphs (auto) 1.48, Nucleated RBC % 0, Sodium 136, Potassium 3.9, Chloride 104, Carbon Dioxide 28.0, Anion Gap 4 L, BUN 11, Creatinine 0.40 L, Estim Creat Clear Calc 37.60, Est GFR (MDRD) Af Amer 195, Est GFR (MDRD) Non-Af 161, BUN/Creatinine Ratio 27.4 H, Glucose 213 H, Calcium 8.7, Phosphorus 2.8, Magnesium 1.5 L, Total Bilirubin 0.80, AST 26, ALT 27, Alkaline Phosphatase 153 H, Total Protein 6.3 L, Albumin 3.0 L, Globulin 3.3, Albumin/Globulin Ratio 0.9, TSH 0.51, Blood Type A POSITIVE, Antibody Screen NEGATIVE 09/16/23 12:26: POC Glucose 166 H 09/16/23 14:57: POC Glucose 167 H 09/16/23 15:42: POC Glucose 170 H 09/16/23 18:25: POC Glucose 235 H 09/16/23 20:50: POC Glucose 250 H 09/16/23 23:51: POC Glucose 207 H 09/17/23 06:01: POC Glucose 164 H Radiography Diagnostic Testing: Radiology Impression Echocardiogram 09/15/23 21:20 Interpretation Summary The left ventricular ejection fraction is 65 %. There is moderate biatrial dilatation. Moderately severe (3+) tricuspid valve insufficiency. Right ventricular systolic pressure estimated to be 53 mmHg. Moderate aortic stenosis. Moderate (2+) aortic valve insufficiency. Ordering Physician: Ben Reese Referring Physician: Kashmir Jules Performed By: Jessica Rodriguez, MARBELLA, RVT Hip X-Ray 09/16/23 17:20 IMPRESSION: Status post right total hip replacement with postsurgical changes. Electronically Signed: Shaq Bueno DO at 22:45 EDT Reading Location ID and State: [facility] / [place] Tel [phone], Service support , Rhythm Strip Rhythm Strip: Sinus Rhythm Rate: 70 Ectopy: None Physical Exam Narrative Seen and examined. Patient does not have acute complaint. Moving her bowel. Has dementia does not remember well. Physical exam General: Alert, Oriented x3, Cooperative HEENT: Atraumatic, PERRLA, EOMI, Normocephalic Oral: No Gingival or Mucosal Lesions/ Ulcerations Neck: Supple, No JVD, Negative Carotid Bruits Chest wall/Lungs: Air entry diminished in bilateral lung bases. No crepitation/rhonchi Cardiovascular: Regular rate, Regular Rhythm, Normal S1, Normal S2, loud ejection systolic murmur right second ICS with radiation to carotids, grade 4/6 Abdomen: Bowel Sounds Present, Soft, Non Tender, Non-Distended : No dysuria. No renal angle tenderness. No suprapubic tenderness. Extremities: No edema, Capillary Refill Less than 3 Seconds Skin: No rashes, No breakdown Musculoskeletal: No Tenderness to Palpation of Joints or Extremities Neurological: Cranial nerves II-XII grossly intact, DTR 2+/4. No acute focal neurological deficit. Psych/Mental Status: Flat affect, Alzheimer's dementia Assessment & Plan Assessment/Plan (1) Basicervical fracture of neck of right femur: QUALIFIERS: Encounter type: initial encounter Fracture alignment: nondisplaced Fracture type: closed Qualified Code(s): S72.044A - Nondisplaced fracture of base of neck of right femur, initial encounter for closed fracture (2) Status post coronary artery bypass graft: (3) Dementia: QUALIFIERS: Alzheimer's disease onset: unspecified onset Dementia behavioral or psychological symptom: unspecified whether behavioral, psychotic, or mood disturbance or anxiety Dementia severity: moderate Dementia type: Alzheimer's Qualified Code(s): G30.9 - Alzheimer's disease, unspecified; F02.B0 - Dementia in other diseases classified elsewhere, moderate, without behavioral disturbance, psychotic disturbance, mood disturbance, and anxiety PLAN: Plan Right Hip Fracture s/p mechanical fall. Bedrest and place RLE in 5# House's traction. 09/16: Earlier patient had surgery right hip hemiarthroplasty. Patient was evaluated by neighborhood aide as perioperative evaluation. Moderate risk. Vitamin D is pending. Mild hypomagnesemia: Magnesium replacement ordered. Serum magnesium phosphorus ordered for tomorrow AM. Serum potassium in normal range. Moving her bowel and voiding urine spontaneously. Continue PT and OT. Chronic conditions: History of CAD; s/p CABG with loud murmur. Stable. Echo ordered, but results should not delay surgery. Alzheimer's dementia; living in dementia unit at [facility]. Complicates long-term. Essential hypertension - continue amlodipine, lisinopril DM2: fair control. continue metformin, sitagliptin post operatively HLD: statin Asthma - Stable. Contniue BDs DVT prophylaxis - LLE SCD only for now. Charges/Coding Visit Charges Inpatient E&M: 96928 Subs Hosp L2
[2023-09-17] MEDS: Aspirin 81 MG TAB.CHEW PO (09:53)
[2023-09-17] MEDS: Vibegron 75 MG TABLET PO (09:56)
[2023-09-17] MEDS: Multivitamins,Therapeutic Tablet 1 TABLET PO (09:56)
[2023-09-17] MEDS: Metoprolol Tartrate 100 MG Tablet PO ×2 (09:56→22:47)
[2023-09-17] MEDS: amLODIPine 10 MG Tablet PO (09:57)
[2023-09-17] MEDS: Lisinopril 20 MG Tablet PO ×2 (09:57→22:48)
[2023-09-17] MEDS: Atorvastatin Calcium 20 MG Tablet PO (09:57)
[2023-09-17 12:02] LABS: Bedside Glucose 280 mg/dL (74-106)
[2023-09-17] MEDS: Acetaminophen 500 MG Tablet PO ×2 (12:59→22:51)
[2023-09-17 14:05] LABS: Hematocrit 32.2 % (37-47); Hemoglobin 10.2 g/dL (12.0-15.0); Mean Corp Hgb Conc 31.7 g/dL (32-36); Mean Corpuscular Hgb 31.5 pg (27.0-32.0); Mean Corpuscular Volume 99.4 fL (81-99); Platelet Count 270 K/mm3 (150-450); RBC Distribution Width CV 12.6 % (11.6-14.6); RBC Distribution Width SD 46.2 fl (35.1-43.9); Red Blood Count 3.24 M/mm3 (4.2-5.4)
--- NOTE | 2023-09-17 14:19 | PCM.PN.ORT ---
Subjective Subjective Postop day 1 status post right hip hemiarthroplasty. Patient seen in 308. She is sitting on the recliner comfortable. Pain is well-controlled. Mentions that she was able to stand and put weight with PT. denies dizziness. Objective Data Objective Data Vital Signs: Vital Signs Temp Pulse Resp BP Pulse Ox O2 Del Method O2 Flow Rate 99.2 F H 92 16 129/57 H 99 Nasal Cannula 3 09/17/23 07:48 09/17/23 09:56 09/17/23 07:48 09/17/23 09:56 09/17/23 08:35 09/17/23 10:00 09/17/23 10:00 Oxygen Flow Rate (L/min) 3 Oxygen Delivery Method Nasal Cannula Weight: 105 lb 6.095 oz Body Mass Index (BMI) 19.3 Intake & Output: Intake and Output for Last 24 Hours 09/15/23 09/16/23 09/17/23 23:59 23:59 23:59 Intake Total 1575.67 / 1575.67 927.5 / 927.5 Output Total 900 / 900 550 / 550 Balance 675.67 / 675.67 377.5 / 377.5 Lab / Micro Data 09/17/23 13:45 09/16/23 05:41 Labs: Laboratory Results - last 24 hr 09/16/23 14:57: POC Glucose 167 H 09/16/23 15:42: POC Glucose 170 H 09/16/23 18:25: POC Glucose 235 H 09/16/23 20:50: POC Glucose 250 H 09/16/23 23:51: POC Glucose 207 H 09/17/23 06:01: POC Glucose 164 H 09/17/23 11:43: POC Glucose 280 H 09/17/23 13:45: WBC 10.0, RBC 3.24 L, Hgb 10.2 L, Hct 32.2 L, MCV 99.4 H, MCH 31.5, MCHC 31.7 L, RDW Std Deviation 46.2 H, RDW Coeff of José Miguel 12.6, Plt Count 270, MPV 10.0 Radiography Diagnostic Testing: Radiology Impression Hip X-Ray 09/16/23 17:20 IMPRESSION: Status post right total hip replacement with postsurgical changes. Electronically Signed: Shaq Bueno DO at 22:45 EDT , Rhythm Strip Rhythm Strip: Sinus Rhythm Rate: 70 Ectopy: None Physical Exam Narrative Dressing?CDI. Distal neurovascular exam is intact. Assessment & Plan Assessment/Plan (1) Status post hip hemiarthroplasty: PLAN: Plan Patient doing well. Continue PT OT mobilization. Weightbearing as tolerated. Posterior hip precautions. Abduction pillow while in bed. Avoid narcotics to prevent delirium. Xarelto for DVT prophylaxis. Will continue to follow. Discharge to likely rehab once medically cleared. Spoke to family and answered all questions.
[2023-09-17 14:40] LABS: Anion Gap 9 (5-15); BUN 18 mg/dL (7-18); BUN/Creat Ratio 22.3 RATIO (10-20); Calcium,Total 8.3 mg/dL (8.5-10.1); Chloride 105 mmol/L (98-107); Creatinine, Serum 0.81 mg/dL (0.55-1.02); EST Glomerular Filtration Rate 72 mL/min (>60); Est Glom Filt Rate - Afr Amer 87 mL/min (>60); Estimated Creatinine Clearance 39.01 ml/min; Glucose 384 mg/dL (74-106); Potassium 3.8 mmol/L (3.5-5.1); Sodium Level 139 mmol/L (136-145)
[2023-09-17 16:57] LABS: Bedside Glucose 282 mg/dL (74-106)
[2023-09-17] MEDS: Magnesium Chloride 64 MG Delay Rel.Tablet 128 MG PO ×2 (17:53→22:47)
[2023-09-17 23:26] LABS: Hematocrit 33.3 % (37-47); Mean Corpuscular Hgb 32.4 pg (27.0-32.0); Mean Corpuscular Volume 97.9 fL (81-99); Mean Platelet Vol. 9.7 fl (6.2-12.0); Platelet Count 235 K/mm3 (150-450); RBC Distribution Width CV 12.6 % (11.6-14.6); RBC Distribution Width SD 45.1 fl (35.1-43.9); White Blood Count 10.3 K/mm3 (4.4-11.0)
[2023-09-17 23:44] LABS: Anion Gap 8 (5-15); BUN 12 mg/dL (7-18); BUN/Creat Ratio 26.5 RATIO (10-20); Calcium,Total 8.6 mg/dL (8.5-10.1); Chloride 108 mmol/L (98-107); Creatinine, Serum 0.45 mg/dL (0.55-1.02); EST Glomerular Filtration Rate 140 mL/min (>60); Est Glom Filt Rate - Afr Amer 169 mL/min (>60); Glucose 284 mg/dL (74-106); Magnesium 1.7 mg/dL (1.6-2.6); Potassium 3.6 mmol/L (3.5-5.1); Sodium Level 142 mmol/L (136-145)
[2023-09-17 23:49] LABS: Troponin-I HS 12 pg/mL (3.0-54.0)
[2023-09-18] VITALS (8 sets, daily range): BP systolic 134–169; BP diastolic 52–81; PULSE 64–86; RESP 18; TEMP 36.3–37.2; O2SAT 94–97; BMI 19.3
[2023-09-18] MEDS: Magnesium Sulfate 2 GM in Dextrose 5%-Water (100mL Bag) 100 ML IV (00:24)
[2023-09-18] MEDS: Insulin Lispro 100 UNIT/ML INSULN.PEN SC ×3 (00:24→11:47)
[2023-09-18 00:35] LABS: Bedside Glucose 246 mg/dL (74-106)
[2023-09-18] MEDS: Rivaroxaban 10 MG Tablet PO (05:49)
[2023-09-18] MEDS: Acetaminophen 500 MG Tablet PO ×2 (05:54→13:21)
[2023-09-18 06:25] LABS: Bedside Glucose 206 mg/dL (74-106)
[2023-09-18 06:55] LABS: Magnesium 2.3 mg/dL (1.6-2.6)
[2023-09-18 08:24] LABS: Phosphorus 2.4 mg/dL (2.5-4.9)
[2023-09-18] MEDS: Aspirin 81 MG TAB.CHEW PO (08:47)
[2023-09-18] MEDS: Vibegron 75 MG TABLET PO (08:48)
[2023-09-18] MEDS: Metoprolol Tartrate 100 MG Tablet PO (08:48)
[2023-09-18] MEDS: Atorvastatin Calcium 20 MG Tablet PO (08:48)
[2023-09-18] MEDS: Magnesium Chloride 64 MG Delay Rel.Tablet 128 MG PO (08:50)
[2023-09-18] MEDS: Multivitamins,Therapeutic Tablet 1 TABLET PO (08:51)
[2023-09-18] MEDS: Lisinopril 20 MG Tablet PO (08:51)
[2023-09-18] MEDS: amLODIPine 10 MG Tablet PO (08:51)
[2023-09-18 09:16] LABS: Bedside Glucose 234 mg/dL (74-106)
--- NOTE | 2023-09-18 09:31 | CASEMGMT ---
Addendum entered by Sissy Rinaldi 09/18/23 15:12: SW spoke with pt daughter, Marilyn, who is agreeable with placement to [facility]. JULIANA completed referral to [facility]. Pt was accepted by [facility]. FARHANA Marie Original Note: Social Work- SW called and left vm for pt daughter asking for a return call to discuss placement following d/c. FARHANA Marie
--- NOTE | 2023-09-18 10:57 | NURSING ---
This RN reviewed Vital Signs and Shift assessment findings done by BECKY English
[2023-09-18] MEDS: Glucerna Shake 120 ML LIQUID PO ×2 (11:46→13:20)
[2023-09-18] MEDS: Bisacodyl 5 MG Tablet 10 MG PO (11:46)
[2023-09-18 12:19] LABS: Bedside Glucose 277 mg/dL (74-106)
--- NOTE | 2023-09-18 12:28 | PCM.PN.ORT ---
Subjective Subjective Postop day 2 status post right hip hemiarthroplasty. Patient seen in 308. She is sitting on the recliner comfortable. Mentions of pain in the right anterior thigh. Was able to stand to pivot to chair today. Objective Data Objective Data Vital Signs: Vital Signs Temp Pulse Resp BP Pulse Ox O2 Del Method O2 Flow Rate 98.1 F 74 18 146/52 H 94 Nasal Cannula 1 09/18/23 08:25 09/18/23 08:48 09/18/23 08:25 09/18/23 08:48 09/18/23 09:07 09/18/23 08:25 09/18/23 09:07 Oxygen Flow Rate (L/min) 1 Oxygen Delivery Method Nasal Cannula Weight: 105 lb 2.568 oz Body Mass Index (BMI) 19.3 Intake & Output: Intake and Output for Last 24 Hours 09/16/23 09/17/23 09/18/23 23:59 23:59 23:59 Intake Total 1575.67 / 1575.67 2327.5 / 2327.5 881.67 / 881.67 Output Total 900 / 900 750 / 1475 1125 / 1125 Balance 675.67 / 675.67 1577.5 / 852.5 -243.33 / -243.33 Lab / Micro Data 09/17/23 23:20 09/17/23 23:20 Labs: Laboratory Results - last 24 hr 09/17/23 13:45: WBC 10.0, RBC 3.24 L, Hgb 10.2 L, Hct 32.2 L, MCV 99.4 H, MCH 31.5, MCHC 31.7 L, RDW Std Deviation 46.2 H, RDW Coeff of José Miguel 12.6, Plt Count 270, MPV 10.0, Sodium 139, Potassium 3.8, Chloride 105, Carbon Dioxide 25.0, Anion Gap 9, BUN 18, Creatinine 0.81, Estim Creat Clear Calc 39.01, Est GFR (MDRD) Af Amer 87, Est GFR (MDRD) Non-Af 72, BUN/Creatinine Ratio 22.3 H, Glucose 384 H, Calcium 8.3 L 09/17/23 16:39: POC Glucose 282 H 09/17/23 23:02: POC Glucose 246 H 09/17/23 23:20: WBC 10.3, RBC 3.40 L, Hgb 11.0 L, Hct 33.3 L, MCV 97.9, MCH 32.4 H, MCHC 33.0, RDW Std Deviation 45.1 H, RDW Coeff of José Miguel 12.6, Plt Count 235, MPV 9.7, Sodium 142, Potassium 3.6, Chloride 108 H, Carbon Dioxide 26.0, Anion Gap 8, BUN 12, Creatinine 0.45 L, Estim Creat Clear Calc 39.50, Est GFR (MDRD) Af Amer 169, Est GFR (MDRD) Non-Af 140, BUN/Creatinine Ratio 26.5 H, Glucose 284 H, Calcium 8.6, Phosphorus 2.0 L, Magnesium 1.7, Troponin I High Sens 12 09/18/23 05:24: Phosphorus 2.4 L, Magnesium 2.3 09/18/23 05:46: POC Glucose 206 H 09/18/23 08:30: POC Glucose 234 H 09/18/23 11:43: POC Glucose 277 H Rhythm Strip Rhythm Strip: Sinus Rhythm Rate: 70 Ectopy: None Physical Exam Narrative Dressing?CDI. Distal neurovascular exam is intact. Able to actively dorsiflex and plantarflex ankle and extend knee to some extent. No obvious swelling tenderness or redness seen in the area that she points in the right anterior thigh. Assessment & Plan Assessment/Plan (1) Status post hip hemiarthroplasty: PLAN: Plan Patient doing well. Will observe how she does with this right thigh pain. Continue PT OT mobilization. Weightbearing as tolerated. Posterior hip precautions. Abduction pillow while in bed. Avoid narcotics to prevent delirium. Xarelto for DVT prophylaxis. Will continue to follow. Discharge to likely rehab once medically cleared.
--- NOTE | 2023-09-18 15:06 | TREXTCAR_ITS ---
Diet Diet Order/Speech Therapy: 09/17/23 09:53 Diet: Regular - General Is pt able to select menu?: No Routine Orders/Code Status Suppository Type: Dulcolax 10mg Suppository Frequency: Daily PRN Wound(s) RIGHT HIP: Wound Type: Surgical Incision Therapies Weight Bearing: Weight bearing as tolerated Extremity Affected:: Right Lower Physical Therapy: Eval and Treat Occupational Therapy: Eval and Treat Speech Therapy: Eval and Treat Problem/Diagnosis (1) Status post hip hemiarthroplasty: Status: Acute Code(s): Z96.649 - Presence of unspecified artificial hip joint Plan Right Hip Fracture * s/p mechanical fall. * Bedrest and place RLE in 5# House's traction. 09/16: Earlier patient had surgery right hip hemiarthroplasty. Patient was evaluated by case making machine operator as perioperative evaluation. Moderate risk. Vitamin D is pending. Mild hypomagnesemia: Magnesium replacement ordered. Serum magnesium phosphorus ordered for tomorrow AM. Serum potassium in normal range. Moving her bowel and voiding urine spontaneously. Continue PT and OT. Chronic conditions: * History of CAD; s/p CABG with loud murmur. Stable. Echo ordered, but results should not delay surgery. * Alzheimer's dementia; living in dementia unit [facility]. Complicates long-term. * Essential hypertension - continue amlodipine, lisinopril * DM2: fair control. continue metformin, sitagliptin post operatively * HLD: statin * Asthma - Stable. Contniue BDs DVT prophylaxis - LLE SCD only for now. Allergies/Procedures Done in Hospital Allergies No Known Allergies Allergy (Verified 09/15/23 18:36) Type of Care/Length of Stay Estimated LOS: Convalescent Care Less Than 30 days Type of Care Needed: Skilled Rehab Potential: Good Prognosis: Good Additional Orders/Day of Discharge Day of Discharge: 09/18/23 Dietary and Speech Recommendations Dietitian Recommendations/Changes: When medically able, rec Consistent CHO diet When medically able, rec 4 oz glucerna shake tid to help with surgical healing and to help prevent wt loss if consumed. Discharge Plan Admission Admit Date/Time: 09/15/23 20:48 Primary Reason for Your Visit: Right hip hemiarthroplasty after hip fracture Attending Provider: Fracisco Mirza Primary Care Provider: Kashmir Jules Consulting Providers: Sumit Short; Ben Reese; Angel Luis Sheehan; Walt Rod Discharge Orders/Prescriptions Prescriptions: New insulin lispro [Humalog KwikPen Insulin] 100 unit/mL Insulin Pen See Protocol subcut Q6 Qty: 0 0RF Protocol: 1. Sliding Scale Insulin Low Dosing Condition: 150-224 mg/dl = 1 unit Condition: 225-299 mg/dl = 2 units Condition: 300-374 mg/dl = 3 units Condition: 375-449 mg/dl = 4 units Condition: Greater than 449 call physician Protocol Text: - Use for Total Daily Dose of Insulin 15-27 units - Thin, elderly, renal patients LOW DOSING ALGORITHM Xarelto 10 mg Tablet 10 mg PO DAILY@0600 30 Days Qty: 0 0RF potassium, sodium phosphates 280-160-250 mg Powder In Packet 1 packet PO TID Qty: 0 0RF Continued acetaminophen 325 mg capsule 325 mg PO Q4H PRN (Reason: acute pain due to trauma) acetaminophen 500 mg capsule 500 mg PO Q8 PRN (Reason: pain, unspecifie) multivitamin [Daily Multi-Vitamin] Tablet 1 tab PO DAILY ibuprofen [Advil] 200 mg tablet 200 mg PO Q6H lisinopril 20 mg tablet 20 mg PO BID metformin 1,000 mg tablet 1,000 mg PO BID metoprolol tartrate 100 mg tablet 100 mg PO BID amlodipine 10 mg tablet 10 mg PO DAILY Hemorrhoidal Cream 0.25-1 % cream 1 applic DE Q8H PRN atorvastatin 20 mg tablet 20 mg PO DAILY mirabegron [Myrbetriq] 25 mg tablet extended release 24 hr 25 mg PO DAILY magnesium hydroxide [Milk of Magnesia] 400 mg/5 mL suspension 5 ml PO DAILY PRN (Reason: stomach upset) Januvia 50 mg tablet 50 mg PO DAILY Held aspirin 81 MG tablet,chewable 81 mg PO DAILY@0800 0RF Hold Instructions: Hold it while patient is on rivaroxaban Referrals / Follow Up: Kashmir Jules MD [Primary Care Provider] - Care Physician,No Primary [Non-Staff] - Suimt Short MD [Med Staff - Active Staff] - Within 2 Weeks
--- NOTE | 2023-09-18 15:41 | DS.PCM_ITS ---
Providers Date of Admission: 09/15/23 Date of Discharge: 09/18/23 Primary Care Physician: Dr. Kashmir Jules MD Consultations 09/15/23 21:20 Consult: Orthopedics Routine Consulting Provider: Sumit Short Reason for Consult: Right Hip Fracture after Fall. EMERGENT Consult: No Notified: Yes Date Notified: 09/15/23 Time Notified: 20:55 Method of Notification: ED Physician Initiated 09/16/23 10:25 Consult: Cardiology Routine Consulting Provider: Angel Luis Sheehan Reason for Consult: Cardiac clearance EMERGENT Consult: No Notified: Yes Date Notified: 09/16/23 Time Notified: 10:25 Method of Notification: Verbal Reason For Visit: RIGHT HIP FRACTURE AFTER FALL Diagnosis Discharge Diagnosis (1) Status post hip hemiarthroplasty: Status: Acute Code(s): Z96.649 - Presence of unspecified artificial hip joint Plan Right Hip Fracture * s/p mechanical fall. * Bedrest and place RLE in 5# House's traction. 09/16: Earlier patient had surgery right hip hemiarthroplasty. Patient was evaluated by technical laboratory asst as perioperative evaluation. Moderate risk. Vitamin D is pending. Mild hypomagnesemia: Magnesium replacement ordered. Serum magnesium phosphorus ordered for tomorrow AM. Serum potassium in normal range. Moving her bowel and voiding urine spontaneously. Continue PT and OT. 09/17: Serum magnesium normal. Mild hypophosphatemia. Started on Neutra-Phos and continue the same [facility]. Continue PT and OT. Patient on Xarelto 10 mg daily for DVT prophylaxis for 1 month. Hold aspirin while patient is on Xarelto. Chronic conditions: * History of CAD; s/p CABG with loud murmur. Stable. Echo ordered, but results should not delay surgery. * Alzheimer's dementia; living in dementia unit at [facility]. Complicates long-term. * Essential hypertension - continue amlodipine, lisinopril * DM2: fair control. continue metformin, sitagliptin post operatively * HLD: statin * Asthma - Stable. Contniue BDs DVT prophylaxis -on Xarelto. Discharge medication reconciliation done. Discharge follow-up instructions completed. Discharge process discussed with the patient and all questions were answered to patient's satisfaction. Follow with PCP in 1 to 2 weeks Total time spent, exact 35 minutes on discharge meds reconciliation, examination, coordination of care with nurses and ancillary staff, review of imaging and blood test and discussion with the patient on follow-up instructions. Medications at Discharge Home Medications aspirin 81 mg chewable tablet 81 mg PO DAILY@0800 03/05/19 acetaminophen 325 mg capsule 325 mg PO Q4H PRN acute pain due to trauma 01/27/23 acetaminophen 500 mg capsule 500 mg PO Q8 PRN pain, unspecifie 01/27/23 ibuprofen 200 mg tablet (Advil) 200 mg PO Q6H 01/27/23 lisinopril 20 mg tablet 20 mg PO BID 01/27/23 metformin 1,000 mg tablet 1,000 mg PO BID 01/27/23 metoprolol tartrate 100 mg tablet 100 mg PO BID 01/27/23 multivitamin (Daily Multi-Vitamin tablet) 1 tab PO DAILY 01/27/23 amlodipine 10 mg tablet 10 mg PO DAILY 09/15/23 atorvastatin 20 mg tablet 20 mg PO DAILY 09/15/23 magnesium hydroxide 400 mg/5 mL oral suspension (Milk of Magnesia) 5 ml PO DAILY PRN stomach upset 09/15/23 mirabegron 25 mg tablet,extended release 24 hr (Myrbetriq) 25 mg PO DAILY 09/15/23 phenylephrine 0.25 %-pramoxine 1 %-glycerin-wh.petrolatum rectal cream (Hemorrhoidal Cream) 1 applic DE Q8H PRN 09/15/23 sitagliptin phosphate 50 mg tablet (Januvia) 50 mg PO DAILY 09/15/23 insulin lispro 100 unit/mL subcutaneous pen (Humalog KwikPen (U-100) Insulin) See Protocol subcut Q6 #0 mL 09/18/23 potassium, sodium phosphates 280 mg-160 mg-250 mg oral powder packet 1 packet PO TID #0 ea 09/18/23 rivaroxaban 10 mg tablet (Xarelto) 10 mg PO DAILY@0600 30 days #0 tabs 09/18/23 Physical Exam Narrative Seen and examined. Patient does not have acute complaint. Has dementia does not remember well. Patient stated she did not had bowel movement but unclear.Dulcolax 10 mg 1 dose ordered. Physical exam General: Alert, Oriented x3, Cooperative HEENT: Atraumatic, PERRLA, EOMI, Normocephalic Oral: No Gingival or Mucosal Lesions/ Ulcerations Neck: Supple, No JVD, Negative Carotid Bruits Chest wall/Lungs: Air entry diminished in bilateral lung bases. No crepitation/rhonchi Cardiovascular: Regular rate, Regular Rhythm, Normal S1, Normal S2, loud ejection systolic murmur right second ICS with radiation to carotids, grade 4/6 Abdomen: Bowel Sounds Present, Soft, Non Tender, Non-Distended : No dysuria. No renal angle tenderness. No suprapubic tenderness. Extremities: No edema, Capillary Refill Less than 3 Seconds Skin: No rashes, No breakdown Musculoskeletal: No Tenderness to Palpation of Joints or Extremities Neurological: Cranial nerves II-XII grossly intact, DTR 2+/4. No acute focal neurological deficit. Psych/Mental Status: Flat affect, Alzheimer's dementia Weight / BMI Weight Weight: 105 lb 2.568 oz Body Mass Index (BMI) 19.3 ABG / Lab / Microbiology Data 09/17/23 23:20 09/17/23 23:20 Laboratory: Laboratory Results - last 24 hr 09/17/23 16:39: POC Glucose 282 H 09/17/23 23:02: POC Glucose 246 H 09/17/23 23:20: WBC 10.3, RBC 3.40 L, Hgb 11.0 L, Hct 33.3 L, MCV 97.9, MCH 32.4 H, MCHC 33.0, RDW Std Deviation 45.1 H, RDW Coeff of José Miguel 12.6, Plt Count 235, MPV 9.7, Sodium 142, Potassium 3.6, Chloride 108 H, Carbon Dioxide 26.0, Anion Gap 8, BUN 12, Creatinine 0.45 L, Estim Creat Clear Calc 39.50, Est GFR (MDRD) Af Amer 169, Est GFR (MDRD) Non-Af 140, BUN/Creatinine Ratio 26.5 H, Glucose 284 H, Calcium 8.6, Phosphorus 2.0 L, Magnesium 1.7, Troponin I High Sens 12 09/18/23 05:24: Phosphorus 2.4 L, Magnesium 2.3 09/18/23 05:46: POC Glucose 206 H 09/18/23 08:30: POC Glucose 234 H 09/18/23 11:43: POC Glucose 277 H Microbiology: Microbiology 09/18/23 14:45 Nasal Secretion SARS-CoV-2 Antigen (Rapid) - Final Meaningful Use Info Meaningful Use Meaningful Use Diagnoses (Choose all that apply): None applicable Ischemic Stroke Statin Dosing Therapy Reference: STATIN DOSE THERAPY REFERENCE: * Patients > 75 years receive moderate or high dose statin therapy. * Patients 75 years or YOUNGER should receive HIGH intensity statin dose unless contraindicated. You will be required to document reason for non-treatment if statin daily dose does not meet guidelines. HIGH DOSE STATIN THERAPY DAILY Atorvastatin > than or = to 40 mg Rosuvastatin > than or = to 20 mg Amlodipine + Atorvastatin > than or = to 2.5/40 mg Ezetimibe + Simvastatin 10/80 mg Simvastatin 80mg Discharge Plan Admission Admit Date/Time: 09/15/23 20:48 Primary Reason for Your Visit: Right hip hemiarthroplasty after hip fracture Attending Provider: Fracisco Mirza Primary Care Provider: Kashmir Jules Consulting Providers: Sumit Short; Ben Reese; Angel Luis Sheehan; Walt Rod Discharge Orders/Prescriptions Prescriptions: New insulin lispro [Humalog KwikPen Insulin] 100 unit/mL Insulin Pen See Protocol subcut Q6 Qty: 0 0RF Protocol: 1. Sliding Scale Insulin Low Dosing Condition: 150-224 mg/dl = 1 unit Condition: 225-299 mg/dl = 2 units Condition: 300-374 mg/dl = 3 units Condition: 375-449 mg/dl = 4 units Condition: Greater than 449 call physician Protocol Text: - Use for Total Daily Dose of Insulin 15-27 units - Thin, elderly, renal patients LOW DOSING ALGORITHM Xarelto 10 mg Tablet 10 mg PO DAILY@0600 30 Days Qty: 0 0RF potassium, sodium phosphates 280-160-250 mg Powder In Packet 1 packet PO TID Qty: 0 0RF Continued acetaminophen 325 mg capsule 325 mg PO Q4H PRN (Reason: acute pain due to trauma) acetaminophen 500 mg capsule 500 mg PO Q8 PRN (Reason: pain, unspecifie) multivitamin [Daily Multi-Vitamin] Tablet 1 tab PO DAILY ibuprofen [Advil] 200 mg tablet 200 mg PO Q6H lisinopril 20 mg tablet 20 mg PO BID metformin 1,000 mg tablet 1,000 mg PO BID metoprolol tartrate 100 mg tablet 100 mg PO BID amlodipine 10 mg tablet 10 mg PO DAILY Hemorrhoidal Cream 0.25-1 % cream 1 applic DE Q8H PRN atorvastatin 20 mg tablet 20 mg PO DAILY mirabegron [Myrbetriq] 25 mg tablet extended release 24 hr 25 mg PO DAILY magnesium hydroxide [Milk of Magnesia] 400 mg/5 mL suspension 5 ml PO DAILY PRN (Reason: stomach upset) Januvia 50 mg tablet 50 mg PO DAILY Held aspirin 81 MG tablet,chewable 81 mg PO DAILY@0800 0RF Hold Instructions: Hold it while patient is on rivaroxaban Referrals / Follow Up: Sumit Short MD [Med Staff - Active Staff] - Within 2 Weeks Kashmir Jules MD [Primary Care Provider] - Care Physician,No Primary [Non-Staff] - Charges/Coding Visit Charges Inpatient E&M: 96221 Disch Hosp >30min
--- NOTE | 2023-09-18 16:39 | CASEMGMT ---
Patient is ready for discharge to [facility]. Orders were sent to [facility] via [facility]. JULIANA called [facility] and arranged for patient to get picked up at 530 via cot. JULIANA notified RN and patient's daughter Marilyn. Maryann d/c financial planning assistant notified [facility]. JULIANA completed a 7000 in [facility] system. All in agreement with d/c plan. Plan: d/c to [facility] under skilled level of care on a convalescent stay. [facility] will transport patient via cot. Britney Sifuentes DIETARY SERVICES DIRECTORMary Lou JIANG
--- NOTE | 2023-09-18 17:31 | NURSING ---
Nurse to nurse report given to Jennifer at [facility] in [place].
[2023-09-20 18:02] LABS: Vitamin D,25 Hydroxy 40.5 ng/mL
== END 2023-09-18 17:59 | disposition skilled nursing facility (03) | DRG 522 ==
LOC: ED 20:30 → MS3 20:44
PROVIDERS: Orthopaedic Surgery Orthopaedic Surgery of the Spine; Admitting Provider Internal Medicine; Emergency Provider Emergency Medicine; PCP Internal Medicine; Visit Provider Internal Medicine
PROC: 0SRR019 Replacement of Right Hip Joint, Femoral Surface with Metal Synthetic Substitute, Cemented, Open Approach (ICD-10-PCS; CPT 27125; principal; 2023-09-16 16:00)
DX: S72.041A Displaced fracture of base of neck of right femur, initial encounter for closed fracture (principal); E11.9 Type 2 diabetes mellitus without complications; F02.B0 Dementia in other diseases classified elsewhere, moderate, without behavioral disturbance, psychotic disturbance, mood disturbance, and anxiety; G30.9 Alzheimer's disease, unspecified; J44.9 Chronic obstructive pulmonary disease, unspecified; Z79.4 Long term (current) use of insulin; I10 Essential (primary) hypertension; I35.0 Nonrheumatic aortic (valve) stenosis; I25.10 Atherosclerotic heart disease of native coronary artery without angina pectoris; M19.90 Unspecified osteoarthritis, unspecified site; E78.5 Hyperlipidemia, unspecified; J45.909 Unspecified asthma, uncomplicated; W18.30XA Fall on same level, unspecified, initial encounter; E83.42 Hypomagnesemia; Y92.129 Unspecified place in nursing home as the place of occurrence of the external cause; N32.81 Overactive bladder; Z66 Do not resuscitate; Z79.82 Long term (current) use of aspirin; Z79.84 Long term (current) use of oral hypoglycemic drugs; Z79.899 Other long term (current) drug therapy; Z99.3 Dependence on wheelchair; Z95.1 Presence of aortocoronary bypass graft
CPT/HCPCS: 36415; 71045; 73502; 73700; 80048; 80053; 81001; 82306; 82962; 83735; 84100; 84443; 84484; 85025; 85027; 86850; 86900; 86901; 87811; 88305; 88311; 88341; 88342; 93005; 93306; 94668; 97162; 97167; 97530; 97802; 99283; C1776; J7030; A4216; J2405

== ENCOUNTER → 2023-10-09 | Outpatient (REF) | payer MEDICARE, OTHER, SELFPAY ==
[2023-10-09 07:18] LABS: Absolute Lymphocyte Count 1.68 X10^3/uL (0.83-4.51); Basophil# 0.03 X10^3/uL; Basophil% 0.4 % (0-1); Eosinophil# 0.24 X10^3/uL; Eosinophils% 3.2 % (0-5); Hemoglobin 10.7 g/dL (12.0-15.0); Lymphocyte # 1.68 X10^3/ul (0.83-4.51); Lymphocyte % 22.3 % (19-41); Mean Corp Hgb Conc 30.6 g/dL (32-36); Mean Corpuscular Hgb 32.8 pg (27.0-32.0); Mean Corpuscular Volume 107.4 fL (81-99); Monocyte# 0.57 X10^3/uL; Monocyte% 7.5 % (0-10); NRBC Flagged by Analyzer 0 % (0-5); Neutrophil # 4.99 X10^3/uL (2.7-7.7); Neutrophil % 66.1 % (47-70); Platelet Count 345 K/mm3 (150-450); RBC Distribution Width CV 14.4 % (11.6-14.6); RBC Distribution Width SD 55.9 fl (35.1-43.9); Red Blood Count 3.26 M/mm3 (4.2-5.4); White Blood Count 7.6 K/mm3 (4.4-11.0)
[2023-10-09 07:32] LABS: Anion Gap 6 (5-15); BUN 22 mg/dL (7-18); Calcium,Total 8.8 mg/dL (8.5-10.1); Chloride 113 mmol/L (98-107); Creatinine, Serum 0.65 mg/dL (0.55-1.02); EST Glomerular Filtration Rate 93 mL/min (>60); Est Glom Filt Rate - Afr Amer 112 mL/min (>60); Glucose 98 mg/dL (74-106); Potassium 5.1 mmol/L (3.5-5.1); Sodium Level 139 mmol/L (136-145)
== END ==
LOC: OLS.WHLTCC 05:00
PROVIDERS: PCP Internal Medicine; Visit Provider Internal Medicine
DX: E11.9 Type 2 diabetes mellitus without complications (principal)
CPT/HCPCS: 36415; 80048; 85025

== ENCOUNTER → 2023-10-11 | Outpatient (REF) | payer MEDICARE, OTHER, SELFPAY | LOC: OLS.WHLTCC 14:00 | PROVIDERS: PCP Internal Medicine; Visit Provider Internal Medicine | DX: N39.0 Urinary tract infection, site not specified (principal) | CPT/HCPCS: 87086 ==

== ENCOUNTER → 2023-11-13 | Outpatient (REF) | payer MEDICARE, OTHER, SELFPAY ==
[2023-11-13 10:00] LABS: Absolute Lymphocyte Count 1.52 X10^3/uL (0.83-4.51); Absolute Neutrophil Count 4.1 X10^3/uL (2.0-7.7); Basophil# 0.05 X10^3/uL; Basophil% 0.8 % (0-1); Eosinophil# 0.32 X10^3/uL; Eosinophils% 4.8 % (0-5); Hematocrit 31.6 % (37-47); Hemoglobin 9.6 g/dL (12.0-15.0); Lymphocyte # 1.52 X10^3/ul (0.83-4.51); Mean Corp Hgb Conc 30.4 g/dL (32-36); Mean Corpuscular Volume 105.3 fL (81-99); Mean Platelet Vol. 9.8 fl (6.2-12.0); Monocyte# 0.61 X10^3/uL; Monocyte% 9.2 % (0-10); NRBC Flagged by Analyzer 0 % (0-5); Neutrophil # 4.08 X10^3/uL (2.7-7.7); Neutrophil % 61.9 % (47-70); Platelet Count 313 K/mm3 (150-450); RBC Distribution Width CV 13.6 % (11.6-14.6); RBC Distribution Width SD 52.8 fl (35.1-43.9); White Blood Count 6.6 K/mm3 (4.4-11.0)
[2023-11-13 10:33] LABS: Anion Gap 5 (5-15); BUN 16 mg/dL (7-18); BUN/Creat Ratio 37.3 RATIO (10-20); Calcium,Total 9.1 mg/dL (8.5-10.1); Chloride 108 mmol/L (98-107); Creatinine, Serum 0.43 mg/dL (0.55-1.02); EST Glomerular Filtration Rate 149 mL/min (>60); Est Glom Filt Rate - Afr Amer 180 mL/min (>60); Glucose 69 mg/dL (74-106); Potassium 4.3 mmol/L (3.5-5.1); Sodium Level 140 mmol/L (136-145)
== END ==
LOC: OLS.WHLTSB 04:00
PROVIDERS: PCP Internal Medicine; Referring Provider Internal Medicine; Visit Provider Internal Medicine
DX: E11.9 Type 2 diabetes mellitus without complications (principal)
CPT/HCPCS: 36415; 80048; 85025

== ENCOUNTER → 2023-11-20 | Outpatient (REF) | payer MEDICARE, OTHER, SELFPAY ==
[2023-11-20 08:25] LABS: AST(SGOT) 22 U/L (15-37); Alanine Aminotransfer ALT/SGPT 17 U/L (13-56); Alkaline Phosphatase 116 U/L (45-117); Bilirubin, Direct 0.13 mg/dL (0.00-0.30); Cholesterol 168 mg/dL (200); Globulin 3.2 g/dL (2.2-4.2); High Density Lipoprotein 45 mg/dL; Protein, Total 6.2 g/dL (6.4-8.2); Triglycerides 172 mg/dL; Very Low Density Lipoprotein 34 mg/dL (5-40)
[2023-11-20 18:45] LABS: Hemoglobin A1c 5.9 % (3.8-5.6)
== END ==
LOC: OLS.WHLTSB 04:00
PROVIDERS: PCP Internal Medicine; Visit Provider Internal Medicine
DX: E11.9 Type 2 diabetes mellitus without complications (principal); E87.6 Hypokalemia; R05.1 Acute cough; M62.561 Muscle wasting and atrophy, not elsewhere classified, right lower leg; M62.562 Muscle wasting and atrophy, not elsewhere classified, left lower leg
CPT/HCPCS: 36415; 80061; 80076; 83036

== ENCOUNTER → 2023-11-27 | Outpatient (REF) | payer MEDICARE, OTHER, SELFPAY ==
[2023-11-27 08:42] LABS: Absolute Lymphocyte Count 1.75 X10^3/uL (0.83-4.51); Absolute Neutrophil Count 3.5 X10^3/uL (2.0-7.7); Basophil# 0.04 X10^3/uL; Basophil% 0.6 % (0-1); Eosinophil# 0.57 X10^3/uL; Eosinophils% 8.8 % (0-5); Hematocrit 33.9 % (37-47); Hemoglobin 10.4 g/dL (12.0-15.0); Lymphocyte # 1.75 X10^3/ul (0.83-4.51); Mean Corp Hgb Conc 30.7 g/dL (32-36); Mean Corpuscular Volume 104.3 fL (81-99); Mean Platelet Vol. 9.9 fl (6.2-12.0); Monocyte# 0.56 X10^3/uL; Monocyte% 8.7 % (0-10); NRBC Flagged by Analyzer 0 % (0-5); Neutrophil # 3.53 X10^3/uL (2.7-7.7); Neutrophil % 54.6 % (47-70); POSITIVE MORPHOLOGY YES; Platelet Count 323 K/mm3 (150-450); RBC Distribution Width CV 12.9 % (11.6-14.6); RBC Distribution Width SD 49.8 fl (35.1-43.9); Red Blood Count 3.25 M/mm3 (4.2-5.4); White Blood Count 6.5 K/mm3 (4.4-11.0)
[2023-11-27 08:44] LABS: Differential Indicated SCAN CRITERIA MET
[2023-11-27 08:59] LABS: Anion Gap 5 (5-15); BUN 12 mg/dL (7-18); BUN/Creat Ratio 23.8 RATIO (10-20); Calcium,Total 9.2 mg/dL (8.5-10.1); Chloride 108 mmol/L (98-107); EST Glomerular Filtration Rate 123 mL/min (>60); Est Glom Filt Rate - Afr Amer 149 mL/min (>60); Glucose 86 mg/dL (74-106); Potassium 4.7 mmol/L (3.5-5.1); Sodium Level 142 mmol/L (136-145)
[2023-11-27 09:25] LABS: Atypical Lymphocyte 1+ %; Differential Comment SCANNED
== END ==
LOC: OLS.WHLTSB 04:00
PROVIDERS: PCP Internal Medicine; Referring Provider Internal Medicine; Visit Provider Internal Medicine
DX: E11.9 Type 2 diabetes mellitus without complications (principal)
CPT/HCPCS: 36415; 80048; 85025

== ENCOUNTER → 2023-12-25 04:00 | Outpatient (REF) | payer MEDICARE, OTHER, SELFPAY ==
[2023-12-25 07:33] LABS: Absolute Neutrophil Count 3.7 X10^3/uL (2.0-7.7); Basophil# 0.05 X10^3/uL; Basophil% 0.8 % (0-1); Eosinophil# 0.33 X10^3/uL; Eosinophils% 5.4 % (0-5); Hematocrit 33.6 % (37-47); Hemoglobin 10.4 g/dL (12.0-15.0); Mean Corpuscular Hgb 31.9 pg (27.0-32.0); Mean Corpuscular Volume 103.1 fL (81-99); Mean Platelet Vol. 10.1 fl (6.2-12.0); Monocyte# 0.43 X10^3/uL; NRBC Flagged by Analyzer 0 % (0-5); Neutrophil # 3.73 X10^3/uL (2.7-7.7); Neutrophil % 60.6 % (47-70); Platelet Count 293 K/mm3 (150-450); RBC Distribution Width SD 46.2 fl (35.1-43.9); Red Blood Count 3.26 M/mm3 (4.2-5.4); White Blood Count 6.2 K/mm3 (4.4-11.0)
[2023-12-25 08:03] LABS: AST(SGOT) 18 U/L (15-37); Alanine Aminotransfer ALT/SGPT 20 U/L (13-56); Albumin, Serum 2.9 g/dL (3.2-5.0); Alkaline Phosphatase 114 U/L (45-117); Anion Gap 5 (5-15); BUN 14 mg/dL (7-18); BUN/Creat Ratio 25.7 RATIO (10-20); Bilirubin, Direct 0.07 mg/dL (0.00-0.30); Calcium,Total 8.9 mg/dL (8.5-10.1); Chloride 111 mmol/L (98-107); Cholesterol 148 mg/dL (200); Creatinine, Serum 0.54 mg/dL (0.55-1.02); EST Glomerular Filtration Rate 113 mL/min (>60); Est Glom Filt Rate - Afr Amer 137 mL/min (>60); Globulin 3.3 g/dL (2.2-4.2); Glucose 92 mg/dL (74-106); High Density Lipoprotein 41 mg/dL; Potassium 4.2 mmol/L (3.5-5.1); Protein, Total 6.2 g/dL (6.4-8.2); Sodium Level 142 mmol/L (136-145); Triglycerides 187 mg/dL; Very Low Density Lipoprotein 37 mg/dL (5-40)
[2023-12-25 08:14] LABS: Hemoglobin A1c 6.1 % (3.8-5.6)
== END ==
LOC: OLS.WHLTSB 04:00
PROVIDERS: PCP Internal Medicine; Visit Provider Internal Medicine
DX: E11.9 Type 2 diabetes mellitus without complications (principal); E87.6 Hypokalemia
CPT/HCPCS: 36415; 80048; 80061; 80076; 83036; 85025

== ENCOUNTER → 2024-01-22 05:00 | Outpatient (REF) | payer MEDICARE, OTHER, SELFPAY ==
[2024-01-22 09:11] LABS: Absolute Lymphocyte Count 1.84 X10^3/uL (0.83-4.51); Absolute Neutrophil Count 3.2 X10^3/uL (2.0-7.7); Basophil# 0.02 X10^3/uL; Basophil% 0.3 % (0-1); Eosinophil# 0.42 X10^3/uL; Hematocrit 34.1 % (37-47); Hemoglobin 10.3 g/dL (12.0-15.0); Lymphocyte # 1.84 X10^3/ul (0.83-4.51); Lymphocyte % 30.6 % (19-41); Mean Corp Hgb Conc 30.2 g/dL (32-36); Mean Corpuscular Hgb 30.8 pg (27.0-32.0); Mean Corpuscular Volume 102.1 fL (81-99); Monocyte# 0.51 X10^3/uL; Monocyte% 8.5 % (0-10); NRBC Flagged by Analyzer 0 % (0-5); Neutrophil # 3.22 X10^3/uL (2.7-7.7); Neutrophil % 53.4 % (47-70); Platelet Count 277 K/mm3 (150-450); RBC Distribution Width SD 44.9 fl (35.1-43.9); Red Blood Count 3.34 M/mm3 (4.2-5.4)
[2024-01-22 09:28] LABS: AST(SGOT) 25 U/L (15-37); Alanine Aminotransfer ALT/SGPT 17 U/L (13-56); Alkaline Phosphatase 104 U/L (45-117); Anion Gap 8 (5-15); BUN 12 mg/dL (7-18); BUN/Creat Ratio 24.8 RATIO (10-20); Bilirubin, Direct 0.13 mg/dL (0.00-0.30); Calcium,Total 9.3 mg/dL (8.5-10.1); Chloride 106 mmol/L (98-107); Cholesterol 153 mg/dL (200); Creatinine, Serum 0.48 mg/dL (0.55-1.02); EST Glomerular Filtration Rate 130 mL/min (>60); Est Glom Filt Rate - Afr Amer 157 mL/min (>60); Glucose 77 mg/dL (74-106); High Density Lipoprotein 45 mg/dL; Potassium 4.1 mmol/L (3.5-5.1); Sodium Level 141 mmol/L (136-145); Triglycerides 159 mg/dL; Very Low Density Lipoprotein 32 mg/dL (5-40)
[2024-01-22 10:45] LABS: Hemoglobin A1c 6.5 % (3.8-5.6)
== END ==
LOC: OLS.WHLTSB 05:00
PROVIDERS: PCP Internal Medicine; Visit Provider Internal Medicine
DX: E11.9 Type 2 diabetes mellitus without complications (principal); E87.6 Hypokalemia
CPT/HCPCS: 36415; 80048; 80061; 80076; 83036; 85025

== ENCOUNTER → 2024-03-25 | Outpatient (REF) | payer MEDICARE, OTHER, SELFPAY ==
[2024-03-25 06:55] LABS: Absolute Lymphocyte Count 1.54 X10^3/uL (0.83-4.51); Absolute Neutrophil Count 3.7 X10^3/uL (2.0-7.7); Basophil# 0.04 X10^3/uL; Basophil% 0.6 % (0-1); Eosinophil# 0.39 X10^3/uL; Eosinophils% 6.2 % (0-5); Hematocrit 34.6 % (37-47); Hemoglobin 10.9 g/dL (12.0-15.0); Lymphocyte # 1.54 X10^3/ul (0.83-4.51); Lymphocyte % 24.4 % (19-41); Mean Corp Hgb Conc 31.5 g/dL (32-36); Mean Corpuscular Hgb 31.9 pg (27.0-32.0); Mean Corpuscular Volume 101.2 fL (81-99); Mean Platelet Vol. 10.4 fl (6.2-12.0); Monocyte# 0.65 X10^3/uL; Monocyte% 10.3 % (0-10); NRBC Flagged by Analyzer 0 % (0-5); Neutrophil # 3.67 X10^3/uL (2.7-7.7); Neutrophil % 58.2 % (47-70); Platelet Count 237 K/mm3 (150-450); RBC Distribution Width CV 12.7 % (11.6-14.6); RBC Distribution Width SD 47.4 fl (35.1-43.9); Red Blood Count 3.42 M/mm3 (4.2-5.4); White Blood Count 6.3 K/mm3 (4.4-11.0)
[2024-03-25 07:09] LABS: ALB/GLOB Ratio 0.9 RATIO (0.9-2.4); AST(SGOT) 23 U/L (15-37); Alanine Aminotransfer ALT/SGPT 30 U/L (13-56); Albumin, Serum 2.9 g/dL (3.2-5.0); Alkaline Phosphatase 116 U/L (45-117); Anion Gap 3 (5-15); BUN 16 mg/dL (7-18); BUN/Creat Ratio 29.6 RATIO (10-20); Chloride 109 mmol/L (98-107); Cholesterol 164 mg/dL (200); Creatinine, Serum 0.54 mg/dL (0.55-1.02); EST Glomerular Filtration Rate 114 mL/min (>60); Est Glom Filt Rate - Afr Amer 138 mL/min (>60); Globulin 3.1 g/dL (2.2-4.2); Glucose 96 mg/dL (74-106); High Density Lipoprotein 43 mg/dL; Potassium 3.9 mmol/L (3.5-5.1); Sodium Level 140 mmol/L (136-145); Triglycerides 135 mg/dL; Very Low Density Lipoprotein 27 mg/dL (5-40)
[2024-03-25 08:30] LABS: Hemoglobin A1c 8.1 % (3.8-5.6)
== END ==
LOC: OLS.WHLTSB 05:00
PROVIDERS: PCP Internal Medicine; Visit Provider Internal Medicine
DX: E11.9 Type 2 diabetes mellitus without complications (principal)
CPT/HCPCS: 36415; 80053; 80061; 83036; 85025

== ENCOUNTER 2024-06-23 16:57 | Emergency (ER) | payer MEDICARE, OTHER, SELFPAY ==
[2024-06-23 16:58] VITALS: BP 186/78; PULSE 72; RESP 16; TEMP 36; O2SAT 93; BMI 21.4
--- NOTE | 2024-06-23 17:09 | EX.ED.DYSGE1 ---
HPI <NICK Bryson - Last Filed: 06/23/24 20:35> History of Present Illness Chief Complaint: Fall Narrative Narrative: Patient is an 84-year-old female who has history of dementia, who lives in a dementia care unit. Patient using is around by walker, falling to her left side today. Patient is a DNR CC. Most the pain is to the patient's left hip and back. Patient is currently not on any blood thinners. Other past medical history is hypertension hyperlipidemia diabetes. PFS <NICK Bryson - Last Filed: 06/23/24 20:35> [facility] Medical History COPD (chronic obstructive pulmonary disease) Dementia DM2 (diabetes mellitus, type 2) SVT (supraventricular tachycardia) Diabetes Hyperlipidemia Coronary artery disease Hypertension Home Medications ?Medication ?Instructions ?Recorded ?Last Taken ?Type aspirin 81 mg chewable tablet 81 mg PO DAILY@0800 03/05/19 Unknown Rx acetaminophen 325 mg capsule 325 mg PO Q4H PRN acute pain due 01/27/23 Unknown History to trauma acetaminophen 500 mg capsule 500 mg PO Q8 PRN pain, unspecifie 01/27/23 Unknown History ibuprofen 200 mg tablet (Advil) 200 mg PO Q6H 01/27/23 Unknown History lisinopril 20 mg tablet 20 mg PO BID 01/27/23 Unknown History metoprolol tartrate 100 mg tablet 100 mg PO BID 01/27/23 Unknown History multivitamin (Daily Multi-Vitamin 1 tab PO DAILY 01/27/23 Unknown History tablet) amlodipine 10 mg tablet 5 mg PO DAILY 09/15/23 Unknown History atorvastatin 20 mg tablet 20 mg PO DAILY 09/15/23 Unknown History magnesium hydroxide 400 mg/5 mL 5 ml PO DAILY PRN stomach upset 09/15/23 Unknown History oral suspension (Milk of Magnesia) mirabegron 25 mg tablet,extended 25 mg PO DAILY 09/15/23 Unknown History release 24 hr (Myrbetriq) phenylephrine 0.25 %-pramoxine 1 1 applic [place] Q8H PRN 09/15/23 Unknown History %-glycerin-wh.petrolatum rectal cream (Hemorrhoidal Cream) sitagliptin phosphate 50 mg tablet 50 mg PO DAILY 09/15/23 Unknown History (Enriqueuvia) insulin lispro 100 unit/mL See Protocol subcut Q6 #0 mL 09/18/23 Unknown Rx subcutaneous pen (Humalog KwikPen (U-100) Insulin) potassium, sodium phosphates 280 1 packet PO TID #0 ea 09/18/23 Unknown Rx mg-160 mg-250 mg oral powder packet oxycodone 5 mg tablet 2.5 mg (1/2 x 5 mg) PO DAILY pain 06/17/24 Unknown Rx 30 days #30 tabs Allergy/AdvReac Type Severity Reaction Status Date / Time No Known Allergies Allergy Verified 10/05/23 09:10 Surgical History History of quadruple bypass History of intestinal surgery Social History household members: family housing: house Smoking Status: Never smoker ROS <NICK Bryson - Last Filed: 06/23/24 20:35> ROS ED ROS Narrative Constitutional: Negative for fever, chills, weight loss, weakness Eyes: Negative for vision loss, vision change, double vision ENT: Negative for any sore throat, ear pain, congestion Cardiovascular: Negative for any chest pain, tightness, palpitations Respiratory: Negative for any cough, sputum production, hemoptysis, dyspnea, dyspnea on exertion, orthopnea Gastrointestinal: Negative for any abdominal pain, nausea, vomiting, diarrhea, constipation, blood in stool, blood in vomit : Negative for any urinary frequency, dysuria, retention, blood in urine Muscle skeletal: Negative for any neck pain. Positive for pain to the lower back, left hip Neurological: Negative for any headache, syncope, dizziness Skin: Negative for any rashes, itching, abrasions, lacerations Psychiatric: Negative for any depression, anxiety, stress, suicidal ideation, homicidal ideation Hematologic: Negative for any excessive bruising, easy bleeding EXAM <NICK Bryson - Last Filed: 06/23/24 20:35> Physical Exam Narrative Exam Narrative: Vital signs reviewed. Patient is alert and orient x 1 which is baseline HEET: Head normocephalic atraumatic, TMs clear bilaterally. Posterior pharynx is clear, moist mucous membranes. Nares clear bilaterally. Neck: Supple with no lymphadenopathy or tenderness. No signs of meningismus. Cardiac: Regular rate and rhythm no murmurs gallops or rubs, equal peripheral pulses bilaterally. Respiratory: Lungs clear to auscultation bilaterally. No chest tenderness. Abdomen: Soft, nontender, nondistended. No abdominal bruit or pulsatile masses. No hepatosplenomegaly Extremities: Patient is sitting on her back, both of her legs are flexed at the knees. I was able to move the left and right leg, flexing and extending. Patient states she was in no pain however patient did look to be in pain more when I move the left leg. Some pain in the lower lumbar spine on palpation. Neurological: Negative for any new confusion, no neurological focal deficits. Skin: Clean dry and intact with no rash, purpura, petechiae, vesicles or pustules. Backs/flank: No CVA tenderness, no midline spinal tenderness, no deformity. Psych: Normal mood and affect. No SI, HI or acute psychosis. Const Vital Signs: 06/23/24 16:58 06/23/24 17:03 06/23/24 19:12 Temperature 96.8 F L Temperature Source Temporal Pulse Rate 72 84 Respiratory Rate 16 15 Respiratory Effort Normal Blood Pressure 186/78 H 109/86 H Blood Pressure Mean 114 93 Pulse Ox 93 97 Oxygen Delivery Method Room Air Positive cachectic General Appearance ED: cachectic Nutritional Appearance: cachectic <Dr. Arnel Katz MD - Last Filed: 06/23/24 20:57> Physical Exam Const Vital Signs: 06/23/24 16:58 06/23/24 17:03 06/23/24 19:12 Temperature 96.8 F L Temperature Source Temporal Pulse Rate 72 84 Respiratory Rate 16 15 Respiratory Effort Normal Blood Pressure 186/78 H 109/86 H Blood Pressure Mean 114 93 Pulse Ox 93 97 Oxygen Delivery Method Room Air MDM <NICK Bryson - Last Filed: 06/23/24 20:35> MDM Radiography Diagnostic Testing: Clinical Impression(s) from Imaging Studies Hip/Pelvis X-Ray 06/23/24 17:25 IMPRESSION: 1. No acute fracture or dislocation. 2. Prior right hip arthroplasty and bilateral sacroiliac screws. Reading Location: [facility] Lumbar Spine X-Ray 06/23/24 17:25 IMPRESSION: Chronic appearing compression fracture of the superior endplate of L4. Clinical correlation is recommended. If there is concern for acute fracture, consider a CT of the lumbar spine for further assessment. Reading Location: [facility] Lower Extremity CT 06/23/24 19:40 IMPRESSION: 1. No acute fracture of the right hip. 2. Right total hip arthroplasty present in satisfactory alignment. 3. Abnormal thickening of the left lateral wall of the urinary bladder, which is partially visualized. A dedicated CT of the abdomen and pelvis with contrast is recommended for complete assessment. Reading Location: [facility] Treatment and Re-Evaluation :: Differential diagnosis includes however is not limited to: Hip fracture, pelvic fracture, hip contusion, pelvic contusion, lumbar fracture lumbar contusion Patient appears generally well, vital signs are stable, patient is nontoxic-appearing. Presenting to the emergency department after mechanical fall from the dementia care unit, landing on the left hip. Patient will receive x-rays of the left hip, lower lumbar spine. There is no evidence, no HPI of head injury. All radiologic examinations were read, reviewed by the emergency department attending. From these reads, a plan of care will be put in place. Oral Tylenol given. Patient's lumbar x-ray shows chronic appearing compression fracture of the superior endplate of L4. Patient's hip and pelvis x-ray shows no acute fracture or dislocation. Prior right hip arthroplasty and bilateral sacroiliac screws. Secondary to this finding, there is some irregularity that we are seeing. We are currently trying to speak with the radiologist and the orthopedic who performed the patient's hip replacement in 2023. Patient was able to stand however was unable to walk. We were able to talk to the radiologist as well as the orthopedic. They recommended a CT scan of the right hip, this is where the patient was having some pain with ambulation as well as some abnormalities along the x-rays. CT scan was negative for any acute fracture. At this time, do we have the patient stable for discharge. Patient will continue to use the walker, taking Tylenol for home. All questions were answered, patient stable for discharge. <Dr. Arnel Katz MD - Last Filed: 06/23/24 20:57> [facility] MDM Narrative Medical decision making narrative: I have personally performed a face to face assessment of the patient and have reviewed the JAMISON Note. I performed a substantive portion of the visit including all aspects of the following. My diana findings include: History is [facility]. There is unwitnessed fall. Patient complaining of hip pain. Patient's history is limited due to the fact that she has dementia. She is complaining of bilateral hip pain. There is no shortening of either leg. She denies pain with internal/external rotation. She moves her legs. There is no evidence of head trauma. Exam is x-ray of the right and left hip were obtained. Patient has radiolucency noted the goes into the acetabulum medial side of the joint. There does not appear to be any movement of the acetabular cup or femoral head when compared to prior x-rays. There is area of radiolucency that was noted on the upshot view was not noted September 2023 when she had her postop x-rays obtained. She complains of pain with weightbearing. Medical Decision Making x-rays were obtained to determine if there is a fracture. X-ray revealed prosthesis on the right i.e. total hip arthroplasty. Left appears normal. After discussing case with Dr. Wynn and the radiologist we will obtain a CT to rule out fracture. CT does not reveal fracture per my review. Formal read is negative for fracture. Other additions or changes: [None] Radiography Chest X-Ray - ED: 2 View (2 view x-ray of the lumbar spine reveals screws for probable SI pathology sacral fracture. There appears to be pression of L4 on the PA view. There is chronic arthritic changes noted as well. There is evidence of a artificial right hip. This is not seen completely. The lateral view reveals calc), Read by ED Physician (There is no acute fracture of the sacrum, inferior pubic or superior pubic rami. The pubic symphysis appears normal. There is significant arthritic changes of the left hip joint. These were independent reviewed interpreted by me.) and - (6 views of the right and left hip were obtained. There is arthritic changes noted of the left hip joint. There is no evidence of fracture on the left. There is question of possible fracture involving the acetabulum on the right. A upshot view was obtained and when compared to x-ray obtained September ) Diagnostic Testing: Clinical Impression(s) from Imaging Studies Hip/Pelvis X-Ray 06/23/24 17:25 IMPRESSION: 1. No acute fracture or dislocation. 2. Prior right hip arthroplasty and bilateral sacroiliac screws. Reading Location: [facility] Lumbar Spine X-Ray 06/23/24 17:25 IMPRESSION: Chronic appearing compression fracture of the superior endplate of L4. Clinical correlation is recommended. If there is concern for acute fracture, consider a CT of the lumbar spine for further assessment. Reading Location: [facility] Lower Extremity CT 06/23/24 19:40 IMPRESSION: 1. No acute fracture of the right hip. 2. Right total hip arthroplasty present in satisfactory alignment. 3. Abnormal thickening of the left lateral wall of the urinary bladder, which is partially visualized. A dedicated CT of the abdomen and pelvis with contrast is recommended for complete assessment. Reading Location: [facility] Discharge Plan Triage Chief Complaint: Fall ED Midlevel Provider: Bernard Greene ED Provider: Arnel Katz Dx/Rx/DC Orders Clinical Impression: Fall, Dementia, Acute pain of right hip, Lumbar contusion, Closed compression fracture of L4 vertebra Instructions: Exercises to Prevent Falls, ED Contusion, Lower Extremity, ED Fall with Uncertain Cause Prescriptions: No Action aspirin 81 MG tablet,chewable 81 mg PO DAILY@0800 0RF acetaminophen 325 mg capsule 325 mg PO Q4H PRN (Reason: acute pain due to trauma) acetaminophen 500 mg capsule 500 mg PO Q8 PRN (Reason: pain, unspecifie) multivitamin [Daily Multi-Vitamin] Tablet 1 tab PO DAILY ibuprofen [Advil] 200 mg tablet 200 mg PO Q6H lisinopril 20 mg tablet 20 mg PO BID metoprolol tartrate 100 mg tablet 100 mg PO BID amlodipine 10 mg tablet 5 mg PO DAILY Hemorrhoidal Cream 0.25-1 % cream 1 applic [place] Q8H PRN atorvastatin 20 mg tablet 20 mg PO DAILY mirabegron [Myrbetriq] 25 mg tablet extended release 24 hr 25 mg PO DAILY magnesium hydroxide [Milk of Magnesia] 400 mg/5 mL suspension 5 ml PO DAILY PRN (Reason: stomach upset) Januvia 50 mg tablet 50 mg PO DAILY insulin lispro [Humalog KwikPen Insulin] 100 unit/mL Insulin Pen See Protocol subcut Q6 Qty: 0 0RF Protocol: 1. Sliding Scale Insulin Low Dosing Condition: 150-224 mg/dl = 1 unit Condition: 225-299 mg/dl = 2 units Condition: 300-374 mg/dl = 3 units Condition: 375-449 mg/dl = 4 units Condition: Greater than 449 call physician Protocol Text: - Use for Total Daily Dose of Insulin 15-27 units - Thin, elderly, renal patients LOW DOSING ALGORITHM potassium, sodium phosphates 280-160-250 mg Powder In Packet 1 packet PO TID Qty: 0 0RF oxycodone 5 mg tablet 2.5 mg PO DAILY 30 Days Qty: 30 0RF Primary Care Provider: Kashmir Jules Referrals: Kashmir Jules MD [Primary Care Provider] - Activity Restrictions/Additional Instructions: You received x-rays as well as CT scan of your hips, this was negative for any fracture. Use Tylenol, use the walker. Print Language: Maltese Disposition Disposition: Home, Self Care
--- NOTE | 2024-06-23 17:25 | RAD_ITS ---
PROCEDURE: LUMBAR SPINE 2 OR 3 VIEWS REASON FOR EXAM: Lower back pain TECHNIQUE: 2 view(s) of the lumbar spine COMPARISON: October 05, 2023 FINDINGS: There is a chronic appearing compression fracture of the superior endplate of L4 with loss in a proximally 60% of vertebral body height and mild retropulsion. The bones are diffusely osteopenic. There are screws traversing the sacroiliac joints bilaterally. A right hip arthroplasty is partially visualized. There are mild multilevel degenerative changes with endplate spurring. Degenerative facet disease is greatest at L4-5 and L5-S1. Diffuse atherosclerotic calcifications are noted in the abdominal aorta. RAD/Lumbar Spine 2 or 3 Views IMPRESSION: Chronic appearing compression fracture of the superior endplate of L4. Clinica l correlation is recommended. If there is concern for acute fracture, consider a CT of the lumbar spine for further assessment. Reading Location: [facility]
--- NOTE | 2024-06-23 17:25 | RAD_ITS ---
PROCEDURE: HIP, UNI W/ PELVIS 2-3 VIEWS REASON FOR EXAM: Fall TECHNIQUE: Multiple views of the pelvis and bilateral hips. COMPARISON: 10/05/2023 FINDINGS: No fracture. No suspicious bone lesion. The bones are diffusely osteopenic. 2 sacroiliac screws are present traversing the sacrum and bilateral sacroiliac joints. There is a right total hip arthroplasty in satisfactory alignment. No periprosthetic fracture or loosening identified. Soft tissues are unremarkable. RAD/HIP, UNI W/ Pelvis 2-3 Views IMPRESSION: 1. No acute fracture or dislocation. 2. Prior right hip arthroplasty and bilateral sacroiliac screws. Reading Location: [facility]
[2024-06-23] MEDS: Acetaminophen 500 MG Tablet 1000 MG PO (18:11)
[2024-06-23 19:12] VITALS: BP 109/86; PULSE 84; RESP 15; O2SAT 97
--- NOTE | 2024-06-23 19:40 | CT_ITS ---
PROCEDURE: EXTREMITY LOWER WITHOUT CONTRA REASON FOR EXAM: Pain TECHNIQUE: CT images of the right hip were obtained without contrast. Multiplanar reconstructions were performed. COMPARISON: 06/23/2024 FINDINGS: Bones: No acute osseous abnormality.There is a right total hip arthroplasty in satisfactory alignment. Soft tissues: Unremarkable. Gastrointestinal/peritoneum: No acute abnormality. Vascular: Unremarkable. Lymph nodes: No enlarged lymph nodes by CT size criteria. Pelvic organs: Prior hysterectomy. Bladder: Abnormal left lateral wall thickening of the urinary bladder is partially visualized, measuring approximately 5.9 x 2.9 cm. Visualized upper abdomen: Unremarkable. CT/Extremity Lower without Contra IMPRESSION: 1. No acute fracture of the right hip. 2. Right total hip arthroplasty present in satisfactory alignment. 3. Abnormal thickening of the left lateral wall of the urinary bladder, which i s partially visualized. A dedicated CT of the abdomen and pelvis with contrast is recommended for complete assessment. Reading Location: [facility]
[2024-06-23 21:00] VITALS: BP 109/86; PULSE 84
--- NOTE | 2024-06-23 21:13 | ED.RN ---
Report called to [place]. No further questions
[2024-06-24 00:44] VITALS: PULSE 87; RESP 18; O2SAT 100
== END 2024-06-24 01:17 | disposition home or self-care (01) ==
PROVIDERS: Emergency Provider Emergency Medicine; PCP Internal Medicine; Visit Provider Emergency Medicine
DX: M48.56XA Collapsed vertebra, not elsewhere classified, lumbar region, initial encounter for fracture (principal); F03.90 Unspecified dementia, unspecified severity, without behavioral disturbance, psychotic disturbance, mood disturbance, and anxiety; J44.9 Chronic obstructive pulmonary disease, unspecified; E11.9 Type 2 diabetes mellitus without complications; Z79.4 Long term (current) use of insulin; M16.12 Unilateral primary osteoarthritis, left hip; S30.0XXA Contusion of lower back and pelvis, initial encounter; W19.XXXA Unspecified fall, initial encounter; Y92.129 Unspecified place in nursing home as the place of occurrence of the external cause; I10 Essential (primary) hypertension; E78.5 Hyperlipidemia, unspecified; I25.10 Atherosclerotic heart disease of native coronary artery without angina pectoris; Z66 Do not resuscitate; Z95.1 Presence of aortocoronary bypass graft; Z96.641 Presence of right artificial hip joint; Z79.84 Long term (current) use of oral hypoglycemic drugs; Z79.82 Long term (current) use of aspirin; Z79.899 Other long term (current) drug therapy
CPT/HCPCS: 72100; 73502; 73700; 99284

== ENCOUNTER → 2024-06-24 05:00 | Outpatient (REF) | payer MEDICARE, OTHER, SELFPAY ==
[2024-06-24 08:25] LABS: Absolute Lymphocyte Count 1.17 X10^3/uL (0.83-4.51); Absolute Neutrophil Count 12.2 X10^3/uL (2.0-7.7); Basophil# 0.05 X10^3/uL; Basophil% 0.4 % (0-1); Eosinophils% 1.4 % (0-5); Hematocrit 37.4 % (37-47); Hemoglobin 12.3 g/dL (12.0-15.0); Lymphocyte # 1.17 X10^3/ul (0.83-4.51); Lymphocyte % 8.4 % (19-41); Mean Corp Hgb Conc 32.9 g/dL (32-36); Mean Corpuscular Hgb 32.5 pg (27.0-32.0); Mean Corpuscular Volume 98.7 fL (81-99); Mean Platelet Vol. 10.7 fl (6.2-12.0); Monocyte% 2.1 % (0-10); NRBC Flagged by Analyzer 0 % (0-5); Neutrophil # 12.24 X10^3/uL (2.7-7.7); Neutrophil % 87.3 % (47-70); Platelet Count 245 K/mm3 (150-450); RBC Distribution Width CV 11.8 % (11.6-14.6); RBC Distribution Width SD 42.3 fl (35.1-43.9); Red Blood Count 3.79 M/mm3 (4.2-5.4)
[2024-06-24 08:50] LABS: ALB/GLOB Ratio 0.8 RATIO (0.9-2.4); AST(SGOT) 35 U/L (15-37); Alanine Aminotransfer ALT/SGPT 34 U/L (13-56); Albumin, Serum 3.2 g/dL (3.2-5.0); Alkaline Phosphatase 188 U/L (45-117); Anion Gap 9 (5-15); BUN 18 mg/dL (7-18); BUN/Creat Ratio 21.3 RATIO (10-20); Calcium,Total 9.7 mg/dL (8.5-10.1); Chloride 100 mmol/L (98-107); Cholesterol 176 mg/dL (200); Creatinine, Serum 0.84 mg/dL (0.55-1.02); EST Glomerular Filtration Rate 68 mL/min (>60); Est Glom Filt Rate - Afr Amer 82 mL/min (>60); Globulin 4.1 g/dL (2.2-4.2); Glucose 266 mg/dL (74-106); High Density Lipoprotein 40 mg/dL; Potassium 4.6 mmol/L (3.5-5.1); Protein, Total 7.3 g/dL (6.4-8.2); Sodium Level 134 mmol/L (136-145); Triglycerides 233 mg/dL; Very Low Density Lipoprotein 47 mg/dL (5-40)
[2024-06-24 09:18] LABS: Hemoglobin A1c 9.6 % (3.8-5.6)
== END ==
LOC: OLS.WHLTSB 05:00
PROVIDERS: PCP Internal Medicine; Visit Provider Internal Medicine
DX: E11.9 Type 2 diabetes mellitus without complications (principal)
CPT/HCPCS: 36415; 80053; 80061; 83036; 85025

== ENCOUNTER → 2024-07-09 | Outpatient (REF) | payer MEDICARE, OTHER, SELFPAY ==
[2024-07-10 11:18] LABS: Color, Urine Yellow (Yellow); Glucose, Dipstick Normal (Normal); Ketone-Dipstick Negative (Negative); Leukocyte Esterase-Dipstick 100 /ul (Negative); Nitrite-Dipstick Negative (Negative); Occult Blood-Urine 250 /ul (Negative); Protein-Dipstick 100 mg/dl (Negative); Specific Gravity, Urine 1.015 (1.002-1.030); Urine Bilirubin Dipstick Negative (Negative); Urine Clarity Cloudy (Clear); Urine Urobilinogen 1 mg/dl (Normal); Urine pH 6.5 (5.0 - 8.0)
== END ==
LOC: OLS.WHLTSB 22:00
PROVIDERS: PCP Internal Medicine; Referring Provider Internal Medicine; Visit Provider Internal Medicine
DX: N39.0 Urinary tract infection, site not specified (principal)
CPT/HCPCS: 81002; 87086; 87088; 87186